=== PATIENT | female | born 1985 | race Caucasian/White ===

== ENCOUNTER 2017-09-09 20:01 | Emergency (ER) | payer OTHER ==
--- NOTE | 2017-09-09 21:23 | ER ---
Nurse's Notes [facility] Name: Majo Treadwell Age: 32 yrs Sex: Female : 1985 Arrival Date: 09/09/2017 Time: 20:03 Bed 27 Private MD: Reynaldo Gusman Diagnosis: Chronic pain syndrome;Unspecified abdominal pain-LEFT FLANK Presentation: 09/09 20:16 Presenting complaint: Patient states: L flank pain since this morning and vomited x 1. aa1 States, "I have 2 cysts on my kidney and it feels like something is stabbing it.". Transition of care: patient was not received from another setting of care. Onset of symptoms was September 09, 2017. Initial Sepsis Screen: Does the patient meet any 2 criteria? No. Patient's initial sepsis screen is negative. Does the patient have a suspected source of infection? No. Patient's initial sepsis screen is negative. Care prior to arrival: None. 20:16 Method Of Arrival: Ambulatory aa1 20:16 Acuity: STARR 3 aa1 Triage Assessment: 20:17 General: Appears in no apparent distress. uncomfortable, Behavior is appropriate for aa1 age, crying. 21:41 Pain: Complains of pain in left low back. 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 Diff; Crohn's; Depression; Endometrosis; Lupus; renal cysts; aa1 - PSHx: 20:17 Hysterectomy; Cholecystectomy; Tonsillectomy; aa1 - Immunization history:: Flu vaccine is up to date. - Social history:: Smoking status: Patient uses tobacco products, smokes one-half pack cigarettes per day. Screenin:40 Abuse screen: Denies threats or abuse. Nutritional screening: No deficits noted. tl3 Tuberculosis screening: No symptoms or risk factors identified. Fall Risk None identified. Assessment: 20:20 General: Appears uncomfortable, well groomed, well developed, well nourished, Behavior tl3 is calm, cooperative, appropriate for age. Neuro: Level of Consciousness is awake, alert, obeys commands, Oriented to person, place, time, situation, Appropriate for age. 21:39 Reassessment: Patient appears in no apparent distress at this time. No changes from tl3 previously documented assessment. Patient and/or family updated on plan of care and expected duration. Pain level reassessed. Patient is alert, oriented x 3, equal unlabored respirations, skin warm/dry/pink. pt upset about discharge, refuses to sign paperwork. Vital Signs: 20:17 BP 107 / 60; Pulse 85; Resp 18; Temp 97.7; Pulse Ox 100% on R/A; Weight 60.33 kg; aa1 Height 5 ft. 5 in. (165.10 cm); Pain 10/10; 20:17 Body Mass Index 22.13 (60.33 kg, 165.10 cm) aa1 ED Course: 20:03 Patient arrived in ED. am2 20:03 Reynaldo Gusman MD is Private Physician. am2 20:16 Triage completed. aa1 20:17 Arm band placed on right wrist. Patient placed in an exam room, on a stretcher. aa1 20:20 Nicolasa Ordoñez RN is Primary Nurse. tl3 20:34 Damian Dhaliwal MD is Attending Physician. gs 21:40 Patient has correct armband on for positive identification. tl3 21:40 No provider procedures requiring assistance completed. Patient did not have IV access tl3 during this emergency room visit. Administered Medications: No medications were administered Outcome: 21:22 Discharge ordered by . gs 21:40 Patient left the ED. tl3 21:40 Discharged to home ambulatory. tl3 21:40 Condition: stable 21:40 Discharge instructions given to pt would not sign discharge papers Signatures: Keesha Hager RN RN aa1 Margy Washburn am2 Damian Dhaliwal MD MD gs Nicolasa Ordoñez, RN RN tl3
--- NOTE | 2017-09-09 21:23 | EDPHYS ---
Physician Documentation [facility] Name: Majo Treadwell Age: 32 yrs Sex: Female : 1985 Arrival Date: 09/09/2017 Time: 20:03 Bed 27 Private MD: Reynaldo Gusman ED Physician Damian Dhaliwal HPI: 09/09 21:03 This 32 yrs old Female presents to ER via Ambulatory with complaints of Flank gs Pain. 21:03 The patient complains of pain in the left low back. The pain does not radiate. gs 21:03 Onset: The symptoms/episode began/occurred today. Modifying factors: The symptoms are gs alleviated by nothing. the symptoms are aggravated by nothing. Associated signs and symptoms: Pertinent positives: nausea. Severity of pain: At its worst the pain was moderate in the emergency department the pain is unchanged. The patient has experienced similar episodes in the past, chronically. 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 Diff; Crohn's; Depression; Endometrosis; Lupus; renal cysts; aa1 - PSHx: 20:17 Hysterectomy; Cholecystectomy; Tonsillectomy; aa1 - Immunization history:: Flu vaccine is up to date. - Social history:: Smoking status: Patient uses tobacco products, smokes one-half pack cigarettes per day. ROS: 21:03 Constitutional: Negative for fever. gs 21:03 Cardiovascular: Negative for chest pain. 21:03 Abdomen/GI: Negative for abdominal pain, diarrhea, black/tarry stool, rectal bleeding. 21:03 All other systems are negative. Exam: 21:03 Head/Face: Normocephalic, atraumatic. Eyes: Pupils equal round and reactive to light, gs extra-ocular motions intact. Lids and lashes normal. Conjunctiva and sclera are non-icteric and not injected. Cornea within normal limits. Periorbital areas with no swelling, redness, or edema. ENT: Nares patent. No nasal discharge, no septal abnormalities noted. Tympanic membranes are normal and external auditory canals are clear. Oropharynx with no redness, swelling, or masses, exudates, or evidence of obstruction, uvula midline. Mucous membranes moist. Neck: Trachea midline, no thyromegaly or masses palpated, and no cervical lymphadenopathy. Supple, full range of motion without nuchal rigidity, or vertebral point tenderness. No Meningismus. Chest/axilla: Normal chest wall appearance and motion. Nontender with no deformity. No lesions are appreciated. Cardiovascular: Regular rate and rhythm with a normal S1 and S2. No gallops, murmurs, or rubs. Normal PMI, no JVD. No pulse deficits. Respiratory: Lungs have equal breath sounds bilaterally, clear to auscultation and percussion. No rales, rhonchi or wheezes noted. No increased work of breathing, no retractions or nasal flaring. Abdomen/GI: Soft, non-tender, with normal bowel sounds. No distension or tympany. No guarding or rebound. No evidence of tenderness throughout. Skin: Warm, dry with normal turgor. Normal color with no rashes, no lesions, and no evidence of cellulitis. MS/ Extremity: Pulses equal, no cyanosis. Neurovascular intact. Full, normal range of motion. Neuro: Awake and alert, GCS 15, oriented to person, place, time, and situation. Cranial nerves II-XII grossly intact. Motor strength 5/5 in all extremities. Sensory grossly intact. Cerebellar exam normal. Normal gait. 21:03 Constitutional: The patient appears alert, awake. 21:03 Back: CVA tenderness, that is mild, is noted on the left, I AM BARELY TOUCHING HER SKIN AND SHE IS COMPLAINING OF TENDERNESS THAT REPRODUCES HER SYMPTOMS. Vital Signs: 20:17 BP 107 / 60; Pulse 85; Resp 18; Temp 97.7; Pulse Ox 100% on R/A; Weight 60.33 kg; aa1 Height 5 ft. 5 in. (165.10 cm); Pain 10/10; 20:17 Body Mass Index 22.13 (60.33 kg, 165.10 cm) aa1 MDM: 20:38 Patient medically screened. 21:03 Differential diagnosis: pyelonephritis, UTI, CHRONIC PAIN. Data reviewed: vital signs, nurses notes. Response to treatment: the patient's symptoms have mildly improved after treatment, and as a result, I will discharge patient. 09/09 21:01 Order name: Urine Dipstick-Ancillary (obtain specimen); Complete Time: 21:40 gs Administered Medications: No medications were administered Disposition: 09/09/17 21:22 Discharged to Home. Impression: Chronic pain syndrome, Unspecified abdominal pain - LEFT FLANK. - Condition is Stable. - Discharge Instructions: Chronic Pain, Flank Pain. - Medication Reconciliation Form, Thank You Letter, Antibiotic Education, Prescription Opioid Use form. - Follow up: Private Physician; When: Tomorrow; Reason: Recheck today's complaints, Re-evaluation by your physician. Signatures: Keesha Hager, RN RN aa1 Damian Dhaliwal MD MD Nicolasa Ordoñez RN RN tl3
[2017-09-09 21:52] VITALS: BP 107/60; TEMP 97.7; O2SAT 100
== END 2017-09-09 21:40 | disposition home or self-care (01) ==
LOC: ER 20:01
DX: G89.4 Chronic pain syndrome (principal); R10.9 Unspecified abdominal pain; Z88.0 Allergy status to penicillin; Z88.8 Allergy status to other drugs, medicaments and biological substances
CPT/HCPCS: 99281

== ENCOUNTER 2017-12-17 19:06 | Emergency (ER) | payer OTHER ==
--- OUTSIDE RECORDS SUMMARY | 2017-12-17 19:28 | XMS REPORT | Continuity of Care Document ---
:1985 Author Organization Interface Problems Problem Status Onset Classification Date Comments Source Date Reported ABDOMINAL PAIN Active [facility] 018 Hospital Discharge 08/24/2016 [facility] Diagnosis: Well 017 [place] adult exam Discharge 08/20/2016 Jolly Diagnosis: Altered 017 Hospital mental status Discharge 08/20/2016 [facility] Diagnosis: Acute 017 Hospital Crohn's disease Discharge 08/20/2016 Jolly Diagnosis: Anemia 017 Hospital Discharge 08/20/2016 [facility] Diagnosis: Seizure 017 Hospital OVERDOSE Active Jolly 017 Hospital Discharge 08/13/2016 [place] Diagnosis: Acute 017 [place] UTI Discharge 08/13/2016 [place] Diagnosis: Nausea 017 [facility] vomiting and diarrhea Discharge 08/13/2016 [place] Diagnosis: 017 [place] Abdominal pain, acute CROHNS FLARE UP Active [facility] 017 [place] Discharge 08/10/2016 [facility] Diagnosis: 017 [facility] Abdominal pain Discharge 08/10/2016 [facility] Diagnosis: Crohn's 017 [facility] colitis STOMACHE PAIN Active [facility] 017 [place] Discharge 08/06/2016 Jolly Diagnosis: Open 017 Hospital wound of foot ABSCESS ON FOOT Active Jolly 017 Hospital CHROMES PAIN Active [facility] 017 Hospital L SIDED WEAKNESS Active 017 [place] Discharge 03/07/2016 Jolly Diagnosis: 016 Hospital Port-a-cath site pain Discharge 03/07/2016 Jolly Diagnosis: 016 Hospital Musculoskeletal pain OTHER Active [place] 016 [place],[facility] Hospital C-DIFF, DIARRHEA, Active ABD PAIN 016 [place] CROHN'DISEASEN Active C-DIFF 016 [place] ACUTE COLITIS, Active INTRACTABLE 016 [place] ABDOMINAL PAULA VOMITING Active 016 [place] Clostridium Active Problem 08/24/2016 Problem Jolly difficile<sup>1, 016 added by Hospital, 2</sup> Discern [facility], Expert. [facility] [place],[facility] [place] CROHN'S DISEASE, Active HEMOPTYSIS 016 [place] CROHNS DISEASE Active [facility] FLARE-UP 016 Medical Center Discharge 08/09/2014 Jolly Diagnosis: Crohn 015 Hospital disease Discharge 08/09/2014 Jolly Diagnosis: Chronic 015 Hospital abdominal pain Discharge 08/06/2014 Jolly Diagnosis: Nausea, 015 Hospital vomiting, and diarrhea CROHN'S FLARE UP Active [facility] 015 Hospital NEW ONSET SEIZURE Active [facility] VS SYNCOPE 014 [place] SYNCOPE Active [facility] 014 [facility] [id number], MORBID Active [facility] OBESITY 014 [place] Diabetes Resolved Problem 11/23/2015 off mellitus<sup>2</mckee 014 medication [facility] p> for 1 month since gastric sleeve Diabetes Resolved Problem 10/23/2015 off [facility] mellitus<sup>1</mckee 014 medication Medical p> for 1 month [place], since [facility] Diabetes Resolved Problem 08/24/[address] [facility] mellitus<sup>3</mckee 014 medication [facility] p> for 1 month [facility], since gastric [place], sleeve [facility] [place] HIP PAIN Active [address] LUMP UNDER ARM Active [address] SHAKEY Active [address] Bipolar Active Problem 08/24/[address],[facility], H [facility], [place] Diabetes mellitus Active Problem 12/06/2013 [facility] Anxiety Resolved Problem 08/20/2016 [facility] Depression Resolved Problem 08/20/2016 [facility] Hidradenitis Resolved Problem 08/20/2016 [facility] suppurativa [facility] Lupus Active Problem 08/20/2016 [facility] Reflux Active Problem 08/20/2016 [facility] Anxiety Resolved Problem 06/21/2016 [facility], [place] Depression Resolved Problem 06/21/2016 [facility], [place] Hidradenitis Resolved Problem 06/21/2016 [facility], [place] Lupus Active Problem 06/21/2016 [facility], [place] Reflux Active Problem 06/21/2016 [facility], [place] Anxiety Resolved Problem 01/27/2016 [facility], [place] Clostridium Active Problem 11/23/2015 Problem difficile<sup>1</s added by [place] up> Discern Expert. Depression Resolved Problem 01/27/2016 [facility], [place] Hidradenitis Resolved Problem 01/27/2016 [facility], [place] Lupus Active Problem 01/27/2016 [facility], [place] Morbid obesity Active Problem 12/25/2015 [facility], [place] Reflux Active Problem 01/27/2016 [facility], [place] Morbid obesity Active Problem 08/09/2014 [facility] Final: Hemoptysis 11/27/2015 [place] Anxiety Resolved Problem 10/23/2015 [facility] Depression Resolved Problem 10/23/2015 [facility] Hidradenitis Resolved Problem 10/23/2015 [facility] Lupus Resolved Problem 10/23/2015 [facility] Morbid obesity Active Problem 10/23/2015 [facility] Reflux Active Problem 10/23/2015 [facility] Anxiety Resolved Problem 08/24/2016 [facility], [place] Crohns disease Active Problem 08/24/2016 [facility],M [facility] [place],M [facility], [place] Depression Resolved Problem 08/24/2016 [facility], [place] Hidradenitis Resolved Problem 08/24/2016 [facility], [place] Lupus Active Problem 08/24/2016 [facility], [place] Reflux Active Problem 08/24/2016 [facility], [place] MORBID OBESITY Active [facility] FEBRILE Active [facility] CONVULSIONS [place]OS [place] ILLNESS, Active [facility] [place] [facility] HEMOPTYSIS Active [place] CROHNS DISEASE Active [facility] [place] UNSPECIFIED Active MH ABDOMINAL PAIN [facility] ENTEROCOLITIS DUE Active MH TO CLOSTRIDIUM [place] DIFFICI CROHN'S DISEASE, Active MH UNSPECIFIED, [place] WITHOUT CO HEMIPLEGIA, Active MH UNSPECIFIED [facility] AFFECTING LEFT N Medications Medication Details Route Status Patient Ordering Order Source Instructions Provider Date predniSONE 20 mg 60 mg=3 tab, Active Jolly oral tablet PO, Daily, [address] [place] [address] Take 3 tablets for 60 mg dose, X 5 day, # 15 tab, 0 Refill(s) Acetaminophen 325 1 tab, Route: Inactive 08/17[facility] Jolly MG / Hydrocodone PO, Drug Form: [address] [place] [address] Bitartrate 5 MG TAB, Dosing Oral Tablet [Linton Weight 75, kg, 5/325] ONCE, STAT, Start date: 08/17/16 4:03:00 CDT, Stop date: 08/17/16 4:03:00 CDT Zofran ODT 4 mg, Route: Inactive Jolly PO, Drug form: [address] [place] [address] TABDIS, ONCE, Dosing Weight 75, kg, Priority: STAT, Start date: 08/17/16 4:03:00 CDT, Stop date: 08/17/16 4:03:00 CDT Dicyclomine 10 mg=1 cap, Active Jolly Hydrochloride 10 PO, QID-Before 2017 Hospital MG Oral Capsule Meals, # 40 [Bentyl] cap, 0 Refill(s) Sodium Chloride 1,000 mL, 1000 Inactive Jolly 0.154 MEQ/ML ml/hr, Infuse [address] [place] [address] Injectable Over: 1 hr, Solution Route: IV, 1,000, Drug form: INJ, ONCE, Priority: STAT, Dosing Weight 68.4 kg, Start date: 08/16/16 22:09:00 CDT, Duration: 1 doses or times, Stop date: 08/16/16 22:09:00 CDT Saline Flush 0.9% 10 mL, Route: No Longer Jolly IVP, Drug Active [address] [place] [address] Form: INJ, Dosing Weight 68.4, kg, PRN, PRN Line Flush, Start date: 08/16/16 22:09:00 CDT, Duration: 30 day, Stop date: 09/15/16 22:08:00 CDTNotes: (Same as: BD Posiflush) levofloxacin 750 750 mg=1 tab, Active [facility] mg oral tablet PO, Daily, X 7 2017 [place] day, # 7 tab, 0 Refill(s) Ondansetron 8 MG 8 mg=1 tab, Active [place] Disintegrating PO, TID, PRN 2017 [place] Tablet [Zofran] Nausea and Vomiting, Dissolve tab under tongue, X 4 day, # 10 tab, 0 Refill(s) Acetaminophen 300 1 - 2 tab, PO, Active [facility] MG / Codeine Q6H, PRN Pain, 2017 [place] Phosphate 30 MG not to exceed Oral Tablet 4000 mg [Tylenol with acetaminophen Codeine #3] per day, X 4 day, # 32 tab, 0 Refill(s) Levofloxacin 750 mg, 1 tab, Inactive Sugar Route: PO, 2016 [facility] Drug form: TAB, ONCE, Dosing Weight 68.4, kg, Start date: 08/10/16 0:39:00 CDT, Stop date: 08/10/16 0:39:00 CDTNotes: Do not give w/antacids, dairy pdt & minerals Take 1 hr before or 2 hr after dairy products Zofran 4 mg, 2 mL, Inactive [facility] Route: IVP2016 [facility] Drug form: INJ, ONCE, Dosing Weight 68.4, kg, Priority: STAT, Start date: 08/10/16 0:39:00 CDT, Stop date: 08/10/16 0:39:00 CDTNotes: (Same as: Zofran) MEDICATION WASTE Product Size: 4 mg Product Wasted: ___ mg Morphine 4 mg, 1 mL, Inactive Sugar Route: IVP2016 [facility] Drug form: SOLN, ONCE, Dosing Weight 68.4, kg, Priority: STAT, Start date: 08/10/16 0:39:00 CDT, Stop date: 08/10/16 0:39:00 CDTNotes: (Same as:MORPhine Sulfate) Solu-Medrol 125 mg, 2 mL, Inactive Sugar Route: IVP2016 [facility] Drug form: INJ, ONCE, Dosing Weight 68.4, kg, Priority: STAT, Start date: 08/09/16 22:20:00 CDT, Stop date: 08/09/16 22:20:00 CDTNotes: (Same as:Solu-MEDROL , A-Methapred) Phenergan 25 mg, 1 mL, Inactive Sugar Route: IM, 2016 [facility] Drug form: INJ, ONCE, Dosing Weight 68.4, kg, Priority: STAT, Start date: 08/09/16 22:19:00 CDT, Stop date: 08/09/16 22:19:00 CDTNotes: Do not give IV push. (Same as: Phenergan) Morphine 4 mg, 1 mL, Inactive Sugar Route: IVP, 2016 [facility] Drug form: SOLN, ONCE, Dosing Weight 68.4, kg, Priority: STAT, Start date: 08/09/16 22:19:00 CDT, Stop date: 08/09/16 22:19:00 CDTNotes: (Same as:MORPhine Sulfate) Saline Flush 0.9% 10 mL, Route: No Longer [facility] IVP, Drug Active 2016 [facility] Form: INJ, Dosing Weight 68.4, kg, PRN, PRN Line Flush, Start date: 08/09/16 21:12:00 CDT, Duration: 30 day, Stop date: 09/08/16 21:11:00 CDTNotes: (Same as: BD Posiflush) Prednisone 50 MG 50 mg=1 tab, Active [facility] Oral Tablet PO, Daily, X 7 2016 day, # 7 tab, 0 Refill(s) heparin, porcine 300 unit, 3 Inactive [facility] mL, Route: IV 2016 [facility], Drug form: SOLN, PRN, Dosing Weight 70.045, kg, PRN Line Flush, Start date: 08/07/16 1:45:00 CDT, Duration: 30 day, Stop date: 09/06/16 1:44:00 CDTNotes: (Same as: Heparin Lock Flush) Prednisone 1 MG 1 mg, 1 tab, Active [facility] Oral Tablet PO, Daily, 10 2016 tab, Substitution Allowed Ondansetron 4 MG 4 mg=1 tab, Active [facility] Disintegrating PO, TID, PRN 2017 [place] Tablet Nausea / Vomiting, Dissolve tab under tongue, X 3 day, # 10 tab, 0 Refill(s) Acetaminophen 300 1 - 2 tab, PO, Active [facility] MG / Codeine Q6H, PRN Pain, 2017 [place] Phosphate 30 MG X 3 day, # 24 Oral Tablet tab, 0 [Tylenol with Refill(s) Codeine #3] Morphine 4 mg, 1 mL, Inactive [facility] Route: IVP2016 [facility] Drug form: SOLN, ONCE, Dosing Weight 70.045, kg, Priority: STAT, Start date: 08/07/16 1:34:00 CDT, Stop date: 08/07/16 1:34:00 CDTNotes: (Same as:MORPhine Sulfate) Zofran 4 mg, 2 mL, Inactive Sugar Stop date: 2016 [place] 08/07/16 1:02:00 CDTNotes: (Same as: Zofran) MEDICATION WASTE Product Size: 4 mg Product Wasted: ___ mg Solu-Medrol 125 mg, 2 mL, Inactive Sugar Route: IVP2016 [facility] Drug form: INJ, ONCE, Dosing Weight 70.045, kg, Priority: STAT, Start date: 08/06/16 23:10:00 CDT, Stop date: 08/06/16 23:10:00 CDTNotes: (Same as:Solu-MEDROL , A-Methapred) Morphine 4 mg, 1 mL, Inactive Sugar Route: IVP2016 [facility] Drug form: SOLN, ONCE, Dosing Weight 70.045, kg, Priority: STAT, Start date: 08/06/16 23:05:00 CDT, Stop date: 08/06/16 23:05:00 CDTNotes: (Same as:MORPhine Sulfate) Zofran 4 mg, 2 mL, Inactive Sugar Route: IVP2016 [facility] Drug form: INJ, ONCE, Dosing Weight 70.045, kg, Priority: STAT, Start date: 08/06/16 23:05:00 CDT, Stop date: 08/06/16 23:05:00 CDTNotes: (Same as: Zofran) MEDICATION WASTE Product Size: 4 mg Product Wasted: ___ mg Saline Flush 0.9% 10 mL, Route: No Longer [facility] IVP, Drug Active 2016 [place] Form: INJ, Dosing Weight 70.045, kg, PRN, PRN Line Flush, Start date: 08/06/16 22:41:00 CDT, Duration: 30 day, Stop date: 09/05/16 22:40:00 CDTNotes: (Same as: BD Posiflush) Sodium Chloride 1,000 mL, Inactive Sugar 0.154 MEQ/ML 2,000 ml/hr, 2017 [place] Injectable Infuse Over: Solution 30 minutes, Route: IV, 1,000, Drug form: INJ, ONCE, Priority: STAT, Dosing Weight 70.045 kg, Start date: 08/06/16 22:41:00 CDT, Duration: 1 doses or times, Stop date: 08/06/16 22:41:00 CDT Acetaminophen 300 1 tab, PO, No Longer Jolly MG / Codeine Q6H, PRN Pain, Active 2016 Hospital Phosphate 30 MG X 2 day, # 8 Oral Tablet tab, 0 [Tylenol with Refill(s) Codeine #3] clindamycin 300 mg 300 mg=1 cap, Active Jolly oral capsule PO, Q6H, X 10 2016 Hospital day, # 40 cap, 0 Refill(s) Acetaminophen 300 1 tab, Route: Inactive Jolly MG / Codeine PO, Drug Form: 2016 Hospital Phosphate 30 MG TAB, Dosing Oral Tablet Weight 68.182, [Tylenol with kg, ONCE, Codeine #3] STAT, Start date: 08/03/16 1:34:00 CDT, Stop date: 08/03/16 1:34:00 CDT Clindamycin 300 mg, Route: Inactive Jolly PO, ONCE, 2017 Hospital Dosing Weight 68.182, kg, Priority: STAT, Start date: 08/03/16 1:34:00 CDT, Stop date: 08/03/16 1:34:00 CDT Heparin Lock 100 500 unit, 5 Inactive units/mL INJ mL, Route: 2016 [place] solution INJ, Drug Form: SOLN, Dosing Weight 69.545, kg, ONCE, Start date: 06/18/16 12:00:00 WEB CONSULTANT, Stop date: 06/18/16 12:00:00 CSTNotes: (Same as: Heparin Lock Flush) Sumatriptan 25 MG 25 mg=1 tab, Active Oral Tablet PO, Daily, PRN 2016 [facility] [Imitrex] for migraine headache, X 9 day, # 9 tab, 0 Refill(s) Hydroxychloroquine 200 mg, 1 tab, Inactive Sulfate 200 MG Route: PO, 2016 [facility] Oral Tablet Drug form: [Plaquenil] TAB, BID, Dosing Weight 69.545, kg, Start date: 06/18/16 9:00:00 WEB CONSULTANT, Duration: 30 day, Stop date: 07/17/16 17:00:00 CSTNotes: (Same as: Plaquenil) Hydroxychloroq uine sulfate 200 wp=930 mg hydroxychloroq uine base. If treating malaria, verify dose as salt vs. base per CDC guideline Famotidine 20 MG 20 mg, 1 tab, Inactive Oral Tablet Route: PO2016 [facility] Drug form: TAB, BID, Dosing Weight 69.545, kg, Start date: 06/18/16 9:00:00 WEB CONSULTANT, Duration: 30 day, Stop date: 07/17/16 17:00:00 CSTNotes: (Same as: Pepcid) Divalproex Sodium 500 mg, 1 tab, Inactive 500 MG Enteric Route: PO2016 [facility] Coated Tablet Drug form: [Depakote] ECTAB, BID, Dosing Weight 69.545, kg, Start date: 06/18/16 9:00:00 WEB CONSULTANT, Duration: 30 day, Stop date: 07/17/16 17:00:00 CSTNotes: (Same as: Depakote Delayed Release) Do not confuse with the extended-relea se tablet. Delayed absorption enteric coated tablet. Do not crush Cholestyramine 4 gm, 1 pkt, Inactive Resin Route: PO2016 [facility] Drug form: PDR/REC, BID, Dosing Weight 69.545, kg, Start date: 06/18/16 9:00:00 WEB CONSULTANT, Duration: 30 day, Stop date: 07/17/16 17:00:00 CSTNotes: (Same As: Questran) Budesonide 9 mg, 3 cap, Inactive Route: PO, 2016 [facility] Drug form: ERCAP, Daily, Dosing Weight 69.545, kg, Start date: 06/18/16 9:00:00 WEB CONSULTANT, Duration: 30 day, Stop date: 07/17/16 9:00:00 CSTNotes: (Same As: Entocort EC or Budesonide 3 mg EC / ERC) "Do Not Crush" Imuran 50 mg, 1 tab, Inactive Route: PO, 2016 [facility] Drug form: TAB, Daily, Dosing Weight 69.545, kg, Start date: 06/18/16 9:00:00 WEB CONSULTANT, Duration: 30 day, Stop date: 07/17/16 9:00:00 CSTNotes: (Same As: Imuran) Remeron 15 mg, 1 tab, No Longer Route: PO, Active 2016 [facility] Drug form: TAB, Bedtime, Dosing Weight 69.545, kg, Start date: 06/17/16 21:00:00 WEB CONSULTANT, Duration: 30 day, Stop date: 07/16/16 21:00:00 CSTNotes: (Same as:Remeron) Ativan 0.5 mg, 1 tab, No Longer Route: PO, Active 2016 [facility] Drug form: TAB, TID, Dosing Weight 69.545, kg, PRN Anxiety, Start date: 06/17/16 17:54:00 WEB CONSULTANT, Duration: 30 day, Stop date: 07/17/16 17:53:00 CSTNotes: (Same as: Ativan) Trazodone 25 mg, PO, as Active needed 3 times 2016 [facility] a week, 0 Refill(s) Ativan 0.5 mg, 0.25 Inactive mL, Route: IV, 2016 [facility] Drug form: INJ, ONCE, Dosing Weight 69.545, kg, For MRI, Priority: NOW, Start date: 06/17/16 11:44:00 WEB CONSULTANT, Stop date: 06/17/16 11:44:00 CSTNotes: (Same as: Ativan) Acetaminophen 325 2 tab, Route: No Longer 01/28/ MH MG / Hydrocodone PO, Drug Form: Active 2016 [facility] Bitartrate 5 MG TAB, Dosing Oral Tablet [Linton Weight 69.545, 5/325] kg, Q6H, PRN Pain Score 4-6, pt states she not allergic to norco, Start date: 06/16/16 16:05:00 WEB CONSULTANT, Duration: 30 day, Stop date: 07/16/16 16:04:00 CSTNotes: (Same as: Linton 325/5) Do not exceed 4gm/day of acetaminophen. Ativan 0.5 mg, 1 tab, No Longer Route: PO, Active 2016 [facility] Drug form: TAB, ONCE, Dosing Weight 69.545, kg, PRN Anxiety, Start date: 06/16/16 16:04:00 CSTNotes: (Same as: Ativan) Tylenol 650 mg, 2 tab, No Longer Route: PO, Active 2016 [facility] Drug form: TAB, Q6H, PRN Headache 1-3, Start date: 06/16/16 14:00:00 WEB CONSULTANT, Duration: 30 day, Stop date: 07/16/16 13:59:00 CSTNotes: Do not exceed 4 gm/day. (Same as: Tylenol) Zofran 4 mg, 2 mL, Inactive Jolly Route: IVP2015 Hospital Drug form: INJ, ONCE, Dosing Weight 72.727, kg, Priority: STAT, Start date: 03/04/16 18:34:00 CDT, Stop date: 03/04/16 18:34:00 CDTNotes: (Same as: Zofran) MEDICATION WASTE Product Size: 4 mg Product Wasted: ___ mg Morphine 4 mg, 1 mL, Inactive Jolly Route: IVP, 2015 Hospital Drug form: INJ, ONCE, Dosing Weight 72.727, kg, Priority: STAT, Start date: 03/04/16 18:34:00 CDT, Stop date: 03/04/16 18:34:00 CDTNotes: (Same as:MORPhine Sulfate) Saline Flush 0.9% 10 mL, Route: No Longer Jolly IVP, Drug Active 2015 Hospital Form: INJ, Dosing Weight 72.727, kg, PRN, PRN Line Flush, Start date: 03/04/16 18:34:00 CDT, Duration: 30 day, Stop date: 04/03/16 17:33:00 CSTNotes: (Same as: BD Posiflush) Streptococcus 0.5 mL, Route: No Longer pneumoniae IM, Drug Form: Active 2015 [facility] serotype 1 INJ, Daily, capsular antigen Start date: diphtheria [id number] 01/25/16 protein conjugate 9:00:00 CDT, vaccine / Stop date: Streptococcus 01/25/16 pneumoniae 17:00:00 serotype 14 CDTNotes: capsular antigen Lightly roll diphtheria [id number] vial (DO NOT protein conjugate SHAKE) before vaccine / administration Streptococcus . (Same as: pneumoniae Prevnar 13) serotype 18C capsular antigen d Acetaminophen 325 See Active MG / Hydrocodone Instructions, 2015 [facility] Bitartrate 10 MG 1 tab PO Q12H Oral Tablet [[place]inton prn pain, # 15 10/325] tab, 0 Refill(s), given to patient Acetaminophen 325 1 tab, Route: Inactive MG / Hydrocodone PO, Drug Form: 2015 [facility] Bitartrate 10 MG TAB, Dosing Oral Tablet [[place] Weight 68.892, 10/325] kg, Q6H, PRN Pain Score 4-6, Start date: 01/24/16 17:03:00 CDT, Duration: 30 day, Stop date: 02/23/16 17:02:00 CDTNotes: Do not exceed 4gm/day of acetaminophen. (Same as: Linton 325/10) Dilaudid 0.5 mg, 0.5 Inactive mL, Route: 2015 [facility] IVP, Drug form: INJ, ONCE, Dosing Weight 68.892, kg, Priority: STAT, Start date: 01/24/16 16:56:00 CDT, Stop date: 01/24/16 16:56:00 CDT sodium chloride 10 mL, Route: Inactive IVP, Start 2015 [facility] date: 01/24/16 16:25:00 CDT, Duration: 30 day, Stop date: 02/23/16 16:24:00 CDT, PRN Other -See CommentNotes: preservative free. heparin flush 500 unit, 5 Inactive mL, Route: 2015 IVP, Drug form: SOLN, Q30D, PRN Other -See Comment, Start date: 01/24/16 16:25:00 CDT, Duration: 30 day, Stop date: 02/23/16 16:24:00 CDTNotes: (Same as: Heparin Lock Flush) fidaxomicin 200 mg 200 mg=1 tab, Active oral tablet PO, BID, X 10 2015, # 20 tab, 0 Refill(s) Acetaminophen 325 1 tab, Route: Inactive MG / Hydrocodone PO, Drug Form: 2015 Bitartrate 5 MG TAB, Dosing Oral Tablet [[place] Weight 68.892, 5/325] kg, ONCE, Start date: 01/24/16 15:00:00 CDT, Stop date: 01/24/16 15:00:00 CDTNotes: (Same as: Linton 325/5) Do not exceed 4gm/day of acetaminophen. Famotidine 20 MG 20 mg=1 tab, Active Oral Tablet PO, BID, # 60 2015 tab, 0 Refill(s) D5W 1/2NS + KCL 1,000 mL, No Longer 40mEq/L 1000ml Rate: 100 Active 2015 (Premix) 1,000 mL ml/hr, Infuse over: 10 hr, Route: IV, Dosing Weight 68.892 kg, Total Volume: 1,000, Start date: 01/23/16 14:58:00 CDT, Duration: 30 day, Stop date: 02/22/16 14:57:00 CDTNotes: PREMIX IV - Do Not Alter WASTE: F/P - Sink; E - Municipal Trash [facility] Remeron 15 mg, 1 tab, No Longer Route: PO, Active 2015 Drug form: TAB, Bedtime, Dosing Weight 68.892, kg, Start date: 01/22/16 21:00:00 CDT, Duration: 30 day, Stop date: 02/20/16 21:00:00 CDTNotes: (Same as:Remeron) Famotidine 20 MG 20 mg, 1 tab, No Longer Oral Tablet Route: PO, 2015 [facility] Drug form: TAB, BID, Dosing Weight 68.892, kg, Start date: 01/22/16 18:00:00 CDT, Duration: 30 day, Stop date: 02/21/16 17:00:00 CDTNotes: (Same as: Pepcid) fidaxomicin 200 mg, 1 tab, No Longer Route: PO, Active 2015 [facility] Drug form: TAB, [id number], Dosing Weight 68.892, kg, Start date: 01/22/16 18:00:00 CDT, Duration: 10 day, Stop date: 02/01/16 6:00:00 CDTNotes: Reserved for use by ID Physicians in patients with positive C. difficile infection, refractory to vancomycin and metronidazole. (Same as: Dificid) potassium chloride 40 mEq, 2 tab, Inactive Route: PO, 2015 [facility] Drug form: ERTAB, ONCE, Dosing Weight 68.892, kg, Start date: 01/22/16 12:38:00 CDT, Stop date: 01/22/16 12:38:00 CDTNotes: (Same as: K-Dur 20) "Do Not Crush" With food and full glass of water Divalproex Sodium 500 mg, 2 tab, No Longer 500 MG Enteric Route: PO, Active 2015 [facility] Coated Tablet Drug form: [Depakote] ECTAB, BID, Dosing Weight 68.892, kg, Start date: 01/22/16 9:00:00 CDT, Duration: 30 day, Stop date: 02/20/16 17:00:00 CDTNotes: (Same as: Depakote Delayed Release) Do not confuse with the extended-relea se tablet. Delayed absorption, enteric coated tablet. Do not crush Budesonide 9 mg, 3 cap, No Longer Route: PO, Active 2015 [facility] Drug form: ERCAP, Daily, Dosing Weight 68.892, kg, Start date: 01/22/16 9:00:00 CDT, Duration: 30 day, Stop date: 02/20/16 9:00:00 CDTNotes: (Same As: Entocort EC or Budesonide 3 mg EC / ERC) "Do Not Crush" Cholestyramine 4 gm, 1 pkt, Inactive Resin Route: PO, 2015 [facility] Drug form: PDR/REC, BID, Dosing Weight 68.892, kg, Start date: 01/22/16 9:00:00 CDT, Duration: 30 day, Stop date: 02/20/16 17:00:00 CDTNotes: (Same As: Questran) Celexa 40 mg, 4 tab, No Longer Route: PO, Active 2015 [facility] Drug form: TAB, Daily, Dosing Weight 68.892, kg, Start date: 01/22/16 9:00:00 CDT, Duration: 30 day, Stop date: 02/20/16 9:00:00 CDT Imuran 100 mg, 2 tab, No Longer Route: PO, Active 2015 [facility] Drug form: TAB, Daily, Dosing Weight 68.892, kg, Start date: 01/22/16 9:00:00 CDT, Duration: 30 day, Stop date: 02/20/16 9:00:00 CDTNotes: (Same As: Imuran) Hydroxyzine 50 mg, 2 cap, No Longer Hydrochloride 50 Route: PO, Active 2015 [facility] Oral Capsule Drug form: CAP, TID, Dosing Weight 68.892, kg, Start date: 01/22/16 9:00:00 CDT, Duration: 30 day, Stop date: 02/20/16 17:00:00 CDTNotes: (Same as: Vistaril) Hydroxychloroquine 200 mg, 1 tab, No Longer Sulfate 200 MG Route: PO, Active 2015 [facility] Oral Tablet Drug form: TAB, BID, Dosing Weight 68.892, kg, Start date: 01/22/16 9:00:00 CDT, Duration: 30 day, Stop date: 02/20/16 17:00:00 CDTNotes: (Same as: Plaquenil) Hydroxychloroq uine sulfate 200 zc=[id number] mg hydroxychloroq uine base. If treating malaria, verify dose as salt vs. base per CDC guideline Protonix 40 mg, 1 tab, Inactive Route: PO, 2015 [facility] Drug form: ECTAB, BID-Before Meals, Dosing Weight 68.892, kg, Start date: 01/22/16 7:30:00 CDT, Duration: 30 day, Stop date: 02/20/16 16:30:00 CDTNotes: Tablet should not be chewed or crushed. (Same as: Protonix) Flagyl 500 mg, 100 Inactive mL, Route: 2015 [facility] IVPB, Drug form: INJ, ABXQ6H, Dosing Weight 68.892, kg, Start date: 01/22/16 0:00:00 CDT, Duration: 30 day, Stop date: 02/20/16 18:00:00 CDTNotes: (Same as: Flagyl) Avoid alcohol. Vancomycin 500 mg, 10 mL, Inactive Route: PO, 2015 [facility] Drug form: SUSP, ABXQ6H, Dosing Weight 68.892, kg, Start date: 01/22/16 0:00:00 CDT, Duration: 30 day, Stop date: 02/20/16 18:00:00 CDTNotes: TIME CRITICAL MEDICATION "DILUTE EACH DOSE WITH 30ML OF WATER OR APPLE/ORANGE JUICE PRIOR TO ADMINISTRATION " Alprazolam 1 MG 1 mg, 1 tab, No Longer Oral Tablet Route: PO, Active 2015 [facility] Drug form: TAB, Bedtime, Dosing Weight 68.892, kg, Priority: NOW, Start date: 01/21/16 23:13:00 CDT, Duration: 30 day, Stop date: 02/20/16 21:00:00 CDTNotes: With food or milk (Same as: Xanax) Promethazine 12.5 mg, 1 No Longer tab, Route: Active 2015 [facility] PO, Drug form: TAB, Q4H, Dosing Weight 68.892, kg, PRN Nausea & Vomiting, Start date: 01/21/16 23:05:00 CDT, Duration: 30 day, Stop date: 02/20/16 23:04:00 CDTNotes: (Same as: Phenergan) Ondansetron 4 mg, Route: Inactive IVP, Q8H, 2015 Dosing Weight 68.892, kg, PRN Nausea & Vomiting, Start date: 01/21/16 23:05:00 CDT, Duration: 30 day, Stop date: 02/20/16 23:04:00 CDT Hydromorphone 0.5 mg, 0.5 No Longer mL, Route: Active 2015 [facility] IVP, Drug form: INJ, Q3H, Dosing Weight 68.892, kg, PRN Pain Score 7-10, Start date: 01/21/16 23:05:00 CDT, Duration: 30 day, Stop date: 02/20/16 23:04:00 CDT Sodium Chloride 1,000 mL, No Longer 0.154 MEQ/ML Rate: 125 Active 2015 [facility] Injectable ml/hr, Infuse Solution over: 8 hr, Route: IV, Dosing Weight 68.892 kg, Total Volume: 1,000, Start date: 01/21/16 23:05:00 CDT, Duration: 30 day, Stop date: 02/20/16 23:04:00 CDT Saline Flush 0.9% 10 ml, Route: No Longer IVP, Drug Active 2015 [facility] Form: INJ, Dosing Weight 68.892, kg, PRN, PRN Line Flush, Start date: 01/21/16 23:05:00 CDT, Duration: 30 day, Stop date: 02/20/16 23:04:00 CDTNotes: (Same as: BD Posiflush) Remeron 15 mg, 1 tab, Inactive Route: PO, 2015 [facility] Drug form: TAB, Bedtime, Dosing Weight 69.602, kg, Start date: 12/22/15 21:00:00 CDT, Duration: 30 day, Stop date: 01/20/16 21:00:00 CDTNotes: (Same as:Remeron) heparin, porcine 100 unit, 1 Inactive mL, Route: 2015 [facility] IVP, Drug form: SOLN, PRN, Dosing Weight 69.602, kg, PRN Line Flush, Priority: NOW, Start date: 12/22/15 13:40:00 CDT, Duration: 30 day, Stop date: 01/21/16 13:39:00 CDT, flush for pick line or [id number] es: (Same as: Heparin Lock Flush) Mirtazapine 15 MG 15 mg, PO, Active Oral Tablet Bedtime, # 20 2015 [facility] [Remeron] tab, 0 Refill(s) Metronidazole 500 500 mg=1 tab, Active MG Oral Tablet PO, Q8H, X 7 2015 [facility] [Flagyl] day, # 21 tab, 0 Refill(s) Alprazolam 0.5 MG 0.5 mg, 1 tab, Inactive Oral Tablet Route: PO, 2015 [Xanax] Drug form: TAB, TID, Dosing Weight 69.602, kg, PRN Anxiety, Start date: 12/22/15 12:59:00 CDT, Duration: 30 day, Stop date: 01/21/16 12:58:00 CDTNotes: With food or milk (Same as: Xanax) Alprazolam 0.5 MG 0.5 mg, 1 tab, No Longer Oral Tablet Route: PO, Active 2015 [facility] [Xanax] Drug form: TAB, BID, Dosing Weight 69.602, kg, PRN Anxiety, Start date: 12/21/15 17:55:00 CDT, Duration: 30 day, Stop date: 01/20/16 17:54:00 CDTNotes: With food or milk (Same as: Xanax) Cholestyramine 4 gm, 1 pkt, No Longer [place]in Route: PO, Active 2015 [facility] Drug form: PDR/REC, Daily, Dosing Weight 69.602, kg, Start date: 12/21/15 9:00:00 CDT, Duration: 30 day, Stop date: 01/19/16 9:00:00 CDTNotes: (Same As: Questran) D5W 1/2NS + KCL 1,000 mL, No Longer 10mEq/L 1000ml Rate: 60 Active 2015 [facility] (Premix) 1,000 mL ml/hr, Infuse over: 16.7 hr, Route: IV, Dosing Weight 69.602 kg, Total Volume: 1,000, Start date: 12/20/15 18:01:00 CDT, Stop date: 01/19/16 18:00:00 CDTNotes: PREMIX IV - Do Not Alter WASTE: F/P - Sink; E - Municipal Trash Bin Vancomycin 125 mg, 2.5 No Longer mL, Route: PO, Active 2015 [facility] Drug form: SUSP, ABXQ6H, Dosing Weight 69.602, kg, Start date: 12/20/15 18:00:00 CDT, Stop date: 01/19/16 12:00:00 CDTNotes: TIME CRITICAL MEDICATION "DILUTE EACH DOSE WITH 30ML OF WATER OR APPLE/ORANGE JUICE PRIOR TO ADMINISTRATION " Dextrose 5% with 1,000 mL, Inactive 0.45% NaCl IV 1000 Rate: 100 2015 [facility] mL ml/hr, Infuse over: 10 hr, Route: IV, Dosing Weight 69.602 kg, Total Volume: 1,000, Start date: 12/20/15 17:48:00 CDT, Duration: 30 day, Stop date: 01/19/16 17:47:00 CDT Imuran Daily, 0 No Longer Refill(s) Active 2015 [facility] Alprazolam 1 MG 1 mg=1 tab, Active Oral Tablet PO, TID, PRN 2015 [facility] [Xanax] Anxiety, 0 Refill(s) Citalopram 40 MG 40 mg=1 tab, No Longer Oral Tablet PO, Daily, # Active 2015 [facility] [Celexa] 30 tab, 0 Refill(s) Divalproex Sodium 500 mg=1 tab, Active 500 MG Enteric PO, BID, # 60 2015 [facility] Coated Tablet tab, 0 [Depakote] Refill(s) Hydroxychloroquine 200 mg=1 tab, No Longer Sulfate 200 MG PO, Daily, 0 Active 2015 [facility] Oral Tablet Refill(s) [Plaquenil] Dilaudid 0.5 mg, 0.5 No Longer mL, Route: Active 2015 [facility] IVP, Drug form: INJ, Q4H, Dosing Weight 69.602, kg, PRN Pain Score 7-10, Start date: 12/20/15 13:31:00 CDT, Duration: 30 day, Stop date: 01/19/16 13:30:00 CDT Acetaminophen 325 1 tab, Route: No Longer MG / Hydrocodone PO, Drug Form: Active 2015 [facility] Bitartrate 10 MG TAB, Dosing Oral Tablet [[place] Weight 69.602, 10/325] kg, Q4H, PRN Pain Score 7-10, Start date: 12/20/15 10:18:00 CDT, Duration: 30 day, Stop date: 01/19/16 10:17:00 CDTNotes: Do not exceed 4gm/day of acetaminophen. (Same as: Linton 325/10) Metronidazole 500 mg, 100 No Longer mL, Route: IV, Active 2015 [facility] Drug form: INJ, ABXQ6H, Dosing Weight 68.182, kg, Priority: STAT, Start date: 12/20/15 5:49:00 CDT, Duration: 30 day, Stop date: 01/18/16 23:49:00 CDTNotes: (Same as: Flagyl) Avoid alcohol. Morphine 4 mg, 2 mL, Inactive Route: IVP, 2015 [facility] Drug form: INJ, Q4H, Dosing Weight 68.182, kg, PRN Pain Score 7-10, Start date: 12/20/15 5:49:00 CDT, Duration: 30 day, Stop date: 01/19/16 5:48:00 CDTNotes: (Same as:MORPhine Sulfate) Ondansetron 4 mg, 2 mL, No Longer Route: IVP, [facility] 2015 [facility] Drug form: INJ, Q6H, Dosing Weight 68.182, kg, PRN Nausea & Vomiting, Start date: 12/20/15 5:49:00 CDT, Duration: 30 day, Stop date: 01/19/16 5:48:00 CDTNotes: (Same as: Zofran) MEDICATION WASTE Product Size: 4 mg Product Wasted: ___ mg Docusate 100 mg, 1 cap, No Longer Route: PO, Active 2015 [facility] Drug form: CAP, BID, Dosing Weight 68.182, kg, PRN Constipation, Start date: 12/20/15 5:49:00 CDT, Duration: 30 day, Stop date: 01/19/16 5:48:00 CDTNotes: (Same as: Colace) (Do Not Crush) Dilaudid 0.5 mg, Route: Inactive IVP, ONCE, 2015 [facility] Dosing Weight 68.182, kg, Priority: STAT, Start date: 12/20/15 4:11:00 CDT, Stop date: 12/20/15 4:11:00 CDT Morphine 4 mg, Route: Inactive IVP, Drug 2015 [facility] form: INJ, ONCE, Dosing Weight 68.182, kg, Priority: STAT, Start date: 12/20/15 1:17:00 CDT, Stop date: 12/20/15 1:17:00 CDT Zofran 4 mg, Route: Inactive IVP, Drug 2015 [facility] form: INJ, ONCE, Dosing Weight 68.182, kg, Priority: STAT, Start date: 12/20/15 1:17:00 CDT, Stop date: 12/20/15 1:17:00 CDT Sodium Chloride 1,000 mL, Inactive 0.154 MEQ/ML 1,000 ml/hr, 2015 [facility] Injectable Infuse Over: 1 Solution Hour, Route: IV, ONCE, Priority: STAT, Dosing Weight 68.182 kg, Start date: 12/20/15 1:17:00 CDT, Duration: 1 doses or times, Stop date: 12/20/15 1:17:00 CDT heparin flush 500 unit, 5 Inactive mL, Route: 2015 [facility] IVP, Drug form: SOLN, Q30D, PRN Line Flush, Start date: 11/24/15 11:13:00 CDT, Duration: 30 day, Stop date: 12/24/15 11:12:00 CDTNotes: (Same as: Heparin Lock Flush) sodium chloride 20 mL, Route: Inactive IVP, Start 2015 [facility] date: 11/24/15 11:13:00 CDT, Duration: 30 day, Stop date: 12/24/15 11:12:00 CDT, PRN Line FlushNotes: preservative free. ketOROLAC 15 mg/mL 15 mg, 1 mL, Inactive injectable Route: IV, 2015 [facility] solution Drug form: INJ, ONCE, Dosing Weight 70.682, kg, PRN Pain Score 4-6, Priority: STAT, Start date: 11/24/15 10:02:00 CDTNotes: (Same as:Toradol) IV bolus must be given >15 seconds. Give IM administration slowly and deeply into the muscle. Not for use > 4 days. Sodium Chloride 1,000 mL, Inactive 0.154 MEQ/ML Rate: 2015 [facility] Injectable ml/hr, Infuse Solution over: 40 hr, Route: IV, Dosing Weight 70.682 kg, Total Volume: 1,000, Start date: 11/24/15 8:26:00 CDT, Duration: 1 day, Stop date: 11/25/15 8:25:00 CDT POLYETHYLENE 238 gm, Route: No Longer GLYCOL 3350 PO, Drug form: [facility] 2015 [facility] PDR/REC, Daily, Dosing Weight 70.682, kg, Start date: 11/23/15 18:00:00 CDT, Duration: 1 day, Stop date: 11/24/15 9:00:00 CDTNotes: Same as: MiraLax vancomycin 250 125 mg=2.5 mL, Active mg/5 mL oral PO, Q6H, X 14 2015 [facility] solution day, # 140 mL, 0 Refill(s) methylPREDNISolone 40 mg, 1 mL, No Longer SODium SUCCinate Route: IV, 2015 [facility] Drug form: INJ, Daily, Dosing Weight 70.682, kg, Start date: 11/23/15 9:00:00 CDT, Duration: 30 day, Stop date: 12/22/15 9:00:00 CDTNotes: (Same as:Solu-MEDROL , A-Methapred) GoLYTELY 1 Liter, No Longer Route: PO, Active 2015 [facility] Drug Form: PDR/REC, ONCE, Start date: 11/23/15 6:00:00 CDT, Stop date: 11/23/15 6:00:00 CDTNotes: (polyethylene glycol electrolyte solution 4 Liter bottle) (Same as: Golytely, Colyte) Hydromorphone 1 mg, 1 mL, No Longer Route: IV, 2015 [facility] Drug form: INJ, Q3H, Dosing Weight 70.682, kg, PRN Pain Score 4-6, Start date: 11/22/15 18:08:00 CDT, Duration: 30 day, Stop date: 12/22/15 18:07:00 CDT polyethylene 3 Liter, Inactive glycol 3350 with Route: PO, 2015 [facility] electrolytes Drug Form: PDR/REC, Dosing Weight 70.682, kg, ONCE, Start date: 11/22/15 18:00:00 CDT, Duration: 1 doses or times, Stop date: 11/22/15 18:00:00 CDTNotes: (polyethylene glycol electrolyte solution 4 Liter bottle) (Same as: Marlyn Vega) Vancomycin 125 mg, 2.5 No Longer mL, Route: PO, Active 2015 [facility] Drug form: SUSP, Q6H, Dosing Weight 70.682, kg, Start date: 11/22/15 18:00:00 CDT, Duration: 30 day, Stop date: 12/22/15 12:00:00 CDTNotes: TIME CRITICAL MEDICATION "DILUTE EACH DOSE WITH 30ML OF WATER OR APPLE/ORANGE JUICE PRIOR TO ADMINISTRATION " Hydromorphone 1 mg, 1 mL, Inactive Route: IV, 2015 [facility] Drug form: INJ, Q4H, Dosing Weight 70.682, kg, PRN Pain Score 4-6, Start date: 11/22/15 16:13:00 CDT, Duration: 30 day, Stop date: 12/22/15 16:12:00 CDT Acetaminophen 325 1 tab, Route: No Longer MG / Hydrocodone PO, Drug Form: Active 2015 [facility] Bitartrate 10 MG TAB, Dosing Oral Tablet [[place] Weight 70.682, 10/325] kg, Q4H, PRN Pain Score 1-3, do not give until pt tolerates full meal, Start date: 11/22/15 14:28:00 CDT, Duration: 30 day, Stop date: 12/22/15 14:27:00 CDTNotes: Do not exceed 4gm/day of acetaminophen. (Same as: L[place] 325/10) Hydromorphone 1 mg, 1 mL, Inactive Route: IV, 2015 [facility] Drug form: INJ, Q3H, Dosing Weight 70.682, kg, PRN Pain Score 4-6, Start date: 11/22/15 12:38:00 CDT, Duration: 30 day, Stop date: 12/22/15 12:37:00 CDT multivitamin 1 tab, Route: No Longer PO, Drug Form: [facility] 2015 [facility] TAB, Dosing Weight 72.727, kg, Daily, Start date: 11/22/15 9:00:00 CDT, Duration: 30 day, Stop date: 12/21/15 9:00:00 CDTNotes: (Same as:One Tab Daily, Tab-A-Ella + Beta Carotene) Give with food. Budesonide 9 mg, 3 cap, No Longer Route: PO, 2015 [facility] Drug form: ERCAP, Daily, Dosing Weight 72.727, kg, Start date: 11/21/15 9:00:00 CDT, Duration: 30 day, Stop date: 12/20/15 9:00:00 CDTNotes: (Same As: Entocort EC or Budesonide 3 mg EC / ERC) "Do Not Crush" Hydroxychloroquine 200 mg, 1 tab, No Longer Sulfate 200 MG Route: PO, 2015 [facility] Oral Tablet Drug form: TAB, Daily, Dosing Weight 72.727, kg, Start date: 11/21/15 9:00:00 CDT, Duration: 30 day, Stop date: 12/20/15 9:00:00 CDTNotes: (Same as: Plaquenil) Hydroxychloroq uine sulfate 200 mq=146 mg hydroxychloroq uine base. If treating malaria, verify dose as salt vs. base per CDC guideline methylPREDNISolone 40 mg, 1 mL, No Longer SODium SUCCinate Route: IVP, 2015 [facility] Drug form: INJ, Q12H, Dosing Weight 72.727, kg, Start date: 11/20/15 21:00:00 CDT, Duration: 30 day, Stop date: 12/20/15 9:00:00 CDTNotes: (Same as:Solu-MEDROL , A-Methapred) Alprazolam 1 MG 1 mg, 2 tab, No Longer Oral Tablet Route: PO, 2015 [facility] [Xanax] Drug form: TAB, QPM, Dosing Weight 72.727, kg, Start date: 11/20/15 17:00:00 CDT, Duration: 30 day, Stop date: 12/19/15 17:00:00 CDTNotes: With food or milk (Same as: Xanax) Protonix 40 mg, Route: No Longer IVP, Drug Active 2015 [facility] form: INJ, Before Dinner, Dosing Weight 72.727, kg, Start date: 11/20/15 16:30:00 CDT, Duration: 30 day, Stop date: 12/19/15 16:30:00 CDTNotes: For IV push reconstitute with 10 ml 0.9% sodium chloride and push over 2 minutes. (Same as: Protonix) Zofran 4 mg, 2 mL, No Longer Route: IV, Active 2015 [facility] Drug form: INJ, Q6H, Dosing Weight 72.727, kg, PRN Nausea, Priority: NOW, Start date: 11/20/15 15:29:00 CDT, Duration: 30 day, Stop date: 12/20/15 15:28:00 CDTNotes: (Same as: Zofran) MEDICATION WASTE Product Size: 4 mg Product Wasted: ___ mg Dilaudid 1 mg, 1 mL, No Longer Route: IV, Active 2015 [facility] Drug form: INJ, Q4H, Dosing Weight 72.727, kg, PRN Pain Score 4-6, Start date: 11/20/15 11:40:00 CDT, Duration: 30 day, Stop date: 12/20/15 11:39:00 CDT Glucose 50 MG/ML / 1,000 mL, No Longer Sodium Chloride Rate: 125 Active 2015 [facility] 0.0769 MEQ/ML ml/hr, Infuse Injectable over: 8 hr, Solution Route: IV, Dosing Weight 72.727 kg, Total Volume: 1,000, Start date: 11/20/15 9:17:00 CDT, Stop date: 12/20/15 9:16:00 CDT Dilaudid 0.5 mg, 0.5 Inactive mL, Route: IV, 2015 Drug form: INJ, Q4H, Dosing Weight 72.727, kg, PRN Pain Score 4-6, Start date: 11/20/15 9:15:00 CDT, Duration: 30 day, Stop date: 12/20/15 9:14:00 CDT Albuterol 0.833 3 ml, Route: No Longer MG/ML / NEB, Drug Active 2015 [facility] Ipratropium Form: SOLN, Amber 0.167 Dosing Weight MG/ML Inhalant 72.727, kg, Solution [DuoNeb] PRN, PRN Respiratory Protocol, Start date: 11/20/15 9:14:00 CDT, Duration: 30 day, Stop date: 12/20/15 9:13:00 CDTNotes: (Same as: Duoneb) Budesonide 9 mg, 3 cap, No Longer [place] Route: PO, Active 2015 [facility] Drug form: Center ERCAP, Daily, Dosing Weight 69.091, kg, Start date: 10/21/15 10:30:00 CDT, Duration: 30 day, Stop date: 11/20/15 9:00:00 CDTNotes: (Same As: Entocort EC or Budesonide 3 mg EC / ERC) "Do Not Crush" heparin, porcine 500 unit, 5 Inactive [place] mL, Route: 2016 [facility], Drug Center form: SOLN, ONCE, Dosing Weight 69.091, kg, Start date: 10/20/15 13:29:00 CDT, Duration: 1 doses or times, Stop date: 10/20/15 13:29:00 CDTNotes: (Same as: Heparin Lock Flush) Dilaudid 2 mg, 1 tab, Inactive [facility] Route: PO, 2016 [facility] Drug form: Center TAB, Q4H, Dosing Weight 69.091, kg, PRN Pain Score 4-6, Start date: 10/20/15 12:57:00 CDT, Duration: 30 day, Stop date: 11/19/15 12:56:00 CDTNotes: (Same as: Dilaudid) predniSONE 20 mg 20 mg=1 tab, Active [place] oral tablet PO, Daily, # 2016 [facility] 30 tab, 0 Center Refill(s) cholestyramine 4 4mg, PO, BID, Active [facility] g/5 g oral powder # 10 ea, 0 2015 [facility] Refill(s) [place] budesonide 3 mg 9 mg=3 cap, Active [facility] oral capsule, PO, Daily, # 2016 [facility] extended release 42 cap, 0 [place] Refill(s) Prednisone 40 mg, 2 tab, Inactive [facility] Route: PO, 2015 [facility] Drug form: [place] TAB, Daily, Dosing Weight 69.091, kg, Start date: 10/20/15 10:00:00 CDT, Duration: 30 day, Stop date: 11/19/15 9:00:00 CDTNotes: Take with food. Questran 4 gm, 1 pkt, Inactive [facility] Route: PO, 2015 [facility] Drug form: [place] PDR/REC, BID, Start date: 10/20/15 10:00:00 CDT, Duration: 30 day, Stop date: 11/19/15 9:00:00 CDTNotes: (Same As: Questran) Colestipol 5 gm, Route: Inactive [facility] Hydrochloride 5000 PO, Drug form: 2015 [facility] MG Granules GRAN/REC, BID, [place] Dosing Weight 69.091, kg, Start date: 10/20/15 9:42:00 CDT, Duration: 30 day, Stop date: 11/19/15 9:00:00 CDT Dilaudid 2 mg, 1 tab, Inactive [facility] Route: PO, 2015 [facility] Drug form: [place] TAB, Q6H, Dosing Weight 69.091, kg, PRN Pain Score 4-6, Start date: 10/20/15 8:47:00 CDT, Duration: 30 day, Stop date: 11/19/15 8:46:00 CDTNotes: (Same as: Dilaudid) Dilaudid 1.5 mg, 0.75 No Longer [facility] mL, Route: PO, Active 2015 [facility] Drug form: [place] INJ, Q4H, Dosing Weight 69.091, kg, PRN Headache 6-10, Start date: 10/19/15 10:53:00 CDT, Duration: 30 day, Stop date: 11/18/15 10:52:00 CDTNotes: Same as: Dilaudid GlucaGen 1 mg, Route: Inactive [facility] IV, Drug form: 2015 [facility] PDR/INJ, ONCE, Center Dosing Weight 69.091, kg, Start date: 10/19/15 8:13:00 CDT, Stop date: 10/19/15 8:13:00 CDT Dilaudid 0.5 mg, 0.25 Inactive 10/18[facility] mL, Route: 2016 [facility] IVP, Drug Center form: INJ, ONCE, Dosing Weight 69.091, kg, Priority: STAT, Start date: 10/19/15 4:16:00 CDT, Stop date: 10/19/15 4:16:00 CDTNotes: Same as: Dilaudid Reglan 10 mg, 2 mL, Inactive [facility] Route: IVP, 2015 [facility] Drug form: Center INJ, ONCE, Dosing Weight 69.091, kg, Start date: 10/19/15 3:48:00 CDT, Stop date: 10/19/15 3:48:00 CDTNotes: (Same as: Reglan) Phenergan 12.5 mg, 0.5 Inactive 10/18[facility] mL, Route: 2015 [facility] IVPB, Drug Center form: INJ, ONCE, Dosing Weight 69.091, kg, PRN Nausea & Vomiting, Start date: 10/18/15 22:51:00 CDT, Stop date: 11/17/15 22:50:00 CDTNotes: Do not give IV push. (Same as: Phenergan) Dilaudid 0.5 mg, 0.25 Inactive 10/18[facility] mL, Route: 2016 [facility] IVP, Drug Center form: INJ, ONCE, Dosing Weight 69.091, kg, Priority: STAT, Start date: 10/18/15 22:50:00 CDT, Stop date: 10/18/15 22:50:00 CDTNotes: Same as: Dilaudid Calcium Gluconate 2,000 mg, 20 Inactive 10/17[facility] mL, Route: 2016 [facility] IVPB, ONCE, Center Dosing Weight 69.091, kg, Start date: 10/18/15 7:17:00 CDT, Stop date: 10/18/15 7:17:00 CDTNotes: WASTE: F/P - Sink; E - Municipal Trash Bin Acetaminophen 325 1 tab, Route: No Longer [place] MG / Hydrocodone PO, Drug Form: Active 2016 [facility] Bitartrate 5 MG TAB, Dosing Center Oral Tablet [[place] Weight 69.091, 5/325] kg, Q4H, PRN Pain Score 1-3, Start date: 10/17/15 9:30:00 CDT, Duration: 30 day, Stop date: 11/16/15 9:29:00 CDTNotes: (Same as: [place] 325/5) Do not exceed 4gm/day of acetaminophen. Hydromorphone 0.5 mg, 0.25 Inactive [place] mL, Route: 2016 [facility] IVP, Drug Center form: INJ, ONCE, Dosing Weight 69.091, kg, Priority: STAT, Start date: 10/17/15 9:27:00 CDT, Stop date: 10/17/15 9:27:00 CDTNotes: Same as: Dilaudid Dilaudid 1 mg, 0.5 mL, Inactive [place] Route: IVP, 2015 [facility] Drug form: Center INJ, ONCE, Dosing Weight 69.091, kg, Priority: STAT, Start date: 10/16/15 22:35:00 CDT, Stop date: 10/16/15 22:35:00 CDTNotes: Same as: Dilaudid Alprazolam 1 MG 1 mg, 2 tab, No Longer [place] Oral Tablet Route: PO, Active 2015 [facility] [Xanax] Drug form: Center TAB, ONCE, Dosing Weight 69.091, kg, PRN Anxiety, Start date: 10/16/15 14:09:00 CDT, Stop date: 11/15/15 14:08:00 CDTNotes: With food or milk (Same as: Xanax) Hydroxyzine 50 mg, 1 cap, No Longer [place] Route: PO, Active 2015 [facility] Drug form: Center CAP, TID, Dosing Weight 69.091, kg, PRN as needed for anxiety, Start date: 10/16/15 9:05:00 CDT, Duration: 30 day, Stop date: 11/15/15 9:04:00 CDTNotes: (Same as: Vistaril) Dilaudid 0.5 mg, 0.25 No Longer [place] mL, Route: IV, Active 2015 [facility] Drug form: Center INJ, Q4H, Dosing Weight 69.091, kg, PRN Pain Score 7-10, Start date: 10/16/15 9:02:00 CDT, Duration: 30 day, Stop date: 11/15/15 9:01:00 CDTNotes: Same as: Dilaudid Alprazolam 1 MG 1 mg=1 tab, Active [place] Oral Tablet PO, QPM, 0 2016 [facility] [Xanax] Refill(s) [place] Hydroxyzine 50 mg=1 cap, Active [place] Hydrochloride 50 PO, TID, PRN 2016 [facility] MG Oral Capsule Anxiety, # 40 Center cap, 0 Refill(s) Citalopram 40 MG 40 mg=1 tab, Active [facility] Oral Tablet PO, Daily, # 2016 [facility] [Celexa] 30 tab, 0 Center Refill(s) Divalproex Sodium 500 mg=1 tab, Active [place] 500 MG Enteric PO, BID, # 60 2016 [facility] Coated Tablet tab, 0 Center [Depakote] Refill(s) predniSONE 5 mg 5 mg=1 tab, No Longer [place] oral tablet PO, Daily, 0 Active 2016 [facility] Refill(s) [place] Hydroxychloroquine 200 mg=1 tab, Active [place] Sulfate 200 MG PO, BID, 0 2016 [facility] Oral Tablet Refill(s) [place] [Plaquenil] pantoprazole 40 MG 40 mg=1 tab, Active [place] Enteric Coated PO, BID, # 30 2016 [facility] Tablet [Protonix] tab, 0 Center Refill(s) ciprofloxacin 500 500 mg=1 tab, No Longer [place] mg oral tablet PO, Q12H, for Active 2016 [facility] UTI, # 6 tab, Center 0 Refill(s) Metronidazole 500 500 mg=1 tab, No Longer [place] MG Oral Tablet PO, Q8H, # 30 Active 2016 [facility] tab, 0 Center Refill(s) Azathioprine 50 MG 100 mg=2 tab, Active [facility] [place] Oral Tablet PO, Daily, # 2016 [facility] [Imuran] 60 tab, 0 Center Refill(s) Divalproex Sodium 500 mg, 2 tab, No Longer [place] 500 MG Enteric Route: PO, Active 2015 [facility] Coated Tablet Drug form: [place] [Depakote] ECTAB, BID, Dosing Weight 69.091, kg, Start date: 10/15/15 9:00:00 CDT, Stop date: 11/13/15 17:00:00 CDT, Delayed Release tabletNotes: (Same as: Depakote Delayed Release) Do not confuse with the extended-relea se tablet. Delayed absorption, enteric coated tablet. Do not crush Celexa 40 mg, 2 tab, No Longer [facility] Route: PO, Active 2015 [facility] Drug form: [place] TAB, Daily, Dosing Weight 69.091, kg, Start date: 10/15/15 9:00:00 CDT, Duration: 30 day, Stop date: 11/13/15 9:00:00 CDTNotes: (Same As: CeleXA) Imuran 100 mg, 2 tab, No Longer [facility] Route: PO, Active 2015 [facility] Drug form: [place] TAB, Daily, Dosing Weight 69.091, kg, Start date: 10/15/15 9:00:00 CDT, Duration: 30 day, Stop date: 11/13/15 9:00:00 CDTNotes: (Same As: Imuran) Hydroxychloroquine 200 mg, 1 tab, No Longer [place] Sulfate 200 MG Route: PO, Active 2015 [facility] Oral Tablet Drug form: [place] [Plaquenil] TAB, BID, Dosing Weight 69.091, kg, Start date: 10/15/15 9:00:00 CDT, Duration: 30 day, Stop date: 11/13/15 17:00:00 CDTNotes: (Same as: Plaquenil) Hydroxychloroq uine sulfate 200 mq=129 mg hydroxychloroq uine base. If treating malaria, verify dose as salt vs. base per CDC guideline Prednisone 50 mg, 1 tab, No Longer [place] Route: PO, Active 2015 [facility] Drug form: [place] TAB, Daily, Dosing Weight 69.091, kg, Start date: 10/15/15 9:00:00 CDT, Duration: 30 day, Stop date: 11/13/15 9:00:00 CDTNotes: Take with food. Prilosec 40 mg, Route: Inactive [place] PO, BID, 2016 [facility] 69.091, kg, Start date: 10/15/15 9:00:00 CDT, Duration: 30 day, Stop date: 11/13/15 17:00:00 CDT heparin 5,000 unit, 1 No Longer [facility] mL, Route: Active 2015 Medical SUB-Q, Drug Center form: INJ, Q8H, Dosing Weight 69.091, kg, Start date: 10/15/15 8:00:00 CDT, Duration: 30 day, Stop date: 11/14/15 0:00:00 CDTNotes: porcine heparin Protonix 40 mg, 1 tab, No Longer [facility] Route: PO, Active 2015 Medical Drug form: Center ECTAB, Before Breakfast, Dosing Weight 69.091, kg, Start date: 10/15/15 7:30:00 CDT, Duration: 30 day, Stop date: 11/13/15 7:30:00 CDTNotes: Tablet should not be chewed or crushed. (Same as: Protonix) Isolyte S PH 7.4 1,000 mL, No Longer [facility] 1,000 mL Rate: 125 Active 2015 Medical ml/hr, Infuse Center over: 8 hr, Route: IV, Dosing Weight 69.091 kg, Total Volume: 1,000, Start date: 10/15/15 2:28:00 CDT, Stop date: 11/14/15 2:27:00 CDTNotes: (Same as: Isolyte S PH 7.4) Morphine 4 mg, 1 mL, No Longer [facility] Route: IVP, Active 2015 Medical Drug form: Center INJ, Q4H, Dosing Weight 69.091, kg, PRN Pain Score 7-10, Start date: 10/15/15 2:24:00 CDT, Duration: 30 day, Stop date: 11/14/15 2:23:00 CDTNotes: (Same as:MORPhine Sulfate) Ondansetron 4 mg, 2 mL, No Longer [facility] Route: IVP, Active 2015 Medical Drug form: Center INJ, Q6H, Dosing Weight 69.091, kg, PRN Nausea & Vomiting, Start date: 10/15/15 2:24:00 CDT, Duration: 30 day, Stop date: 11/14/15 2:23:00 CDTNotes: (Same as: Zofran) MEDICATION WASTE Product Size: 4 mg Product Wasted: ___ mg Alprazolam 1 MG 1 mg, 2 tab, No Longer [facility] Oral Tablet Route: PO, Active 2015 Medical [Xanax] Drug form: Center TAB, Bedtime, Dosing Weight 69.091, kg, PRN Anxiety, Start date: 10/15/15 2:14:00 CDT, Duration: 30 day, Stop date: 11/14/15 2:13:00 CDTNotes: With food or milk (Same as: Xanax) Ondansetron 4 MG 4 mg=1 tab, Active Jolly Disintegrating PO, BID, 2014 Hospital Tablet [Zofran] Nausea and Vomiting, Dissolve tab under tongue, # 10 tab, 0 Refill(s)Speci al Instructions: Dissolve tab under tongue Dicyclomine 20 mg=1 tab, Active [facility] Hydrochloride 20 PO, QID, # 28 2015 [facility] MG Oral Tablet tab, 0 [Bentyl] Refill(s) Ondansetron 4 mg, Route: Inactive [facility] IVP, ONCE, 2014 Hospital Dosing Weight 68.182, kg, Priority: STAT, Start date: 08/06/14 14:35:00, Stop date: 08/06/14 14:35:00 Morphine 4 mg, Route: Inactive Jolly IVP, ONCE, 2014 Hospital Dosing Weight 68.182, kg, Priority: STAT, Start date: 08/06/14 14:35:00, Stop date: 08/06/14 14:35:00 Saline Flush 0.9% 10 mL, Route: Inactive Jolly IVP, Drug 2014 Hospital Form: INJ, Dosing Weight 68.182, kg, PRN, PRN Line Flush, Start date: 08/06/14 14:35:00, Duration: 30 day, Stop date: 09/05/14 14:34:00Notes: (Same as: BD Posiflush) Acetaminophen 300 1 - 2 tab, PO, Active Jolly MG / Codeine Q4H, Pain, # 2015 Hospital Phosphate 30 MG 20 tab, 0 Oral Tablet Refill(s) [Tylenol with Codeine #3] Ondansetron 4 MG 4 mg=1 tab, Active Jolly Disintegrating PO, BID, 2015 [facility] Tablet [Zofran] Nausea and Vomiting, Dissolve tab under tongue, # 15 tab, 0 Refill(s)Speci al Instructions: Dissolve tab under tongue Morphine 4 mg, Route: Inactive Jolly IVP, ONCE, 2014 [facility] Dosing Weight 75.909, kg, Priority: STAT, Start date: 08/03/14 19:39:00, Stop date: 08/03/14 19:39:00 Sodium Chloride IV, 0 ml/hr, Inactive Jolly 0.9% IV PRN, PRN Line 2014 [facility] Flush, Start date: 08/03/14 17:47:00, Duration: 30, 25 ml BD Normal Saline 10 mL, Route: Inactive Jolly Flush IV, Drug Form: [address] [place] [address] INJ, PRN, PRN Line Flush, Start date: 08/03/14 17:46:00, Duration: 30 day, Stop date: 09/02/14 17:45:00Notes: (Same as: BD Posiflush) Morphine 4 mg, 1 mL, Inactive Jolly Route: IVP, 2014 [facility] Drug form: INJ, ONCE, Dosing Weight 75.909, kg, Priority: STAT, Start date: 08/03/14 17:39:00, Stop date: 08/03/14 17:39:00Notes: (Same as:MORPhine Sulfate) Ondansetron 4 mg, 2 mL, Inactive Jolly Route: IVP, 2014 [facility] Drug form: INJ, ONCE, Dosing Weight 75.909, kg, Priority: STAT, Start date: 08/03/14 17:39:00, Stop date: 08/03/14 17:39:00Notes: (Same as: Zofran) Sodium Chloride 1,000 mL, Inactive Jolly 0.154 MEQ/ML 1,000 ml/hr, [address] [place] [address] Injectable Infuse Over: 1 Solution hr, Route: IV, 1,000, Drug form: INJ, ONCE, Priority: STAT, Dosing Weight 75.909 kg, Start date: 08/03/14 17:39:00, Duration: 1 doses or times, Stop date: 08/03/14 17:39:00 Aspirin 325 MG / 2 cap, PO, Active butalbital 50 MG / Q6H, Headache, 2013 [facility] Caffeine 40 MG # 24 cap, 0 [facility] Oral Capsule Refill(s) [Fiorinal] ciprofloxacin 500 500 mg=1 tab, Active mg oral tablet PO, [id number], # 2013 [facility] 14 tab, 0 City Refill(s) Ciprofloxacin 500 mg, 1 tab, No Longer Route: PO, Active 2013 [facility] Drug form: City TAB, [id number], Dosing Weight 107.727, kg, Start date: 01/06/14 11:00:00, Duration: 30 day, Stop date: 02/04/14 23:00:00Notes: May interfere w/enteral feedings - Take 1 hr before or 2 hrs after antacids, dairy pdt & minerals. On empty stomach. APAP/butalbital/ca 1 tab, Route: No Longer ffeine PO, Drug Form: Active 2013 [facility] TAB, Q6H, PRN [facility] Headache 6-10, Start date: 01/06/14 10:40:00, Duration: 30 day, Stop date: 02/05/14 10:39:00Notes: (acetaminophen -butalbital-ca ffeine 325-50-40mg) Do not exceed 4 gm/day of acetaminophen. (Same as: Esgic, Fioricet) Aspirin 325 MG / 2 cap, Route: Inactive butalbital 50 MG / PO, Drug Form: 2013 [facility] Caffeine 40 MG CAP, Dosing [facility] Oral Capsule Weight [Fiorinal] 107.727, kg, Q6H, PRN Headache 6-10, NOW, Start date: 01/06/14 10:01:00, Duration: 30 day, Stop date: 02/05/14 10:00:00Notes: (aspirin-butal bital-caffeine 325-50-40 mg CAP) Give with food. (Same As: Fiortal, Fiorinal) Amitriptyline 50 mg, 1 tab, No Longer Route: PO, Active 2013 [facility] Drug form: City TAB, Bedtime, Dosing Weight 107.727, kg, Start date: 01/05/14 21:00:00, Duration: 30 day, Stop date: 02/03/14 21:00:00Notes: (Same as: Elavil) Ketorolac 15 mg, 0.5 mL, No Longer Tromethamine 15 Route: IV, Active 2013 [facility] MG/ML Injectable Drug form: [facility] Solution INJ, Q6H, Dosing Weight 107.727, kg, Start date: 01/05/14 18:00:00, Duration: 15 doses or times, Stop date: 01/09/14 6:00:00Notes: (Same as:Toradol) IV bolus must be given >15 seconds. Give IM administration slowly and deeply into the muscle. Not for use > 4 days Ketorolac 30 mg, 1 mL, Inactive Tromethamine 30 Route: IV, 2013 [facility] MG/ML Injectable Drug form: [facility] Solution INJ, ONCE, Dosing Weight 107.727, kg, Priority: NOW, Start date: 01/05/14 11:01:00, Stop date: 01/05/14 11:01:00Notes: (Same as:Toradol) IV bolus must be given >15 seconds. Give IM administration slowly and deeply into the muscle. Not for use > 4 days Prilosec 40 mg, Route: Inactive PO, Drug form: 2013 [facility] ECCAP, BID, [facility] Dosing Weight 107.727, kg, Start date: 01/05/14 9:00:00, Duration: 30 day, Stop date: 02/03/14 17:00:00 Sucralfate 100 1 gm, 10 mL, Inactive MG/ML Oral Route: PO, 2013 [facility] Suspension Drug form: [facility] [Carafate] SUSP, QID, Dosing Weight 107.727, kg, Start date: 01/05/14 6:00:00, Duration: 4 doses or times, Stop date: 01/05/14 21:00:00Notes: Enteral feeds may interfere with the absorption of this medication. Shake well. Take 1 hr before or 2 hrs after antacids, dairy pdt, minerals & meals. (Same As: Carafate) Tylenol 325 mg, 1 tab, No Longer Route: PO, [facility] 2013 [facility] Drug form: [facility] TAB, Q6H, Dosing Weight 107.727, kg, PRN Pain Score 1-3, Start date: 01/05/14 5:38:00, Duration: 30 day, Stop date: 02/04/14 5:37:00Notes: Do not exceed 4 gm/day. (Same as: Tylenol) Protonix 40 mg, 1 tab, No Longer Route: PO, [facility] 2013 [facility] Drug form: [facility] ECTAB, BID, Start date: 01/05/14 3:13:00, Duration: 30 day, Stop date: 02/03/14 16:30:00Notes: Tablet should not be chewed or crushed. (Same as: Protonix) Ibuprofen 400 mg, 1 tab, No Longer Route: PO, [facility] 2013 [facility] Drug form: [facility] TAB, Q4H, Dosing Weight 107.727, kg, PRN Pain Score 1-3, Start date: 01/05/14 2:21:00, Duration: 30 day, Stop date: 02/04/14 2:20:00Notes: (Same as: Motrin) "Do Not Crush" Give with food. Sodium Chloride 25 mL, Route: No Longer 0.9% IV IV, Start [facility] 2013 [facility] date: 01/05/14 [facility] 1:57:00, Duration: 30 day, Stop date: 02/04/14 1:56:00, PRN Line Flush BD Normal Saline 5 mL, Route: No Longer Flush IV, Drug Form: [facility] 2013 [facility] INJ, PRN, PRN City Line Flush, Start date: 01/05/14 1:57:00, Duration: 30 day, Stop date: 02/04/14 1:56:00Notes: (Same as: BD Posiflush) amitriptyline 25 50 mg=2 tab, Active mg oral tablet PO, Bedtime, 0 2013 [facility] Refill(s) [facility] Morphine 2 mg, 1 mL, No Longer Route: IVP, Active 2013 [facility] Drug form: [facility] INJ, Q3H, Dosing Weight 108.182, kg, PRN Pain Score 4-6, Start date: 01/04/14 22:16:00, Duration: 30 day, Stop date: 02/03/14 22:15:00Notes: (Same as:MORPhine Sulfate) Ondansetron 4 mg, 2 mL, No Longer Route: IVP, Active 2013 [facility] Drug form: [facility] INJ, Q8H, Dosing Weight 108.182, kg, PRN Nausea & Vomiting, Start date: 01/04/14 22:16:00, Duration: 30 day, Stop date: 02/03/14 22:15:00Notes: (Same as: Alysa) Tylenol 650 mg, Route: Inactive PO, Drug form: 2013 [facility] TAB, ONCE, [facility] Dosing Weight 108.182, kg, Priority: STAT, Start date: 01/04/14 20:56:00, Stop date: 01/04/14 20:56:00 Morphine 4 mg, Route: Inactive IVP, Drug 2013 [facility] form: INJ, [facility] ONCE, Dosing Weight 108.182, kg, Priority: STAT, Start date: 01/04/14 19:37:00, Stop date: 01/04/14 19:37:00 Ondansetron 4 mg, 2 mL, Inactive Route: IVP, 2013 [facility] Drug form: [facility] INJ, ONCE, Dosing Weight 108.182, kg, Priority: STAT, Start date: 01/04/14 19:02:00, Stop date: 01/04/14 19:02:00Notes: (Same as: Zofran) Saline Flush 0.9% 5 mL, Route: No Longer IVP, Drug Active 2013 [facility] Form: INJ, [facility] Dosing Weight 108.182, kg, PRN, PRN Line Flush, Start date: 01/04/14 19:02:00, Duration: 30 day, Stop date: 02/03/14 19:01:00Notes: (Same as: BD Posiflush) lansoprazole 30 mg 30 mg=1 tab, Active oral tablet, PO, Daily, 2013 [facility] disintegrating 90 tab, 0 [facility] Refill(s) Acetaminophen 21.7 15 ml, PO, Active MG/ML / Q4H, Pain, # 2013 [facility] Hydrocodone 300 mL, 0 [facility] Bitartrate 0.5 Refill(s) MG/ML Oral Solution Famotidine 20 mg, Route: Inactive IVP, Q12H, 2013 [facility] Dosing Weight [facility] 120.256, kg, Start date: 12/03/13 21:00:00, Duration: 30 day, Stop date: 01/02/14 9:00:00 Protonix + sodium 40 mg, Route: No Longer chloride 10 mL IVP, Before [facility] 2013 [facility] Dinner, Start [facility] date: 12/03/13 16:30:00, Duration: 30 day, Stop date: 01/01/14 16:30:00Notes: For IV push reconstitute with 10 ml 0.9% sodium chloride and push over 2 minutes. (Same as: Protonix) Metoclopramide 10 mg, 2 mL, No Longer Route: IVP, [facility] 2013 [facility] Drug form: [facility] INJ, Q8H, Dosing Weight 120.256, kg, Start date: 12/03/13 16:00:00, Duration: 30 day, Stop date: 01/02/14 8:00:00Notes: (Same as: Reglan) Hydromorphone 6 mg, 30 mL, No Longer Hydrochloride 0.2 Route: IV, [facility] 2013 [facility] MG/ML Injectable Initial City Solution Loading Dose: 0.4mg, [facility] Dose: 0.2 mg, [facility] Lockout: 10 minutes, Continuous Basal Rate: 0 mg, 4 Hour Limit (In MG): 6, Drug Form: INJ, Continuous, Start date: 12/03/13 12:00:00, Duration: 30 day, Stop date: 01/02/14 11:5... Ofirmev 1,000 mg, 100 No Longer mL, Route: IV, Active 2013 [facility] Drug form: City INJ, Q6H, Dosing Weight 120.256, kg, for > or=50 kg, Start date: 12/03/13 12:00:00, Duration: 4 doses or times, Stop date: 12/05/13 4:00:00Notes: Infuse over 15 minutes Do not exceed 4gm/day of acetaminophen Levaquin 750 mg, Route: Inactive IVPB, PRE OP, 2013 [facility] Dosing Weight City 120.256, kg, For CrCl > 49ml/min, Start date: 12/03/13 12:00:00 Naloxone 0.04 mg, 0.1 No Longer mL, Route: Active 2013 [facility] IVP, Drug City form: INJ, Q2MIN, Dosing Weight 120.256, kg, PRN Narcotic Reversal, Start date: 12/03/13 11:59:00, Duration: 30 day, Stop date: 01/02/14 11:58:00Notes: Same as Narcan Insulin, Regular, 2 unit, 0.02 No Longer Pork mL, Route: Active 2013 [facility] SUB-Q, Drug City form: SOLN, TID-Before Meals, Dosing Weight 120.256, kg, PRN Blood Glucose Results, Start date: 12/03/13 11:59:00, Duration: 30 day, Stop date: 01/02/14 11:58:00Notes: (Same as: Humulin R) Roll in palms of hands gently; Do not shake vigorously. "single patient use only" (Restricted to patients requiring a dose > 60 units) Stable for 28 days at room temperature Expires in days from Date Acetaminophen 21.7 15 mL, Route: No Longer MG/ML / PO, Drug Form: Active 2013 [facility] Hydrocodone SOLN, Dosing City Bitartrate 0.5 Weight MG/ML Oral 120.256, kg, Solution Q4H, PRN Pain Score 4-6, Start date: 12/03/13 11:59:00, Duration: 30 day, Stop date: 01/02/14 11:58:00Notes: Do not exceed 4gm/day of acetaminophen. (Same as: Linton 325/7.5) enalaprilat 1.25 mg, 1 mL, No Longer Route: IVP, Active 2013 [facility] Drug form: City INJ, Q6H, Dosing Weight 120.256, kg, PRN Hypertension, Start date: 12/03/13 11:59:00, Duration: 30 day, Stop date: 01/02/14 11:58:00, BP Systolic greater than 190 and BP Siastolic greater than 100Notes: (Same as: Vasotec-IV) Promethazine 12.5 mg, 0.5 No Longer mL, Route: Active 2013 [facility] IVPB, Q4H, [facility] Dosing Weight 120.256, kg, PRN Nausea & Vomiting, Start date: 12/03/13 11:59:00, Duration: 30 day, Stop date: 01/02/14 11:58:00Notes: Do not give IV push. (Same as: Phenergan) Ondansetron 4 mg, 2 mL, No Longer Route: IVP, Active 2013 [facility] Drug form: City INJ, Q12H, Dosing Weight 120.256, kg, PRN Nausea & Vomiting, Start date: 12/03/13 11:59:00, Duration: 30 day, Stop date: 01/02/14 11:58:00Notes: (Same as: Zofran) Calcium Chloride 1,000 mL, No Longer 0.0014 MEQ/ML / Rate: 125 Active 2013 [facility] Potassium Chloride ml/hr, Infuse [facility] 0.004 MEQ/ML / over: 8 hr, Sodium Chloride Route: IV, 0.103 MEQ/ML / Dosing Weight Sodium Lactate 120.256 kg, 0.028 MEQ/ML Total Volume: Injectable 1,000, Start Solution date: 12/03/13 11:59:00, Duration: 30 day, Stop date: 01/02/14 11:58:00 Hydralazine 10 mg, 0.5 mL, Inactive Route: IVP, 2013 [facility] Drug form: City INJ, Q20Min, Dosing Weight 120.256, kg, PRN Elevated BP, Start date: 12/03/13 11:28:00, Duration: 2 doses or times, Stop date: Limited # of timesNotes: (Same as: Apresoline) Push over 5 minutes Ondansetron 4 mg, Route: Inactive IVP, ONCE, 2013 [facility] Dosing Weight [facility] 120.256, kg, PRN Nausea & Vomiting, Start date: 12/03/13 11:28:00 Naloxone 0.04 mg, 0.1 Inactive mL, Route: 2013 [facility] IVP, Drug City form: INJ, Q2MIN, Dosing Weight 120.256, kg, PRN Narcotic Reversal, Start date: 12/03/13 11:28:00, Duration: 8 doses or times, Stop date: Limited # of timesNotes: Same as Narcan Morphine 2 mg, 1 mL, Inactive Route: IVP, 2013 [facility] Drug form: City INJ, Q5Min, Dosing Weight 120.256, kg, PRN Pain Score 4-6, Start date: 12/03/13 11:28:00, Duration: 5 doses or times, Stop date: Limited # of timesNotes: (Same as:MORPhine Sulfate) Flumazenil 0.2 mg, 2 mL, Inactive Route: IVP, 2013 [facility] Drug form: City INJ, PRN, Dosing Weight 120.256, kg, PRN Benzodiazepine Reversal, Initial dose, Start date: 12/03/13 11:28:00, Duration: 30 day, Stop date: 01/02/14 11:27:00Notes: (Same as: Romazicon) chlorhexidine 15 mL, Route: Inactive topical 0.12% S&SPIT, 2013 [facility] liquid ONCALL, Drug [facility] form: LIQ, Start date: 12/03/13 0:00:00, Duration: 18 hr, Stop date: 12/03/13 17:59:00Notes: (Same As: Peridex) heparin 5,000 unit, 1 Inactive mL, Route: 2013 [facility] SUB-Q, Drug [facility] form: INJ, ONCALL, Start date: 12/03/13 0:00:00, Duration: 18 hr, Stop date: 12/03/13 17:59:00Notes: porcine heparin atorvastatin 40 MG 40 mg=1 tab, Active Oral Tablet PO, Bedtime, # 2014 [facility] [Lipitor] 30 tab, 0 City Refill(s) Prilosec 40 mg, PO, Active Daily, 0 2013 [facility] Refill(s) [facility] Metformin 500 mg, PO, Active BID, 0 2013 [facility] Refill(s) [facility] Flexeril 10 mg 10 mg, 1 tab, PO Active Anaogu Jolly oral tablet PO, TID, PRN, 2011 Hospital 15 tab, for spasm, Substitution Allowed, TAB tramadol 50 mg 50 mg, PO, PO Active Anagbogu Jolly oral tablet Q4-6H, PRN, 20 2011 Hospital tab, Pain, Substitution Allowed tramadol 50 mg 50 mg, Route: PO No Longer Anagbogu Jolly oral tablet PO, Drug form: Active 2011 Hospital TAB, ONCE, Dosing Weight 114.545, kg, Priority: STAT, Start date: 04/05/12 11:15:00, Stop date: 04/05/12 11:15:00 Bactrim DS oral 1 tab, PO, PO Active Byargeon Jolly tablet BID, 14 tab, 2011 Hospital Substitution Allowed, Maintenance, TAB Valium 5 mg, Route: PO No Longer Gayle Jolly PO, ONCE, Active 2011 [facility] Priority: STAT, Start date: 12/23/11 11:11:00, Stop date: 12/23/11 11:11:00 tramadol 50 mg 50 mg, PO, PO Active Anagbogu Jolly oral tablet Q4-6H, PRN, 20 2011 [facility] tab, Pain, Substitution Allowed Bactrim DS oral 1 tab, PO, PO No Longer Anagbogu Jolly tablet BID, 20 tab, Active 2011 Hospital Substitution Allowed, Maintenance clindamycin 300 mg 300 mg, 1 cap, PO Active Anagbogu Jolly oral capsule PO, TID, 40 2011 Hospital cap, Substitution Allowed Toradol 30 mg/mL 60 mg, 2 mL, IM No Longer Anagbogu Jolly injectable Route: IM, Active 2011 Hospital solution Drug form: INJ, ONCE, Priority: STAT, Start date: 08/06/11 14:15:00, Stop date: 08/06/11 14:15:00 Linton 5/325 oral 1 tab, Route: PO No Longer Anagbogu 08/05/ JAN Jolly tablet PO, Drug Form: Active 2011 Hospital TAB, ONCE, PRN Pain, STAT, Start date: 08/06/11 14:15:00, Stop date: 09/05/11 14:14:00 Toradol 30 mg/mL 60 mg, Route: IV No Longer Anagbogu 08/05/ JAN Jolly injectable IV, Drug form: Active 2011 [facility] solution INJ, ONCE, Priority: STAT, Start date: 08/06/11 14:14:00, Stop date: 08/06/11 14:14:00 Allergies, Adverse Reactions, Alerts Substance Category Reaction Severity Reaction Status Date Comments Source type Reported Paxil Assertion Hives Drug Active [facility] penicillins Assertion Drug Active [facility] Ultram Assertion Hives Drug Active [facility] NSAIDs Assertion Drug Active [facility] Latuda Assertion Drug Active [facility] Immunizations Immunization Date Given Site Status Last Updated Comments Source Results Order Name Results Value Reference Date Interpretation Comments Source Range Abdomen/Pe Abdomen/Pelv PROCEDURE: CT ABDOMEN AND PELVIS WITH CONTRAST - Jolly lvis w IV is w IV /2017 - [facility] contrast contrast CT CT INDICATION: Left abdominal pain. Back pain. Bright red stool. Read by: Naveen Billings MD Dictated Date/time: 12/06/17 16:04 Electronically Signed by: Naveen Billings MD 12/06/17 16:20 FINAL REPORT COMPARISON: 08/16/2016, 08/03/2014 TECHNIQUE: Helical imaging was performed diaphragm through the symphysis with multiplanar reconstructions. IV CONTRAST: 100 mL Omnipaque 300. GI CONTRAST: 5% Omnipaque mixture CT imaging performed at this location utilizes radiation dose optimization techniques which include one or more of the following: -Automated exposure control -Adjustment of the mA and/or kV according to patient size -Use of iterative reconstruction technique CT Radiation Dose DLP 870 mGy-cm FINDINGS: LOWER CHEST: A few stable tiny nodules within lung bases compared with 08/03. No acute findings of the lung bases. Visualized cardiac structures unremarkable. SOLID ORGANS: Cholecystectomy clips present. Air and fluid seen in close proximity to the clips I believe to be within the duodenum when correlated with prior studies. The liver, pancreas, spleen, adrenal glands, and right kidney unremarkable. 2 exophytic lesions involving lateral and posterior aspects mid left kidney. More superior/lateral lesion has increased in size measuring up to 0.7 cm. Hounsfield units suggestive of a cyst. Inferior/po sterior lesion measures up to 0.8 cm. Lesion has indeterminate Hounsfield units. Prior studies suggest lesion to increase and decrease in size suggestive of a cyst. No acute findings of the kidneys. BOWEL: Prior stomach surgery evident. Prominent fecal material throughout the large bowel present a component of constipation can be considered. No inflammatory changes GI tract identified. Appendix is unremarkable. No obstructive changes seen. PERITONEUM: No free intraperitoneal fluid or air. RETROPERITONEUM: No adenopathy. The aorta is normal. PELVIS: No pelvic mass. The urinary bladder is normal. Uterus not visualized. MUSCULOSKELETAL: The skeleton is intact. IMPRESSION: 1. No acute findings abdomen/pelvis. 2. Moderate fecal material within the large bowel. Question a degree of constipation. 3. 2 lesions left kidney likely represent cysts. Consider ultrasound correlation. SL: [id number] DRUG UDS Note See Note 08/17 J[facility] SCREEN /2016 Hospital (08/17/16 2:40 AM) DRUG U Phencyc Negative Negative 08/17 [facility] SCREEN Scr /2016 Hospital *NA* (08/17/16 2:40 AM) DRUG U Opiate Scr Positive Negative 08/17 [facility] SCREEN /2016 Hospital *ABN* (08/17/16 2:40 AM) DRUG U Benzodia Negative Negative 08/17 [facility] SCREEN Scr /2016 Hospital *NA* (08/17/16 2:40 AM) DRUG U Cannab Scr Negative Negative 08/17 [facility] SCREEN Hospital *NA* (08/17/16 2:40 AM) DRUG U Cocaine Negative Negative 08/17 J[facility] SCREEN Scr /2016 Hospital *NA* (08/17/16 2:40 AM) DRUG U Amph Scr Negative Negative 08/17 [facility] SCREEN /2016 Hospital *NA* (08/17/16 2:40 AM) DRUG U Liss Scr Negative Negative 08/17 [facility] SCREEN /2016 Hospital *NA* (08/17/16 2:40 AM) URINE CHEM U Preg Negative Negative 08/17 MH Jolly /2016 Hospital (08/17/16 2:40 AM) CARDIAC Troponin-I null 0.00 - 08/17 Jolly ENZYMES 0.40 Hospital CHEM PANEL Globulin 3.4 g/dL 2.7 - 4.2 08/17 Hospital CHEM PANEL B/C Ratio 31 6 - 25 08/17 Hospital CHEM PANEL AGAP 14.0 meq/L 10.0 - 08/17 20.0 Hospital CHEM PANEL A/G Ratio 1.0 0.7 - 1.6 08/17 Hospital CHEM PANEL eGFR 110 08/17 Result Comment: The eGFR is calculated using the CKD-EPI formula. In most young, healthy individuals the eGFR will be >90 mL/ min/1.73m2. The eGFR declines with age. An eGFR of 60-89 may be normal in mL/min/1.7 some populations, particularly the elderly, for whom the CKD-EPI formula has not been extensively validated. Use of the eGFR is not recommended in the following populations: [facility] 3m2 Individuals with unstable creatinine concentrations, including patients and those with serious co-morbid conditions. Patients with extremes in muscle mass or diet. The data above are obtained from the National Kidney Disease Education Program (NKDEP) which additionally recommends that when the eGFR is used in patients with extremes of body mass index for purposes of drug dosing, the eGFR should be multiplied by the estimated BMI. CHEM PANEL Alk Phos 72 unit/L 39 - 136 08/17 Hospital CHEM PANEL Bili Total 0.2 mg/dL 0.2 - 1.3 08/17 Hospital CHEM PANEL CO2 26 meq/L 24 - 32 08/17 Hospital CHEM PANEL Chloride Lvl 106 meq/L 95 - 109 08/17 Hospital CHEM PANEL Potassium 4.0 meq/L 3.5 - 5.1 08/17 [facility] CHEM PANEL Sodium Lvl 142 meq/L 135 - 145 08/17 Hospital CHEM PANEL Total 6.8 g/dL 6.4 - 8.4 08/17 Hospital CHEM PANEL Calcium Lvl 8.0 mg/dL 8.5 - 10.5 08/17 Hospital CHEM PANEL Creatinine 0.72 mg/dL 0.50 - 08/17 [facility] 1.40 [facility] CHEM PANEL BUN 22 mg/dL 7 - 22 08/17 [facility] CHEM PANEL Glucose Lvl 82 mg/dL 70 - 99 08/17 [facility] CHEM PANEL ALT 10 unit/L 0 - 65 08/17 [facility] CHEM PANEL Albumin Lvl 3.4 g/dL 3.5 - 5.0 08/17 [facility] CHEM PANEL AST 8 unit/L 0 - 37 08/17 [facility] CHEM PANEL Ammonia 40.0 <=45.0 08/17 [facility] umol/L uMol/L /2016 Hospital HEMATOLOGY Segs 41.7 % 45.0 - 08/17 [facility] 75.0 [facility] HEMATOLOGY Segs-Bands # 2.8 K/CMM 1.5 - 8.1 08/17 [facility] HEMATOLOGY Basophils 0.2 % 0.0 - 1.0 08/17 [facility] HEMATOLOGY Eosinophils 3.6 % 0.0 - 4.0 08/17 [facility] HEMATOLOGY Lymphocytes 46.6 % 20.0 - 08/17 [facility] 40.0 [facility] HEMATOLOGY Monocytes 7.9 % 2.0 - 12.0 08/17 [facility] HEMATOLOGY Eosinophils 0.2 K/CMM 0.0 - 0.5 08/17 [facility] # /2016 Hospital HEMATOLOGY Monocytes # 0.5 K/CMM 0.0 - 0.8 08/17 [facility] HEMATOLOGY Lymphocytes 3.1 K/CMM 1.0 - 5.5 08/17 [facility] # /2016 Hospital HEMATOLOGY MCHC 33.8 g/dL 32.0 - 08/17 [facility] 36.0 [facility] HEMATOLOGY MCV 90.8 fL 80.0 - 08/17 [facility] 98.0 [facility] HEMATOLOGY MCH 30.7 pg 27.0 - 08/17 [facility] 31.0 [facility] HEMATOLOGY Hct 32.5 % 36.0 - 08/17 [facility] 48.0 [facility] HEMATOLOGY RBC 3.58 M/CMM 4.20 - 08/17 [facility] 5.40 [facility] HEMATOLOGY Hgb 11.0 g/dL 12.0 - 08/17 [facility] 16.0 [facility] HEMATOLOGY Platelet 284 K/CMM 133 - 450 08/17 [facility] HEMATOLOGY RDW 14.6 % 11.5 - 08/17 [facility] 14.5 [facility] HEMATOLOGY MPV 7.2 fL 7.4 - 10.4 08/17 [facility] HEMATOLOGY WBC 6.6 K/CMM 3.7 - 10.4 08/17 [facility] ED ED CT abdomen and pelvis with contrast 08/16 - [facility] Abdomen/Pe Abdomen/Pelv - [facility] lvis IV is IV contrast contrast only CT only CT HISTORY: Diffuse abdominal pain Read by: Rich Martinez MD Dictated Date/time: 08/17/16 00:04 Electronically Signed by: Rich Martinez MD 08/17/16 00:11 FINAL REPORT PROCEDURE: Multiple axial images from the lung bases to the pubic symphysis were obtained after the intravenous injection of 100 mL of Omnipaque 300. Coronal and sagittal reconstructed images were performed. DLP: [id number] COMPARISON: 08/09/2016 FINDINGS: No acute or aggressive bony abnormality is present. There is dependent atelectasis in the lung bases. The liver, spleen, adrenal glands, and pancreas appear normal. The patient is status post cholecystectomy. No hydronephrosis or renal stones are present. Aorta has normal caliber. No dilated bowel loops are present. No free air or fluid collection is present. Prior gastric bypass surgery has been performed. No lymphadenopathy is present. Mild stool in the colon is present. The appendix has normal caliber. No bowel obstruction is present. Large volume of rectal gas is noted. Urinary bladder is grossly unremarkable. Uterus is surgically absent. IMPRESSION: 1. Normal appendix. 2. No acute process identified within abdomen or pelvis. 3. Prior hysterectomy. 4. Mild stool. SL: BM-M Chest Chest 1view PROCEDURE: CHEST SINGLE VIEW 08/16 - [facility] 1view DX /2016 - Hospital INDICATION: Dizziness. Altered mental status. Read by: Rich Martinez MD Dictated Date/time: 08/16/16 22:54 Electronically Signed by: Rich Martinez MD 08/16/16 22:55 FINAL REPORT COMPARISON: 10/15/2015 FINDINGS: The lungs are clear. The pleura, cardiomediastinal silhouette and bony thorax are normal. No vascular congestion is present. Right subclavian venous port is stable. IMPRESSION: No acute cardiopulmonary process. SL: BM-M Brain wo Brain wo CT head without contrast 08/16/2016. 08/16 - [facility] contrast contrast CT /2017 - Hospital CT HISTORY: Altered level of consciousness. Altered mental status. Read by: Rich Martinez MD Dictated Date/time: 08/16/16 22:41 Electronically Signed by: Rich Martinez MD 08/16/16 22:44 FINAL REPORT PROCEDURE: Multiple axial images from the skull base to the skull vertex were obtained without contrast. Coronal and sagittal reconstructed images were performed. DLP: [id number] Comparison is made to 01/04/2014 FINDINGS: The visualized mastoid air cells are clear. There is no air- fluid level in the visualized paranasal sinuses. Calvarium is intact. No acute hemorrhage, midline shift, extra-axial fluid collecti on, hydrocephalus, or mass lesion is present. No cortical hypodensity to suggest acute infarct is noted IMPRESSION: No acute intracranial abnormality. SL: BM-M URINE AND UA Spec Grav 1.053 <=1.030 08/10 [facility] URINE AND UA <=1.0 0.1 - 1.0 08/10 [facility] Urobilinogen mg/dL /2016 [facility] URINE AND UA Blood Negative Negative 08/10 [place] (08/10/16 12:04 AM) URINE AND UA Bili Negative Negative 08/10 [place] *NA* (08/10/16 12:04 AM) URINE AND UA Leuk Est Large Negative 08/10 [facility] *ABN* (08/10/16 12:04 AM) URINE AND UA Sq Epi Many /LPF Few /LPF 08/10 [facility] [place] URINE AND UA WBC 63 /HPF 0 - 5 08/10 [facility] URINE AND UA RBC 7 /HPF 0 - 2 08/10 [facility] URINE AND UA Bacteria Occasional None Seen 08/10 [facility] /HPF /HPF /2016 [facility] URINE AND UA Nitrite Negative Negative 08/10 [facility] [place] (08/10/16 12:04 AM) URINE AND UA Glucose Negative Negative 08/10 [facility] mg/dL mg/dL [place] URINE AND UA Ketones Trace Negative 08/10 [facility] mg/dL mg/dL [place] URINE AND UA Mucus Few /LPF None Seen 08/10 [facility] [place] [facility] /LPF /2016 [facility] URINE AND UA Hyal Cast 1 /LPF 0 - 2 08/10 [facility] [place] URINE AND UA Turbidity Slight Clear 08/10 [facility] *ABN* (08/10/16 12:04 AM) URINE AND UA pH 8.0 5.0 - 8.0 08/10 [facility] URINE AND UA Protein 30 mg/dL Negative 08/10 [facility] mg/dL [place] URINE AND UA Color Yellow Yellow 08/10 [facility] *NA* (08/10/16 12:04 AM) CHEM PANEL Lipase Lvl 354 unit/L 73 - 393 08/10 [facility] CHEM PANEL eGFR 119 08/10 Result Comment: The eGFR is calculated using the CKD-EPI formula. In most young, healthy individuals the eGFR will be >90 mL/ min/1.73m2. The eGFR declines with age. An eGFR of 60-89 may be normal in mL/min/1.7 some populations, particularly the elderly, for whom the CKD-EPI formula has not been extensively validated. Use of the eGFR is not recommended in the following populations: [facility] 3m2 Individuals with unstable creatinine concentrations, including patients and those with serious co-morbid conditions. Patients with extremes in muscle mass or diet. The data above are obtained from the National Kidney Disease Education Program (NKDEP) which additionally recommends that when the eGFR is used in patients with extremes of body mass index for purposes of drug dosing, the eGFR should be multiplied by the estimated BMI. CHEM PANEL BUN 13 mg/dL 7 - 22 08/10 [facility] CHEM PANEL Sodium Lvl 143 meq/L 135 - 145 08/10 [facility] CHEM PANEL Potassium 4.0 meq/L 3.5 - 5.1 08/10 [facility] CHEM PANEL Creatinine 0.62 mg/dL 0.50 - 08/10 [facility] 1.40 [facility] CHEM PANEL Glucose Lvl 82 mg/dL 70 - 99 08/10 [facility] CHEM PANEL AST 7 unit/L 0 - 37 08/10 [facility] CHEM PANEL Albumin Lvl 3.3 g/dL 3.5 - 5.0 08/10 [facility] CHEM PANEL Chloride Lvl 108 meq/L 95 - 109 08/10 [facility] [place] CHEM PANEL Calcium Lvl 8.2 mg/dL 8.5 - 10.5 08/10 [facility] [place] CHEM PANEL ALT 10 unit/L 0 - 65 08/10 [facility] [place] CHEM PANEL CO2 27 meq/L 24 - 32 08/10 [facility] [place] CHEM PANEL Alk Phos 67 unit/L 39 - 136 08/10 [facility] [place] CHEM PANEL Total 7.0 g/dL 6.4 - 8.4 08/10 [facility] [place] CHEM PANEL Bili Total 0.1 mg/dL 0.2 - 1.3 08/10 [facility] [place] CHEM PANEL AGAP 12.0 meq/L 10.0 - 08/10 [facility] [place] 20.0 [facility] CHEM PANEL B/C Ratio 21 6 - 25 08/10 [facility] [place] CHEM PANEL A/G Ratio 0.9 0.7 - 1.6 08/10 [facility] CHEM PANEL Globulin 3.7 g/dL 2.7 - 4.2 08/10 [facility] ENDOCRINOL S Preg Negative Negative 08/10 [facility] [place] *NA* (08/09/16 9:32 PM) HEMATOLOGY MCH 29.9 pg 27.0 - 08/10 [facility] 31.0 [facility] HEMATOLOGY Hct 30.8 % 36.0 - 08/10 [facility] 48.0 [facility] HEMATOLOGY MCV 90.3 fL 80.0 - 08/10 [facility] 98.0 /2016 [facility] HEMATOLOGY Hgb 10.2 g/dL 12.0 - 08/10 [facility] 16.0 [facility] HEMATOLOGY MPV 7.2 fL 7.4 - 10.4 08/10 [facility] [place] HEMATOLOGY RBC 3.41 M/CMM 4.20 - 08/10 [facility] 5.40 /2016 [facility] HEMATOLOGY WBC 6.7 K/CMM 3.7 - 10.4 08/10 [facility] [place] HEMATOLOGY RDW 14.4 % 11.5 - 08/10 [facility] 14.5 [facility] HEMATOLOGY MCHC 33.2 g/dL 32.0 - 08/10 [facility] 36.0 [facility] HEMATOLOGY Platelet 346 K/CMM 133 - 450 08/10 [facility] [place] HEMATOLOGY Eosinophils 0.2 K/CMM 0.0 - 0.5 / [place] # /2017 [facility] HEMATOLOGY Basophils # 0.1 K/CMM 0.0 - 0.2 08/10 [facility] [place] /2017 [facility] HEMATOLOGY Monocytes 8.1 % 2.0 - 12.0 08/10 [facility] /2017 [facility] HEMATOLOGY Eosinophils 2.4 % 0.0 - 4.0 08/10 [facility] /2017 [facility] HEMATOLOGY Basophils 0.8 % 0.0 - 1.0 08/10 [facility] /2016 [facility] HEMATOLOGY Lymphocytes 2.4 K/CMM 1.0 - 5.5 08/10 [place] # /2017 [facility] HEMATOLOGY Monocytes # 0.5 K/CMM 0.0 - 0.8 08/10 /2016 [facility] HEMATOLOGY Segs-Bands # 3.5 K/CMM 1.5 - 8.1 08/10 /2016 [facility] HEMATOLOGY Segs 52.4 % 45.0 - 08/10 [facility] 75.0 [facility] HEMATOLOGY Lymphocytes 36.3 % 20.0 - 08/10 [facility] 40.0 [facility] ED ED EXAM: 08/09 - [place] Abdomen/Pe Abdomen/Pelv /2016 - [facility] lvis IV is IV CT abdomen and pelvis with contrast. contrast contrast only CT only CT Read by: Enoc Vance MD Dictated Date/time: 08/09/16 23:50 INDICATION: Electronically Signed by: Enoc Vance MD 08/09/16 23:52 FINAL REPORT Abdominal pain, acute. TECHNIQUE: Contiguous axial CT images of the abdomen and pelvis. Intravenous contrast: Present. Oral contrast: Absent. DLP 571 mGy-cm. COMPARISON: 08/07/2016. FINDINGS: Lower chest: Partially imaged. Lung bases: Unremarkable. Cardiac apex: Unremarkable. Solid abdominal viscera: Liver: Unremarkable. Gallbladder: Cholecystectomy Pancreas: Unremarkable. Spleen: Unremarkable. Adrenal glands: Unremarkable. Right kidney: No hydronephrosis. Left kidney: No hydronephrosis. Urinary bladder: Unremarkable. Abdominal aorta: Unremarkable. Peritoneal: Free fluid: None. Free air: None. Other: No pathologic sized lymph nodes in the upper abdomen. Bowel: Stomach: Postsurgical changes Small bowel: Unremarkable. Appendix: Unremarkable. Colon: Unremarkable. Rectum: Unremarkable. Uterus: Hysterectomy Bones: Unremarkable. IMPRESSION: 1. No CT evidence of acute process of the abdomen. URINE AND UA <=1.0 0.1 - 1.0 08/07 [place] [facility] Urobilinogen mg/dL /2016 [facility] URINE AND UA Spec Grav 1.045 <=1.030 08/07 [place] URINE AND UA pH 8.0 5.0 - 8.0 08/07 [facility] URINE AND UA Blood Negative Negative 08/07 [facility] (08/07/16 12:55 AM) URINE AND UA Sq Epi Many /LPF Few /LPF 08/07 [place] URINE AND UA Leuk Est Trace Negative 08/07 [place] *ABN* (08/07/16 12:55 AM) URINE AND UA Nitrite Negative Negative 08/07 [facility] (08/07/16 12:55 AM) URINE AND UA Protein Negative Negative 08/07 [place] [facility] mg/dL mg/dL [facility] URINE AND UA Glucose Negative Negative 08/07 [facility] mg/dL mg/dL [facility] URINE AND UA Ketones Negative Negative 08/07 [facility] mg/dL mg/dL [facility] URINE AND UA Bili Negative Negative 08/07 [place] *NA* (08/07/16 12:55 AM) URINE AND UA Mucus Few /LPF None Seen 08/07 [place] [facility] /LPF /2016 [facility] URINE AND UA WBC 4 /HPF 0 - 5 08/07 [facility] URINE AND UA Bacteria Occasional None Seen 08/07 [place] [facility] /HPF /HPF /2016 [facility] URINE AND UA RBC 1 /HPF 0 - 2 08/07 [place] URINE AND UA Color Yellow Yellow 08/07 [facility] *NA* (08/07/16 12:55 AM) URINE AND UA Turbidity Slight Clear 08/07 [facility] *ABN* (08/07/16 12:55 AM) CHEM PANEL Lipase Lvl 293 unit/L 73 - 393 08/07 [facility] CHEM PANEL A/G Ratio 0.9 0.7 - 1.6 08/07 [facility] CHEM PANEL Globulin 3.8 g/dL 2.7 - 4.2 08/07 [facility] CHEM PANEL AGAP 14.0 meq/L 10.0 - 08/07 [facility] 20.0 [facility] CHEM PANEL B/C Ratio 29 6 - 25 08/07 [facility] CHEM PANEL eGFR 119 08/07 Result Comment: The eGFR is calculated using the CKD-EPI formula. In most young, healthy individuals the eGFR will be >90 mL/ min/1.73m2. The eGFR declines with age. An eGFR of 60-89 may be normal in mL/min/1.7 /2016 some populations, particularly the elderly, for whom the CKD-EPI formula has not been extensively validated. Use of the eGFR is not recommended in the following populations: [place] 3m2 Individuals with unstable creatinine concentrations, including patients and those with serious co-morbid conditions. Patients with extremes in muscle mass or diet. The data above are obtained from the National Kidney Disease Education Program (NKDEP) which additionally recommends that when the eGFR is used in patients with extremes of body mass index for purposes of drug dosing, the eGFR should be multiplied by the estimated BMI. CHEM PANEL Bili Total 0.2 mg/dL 0.2 - 1.3 08/07 [facility] CHEM PANEL Alk Phos 76 unit/L 39 - 136 08/07 [facility] CHEM PANEL AST 11 unit/L 0 - 37 08/07 [facility] CHEM PANEL ALT 12 unit/L 0 - 65 08/07 [facility] CHEM PANEL Calcium Lvl 9.2 mg/dL 8.5 - 10.5 08/07 [facility] CHEM PANEL Total 7.1 g/dL 6.4 - 8.4 08/07 [facility] CHEM PANEL Albumin Lvl 3.3 g/dL 3.5 - 5.0 08/07 [facility] CHEM PANEL Sodium Lvl 142 meq/L 135 - 145 08/07 [facility] CHEM PANEL Chloride Lvl 107 meq/L 95 - 109 08/07 [facility] CHEM PANEL Potassium 4.0 meq/L 3.5 - 5.1 08/07 [facility] [place] CHEM PANEL CO2 25 meq/L 24 - 32 08/07 [facility] CHEM PANEL Glucose Lvl 86 mg/dL 70 - 99 08/07 [facility] CHEM PANEL BUN 18 mg/dL 7 - 22 08/07 [facility] CHEM PANEL Creatinine 0.62 mg/dL 0.50 - 08/07 [place] Lvl 1.40 [facility] ENDOCRINOL S Preg Negative Negative 08/07 [facility] [place] *NA* (08/06/16 11:19 PM) HEMATOLOGY RDW 14.6 % 11.5 - 08/07 [facility] 14.5 [facility] HEMATOLOGY Platelet 280 K/CMM 133 - 450 08/07 /2016 [facility] HEMATOLOGY MPV 7.4 fL 7.4 - 10.4 08/07 /2016 [facility] HEMATOLOGY MCV 91.7 fL 80.0 - 08/07 [facility] 98.0 [facility] HEMATOLOGY MCH 30.9 pg 27.0 - 08/07 [facility] 31.0 [facility] HEMATOLOGY MCHC 33.6 g/dL 32.0 - 08/07 [facility] 36.0 [facility] HEMATOLOGY Hgb 12.3 g/dL 12.0 - 08/07 [facility] 16.0 [facility] HEMATOLOGY Hct 36.6 % 36.0 - 08/07 [facility] 48.0 [facility] HEMATOLOGY RBC 3.99 M/CMM 4.20 - 08/07 [facility] 5.40 [facility] HEMATOLOGY WBC 5.2 K/CMM 3.7 - 10.4 08/07 [facility] /2016 [facility] HEMATOLOGY Lymphocytes 1.5 K/CMM 1.0 - 5.5 08/07 [facility] # /2016 [facility] HEMATOLOGY Monocytes # 0.6 K/CMM 0.0 - 0.8 08/07 /2016 [facility] HEMATOLOGY Eosinophils 0.1 K/CMM 0.0 - 0.5 08/07 [facility] # /2016 [facility] HEMATOLOGY Basophils # 0.0 K/CMM 0.0 - 0.2 08/07 [facility] HEMATOLOGY Segs-Bands # 3.0 K/CMM 1.5 - 8.1 08/07 [facility] HEMATOLOGY Basophils 0.2 % 0.0 - 1.0 08/07 /2016 [facility] HEMATOLOGY Eosinophils 1.6 % 0.0 - 4.0 08/07 /2016 [facility] HEMATOLOGY Segs 57.0 % 45.0 - 08/07 [place] 75.0 /2016 [facility] HEMATOLOGY Lymphocytes 29.4 % 20.0 - 08/07 [place] 40.0 /2017 [place] HEMATOLOGY Monocytes 11.8 % 2.0 - 12.0 08/07 /2016 [place] Abdomen/Pe Abdomen/Pelv EXAM: 03/21 - [place] lvis w IV is w IV /2016 - [facility] contrast contrast CT CT abdomen and pelvis with contrast. CT Read by: Enoc Vacne MD Dictated Date/time: 08/07/16 00:40 INDICATION: Electronically Signed by: Enoc Vance MD 08/07/16 00:43 FINAL REPORT Abdominal pain, acute. TECHNIQUE: Contiguous axial CT images of the abdomen and pelvis. Intravenous contrast: Present. Oral contrast: Present. DLP 854 mGy-cm. COMPARISON: 12/20/15. FINDINGS: Lower chest: Partially imaged. Lung bases: Unremarkable. Cardiac apex: Unremarkable. Solid abdominal viscera: Liver: Unremarkable. Gallbladder: Cholecystectomy Pancreas: Unremarkable. Spleen: Unremarkable. Adrenal glands: Unremarkable. Right kidney: No hydronephrosis. Left kidney: No hydronephrosis. Urinary bladder: Unremarkable. Abdominal aorta: Unremarkable. Peritoneal: Free fluid: None. Free air: None. Other: No pathologic sized lymph nodes in the upper abdomen. Bowel: Stomach: Postsurgical changes to the stomach Small bowel: Unremarkable. Appendix: Unremarkable. Colon: Unremarkable. Rectum: Unremarkable. Uterus: Unremarkable. Bones: Unremarkable. IMPRESSION: 1. No CT evidence of acute process of the abdomen. Spine Spine Patient Name: CAROLYN CHRISTENSEN [facility] 06/17 - cervical cervical wo /2016 - [facility] contrast MRI : 1985; Age: 31 years y/o Female contrast MRI MR: [id number] Read by: Casa Barrett MD Dictated Date/time: 06/17/16 16:38 Electronically Signed by: Casa Barrett MD 06/17/16 16:50 FINAL REPORT Study: Spine cervical wo contrast MRI 06/17/2016 10:47 AM [facility] [employer] Ordering Physician: Carmen Ceron MD Clinical Indication: Left upper extremity weakness. Comparison: None TECHNIQUE: Multiplanar noncontrast T1, T2, and STIR weighted MRI of the cervical spine was performed. FINDINGS: ALIGNMENT AND GENERAL ASSESSMENT: Loss of normal cervical lordosis may be secondary to positioning or muscle spasm. No acute fracture, dislocation, or suspicious focal osseous lesion. The cervical spinal cord signal is normal. The prevertebral and paraspinal soft tissues are normal. DISC SPACES: C2-C3:No significant disc protrusion, spinal canal narrowing, or neural foraminal narrowing. C3-C4: No significant disc protrusion or spinal canal narrowing. Moderate right neural foraminal narrowing related to uncovertebral joint hypertrophy and facet arthrosis. No significant left neural foraminal narrowing. C4-C5: No significant disc protrusion or spinal canal narrowing. Mild to moderate right neural foraminal narrowing related to uncovertebral joint hypertrophy and facet arthrosis. No significant left neural foraminal narrowing. C5-C6: No significant disc protrusion or spinal canal narrowing. Mild to moderate left neural foraminal narrowing and mild right neural foraminal narrowing secondary to facet arthrosis and uncovertebral joint hypertrophy. C6-C7:No significant disc protrusion, spinal canal narrowing, or neural foraminal narrowing. C7-T1: No significant disc protrusion or spinal canal narrowing. Moderate narrowing of both neural foramen on the axial images may be overestimated given the appearance on sagittal images. IMPRESSION: Multilevel mild to moderate neural foraminal narrowing as above individually described. No significant disc protrusion or spinal canal narrowing. SL: [id number] Brain wo Brain wo Patient Name: CAROLYN POLLARD 06/17 - contrast contrast MRI /2016 [facility] : 1985; Age: 31 years y/o Female MR: [id number] Read by: Holden Rhodes MD Dictated Date/time: 06/17/16 10:19 Electronically Signed by: Holden Rhodes MD 06/17/16 10:23 FINAL REPORT Study: Brain wo contrast MRI 06/16/2016 2:42 PM [facility] [employer] Ordering Physician: Adenike Dumont MD Clinical Indication: Weakness; left hand and arm weakness Comparison: None TECHNIQUE: Multiplanar MRI of the brain is performed on a 1.5 Kenisha magnet. Contrast: None. FINDINGS: BRAIN PARENCHYMA: No abnormal signal identified on diffusion-weighted imaging to suggest an acute infarction. Patchy areas of increased signal intensity on T2-weighted images seen in the right frontal white matter, left chaparro radiata, parietal occipital white matter bilaterally and left centrum semiovale. Some of these are in a subcoracoid location. Findings may represent a small amount of small ves aimee occlusive change but cannot exclude changes of vasculitis or nonspecific demyelinating process and clinical correlation needed. No extra- axial fluid collection, mass effect or shift. CEREBELLOPONTINE REGIONS AND SKULL BASE: The craniocervical junction, skull base and pituitary gland are unremarkable. Cerebellar pontine angles unremarkable bilaterally. VENTRICLES: The ventricles and sulci are within normal limits for the patient's age. VESSELS: Normal flow voids identified in the major vessels at the base of the brain. ORBITS, VISUALIZED PARANASAL SINUSES AND MASTOIDS: The visualized orbits and paranasal sinuses are unremarkable. The mastoid air cells are clear. IMPRESSION: 1. White matter hyperintensities with differential considerations as above. 2. Otherwise unremarkable brain MRI without contrast. SL: [id number] CARDIAC Total CK 34 unit/L - 06/17 [facility] CARDIAC Troponin-I 0.02 ng/mL 0.00 - 06/17 [facility] 0.40 [facility] CARDIAC Total CK 36 unit/L 12 - 191 06/16 [facility] CARDIAC Troponin-I null 0.00 - 06/16 [facility] 0.40 [facility] CHEM PANEL Lactic Acid 1.0 mMol/L 0.5 - 2.2 03/05 Hospital ELECTROLYT AGAP 9.4 meq/L 10.0 - 03/05 20.0 Hospital ELECTROLYT B/C Ratio 22 6 - 25 03/05 Hospital [facility] A/G Ratio 0.8 0.7 - 1.6 03/05 Hospital [facility] Globulin 4.0 g/dL 2.7 - 4.2 03/05 [facility]LECT[facility] Alk Phos 67 unit/L 39 - 136 03/05 [facility] Bili Total 0.2 mg/dL 0.2 - 1.3 03/05 [facility]LECT[facility] ALT 7 unit/L 0 - 65 03/05 [facility] AST 14 unit/L 0 - 37 03/05 [facility] Albumin Lvl 3.4 g/dL 3.5 - 5.0 03/05 [facility] Chloride Lvl 105 meq/L 95 - 109 03/05 [facility] CO2 31 meq/L 24 - 32 03/05 [facility]LECT[facility] Potassium 4.4 meq/L 3.5 - 5.1 03/05 [facility] ELECTROLYT Total 7.4 g/dL 6.4 - 8.4 03/05 [facility] Calcium Lvl 8.6 mg/dL 8.5 - 10.5 03/05 Hospital ELECTROLYT eGFR 116 03/05 Result Comment: The eGFR is calculated using the CKD-EPI formula. In most young, healthy individuals the eGFR will be >90 mL/ min/1.73m2. The eGFR declines with age. An eGFR of 60-89 may be normal in mL/min/1.7 some populations, particularly the elderly, for whom the CKD-EPI formula has not been extensively validated. Use of the eGFR is not recommended in the following populations: [facility] 3m2 Individuals with unstable creatinine concentrations, including patients and those with serious co-morbid conditions. Patients with extremes in muscle mass or diet. The data above are obtained from the National Kidney Disease Education Program (NKDEP) which additionally recommends that when the eGFR is used in patients with extremes of body mass index for purposes of drug dosing, the eGFR should be multiplied by the estimated BMI. ELECTROLYT Creatinine 0.68 mg/dL 0.50 - 03/05 [facility] L[facility] 1.40 [facility] ELECTROLYT Sodium Lvl 141 meq/L 135 - 145 03/05 Hospital [facility]LECTR[facility] Glucose Lvl 70 mg/dL 70 - 99 03/05 [facility] ELECTROLYT BUN 15 mg/dL 7 - 22 03/05 Hospital HEMATOLOGY Eosinophils 0.3 K/CMM 0.0 - 0.5 03/05 [facility] HEMATOLOGY Monocytes # 0.8 K/CMM 0.0 - 0.8 03/05 Hospital HEMATOLOGY Basophils # 0.1 K/CMM 0.0 - 0.2 03/05 Hospital HEMATOLOGY Lymphocytes 27.3 % 20.0 - 03/05 [facility] 40.0 [facility] HEMATOLOGY Segs 56.6 % 45.0 - 03/05y 75.0 Hospital HEMATOLOGY Eosinophils 3.8 % 0.0 - 4.0 03/05 Hospital HEMATOLOGY Monocytes 10.9 % 2.0 - 12.0 03/05 Hospital HEMATOLOGY Segs-Bands # 3.9 K/CMM 1.5 - 8.1 03/05 [facility] /2015 [facility] HEMATOLOGY Basophils 1.4 % 0.0 - 1.0 03/05 [facility] /2015 [facility] HEMATOLOGY Lymphocytes 1.9 K/CMM 1.0 - 5.5 03/05 [facility] # /2015 [facility] HEMATOLOGY MPV 8.7 fL 7.4 - 10.4 03/05 [facility] HEMATOLOGY RBC 3.83 M/CMM 4.20 - 03/05 [facility] 5.40 /2015 Hospital HEMATOLOGY WBC 6.9 K/CMM 3.7 - 10.4 03/05 [facility] /2015 [facility] HEMATOLOGY MCHC 34.1 g/dL 32.0 - 03/05 [facility] 36.0 [facility] HEMATOLOGY Platelet 188 K/CMM 133 - 450 03/05 [facility] HEMATOLOGY RDW 13.6 % 11.5 - 03/05 [facility] 14.5 /2015 [facility] HEMATOLOGY Hct 35.5 % 36.0 - 03/05 [facility] 48.0 [facility] HEMATOLOGY Hgb 12.1 g/dL 12.0 - 03/05 [facility] 16.0 [facility] HEMATOLOGY MCH 31.6 pg 27.0 - 03/05 [facility] 31.0 [facility] HEMATOLOGY MCV 92.7 fL 80.0 - 03/05 [facility] Ext Upper Ext Upper PROCEDURE: 03/04 - Venous Venous /2015 - [facility] Doppler Doppler Unilateral right upper extremity venous ultrasound. [facility] Read by: Miah Bacon MD Dictated Date/time: 03/04/16 20:20 INDICATION: Pain, Limb. Pain radiates from the right neck to the hand. Electronically Signed by: Miah Bacon MD 20:20 FINAL REPORT COMPARISON: None. TECHNIQUE: Sonographic evaluation of the upper extremity veins was performed using high resolution B-mode imaging, pulse and color Doppler imaging. FINDINGS: The internal jugular, subclavian, axillary, brachial, radial and ulnar veins are patent. The basilic and cephalic veins are patent. Normal venous waveforms. IMPRESSION: 1. No deep venous thrombosis. SL: [id number] CHEM PANEL eGFR 130 01/23 Result Comment: The eGFR is calculated using the CKD-EPI formula. In most young, healthy individuals the eGFR will be >90 mL/ min/1.73m2. The eGFR declines with age. An eGFR of 60-89 may be normal in [facility] mL/min/1.7 some populations, particularly the elderly, for whom the CKD-EPI formula has not been extensively validated. Use of the eGFR is not recommended in the following populations: [facility] 3m2 Individuals with unstable creatinine concentrations, including patients and those with serious co-morbid conditions. Patients with extremes in muscle mass or diet. The data above are obtained from the National Kidney Disease Education Program (NKDEP) which additionally recommends that when the eGFR is used in patients with extremes of body mass index for purposes of drug dosing, the eGFR should be multiplied by the estimated BMI. CHEM PANEL Chloride Lvl 110 meq/L 95 - 109 01/23 [facility] CHEM PANEL AGAP 8.9 meq/L 10.0 - 01/23 20.0 [facility] CHEM PANEL CO2 28 meq/L 24 - 32 01/23 [facility] CHEM PANEL Potassium 3.9 meq/L 3.5 - 5.1 01/23 Lvl /2015 [facility] CHEM PANEL Calcium Lvl 8.2 mg/dL 8.5 - 10.5 01/23 [facility] CHEM PANEL Glucose Lvl 91 mg/dL 70 - 99 01/23 [facility] CHEM PANEL BUN 3 mg/dL 7 - 22 01/23 [facility] CHEM PANEL Creatinine 0.48 mg/dL 0.50 - 01/23 [facility] Lvl 1.40 [facility] CHEM PANEL Sodium Lvl 143 meq/L 135 - 145 01/23 [facility] HEMATOLOGY MCH 31.7 pg 27.0 - 01/23 MH 31.0 [facility] HEMATOLOGY MCHC 34.3 g/dL 32.0 - 01/23 MH 36.0 /2016 [facility] HEMATOLOGY Platelet 194 K/CMM 133 - 450 01/23 [facility] HEMATOLOGY MPV 7.1 fL 7.4 - 10.4 01/23 [facility] HEMATOLOGY RDW 13.0 % 11.5 - 01/23 MH 14. [facility] HEMATOLOGY RBC 3.24 M/CMM 4.20 - 01/23 MH 5.40 /2015 [facility] HEMATOLOGY WBC 3.9 K/CMM 3.7 - 10.4 01/23 [facility] HEMATOLOGY Hct 29.9 % 36.0 - 01/23 MH 48.0 /2016 [facility] HEMATOLOGY Hgb 10.3 g/dL 12.0 - 01/23 MH 16.0 /2015 [facility] HEMATOLOGY MCV 92.6 fL 80.0 - 01/23 MH 98.0 /2015 [facility] HEMATOLOGY Lymphocytes 43.1 % 20.0 - 01/23 MH 40.0 /2015 [facility] HEMATOLOGY Monocytes 11.3 % 2.0 - 12.0 01/23 /2015 [facility] HEMATOLOGY Eosinophils 5.0 % 0.0 - 4.0 01/23 /2015 [facility] HEMATOLOGY Basophils 0.9 % 0.0 - 1.0 / /2015 [facility] HEMATOLOGY Segs-Bands # 1.6 K/CMM 1.5 - 8.1 01/23 [facility] HEMATOLOGY Lymphocytes 1.7 K/CMM 1.0 - 5.5 01/23 MH # /2016 [facility] HEMATOLOGY Monocytes # 0.4 K/CMM 0.0 - 0.8 01/23 [facility] HEMATOLOGY Segs 39.7 % 45.0 - 01/23 MH 75.0 /2015 [facility] HEMATOLOGY Eosinophils 0.2 K/CMM 0.0 - 0.5 01/23 MH # /2015 [facility] CHEM PANEL Magnesium 1.8 mg/dL 1.8 - 2.4 01/22 Lvl /2015 [facility] CHEM PANEL eGFR 123 01/22 Result Comment: The eGFR is calculated using the CKD-EPI formula. In most young, healthy individuals the eGFR will be >90 mL/ min/1.73m2. The eGFR declines with age. An eGFR of 60-89 may be normal in mL/min/1. some populations, particularly the elderly, for whom the CKD-EPI formula has not been extensively validated. Use of the eGFR is not recommended in the following populations: [facility] 3m2 Individuals with unstable creatinine concentrations, including patients and those with serious co-morbid conditions. Patients with extremes in muscle mass or diet. The data above are obtained from the National Kidney Disease Education Program (NKDEP) which additionally recommends that when the eGFR is used in patients with extremes of body mass index for purposes of drug dosing, the eGFR should be multiplied by the estimated BMI. CHEM PANEL Bili Total 0.3 mg/dL 0.2 - 1.3 01/22 [facility] CHEM PANEL Alk Phos 60 unit/L 39 - 136 01/22 [facility] CHEM PANEL AST 7 unit/L 0 - 37 01/22 [facility] CHEM PANEL CO2 25 meq/L 24 - 32 01/22 [facility] CHEM PANEL Chloride Lvl 110 meq/L 95 - 109 01/22 [facility] CHEM PANEL Creatinine 0.57 mg/dL 0.50 - 09/ MH Lvl 1.40 /2015 [facility] CHEM PANEL BUN 4 mg/dL 7 - 22 01/22 [facility] CHEM PANEL Glucose Lvl 85 mg/dL 70 - 99 01/22 [facility] CHEM PANEL ALT 7 unit/L 0 - 65 01/22 [facility] CHEM PANEL Albumin Lvl 3.0 g/dL 3.5 - 5.0 01/22 [facility] CHEM PANEL Total 5.9 g/dL 6.4 - 8.4 01/22 [facility] CHEM PANEL Potassium 3.5 meq/L 3.5 - 5.1 01/22 Lvl /2015 [facility] CHEM PANEL Sodium Lvl 144 meq/L 135 - 145 01/22 [facility] CHEM PANEL Calcium Lvl 8.0 mg/dL 8.5 - 10.5 01/22 [facility] CHEM PANEL Globulin 2.9 g/dL 2.7 - 4.2 01/22 [facility] CHEM PANEL B/C Ratio 7 6 - 25 01/22 [facility] CHEM PANEL AGAP 12.5 meq/L 10.0 - 01/22 20.0 [facility] CHEM PANEL A/G Ratio 1.0 0.7 - 1.6 01/22 [facility] CHEM PANEL Lipase Lvl 156 unit/L 73 - 393 01/22 [facility] HEMATOLOGY Hct 28.5 % 36.0 - 01/22 48.0 /2015 [facility] HEMATOLOGY MCV 91.6 fL 80.0 - 01/22 98.0 /2015 [facility] HEMATOLOGY MCHC 34.8 g/dL 32.0 - 01/22 36.0 [facility] HEMATOLOGY MCH 31.9 pg 27.0 - 01/22 31.0 [facility] HEMATOLOGY RBC 3.11 M/CMM 4.20 - 09 MH 5.40 /2015 [facility] HEMATOLOGY Hgb 9.9 g/dL 12.0 - 01/22 16.0 [facility] HEMATOLOGY WBC 3.9 K/CMM 3.7 - 10.4 01/22 [facility] HEMATOLOGY RDW 13.2 % 11.5 - 01/22 14.5 /2015 [facility] HEMATOLOGY Platelet 186 K/CMM 133 - 450 01/22 [facility] HEMATOLOGY MPV 7.5 fL 7.4 - 10.4 01/22 [facility] HEMATOLOGY Eosinophils 0.2 K/CMM 0.0 - 0.5 01/22 # /2015 [facility] HEMATOLOGY Eosinophils 3.9 % 0.0 - 4.0 01/22 [facility] HEMATOLOGY Basophils 0.6 % 0.0 - 1.0 01/22 [facility] HEMATOLOGY Segs-Bands # 1.8 K/CMM 1.5 - 8.1 01/22 [facility] HEMATOLOGY Lymphocytes 1.5 K/CMM 1.0 - 5.5 01/22 # /2015 [facility] HEMATOLOGY Monocytes # 0.5 K/CMM 0.0 - 0.8 01/22 [facility] HEMATOLOGY Segs 45.4 % 45.0 - 01/22 75.0 /2015 [facility] HEMATOLOGY Lymphocytes 37.7 % 20.0 - 01/22 40.0 /2015 [facility] HEMATOLOGY Monocytes 12.4 % 2.0 - 12.0 01/22 [facility] URINE AND UA <=1.0 0.1 - 1.0 01/22 STOOL Urobilinogen mg/dL /2015 [facility] URINE AND UA Mucus Few /LPF None Seen 01/22 STOOL /LPF /2015 [facility] URINE AND UA Blood Negative Negative 01/22 [facility] (01/22/16 8:00 PM) URINE AND UA Nitrite Negative Negative 01/22 STOOL [facility] (01/22/16 8:00 PM) URINE AND UA Bili Negative Negative 01/22 [facility] *NA* (01/22/16 8:00 PM) URINE AND UA Bacteria Occasional None Seen 01/22 STOOL /HPF /HPF /2015 URINE AND UA RBC 1 /HPF 0 - 2 01/22 STOOL [facility] URINE AND UA WBC 1 /HPF 0 - 5 01/22 [facility] URINE AND UA Leuk Est Trace Negative 01/22 [facility] *ABN* (01/22/16 8:00 PM) URINE AND UA Sq Epi Few /LPF Few /LPF 01/22 [facility] URINE AND UA Protein Negative Negative 01/22 STOOL mg/dL mg/dL [facility] URINE AND UA Glucose Negative Negative 01/22 STOOL mg/dL mg/dL [facility] URINE AND UA Ketones Negative Negative 01/22 STOOL mg/dL mg/dL [facility] URINE AND UA pH 5.0 5.0 - 8.0 01/22 [facility] URINE AND UA Spec Grav 1.014 <=1.030 01/22 [facility] URINE AND UA Turbidity Clear Clear 01/22 [facility] (01/22/16 8:00 PM) URINE AND UA Color Yellow Yellow 01/22 [facility] *NA* (01/22/16 8:00 PM) URINE AND Occult Bld Negative Negative 01/[address] [facility] (01/22/16 6:43 PM) ANEMIA UIBC 221 ug/dl 110 - 370 01/21 [facility] ANEMIA % [place] 35 % 12 - 57 01/21 [facility] ANEMIA TIBC 339 ug/dl 228 - 428 01/21 [facility] ANEMIA Iron 118 ug/dl 30 - 160 01/21 [facility] ANEMIA Vitamin B12 254 pg/mL 254 - 1320 01/21 STUDY Lvl [facility] Abdomen 2 Abdomen 2 Abdomen 2 views DX 01/21 - views DX views - [facility] CLINICAL INDICATION: Abdominal pain, acute Read by: aMdhu Dean MD Dictated Date/time: 01/22/16 13:50 Electronically Signed by: Madhu Dean MD 01/22/16 13:52 FINAL REPORT COMPARISON: 10/15/2015 FINDINGS: Bowel gas pattern is unremarkable. Postoperative changes related to a gastric sleeve are noted. Status post cholecystectomy. No tract calculi are evident. No free air is noted underneath the hemidiaphragms. Lung bases are clear. No significant bony abnormality is noted. IMPRESSION: No acute abnormality noted. SL: [id number] ELECTROLYT AGAP 11.2 meq/L 10.0 - 01/21 ES 20.0 [facility] ELECTROLYT B/C Ratio 24 6 - 25 01/21 [facility] ELECTROLYT A/G Ratio 1.0 0.7 - 1.6 01/21 [facility] ELECTROLYT Globulin 3.3 g/dL 2.7 - 4.2 01/21 [facility] ELECTROLYT Total 6.7 g/dL 6.4 - 8.4 01/21 ES Protein [facility] ELECTROLYT Albumin Lvl 3.4 g/dL 3.5 - 5.0 01/21 [facility] ELECTROLYT Alk Phos 69 unit/L 39 - 136 01/21 [facility] ELECTROLYT AST 12 unit/L 0 - 37 01/21 [facility] ELECTROLYT ALT 10 unit/L 0 - 65 01/21 [facility] ELECTROLYT Bili Total 0.3 mg/dL 0.2 - 1.3 01/21 [facility] ELECTROLYT eGFR 125 01/21 Result Comment: The eGFR is calculated using the CKD-EPI formula. In most young, healthy individuals the eGFR will be >90 mL/ min/1.73m2. The eGFR declines with age. An eGFR of 60-89 may be normal in [facility] mL/min/1. some populations, particularly the elderly, for whom the CKD-EPI formula has not been extensively validated. Use of the eGFR is not recommended in the following populations: [facility] 3m2 Individuals with unstable creatinine concentrations, including patients and those with serious co-morbid conditions. Patients with extremes in muscle mass or diet. The data above are obtained from the National Kidney Disease Education Program (NKDEP) which additionally recommends that when the eGFR is used in patients with extremes of body mass index for purposes of drug dosing, the eGFR should be multiplied by the estimated BMI. ELECTROLYT Creatinine 0.54 mg/dL 0.50 - 01/21 [facility] Lvl 1.40 [facility] ELECTROLYT BUN 13 mg/dL 7 - 22 01/21 [facility] ELECTROLYT Glucose Lvl 99 mg/dL 70 - 99 01/21 [facility] ELECTROLYT Potassium 3.2 meq/L 3.5 - 5.1 01/21 ES Lvl [facility] ELECTROLYT Sodium Lvl 141 meq/L 135 - 145 01/21 [facility] ELECTROLYT Chloride Lvl 108 meq/L 95 - 109 01/21 [facility] ELECTROLYT Calcium Lvl 8.2 mg/dL 8.5 - 10.5 01/21 [facility] ELECTROLYT CO2 25 meq/L 24 - 32 09/ MH ES /2016 [facility] HEMATOLOGY Lymphocytes 44.4 % 20.0 - 09/ MH 40.0 /2015 [facility] HEMATOLOGY Segs 42.2 % 45.0 - 09 MH 75.0 /2015 [facility] HEMATOLOGY Monocytes 9.8 % 2.0 - 12.0 09/ MH /2015 [facility] HEMATOLOGY Basophils 0.8 % 0.0 - 1.0 09/ MH /2015 [facility] HEMATOLOGY Eosinophils 2.8 % 0.0 - 4.0 09/ MH /2015 [facility] HEMATOLOGY Segs-Bands # 2.2 K/CMM 1.5 - 8.1 09/ MH /2015 [facility] HEMATOLOGY Eosinophils 0.1 K/CMM 0.0 - 0.5 09/ MH # /2016 [facility] HEMATOLOGY Monocytes # 0.5 K/CMM 0.0 - 0.8 09/ MH /2015 [facility] HEMATOLOGY Lymphocytes 2.3 K/CMM 1.0 - 5.5 / MH # /2015 [facility] HEMATOLOGY MCV 91.3 fL 80.0 - 01/21 98.0 /2015 [facility] HEMATOLOGY RDW 12.9 % 11.5 - 01/21 MH 14.5 /2015 [facility] HEMATOLOGY MCHC 34.7 g/dL 32.0 - 01/21 MH 36.0 /2015 [facility] HEMATOLOGY Platelet 211 K/CMM 133 - 450 09/ MH /2015 [facility] HEMATOLOGY MPV 7.4 fL 7.4 - 10.4 01/21 /2015 [facility] HEMATOLOGY MCH 31.7 pg 27.0 - 01/21 MH 31.0 /2015 [facility] HEMATOLOGY Hct 31.1 % 36.0 - 01/21 MH 48.0 /2016 [facility] HEMATOLOGY Hgb 10.8 g/dL 12.0 - 01/21 MH 16.0 /2015 [facility] HEMATOLOGY RBC 3.41 M/CMM 4.20 - 09 MH 5.40 /2015 [facility] HEMATOLOGY WBC 5.2 K/CMM 3.7 - 10.4 09/ MH /2015 [facility] HEMATOLOGY PTT 36.6 s 22.9 - 01/21 MH 35.8 /2015 [facility] HEMATOLOGY PT 15.1 s 12.0 - 01/21 MH 14.7 /2015 [facility] HEMATOLOGY INR 1.16 0.85 - 01/21 MH 1.17 /2015 [facility] ELECTROLYT AGAP 9.8 meq/L 10.0 - 08 ES 20.0 [facility] ELECTROLYT eGFR 119 12/21 Result Comment: The eGFR is calculated using the CKD-EPI formula. In most young, healthy individuals the eGFR will be >90 mL/ min/1.73m2. The eGFR declines with age. An eGFR of 60-89 may be normal in [facility] mL/min/1. some populations, particularly the elderly, for whom the CKD-EPI formula has not been extensively validated. Use of the eGFR is not recommended in the following populations: [facility] 3m2 Individuals with unstable creatinine concentrations, including patients and those with serious co-morbid conditions. Patients with extremes in muscle mass or diet. The data above are obtained from the National Kidney Disease Education Program (NKDEP) which additionally recommends that when the eGFR is used in patients with extremes of body mass index for purposes of drug dosing, the eGFR should be multiplied by the estimated BMI. ELECTROLYT Creatinine 0.63 mg/dL 0.50 - 12/21 [facility] Lvl 1.40 [facility] ELECTROLYT BUN 7 mg/dL 7 - 22 12/21 [facility] ELECTROLYT Sodium Lvl 141 meq/L 135 - 145 12/21 [facility] ELECTROLYT Potassium 3.8 meq/L 3.5 - 5.1 12/21 [facility] Lvl [facility] ELECTROLYT Chloride Lvl 109 meq/L 95 - 109 12/21 [facility] ELECTROLYT CO2 26 meq/L 24 - 32 12/21 [facility] ELECTROLYT Glucose Lvl 97 mg/dL 70 - 99 12/21 [facility] ELECTROLYT Calcium Lvl 9.0 mg/dL 8.5 - 10.5 12/21 [facility] HEMATOLOGY Segs 66.2 % 45.0 - 08 75.0 /2016 [facility] HEMATOLOGY Eosinophils 0.1 K/CMM 0.0 - 0.5 / /2015 [facility] HEMATOLOGY Monocytes # 0.4 K/CMM 0.0 - 0.8 12/21 [facility] HEMATOLOGY Basophils 0.9 % 0.0 - 1.0 12/21 [facility] HEMATOLOGY Monocytes 6.4 % 2.0 - 12.0 12/21 [facility] HEMATOLOGY Eosinophils 2.3 % 0.0 - 4.0 12/21 [facility] HEMATOLOGY Lymphocytes 24.2 % 20.0 - 08 MH 40.0 /2015 [facility] Lymphocytes 1.4 K/CMM 1.0 - 5.5 / MH # /2016 [facility] HEMATOLOGY Segs-Bands # 3.7 K/CMM 1.5 - 8.1 12/21 /2015 [facility] WBC 5.6 K/CMM 3.7 - 10.4 08 /2015 [facility] RBC 4.00 M/CMM 4.20 - 12/21 MH 5.40 /2015 [facility] MCH 31.8 pg 27.0 - 08 MH 31.0 /2015 [facility] MCHC 34.1 g/dL 32.0 - 08/ MH 36.0 /2015 [facility] Hgb 12.7 g/dL 12.0 - 12/21 MH 16.0 /2015 [facility] Hct 37.3 % 36.0 - 12/21 MH 48.0 [facility] MCV 93.4 fL 80.0 - 12/21 MH 98.0 /2015 [facility] MPV 8.2 fL 7.4 - 10.4 12/21 [facility] RDW 13.1 % 11.5 - 12/21 MH 14.5 /2015 [facility] Platelet 264 K/CMM 133 - 450 12/21 [facility] CHEM PANEL eGFR 133 12/20 Result Comment: The eGFR is calculated using the CKD-EPI formula. In most young, healthy individuals the eGFR will be >90 mL/ min/1.73m2. The eGFR declines with age. An eGFR of 60-89 may be normal in [facility] mL/min/1. some populations, particularly the elderly, for whom the CKD-EPI formula has not been extensively validated. Use of the eGFR is not recommended in the following populations: [facility] 3m2 Individuals with unstable creatinine concentrations, including patients and those with serious co-morbid conditions. Patients with extremes in muscle mass or diet. The data above are obtained from the National Kidney Disease Education Program (NKDEP) which additionally recommends that when the eGFR is used in patients with extremes of body mass index for purposes of drug dosing, the eGFR should be multiplied by the estimated BMI. CHEM PANEL A/G Ratio 1.2 0.7 - 1.6 12/20 [facility] CHEM PANEL AST 10 unit/L 0 - 37 12/20 [facility] CHEM PANEL AGAP 9.7 meq/L 10.0 - 08 MH 20.0 /2015 [facility] CHEM PANEL CO2 26 meq/L 24 - 32 12/20 [facility] CHEM PANEL Globulin 2.9 g/dL 2.7 - 4.2 12/20 [facility] CHEM PANEL Albumin Lvl 3.4 g/dL 3.5 - 5.0 12/20 [facility] CHEM PANEL Total 6.3 g/dL 6.4 - 8.4 12/20 [facility] CHEM PANEL Bili Total 0.4 mg/dL 0.2 - 1.3 12/20 [facility] CHEM PANEL ALT 11 unit/L 0 - 65 12/20 [facility] CHEM PANEL Alk Phos 64 unit/L 39 - 136 12/20 [facility] CHEM PANEL Glucose Lvl 72 mg/dL 70 - 99 12/20 [facility] CHEM PANEL Creatinine 0.45 mg/dL 0.50 - 12/20 Lvl 1.40 /2015 [facility] CHEM PANEL Sodium Lvl 140 meq/L 135 - 145 12/20 [facility] CHEM PANEL BUN 12 mg/dL 7 - 22 12/20 [facility] CHEM PANEL B/C Ratio 27 6 - 25 12/20 [facility] CHEM PANEL Calcium Lvl 8.0 mg/dL 8.5 - 10.5 12/20 [facility] CHEM PANEL Chloride Lvl 108 meq/L 95 - 109 12/20 [facility] CHEM PANEL Potassium 3.7 meq/L 3.5 - 5.1 12/20 Lv [facility] CHEM PANEL Phosphorus 4.1 mg/dL 2.5 - 4.5 12/20 [facility] CHEM PANEL Magnesium 2.0 mg/dL 1.8 - 2.4 12/20 Lvl [facility] HEMATOLOGY Eosinophils 0.1 K/CMM 0.0 - 0.5 / MH /2015 [facility] HEMATOLOGY Monocytes # 0.4 K/CMM 0.0 - 0.8 12/20 [facility] HEMATOLOGY Lymphocytes 1.7 K/CMM 1.0 - 5.5 12/20 MH # /2015 [facility] HEMATOLOGY Segs-Bands # 2.4 K/CMM 1.5 - 8.1 12/20 [facility] HEMATOLOGY Lymphocytes 37.2 % 20.0 - 08 MH 40.0 /2015 [facility] Segs 50.8 % 45.0 - 12/20 75.0 /2015 [facility] HEMATOLOGY Basophils 1.0 % 0.0 - 1.0 12/20 [facility] HEMATOLOGY Eosinophils 2.9 % 0.0 - 4.0 12/20 [facility] HEMATOLOGY Monocytes 8.1 % 2.0 - 12.0 12/20 [facility] WBC 4.6 K/CMM 3.7 - 10.4 12/20 [facility] Hct 31.4 % 36.0 - 12/20 48.0 /2015 [facility] Hgb 10.8 g/dL 12.0 - 12/20 16.0 [facility] RBC 3.36 M/CMM 4.20 - 12/20 5.40 /2015 [facility] MCV 93.3 fL 80.0 - 12/20 98.0 [facility] RDW 13.3 % 11.5 - 12/20 14.5 [facility] MCHC 34.3 g/dL 32.0 - 12/20 36.0 [facility] MCH 32.0 pg 27.0 - 12/20 31.0 [facility] MPV 7.4 fL 7.4 - 10.4 12/20 [facility] Platelet 241 K/CMM 133 - 450 12/20 [facility] MOLECULAR C difficile Negative Negative 12/19 DIAGNOSTIC DNA /2015 [facility] (12/20/15 10:02 AM) URINE AND Lactoferrin NEGATIVE NEGATIVE 12/19 Result Comment: STOOL Stool Lactoferrin in the stool is a marker for fecal [facility] leukocytes and is a non-specific indicator of intestinal inflammation that may be detected in patients with acute infectious colitis or inflammatory bowel disease. The diagnosis of an acute infectious process or active IBD cannot be established solely on the basis of a positive result. This test may not be appropriate for immunocompromised persons. In addition, this test is not FDA cleared for patients with a history of HIV and/or Hepatitis B and C, patients with a history of infectious diarrhea (within 6 months), and patients having had a colostomy and/or ileostomy within 1 month. Test Performed at: [facility] [address] [id number] Maximo Carey MD, PhD URINE AND Fecal None Seen 12/19 STOOL [facility] (12/20/15 10:02 AM) URINE AND UA Turbidity Clear Clear 12/19 [facility] (12/20/15 4:55 AM) URINE AND UA Glucose Negative Negative 12/19 STOOL mg/dL mg/dL URINE AND UA Ketones Negative Negative 12/19 STOOL mg/dL mg/dL URINE AND UA Protein Negative Negative 12/19 STOOL mg/dL mg/dL URINE AND UA Blood Negative Negative 12/19 [facility] (12/20/15 4:55 AM) URINE AND UA Nitrite Negative Negative 12/19 [facility] (12/20/15 4:55 AM) URINE AND UA Bili Negative Negative 12/19 *NA* (12/20/15 4:55 AM) URINE AND UA pH 5.0 5.0 - 8.0 12/19 [facility] URINE AND UA Mucus Many /LPF None Seen 12/19 STOOL /LPF URINE AND UA WBC 3 /HPF 0 - 5 12/19 [facility] URINE AND UA RBC 3 /HPF 0 - 2 12/19 [facility] URINE AND UA Leuk Est Trace Negative 12/19 [facility] *ABN* (12/20/15 4:55 AM) URINE AND UA Sq Epi Few /LPF Few /LPF 12/19 [facility] URINE AND UA Color Ltyellow 12/19 [facility] URINE AND UA Spec Grav >=1.050 <=1.030 12/19 [facility] *ABN* (12/20/15 4:55 AM) URINE AND UA <=1.0 0.1 - 1.0 12/19 STOOL Urobilinogen mg/dL [facility] URINE AND UA Bacteria Occasional None Seen 12/19 STOOL /HPF /HPF [facility] URINE AND UA Mucus Many /LPF None Seen 12/19 STOOL /LPF [facility] URINE AND UA WBC 54 /HPF 0 - 5 12/19 [facility] URINE AND UA RBC 4 /HPF 0 - 2 12/19 STOOL URINE AND UA Protein 30 mg/dL Negative 12/19 STOOL mg/dL [facility] URINE AND UA pH 6.0 5.0 - 8.0 12/19 STOOL [facility] URINE AND UA Color Yellow Yellow 12/19 [facility] *NA* (12/20/15 1:40 AM) URINE AND UA Turbidity Slight Clear 12/19 [facility] *ABN* (12/20/15 1:40 AM) URINE AND UA Blood Negative Negative 12/19 STOOL [facility] (12/20/15 1:40 AM) URINE AND UA Ketones Trace Negative 12/19 STOOL mg/dL mg/dL URINE AND UA Glucose Negative Negative 12/19 STOOL mg/dL mg/dL [facility] URINE AND UA Spec Grav 1.024 <=1.030 12/19 STOOL [facility] URINE AND UA Nitrite Negative Negative 12/19 [facility] (12/20/15 1:40 AM) URINE AND UA Sq Epi Many /LPF Few /LPF 12/19 [facility] URINE AND UA Leuk Est Large Negative 12/19 [facility] *ABN* (12/20/15 1:40 AM) URINE AND UA Bili Negative Negative 12/19 [facility] *NA* (12/20/15 1:40 AM) URINE AND UA 2.0 mg/dL 0.1 - 1.0 12/19 [facility] Urobilinogen /2015 [facility] CHEM PANEL Globulin 3.9 g/dL 2.0 - 4.0 12/19 [facility] CHEM PANEL A/G Ratio 1.1 0.7 - 1.6 12/19 [facility] CHEM PANEL AGAP 13.9 meq/L 10.0 - 12/19 20.0 [facility] CHEM PANEL B/C Ratio 21 6 - 25 12/19 [facility] CHEM PANEL eGFR 119 12/19 Result Comment: The eGFR is calculated using the CKD-EPI formula. In most young, healthy individuals the eGFR will be >90 mL/ min/1.73m2. The eGFR declines with age. An eGFR of 60-89 may be normal in mL/min/1.7 /2015 some populations, particularly the elderly, for whom the CKD-EPI formula has not been extensively validated. Use of the eGFR is not recommended in the following populations: [facility] 3m2 Individuals with unstable creatinine concentrations, including patients and those with serious co-morbid conditions. Patients with extremes in muscle mass or diet. The data above are obtained from the National Kidney Disease Education Program (NKDEP) which additionally recommends that when the eGFR is used in patients with extremes of body mass index for purposes of drug dosing, the eGFR should be multiplied by the estimated BMI. CHEM PANEL AST 29 unit/L 0 - 37 12/19 [facility] CHEM PANEL Alk Phos 75 unit/L 39 - 136 12/19 [facility] CHEM PANEL Bili Total 0.2 mg/dL 0.2 - 1.3 12/19 [facility] CHEM PANEL Chloride Lvl 111 meq/L 95 - 109 12/19 [facility] CHEM PANEL BUN 13 mg/dL 7 - 22 12/19 [facility] CHEM PANEL Potassium 3.9 meq/L 3.5 - 5.1 12/19 MH Lvl /2015 [facility] CHEM PANEL Sodium Lvl 141 meq/L 135 - 145 12/19 [facility] CHEM PANEL ALT 12 unit/L 0 - 65 12/19 [facility] [facility] CHE[facility] PANEL Calcium Lvl 9.0 mg/dL 8.5 - 10.5 12/19 [facility] CHEM PANEL CO2 20 meq/L 24 - 32 12/19 [facility] CHEM PANEL Albumin Lvl 4.2 g/dL 3.5 - 5.0 12/19 [facility] CHEM PANEL Total 8.1 g/dL 6.4 - 8.4 12/19 [facility] CHEM PANEL Creatinine 0.63 mg/dL 0.50 - 12/19 [facility] Lvl 1.40 /2015 [facility] CHEM PANEL Glucose Lvl 72 mg/dL 70 - 99 12/19 [facility] HEMATOLOGY MPV 8.3 fL 7.4 - 10.4 12/19 [facility] HEMATOLOGY Platelet 321 K/CMM 133 - 450 12/19 [facility] HEMATOLOGY RDW 13.4 % 11.5 - 12/19 MH 14.5 [facility] HEMATOLOGY MCV 94.7 fL 80.0 - 12/19 98.0 [facility] HEMATOLOGY Hct 39.0 % 36.0 - 12/19 MH 48.0 [facility] HEMATOLOGY MCHC 33.7 g/dL 32.0 - 08 MH 36.0 [facility] HEMATOLOGY MCH 31.9 pg 27.0 - 12/19 MH 31.0 [facility] HEMATOLOGY Hgb 13.1 g/dL 12.0 - 08/ MH 16.0 /2015 [facility] RBC 4.12 M/CMM 4.20 - 08/ MH 5.40 /2016 [facility] HEMATOLOGY WBC 6.3 K/CMM 3.7 - 10.4 / MH /2015 [facility] Basophils # 0.1 K/CMM 0.0 - 0.2 / /2015 [facility] HEMATOLOGY Monocytes # 0.4 K/CMM 0.0 - 0.8 / /2015 [facility] HEMATOLOGY Eosinophils 0.7 % 0.0 - 4.0 / /2015 [facility] Monocytes 6.3 % 2.0 - 12.0 / MH /2015 [facility] HEMATOLOGY Segs-Bands # 3.2 K/CMM 1.5 - 8.1 / [facility] Basophils 0.9 % 0.0 - 1.0 / [facility] Lymphocytes 2.6 K/CMM 1.0 - 5.5 / MH # /2016 [facility] HEMATOLOGY Segs 51.0 % 45.0 - 12/19 75.0 /2015 [facility] Lymphocytes 41.1 % 20.0 - 08 40.0 /2015 [facility] Abdomen/Pe Abdomen/Pelv Abdomen/Pelvis w IV contrast CT 12/20/2015 2:30 AM CDT 12/19 - lvis w IV is w IV /2015 - [facility] contrast contrast CT Ordering Physician:Yesy Wade CT Read by: Hannah Meza MD Dictated Date/time: 12/20/15 04:21 CLINICAL HISTORY: Generalized abdominal pain; C. difficile colitis; nausea , vomiting, diarrhea; history of Crohn's disease; Electronically Signed by: Hannah Meza MD 12/20/15 04:26 FINAL REPORT COMPARISON: Abdominopelvic CT 11/21/2015 TECHNIQUE: 5 mm thick axial images of the abdomen and pelvis were obtained with IV contrast. . 5 mm thick delayed axial images were obtained. Coronal and sagittal reformations were created. FINDINGS: Visualized lung bases are clear. Liver, spleen, pancreas, adrenal glands, and kidneys are normal. Ureters are normal. Bladder is contracted. Gallbladder is surgically absent. Gaseously postoperative changes are noted. Minimal circumferential mural thickening of the distal left and sigmoid colon is suggested. Remaining gastrointestinal tract is grossly normal. Appendix is normal. No mesenteric or retroperitoneal lymphadenopathy is present. No free air or free fluid is present. Bones demonstrate are normal. IMPRESSION: Possible minimal distal left and sigmoid colitis, postinfectious or inflammatory in etiology. SL: SSENDOS-PC URINE CHEM U Preg Negative Negative 11/23 [facility] (11/24/15 6:41 AM) CHEM PANEL eGFR 121 11/23 Result Comment: The eGFR is calculated using the CKD-EPI formula. In most young, healthy individuals the eGFR will be >90 mL/ min/1.73m2. The eGFR declines with age. An eGFR of 60-89 may be normal in mL/min/1. some populations, particularly the elderly, for whom the CKD-EPI formula has not been extensively validated. Use of the eGFR is not recommended in the following populations: [facility] 3m2 Individuals with unstable creatinine concentrations, including patients and those with serious co-morbid conditions. Patients with extremes in muscle mass or diet. The data above are obtained from the National Kidney Disease Education Program (NKDEP) which additionally recommends that when the eGFR is used in patients with extremes of body mass index for purposes of drug dosing, the eGFR should be multiplied by the estimated BMI. CHEM PANEL Sodium Lvl 138 meq/L 135 - 145 11/23 [facility] CHEM PANEL Creatinine 0.60 mg/dL 0.50 - 11/23 Lvl 1.40 [facility] CHEM PANEL Potassium 4.0 meq/L 3.5 - 5.1 11/23 Lvl [facility] CHEM PANEL BUN 9 mg/dL 7 - 22 11/23 [facility] CHEM PANEL Glucose Lvl 86 mg/dL 70 - 99 11/23 [facility] CHEM PANEL ALT 10 unit/L 0 - 65 11/23 [facility] CHEM PANEL AST 4 unit/L 0 - 37 11/23 [facility] CHEM PANEL Albumin Lvl 3.5 g/dL 3.5 - 5.0 11/23 [facility] CHEM PANEL Total 6.9 g/dL 6.4 - 8.4 11/23 [facility] CHEM PANEL CO2 30 meq/L 24 - 32 11/23 [facility] CHEM PANEL Chloride Lvl 103 meq/L 95 - 109 11/23 [facility] CHEM PANEL Calcium Lvl 8.5 mg/dL 8.5 - 10.5 11/23 [facility] CHEM PANEL Bili Total 0.2 mg/dL 0.2 - 1.3 11/23 [facility] CHEM PANEL Alk Phos 63 unit/L 39 - 136 11/23 [facility] CHEM PANEL Globulin 3.4 g/dL 2.0 - 4.0 11/23 [facility] CHEM PANEL A/G Ratio 1.0 0.7 - 1.6 11/23 [facility] CHEM PANEL B/C Ratio 15 6 - 25 11/23 [facility] CHEM PANEL AGAP 9.0 meq/L 10.0 - 07 MH 20.0 /2015 [facility] HEMATOLOGY WBC 8.0 K/CMM 3.7 - 10.4 11/23 [facility] HEMATOLOGY RBC 3.40 M/CMM 4.20 - 11/23 5.40 /2015 [facility] HEMATOLOGY Hgb 11.1 g/dL 12.0 - 11/23 16.0 /2015 [facility] HEMATOLOGY MPV 6.9 fL 7.4 - 10.4 11/23 [facility] HEMATOLOGY Platelet 286 K/CMM 133 - 450 07 [facility] HEMATOLOGY RDW 13.4 % 11.5 - 11/23 MH 14.5 /2015 [facility] HEMATOLOGY Hct 32.0 % 36.0 - 11/23 MH 48.0 /2015 [facility] HEMATOLOGY MCV 94.3 fL 80.0 - 11/23 MH 98.0 /2015 [facility] HEMATOLOGY MCH 32.6 pg 27.0 - 07 MH 31.0 [facility] HEMATOLOGY MCHC 34.6 g/dL 32.0 - 11/23 MH 36.0 /2015 [facility] HEMATOLOGY Eosinophils 0.1 K/CMM 0.0 - 0.5 11/23 MH # /2015 [facility] HEMATOLOGY Monocytes # 0.8 K/CMM 0.0 - 0.8 11/23 [facility] HEMATOLOGY Lymphocytes 3.5 K/CMM 1.0 - 5.5 11/23 MH # /2015 [facility] HEMATOLOGY Segs-Bands # 3.5 K/CMM 1.5 - 8.1 11/23 [facility] HEMATOLOGY Basophils 0.5 % 0.0 - 1.0 11/23 [facility] HEMATOLOGY Eosinophils 1.7 % 0.0 - 4.0 11/23 [facility] HEMATOLOGY Segs 43.3 % 45.0 - 07 75.0 /2016 [facility] HEMATOLOGY Lymphocytes 44.4 % 20.0 - 11/23 MH 40.0 /2015 [facility] HEMATOLOGY Monocytes 10.1 % 2.0 - 12.0 11/23 [facility] ELECTROLYT AGAP 11.8 meq/L 10.0 - 11/22 ES 20.0 [facility] ELECTROLYT eGFR 124 11/22 Result Comment: The eGFR is calculated using the CKD-EPI formula. In most young, healthy individuals the eGFR will be >90 mL/ min/1.73m2. The eGFR declines with age. An eGFR of 60-89 may be normal in [facility] mL/min/1.7 /2015 some populations, particularly the elderly, for whom the CKD-EPI formula has not been extensively validated. Use of the eGFR is not recommended in the following populations: [facility] 3m2 Individuals with unstable creatinine concentrations, including patients and those with serious co-morbid conditions. Patients with extremes in muscle mass or diet. The data above are obtained from the National Kidney Disease Education Program (NKDEP) which additionally recommends that when the eGFR is used in patients with extremes of body mass index for purposes of drug dosing, the eGFR should be multiplied by the estimated BMI. ELECTROLYT CO2 28 meq/L 24 - 32 11/22 ES [facility] ELECTROLYT Chloride Lvl 104 meq/L 95 - 109 11/22 [facility] ELECTROLYT Calcium Lvl 8.7 mg/dL 8.5 - 10.5 11/22 ES [facility] ELECTROLYT Sodium Lvl 140 meq/L 135 - 145 11/22 [facility] ELECTROLYT Creatinine 0.55 mg/dL 0.50 - 11/22 ES Lvl 1.40 /2015 [facility] ELECTROLYT BUN 8 mg/dL 7 - 22 11/22 [facility] ELECTROLYT Glucose Lvl 93 mg/dL 70 - 99 11/22 [facility] ELECTROLYT Potassium 3.8 meq/L 3.5 - 5.1 11/22 ES Lvl [facility] HEMATOLOGY MPV 7.0 fL 7.4 - 10.4 11/22 [facility] HEMATOLOGY Platelet 256 K/CMM 133 - 450 11/22 [facility] HEMATOLOGY RDW 13.1 % 11.5 - 11/22 14. [facility] HEMATOLOGY MCHC 33.7 g/dL 32.0 - 07/ MH 36.0 /2016 [facility] HEMATOLOGY Hct 31.0 % 36.0 - / MH 48.0 /2016 [facility] HEMATOLOGY MCV 95.6 fL 80.0 - 07/ MH 98.0 /2015 [facility] MCH 32.2 pg 27.0 - 07/ MH 31.0 /2015 [facility] WBC 7.3 K/CMM 3.7 - 10.4 07/ MH /2015 [facility] HEMATOLOGY Hgb 10.4 g/dL 12.0 - 07/ MH 16.0 /2015 [facility] HEMATOLOGY RBC 3.24 M/CMM 4.20 - 07/ MH 5.40 /2016 [facility] HEMATOLOGY Eosinophils 0.1 K/CMM 0.0 - 0.5 07/06 MH # /2016 [facility] HEMATOLOGY Segs-Bands # 3.8 K/CMM 1.5 - 8.1 / /2015 [facility] Lymphocytes 2.7 K/CMM 1.0 - 5.5 / MH # /2015 [facility] Monocytes # 0.7 K/CMM 0.0 - 0.8 07/ /2015 [facility] HEMATOLOGY Eosinophils 1.3 % 0.0 - 4.0 07/ /2015 [facility] HEMATOLOGY Basophils 0.4 % 0.0 - 1.0 07/ /2015 [facility] HEMATOLOGY Segs 52.6 % 45.0 - / MH 75.0 /2015 [facility] Monocytes 9.2 % 2.0 - 12.0 / /2015 [facility] Lymphocytes 36.5 % 20.0 - 11/22 MH 40.0 /2015 [facility] CHEM PANEL Magnesium 2.2 mg/dL 1.8 - 2.4 11/21 Lvl /2015 [facility] CHEM PANEL eGFR 119 11/21 Result Comment: The eGFR is calculated using the CKD-EPI formula. In most young, healthy individuals the eGFR will be >90 mL/ min/1.73m2. The eGFR declines with age. An eGFR of 60-89 may be normal in [facility] mL/min/1. /2015 some populations, particularly the elderly, for whom the CKD-EPI formula has not been extensively validated. Use of the eGFR is not recommended in the following populations: [facility] 3m2 Individuals with unstable creatinine concentrations, including patients and those with serious co-morbid conditions. Patients with extremes in muscle mass or diet. The data above are obtained from the National Kidney Disease Education Program (NKDEP) which additionally recommends that when the eGFR is used in patients with extremes of body mass index for purposes of drug dosing, the eGFR should be multiplied by the estimated BMI. CHEM PANEL A/G Ratio 1.1 0.7 - 1.6 11/21 [facility] CHEM PANEL B/C Ratio 10 6 - 25 11/21 [facility] CHEM PANEL Globulin 3.7 g/dL 2.0 - 4.0 11/21 [facility] CHEM PANEL Bili Total 0.2 mg/dL 0.2 - 1.3 11/21 [facility] CHEM PANEL AGAP 11.2 meq/L 10.0 - 07 MH 20.0 /2015 [facility] CHEM PANEL AST 5 unit/L 0 - 37 11/21 [facility] CHEM PANEL ALT 11 unit/L 0 - 65 11/21 [facility] CHEM PANEL Alk Phos 66 unit/L 39 - 136 11/21 [facility] CHEM PANEL Calcium Lvl 8.9 mg/dL 8.5 - 10.5 11/21 [facility] CHEM PANEL CO2 28 meq/L 24 - 32 11/21 [facility] CHEM PANEL Albumin Lvl 3.9 g/dL 3.5 - 5.0 11/21 [facility] CHEM PANEL Total 7.6 g/dL 6.4 - 8.4 11/21 [facility] CHEM PANEL Chloride Lvl 104 meq/L 95 - 109 11/21 [facility] CHEM PANEL Potassium 4.2 meq/L 3.5 - 5.1 11/21 MH Lvl /2015 [facility] CHEM PANEL Creatinine 0.62 mg/dL 0.50 - 07 MH Lvl 1.40 /2015 [facility] CHEM PANEL Sodium Lvl 139 meq/L 135 - 145 11/21 [facility] CHEM PANEL BUN 6 mg/dL 7 - 22 11/21 [facility] CHEM PANEL Glucose Lvl 134 mg/dL 70 - 99 11/21 [facility] HEMATOLOGY INR 1.11 0.85 - 07/05 MH 1.17 [facility] HEMATOLOGY PT 14.6 s 12.0 - 07/05 MH 14.7 /2016 [facility] HEMATOLOGY Monocytes # 0.3 K/CMM 0.0 - 0.8 11/21 [facility] HEMATOLOGY Monocytes 2.6 % 2.0 - 12.0 07/ /2015 [facility] Lymphocytes 10.4 % 20.0 - 07/ MH 40.0 /2015 [facility] Lymphocytes 1.0 K/CMM 1.0 - 5.5 07/05 MH # /2016 [facility] HEMATOLOGY Segs-Bands # 8.4 K/CMM 1.5 - 8.1 07/ [facility] Basophils 0.2 % 0.0 - 1.0 07 /2015 [facility] Segs 86.8 % 45.0 - 07/ 75.0 /2015 [facility] Hct 31.3 % 36.0 - 07/ 48.0 /2016 [facility] MCV 94.1 fL 80.0 - 11/21 98.0 /2015 [facility] Hgb 10.7 g/dL 12.0 - 07 16.0 /2015 [facility] MCH 32.3 pg 27.0 - 11/21 31.0 /2015 [facility] MPV 7.1 fL 7.4 - 10.4 11/21 [facility] Platelet 260 K/CMM 133 - 450 07 /2015 [facility] RDW 13.0 % 11.5 - 07 14.5 /2015 [facility] MCHC 34.3 g/dL 32.0 - 07 36.0 /2015 [facility] RBC 3.32 M/CMM 4.20 - 07 5.40 /2015 [facility] WBC 9.7 K/CMM 3.7 - 10.4 07 [facility] MOLECULAR C difficile Positive 1 Negative 11/20 Result DIAGNOSTIC Comment: [facility] *ABN* "Significant Findings (11/21/15 12:23 PM) called to Carolann Ivey 11/22/2015 14:24 by bf. Read Back OK." URINE AND Lactoferrin NEGATIVE NEGATIVE 11/20 Result Comment: STOOL Stool /2015 Lactoferrin in the stool is a marker for fecal [facility] leukocytes and is a non-specific indicator of intestinal inflammation that may be detected in patients with acute infectious colitis or inflammatory bowel disease. The diagnosis of an acute infectious process or active IBD cannot be established solely on the basis of a positive result. This test may not be appropriate for immunocompromised persons. In addition, this test is not FDA cleared for patients with a history of HIV and/or Hepatitis B and C, patients with a history of infectious diarrhea (within 6 months), and patients having had a colostomy and/or ileostomy within 1 month. Test Performed at: [facility] [address] [place] [address] Maximo Carey MD, PhD URINE AND Fecal Rare 11/20 STOOL Leukocyte [facility] (11/21/15 12:23 PM) URINE AND Occult Bld Negative Negative 11/20 STOOL Stl (11/21/15 12:23 PM) Enterograp Enterography EXAM: CT enterography abdomen and pelvis 11/20 - hy Abd/Pel Abd/Pel w IV - [facility] w IV contrast CT HISTORY: Crohn disease, generalized abdominal pain. Evaluate for fistula, stricture or abscess contrast CT COMPARISON: MRI 10/19/[address] 08/03/2014 Read by: Ghulam Hook MD Dictated Date/time: 11/22/15 08:01 TECHNIQUE: Thin collimation axial images obtained through the abdomen and pelvis. Neutral enteric contrast and IV contrast are given. Coronal and sagittal reformats obtained. Electronically Signed by: Ghulam Hook MD 11/22/15 09:06 FINAL REPORT FINDINGS: GASTROINTESTINAL TRACT: Stable sleeve gastrectomy. Mild wall thickening and luminal narrowing of the terminal ileum are stable. No new bowel wall thickening or abnormal enhancement is seen. No bowel obs truction, fistula, abscess or phlegmon is seen. The small bowel mesentery appears unremarkable. Appendicoliths without appendicitis. SOLID ORGANS: Mild fatty change of the liver. Cholecystectomy. Tiny cyst left kidney. 9 mm heterogeneous partially exophytic lesion posterior left mid kidney, series 3, image 36 is stable. The right kidney, spleen, adrenals and pancreas are unremarkable. Bladder is unremarkable. Hysterectomy. RETROPERITONEUM: No bulky adenopathy. Mild atherosclerosis of the common iliac arteries. LOWER CHEST: Dependent atelectasis in the lung bases. BONES: Minimal degenerative change sacroiliac joints. Osteitis pubis. IMPRESSION: 1. Mild wall thickening of the terminal ileum compatible with chronic Crohn disease. No active Crohn disease is seen. 2. 9 mm heterogeneous lesion left kidney is stable and may reflect a complex cyst. A 12 months follow-up CT of the abdomen/kidneys without and with contrast is advised to document stability. 3. Fatty liver. 4. Cholecystectomy. 5. Sleeve gastrectomy. SL: [id number] CHEM PANEL Globulin 4.0 g/dL 2.0 - 4.0 11/20 [facility] CHEM PANEL Albumin Lvl 3.3 g/dL 3.5 - 5.0 11/20 [facility] CHEM PANEL ALT 10 unit/L 0 - 65 11/20 [facility] CHEM PANEL AST 6 unit/L 0 - 37 11/20 [facility] CHEM PANEL A/G Ratio 0.8 0.7 - 1.6 11/20 [facility] CHEM PANEL Alk Phos 64 unit/L 39 - 136 11/20 [facility] CHEM PANEL Bili Total 0.2 mg/dL 0.2 - 1.3 11/20 [facility] CHEM PANEL B/C Ratio 16 6 - 25 11/20 [facility] CHEM PANEL Total 7.3 g/dL 6.4 - 8.4 11/20 [facility] CHEM PANEL Lipase Lvl 122 unit/L 73 - 393 11/20 [facility] HEMATOLOGY Eosinophils 0.1 % 0.0 - 4.0 11/20 [facility] IMMUNOLOGY KAMRAN Interp Pattern 11/20 [facility] Mixed Speckled and Nucleolar IMMUNOLOGY KAMRAN Titer 1:320 Negative 11/20 [facility] *ABN* (11/21/15 5:27 AM) IMMUNOLOGY KAMRAN Positive Negative 11/20 [facility] *ABN* (11/21/15 5:27 AM) CHEM PANEL Lactic Acid 1.3 mMol/L 0.5 - 2.2 11/19 Lvl [facility] IMMUNOLOGY C-REACTIVE null <=2.9 mg/L 11/19 [facility] CHEM PANEL eGFR 115 10/19 Result Comment: The eGFR is calculated using the CKD-EPI formula. In most young, healthy individuals the eGFR will be >90 mL/ min/1.73m2. The eGFR declines with age. An eGFR of 60-89 may be normal in [place] mL/min/1. /2015 some populations, particularly the elderly, for whom the CKD-EPI formula has not been extensively validated. Use of the eGFR is not recommended in the following populations: [facility] Individuals with unstable creatinine concentrations, including patients and those with serious co-morbid conditions. Patients with extremes in muscle mass or diet. The data above are obtained from the National Kidney Disease Education Program (NKDEP) which additionally recommends that when the eGFR is used in patients with extremes of body mass index for purposes of drug dosing, the eGFR should be multiplied by the estimated BMI. CHEM PANEL Calcium Lvl 8.7 mg/dL 8.5 - 10.5 06 [facility] CHEM PANEL AGAP 14.4 meq/L 10.0 - 06/ 20.0 [facility] CHEM PANEL CO2 29 meq/L 24 - 32 06 [facility] CHEM PANEL Sodium Lvl 141 meq/L 135 - 145 06 [facility] CHEM PANEL Creatinine 0.70 mg/dL 0.50 - 10/19 [facility] Lvl 1.40 [facility] CHEM PANEL Potassium 3.4 meq/L 3.5 - 5.1 10/19 [facility] CHEM PANEL Chloride Lvl 101 meq/L 95 - 109 06 [facility] CHEM PANEL BUN 6 mg/dL 7 - 22 10/19 [facility] CHEM PANEL Glucose Lvl 117 mg/dL 70 - 99 06 [facility] CHEM PANEL Magnesium 1.8 mg/dL 1.8 - 2.4 10/19 [facility] HEMATOLOGY Hct 33.9 % 36.0 - 10/19 [facility] 48.0 [facility] HEMATOLOGY RBC 3.57 M/CMM 4.20 - 10/19 [place] 5.40 [facility] HEMATOLOGY Hgb 11.9 g/dL 12.0 - 06 16.0 [facility] HEMATOLOGY WBC 8.2 K/CMM 3.7 - 10.4 06 [facility] HEMATOLOGY MCV 94.9 fL 80.0 - 06 98.0 [facility] HEMATOLOGY MCH 33.2 pg 27.0 - 06 31.0 [facility] HEMATOLOGY MPV 7.1 fL 7.4 - 10.4 06 [facility] HEMATOLOGY Platelet 266 K/CMM 133 - 450 06 [facility] HEMATOLOGY MCHC 35.0 g/dL 32.0 - 06/ 36.0 [facility] HEMATOLOGY RDW 13.1 % 11.5 - 06 [place] 14.5 /2015 [facility] HEMATOLOGY Eosinophils 0.1 K/CMM 0.0 - 0.5 / [facility] # /2016 [facility] HEMATOLOGY Monocytes # 0.6 K/CMM 0.0 - 0.8 10/19 [facility] HEMATOLOGY Segs-Bands # 4.3 K/CMM 1.5 - 8.1 / /2015 [facility] HEMATOLOGY Lymphocytes 3.2 K/CMM 1.0 - 5.5 / [facility] # /2016 [facility] HEMATOLOGY Basophils 0.4 % 0.0 - 1.0 / [facility] HEMATOLOGY Eosinophils 0.7 % 0.0 - 4.0 / [facility] HEMATOLOGY Monocytes 7.7 % 2.0 - 12.0 / [facility] HEMATOLOGY Segs 52.0 % 45.0 - / [place] 75.0 /2015 [facility] HEMATOLOGY Lymphocytes 39.2 % 20.0 - 06/ [place] 40.0 [facility] PARATHYROI Ca Norm WB 1.13 1.05 - 10/19 [facility] D PROFILE mMol/L 1. [facility] PARATHYROI Ca Ion WB 1.18 1.05 - 10/19 [facility] D PROFILE mMol/L 1. [facility] CHEM PANEL Calcium Lvl 8.7 mg/dL 8.5 - 10.5 10/[address] CHEM PANEL eGFR 124 10/18 Result Comment: The eGFR is calculated using the CKD-EPI formula. In most young, healthy individuals the eGFR will be >90 mL/ min/1.73m2. The eGFR declines with age. An eGFR of 60-89 may be normal in [facility] mL/min/1.7 /2015 some populations, particularly the elderly, for whom the CKD-EPI formula has not been extensively validated. Use of the eGFR is not recommended in the following populations: [address] Individuals with unstable creatinine concentrations, including patients and those with serious co-morbid conditions. Patients with extremes in muscle mass or diet. The data above are obtained from the National Kidney Disease Education Program (NKDEP) which additionally recommends that when the eGFR is used in patients with extremes of body mass index for purposes of drug dosing, the eGFR should be multiplied by the estimated BMI. CHEM PANEL CO2 30 meq/L 24 - 32 06 [facility] CHEM PANEL Chloride Lvl 104 meq/L 95 - 109 06 [facility] CHEM PANEL Potassium 3.7 meq/L 3.5 - 5.1 10/18 [facility] CHEM PANEL Sodium Lvl 143 meq/L 135 - 145 06 [facility] CHEM PANEL Creatinine 0.55 mg/dL 0.50 - 06 [facility] Lvl 1.40 /2015 [facility] CHEM PANEL Glucose Lvl 56 mg/dL 70 - 99 10/18 [facility] CHEM PANEL BUN 7 mg/dL 7 - 22 10/18 [facility] CHEM PANEL AGAP 12.7 meq/L 10.0 - 06 20.0 [facility] CHEM PANEL Magnesium 1.9 mg/dL 1.8 - 2.4 10/18 [facility] HEMATOLOGY Platelet 254 K/CMM 133 - 450 10/18 [facility] HEMATOLOGY MPV 6.7 fL 7.4 - 10.4 10/18 [facility] HEMATOLOGY MCV 95.0 fL 80.0 - 10/18 98.0 [facility] HEMATOLOGY MCH 33.5 pg 27.0 - 06 31.0 [facility] HEMATOLOGY MCHC 35.3 g/dL 32.0 - 10/18 36.0 [facility] HEMATOLOGY RDW 13.2 % 11.5 - 06 14.5 [facility] HEMATOLOGY Hct 32.5 % 36.0 - 10/18 [place] 48.0 [facility] HEMATOLOGY WBC 8.0 K/CMM 3.7 - 10.4 10/18 [facility] HEMATOLOGY RBC 3.42 M/CMM 4.20 - 06 [place] 5.40 [facility] HEMATOLOGY Hgb 11.5 g/dL 12.0 - 06 [place] 16.0 2016 [facility] HEMATOLOGY Lymphocytes 41.6 % 20.0 - 06 40.0 [facility] HEMATOLOGY Segs 47.9 % 45.0 - 06/ [place] 75.0 /2015 [facility] HEMATOLOGY Monocytes 8.1 % 2.0 - 12.0 06 MH [facility] HEMATOLOGY Eosinophils 2.0 % 0.0 - 4.0 10/18 [facility]2015 [facility] HEMATOLOGY Monocytes # 0.6 K/CMM 0.0 - 0.8 10/18 [facility]2015 [facility] HEMATOLOGY Lymphocytes 3.3 K/CMM 1.0 - 5.5 10/18 [facility] /2015 [facility] HEMATOLOGY Segs-Bands # 3.8 K/CMM 1.5 - 8.1 10/18 [facility]2015 [facility] HEMATOLOGY Basophils 0.4 % 0.0 - 1.0 10/18 [facility]2015 [facility] HEMATOLOGY Eosinophils 0.2 K/CMM 0.0 - 0.5 10/18 [facility] /2015 [facility] Enterograp Enterography EXAM: MR ENTEROGRAPHY 10/18 - [facility] Abd/Pelvis - [facility] Abd/Pelvis w/wo This report was dictated by a Consumer Safety Officer/ Fellow. I have personally reviewed the images as Center w/wo contrast MRI well as the Resident's interpretation and agree with the findings. contrast DATE: 10/19/2015. Read by: Magry Ceja (Fellow) Miles Resident: Margy Ceja (Fellow) Miles MRI Dictated Date/time: 10/19/15 16:43 Electronically Signed by: Alfreda Avalos 10/19/15 17:54 FINAL REPORT CLINICAL INDICATION: Abdominal pain, chronic; COMPARISON: None ADDITIONAL INFORMATION: History of Crohn's disease with worsening symptoms of diarrhea and abdominal pain over 4 months. TECHNIQUE: MRI of the abdomen is performed according to the MR enterography protocol with the patient ingesting large quantities of water. The patient was given double dose of glucagon to small bowel motility. Yulissa ging was performed with and without gadolinium contrast with T1 and T2 weighted imaging obtained. Multiplanar imaging was performed. The patient received 7.0 cc of gadolinium contrast material. The exam was limited, related to patient breath-hold limitation and movement artifact. FINDINGS: STOMACH AND BOWEL: The fluid-filled stomach is normal in contour and morphology with normal enhancement of the mucosa. Small hiatal hernia is present. There are no gastric masses seen. The fluid-filled loops of proximal small bowel appear unremarkable. No definite abnormalities are seen. Evaluation is limited, related to extensive motion artifact. Mildly distended fluid-filled loops o f distal ileum are seen in the lower abdomen and pelvis. A short segment of mucosal enhancement is seen within the terminal ileum associated with increased restricted diffusion. The bowel wall of the te rminal ileum is at upper limits of normal in width. Assessment is once again limited, related to respiratory artifact and movement. Gas and fecal material is seen in the loops of colon in the abdomen an d pelvis. There is no significant constipation seen. No additional gross abnormalities are seen. Assessment is limited, related to motion and respiratory artifact. ABDOMINAL ORGANS: There is normal liver contour and morphology with normal liver signal intensity. There are no liver lesions noted. There is normal post gadolinium contrast enhancement of the liver. Th ere is no intrahepatic biliary ductal dilatation. The gallbladder is normal. There is no biliary ductal dilatation. The spleen is normal with normal postgadolinium contrast enhancement. The adrenals and kidneys are normal with normal post gadolinium contrast enhancement. The pancreas is unremarkable, with normal post gadolinium contrast enhancement. There is no periportal or retroperitoneal lymphadenopathy. IMPRESSION: 1. Active terminal ileitis. 2. Small hiatal hernia CHEM PANEL eGFR 121 10/17 Result Comment: The eGFR is calculated using the CKD-EPI formula. In most young, healthy individuals the eGFR will be >90 mL/ min/1.73m2. The eGFR declines with age. An eGFR of 60-89 may be normal in [facility] mL/min/1. some populations, particularly the elderly, for whom the CKD-EPI formula has not been extensively validated. Use of the eGFR is not recommended in the following populations: [place] [id number] [facility] Individuals with unstable creatinine concentrations, including patients and those with serious co-morbid conditions. Patients with extremes in muscle mass or diet. The data above are obtained from the National Kidney Disease Education Program (NKDEP) which additionally recommends that when the eGFR is used in patients with extremes of body mass index for purposes of drug dosing, the eGFR should be multiplied by the estimated BMI. CHEM PANEL CO2 31 meq/L 24 - 32 10/17 [facility] CHEM PANEL Chloride Lvl 104 meq/L 95 - 109 10/17 [facility] CHEM PANEL Calcium Lvl 8.3 mg/dL 8.5 - 10.5 10/17 [facility]2015 [facility] CHEM PANEL BUN 8 mg/dL 7 - 22 10/17 [facility]2015 [facility] CHEM PANEL Creatinine 0.60 mg/dL 0.50 - 10/17 [facility] Lvl 1.40 [facility] CHEM PANEL Sodium Lvl 143 meq/L 135 - 145 10/17 [facility] CHEM PANEL Potassium 3.7 meq/L 3.5 - 5.1 10/17 [facility] CHEM PANEL Glucose Lvl 64 mg/dL 70 - 99 10/17 [facility] CHEM PANEL AGAP 11.7 meq/L 10.0 - 10/17 20.0 [facility] CHEM PANEL Magnesium 2.2 mg/dL 1.8 - 2.4 10/17 [facility] HEMATOLOGY Monocytes # 0.5 K/CMM 0.0 - 0.8 10/17 [facility] HEMATOLOGY Eosinophils 0.2 K/CMM 0.0 - 0.5 10/17 [facility] HEMATOLOGY Lymphocytes 2.8 K/CMM 1.0 - 5.5 10/17 [facility] HEMATOLOGY Basophils 0.7 % 0.0 - 1.0 10/17 [facility] HEMATOLOGY Segs-Bands # 1.3 K/CMM 1.5 - 8.1 10/17 [facility] HEMATOLOGY Monocytes 10.7 % 2.0 - 12.0 10/17 [facility] HEMATOLOGY Eosinophils 4.0 % 0.0 - 4.0 10/17 [facility] HEMATOLOGY Segs 26.8 % 45.0 - 10/17 75.0 [facility] HEMATOLOGY Lymphocytes 57.8 % 20.0 - 10/17 40.0 [facility] HEMATOLOGY RBC 3.10 M/CMM 4.20 - 10/17 [place] 5.40 2016 [facility] HEMATOLOGY Hgb 10.4 g/dL 12.0 - 10/17 16.0 [facility] HEMATOLOGY Hct 29.5 % 36.0 - 10/17 48.0 [facility] HEMATOLOGY MCH 33.4 pg 27.0 - 10/17 [place] 31.0 [facility] HEMATOLOGY MCHC 35.1 g/dL 32.0 - 10/17 36.0 [facility] HEMATOLOGY MCV 95.1 fL 80.0 - 10/17 [place] 98.0 [facility] HEMATOLOGY WBC 4.8 K/CMM 3.7 - 10.4 10/17 [facility] HEMATOLOGY RDW 13.0 % 11.5 - 10/17 [facility] 14.5 [facility] HEMATOLOGY Platelet 244 K/CMM 133 - 450 10/17 /2015 [facility] HEMATOLOGY MPV 6.7 fL 7.4 - 10.4 10/17 [facility] /2015 [facility] URINE CHEM U Preg Negative Negative 10/17 [facility] (10/17/15 7:54 PM) [place] MOLECULAR C difficile Negative Negative 10/15 [facility] DIAGNOSTIC DNA [facility] (10/16/15 6:47 PM) [place] URINE AND Occult Bld Negative Negative 10/15 [facility] STOOL Stl [facility] (10/16/15 6:47 PM) [place] IMMUNOLOGY DNA DS Ttr 1:20 10/15 [facility] *ABN* [place] (10/16/15 4:37 AM) IMMUNOLOGY C4 20 mg/dL 16 - 47 10/15 [facility] IMMUNOLOGY KAMRAN Positive Negative [facility]/15 [facility] [place] (10/16/15 4:37 AM) IMMUNOLOGY DNA Ab (DS) Positive Negative 10/15 [facility] [place] (10/16/15 4:37 AM) IMMUNOLOGY C3 120 mg/dL 88 - 201 10/15 [facility] /2015 [facility] IMMUNOLOGY KAMRAN Interp Pattern 10/15 [facility] Speckled Chromosome positive and Nucleolar IMMUNOLOGY KAMRAN Titer 1:640 Negative 10/15 [facility] [place] (10/16/15 4:37 AM) URINE AND UA <=1.0 0.1 - 1.0 10/14 [facility] Urobilinogen mg/dL /2015 [facility] URINE AND UA Bacteria Occasional None Seen 10/14 [facility] STOOL /HPF /HPF /2015 [facility] URINE AND UA Sq Epi Occasional Few /LPF 10/14 [facility] STOOL /LPF /2015 [facility] URINE AND UA Leuk Est Negative Negative 10/14 [facility] STOOL /2015 [facility] (10/15/15 4:20 PM) [place] URINE AND UA Nitrite Negative Negative 10/14 [facility] STOOL /2015 [facility] (10/15/15 4:20 PM) [place] URINE AND UA Blood Negative Negative 10/14 [facility] (10/15/15 4:20 PM) [place] URINE AND UA Bili Negative Negative 10/14 [facility] *NA* [place] (10/15/15 4:20 PM) URINE AND UA Glucose Negative Negative 10/14 [facility] mg/dL mg/dL [facility] URINE AND UA Ketones Negative Negative 10/14 [facility] mg/dL mg/dL [facility] URINE AND UA Protein Negative Negative 10/14 [facility] mg/dL mg/dL [facility] URINE AND UA pH 7.5 5.0 - 8.0 10/14 [facility] /2015 [facility] URINE AND UA Spec Grav 1.007 <=1.030 10/14 [facility] URINE AND UA Color Yellow Yellow 10/14 [facility] *NA* [place] (10/15/15 4:20 PM) URINE AND UA Turbidity Clear Clear 10/14 [facility] (10/15/15 4:20 PM) [place] URINE AND UA RBC null 0 - 2 10/14 [facility] URINE AND UA WBC null 0 - 5 10/14 [facility] CHEM PANEL Albumin Lvl 3.6 g/dL 3.5 - 5.0 10/14 [facility]2015 [facility] CHEM PANEL Total 7.1 g/dL 6.4 - 8.4 10/14 [facility] CHEM PANEL AST 13 unit/L 0 - 37 10/14 2015 [facility] CHEM PANEL Alk Phos 65 unit/L 39 - 136 10/14 [facility]2015 [facility] CHEM PANEL Bili Total 0.3 mg/dL 0.2 - 1.3 10/14 [facility] CHEM PANEL ALT 15 unit/L 0 - 65 10/14 [facility]2015 [facility] CHEM PANEL B/C Ratio 14 6 - 25 10/14 [facility] CHEM PANEL Globulin 3.5 g/dL 2.0 - 4.0 10/14 [facility]2015 [facility] CHEM PANEL A/G Ratio 1.0 0.7 - 1.6 10/14 [facility] CHEM PANEL Phosphorus 4.6 mg/dL 2.5 - 4.5 10/14 2015 [facility] HEMATOLOGY PT 14.2 s 12.0 - 10/14 [place] 14.7 [facility] HEMATOLOGY PTT 33.9 s 22.9 - 10/14 [facility] 35.8 /2016 [facility] HEMATOLOGY INR 1.07 0.85 - 10/14 [facility] 1.17 [facility] HEMATOLOGY Basophils # 0.0 K/CMM 0.0 - 0.2 10/14 [facility] PARATHYROI Ca Norm WB 1.10 1. - 10/14 [facility] D PROFILE mMol/L 1. [facility] PARATHYROI Ca Ion WB 1.13 1.10/14 [facility] D PROFILE mMol/L 1. [facility] Abdomen AP Abdomen AP EXAM: XR ABDOMEN 1 VIEW 10/14 - [facility] DX - [facility] DATE: 10/15/2015 2:26 AM CDT Read by: Alfreda Avalos Dictated Date/time: 10/15/15 12:54 Electronically Signed by: Alfreda Avalos 10/15/15 12:55 FINAL REPORT INDICATION: Abdominal pain, acute ADDITIONAL INFORMATION: None. COMPARISON: CT dated 08/03/2014 TECHNIQUE: Supine AP view of the abdomen FINDINGS: Suture line correspond to sleeve gastrectomy seen. Clips corresponding to prior cystectomy seen in the medial right upper quadrant. No small bowel dilation seen. No colonic dilation. Scattered stool seen in the colon. Bones are unremarkable. IMPRESSION: 1. No bowel dilation. Chest Chest 1view EXAM: XR CHEST 1 VIEW 10/14 - [place] [id number] DX [facility] DATE: 10/15/2015 2:24 AM CDT Read by: Maxime Nettles MD Dictated Date/time: 10/15/15 15:07 Electronically Signed by: Maxime Nettles MD 10/15/15 15:08 FINAL REPORT INDICATION: Cough and fever COMPARISON: Chest radiograph dated 11/25/2013 TECHNIQUE: AP chest one view FINDINGS: There is a right subclavian central venous catheter with tip overlying the proximal SVC. No consolidation or pleural effusion.No definite pneumothorax allowing for limitations of semiupright exam. Cardiomediastinal silhouette is unchanged. Osseous structures are unchanged. IMPRESSION: 1. No acute cardiopulmonary abnormality. 2. Right subclavian central venous catheter. CHEM PANEL eGFR 122 08/06 1Result Comment: The eGFR is calculated using the CKD-EPI formula. In most young, healthy individuals the eGFR will be > 90 mL/min/1.73m2. The eGFR declines with age. An eGFR of 60-89 may be normal in mL/min/1. some populations, particularly the elderly, for whom the CKD-EPI formula has not been extensively validated. Use of the eGFR is not recommended in the following populations: [facility] 3m2 Individuals with unstable creatinine concentrations, including patients and those with serious co-morbid conditions. Patients with extremes in muscle mass or diet. The data above are obtained from the National Kidney Disease Education Program (NKDEP) which additionally recommends that when the eGFR is used in patients with extremes of body mass index for purposes of drug dosing, the eGFR should be multiplied by the estimated BMI. CHEM PANEL Calcium Lvl 9.3 mg/dL 8.5 - 10.5 08/06 Hospital CHEM PANEL Total 8.0 g/dL 6.4 - 8.4 08/06 Hospital CHEM PANEL Chloride Lvl 107 meq/L 95 - 109 08/06 Hospital CHEM PANEL CO2 31 meq/L 24 - 32 08/06 Hospital CHEM PANEL Bili Total 0.4 mg/dL 0.2 - 1.3 08/06 Hospital CHEM PANEL Alk Phos 72 unit/L 39 - 136 08/06 Hospital CHEM PANEL AST 14 unit/L 0 - 37 08/06 Hospital CHEM PANEL Albumin Lvl 4.0 g/dL 3.5 - 5.0 08/06 [facility] CHEM PANEL ALT 13 unit/L 0 - 65 08/06 Hospital CHEM PANEL Potassium 3.7 meq/L 3.5 - 5.1 08/06 Hospital CHEM PANEL Sodium Lvl 141 meq/L 135 - 145 08/06 [facility] CHEM PANEL BUN 11 mg/dL 7 - 22 08/06 Hospital CHEM PANEL Creatinine 0.6 mg/dL 0.5 - 1.4 08/06 Hospital CHEM PANEL Glucose Lvl 84 mg/dL 70 - 99 08/06 2Interpretive Data: Adult reference range values reflect the clinical guidelines of the [place] [employer]. Hospital CHEM PANEL A/G Ratio 1.0 0.7 - 1.6 08/06 [facility] CHEM PANEL AGAP 6.7 meq/L 10.0 - 08/06 [facility] 20.0 [facility] CHEM PANEL Globulin 4.0 g/dL 2.0 - 4.0 08/06 [facility] CHEM PANEL B/C Ratio 18 6 - 25 08/06 Hospital ENDOCRINOL S Preg Negative Negative 08/06 [facility] *NA* (08/06/14 2:48 PM) HEMATOLOGY Sed Rate 27 mm/h 0 - 20 08/06 [facility] HEMATOLOGY WBC 6.1 K/CMM 3.7 - 10.4 08/06 [facility] HEMATOLOGY Hct 37.6 % 36.0 - 08/06 [facility] 48.0 [facility] HEMATOLOGY MCHC 33.8 g/dL 32.0 - 08/06 [facility] 36.0 [facility] HEMATOLOGY MCH 31.0 pg 27.0 - 08/06 [facility] 31.0 [facility] HEMATOLOGY MCV 91.8 fL 80.0 - 08/06 [facility] 98.0 [facility] HEMATOLOGY MPV 7.4 fL 7.4 - 10.4 08/06 [facility] HEMATOLOGY Hgb 12.7 g/dL 12.0 - 08/06 [facility] 16.0 [facility] HEMATOLOGY RBC 4.09 M/CMM 4.20 - 08/06 [facility] 5.40 [facility] HEMATOLOGY RDW 14.0 % 11.5 - 08/06 [facility] 14.5 [facility] HEMATOLOGY Platelet 256 K/CMM 133 - 450 08/06 Hospital HEMATOLOGY Monocytes 6.2 % 2.0 - 12.0 08/06 Hospital HEMATOLOGY Segs 60.9 % 45.0 - 08/06 [facility] 75.0 [facility] HEMATOLOGY Lymphocytes 30.5 % 20.0 - 08/06 [facility] 40.0 [facility] HEMATOLOGY Eosinophils 1.6 % 0.0 - 4.0 08/06 Hospital HEMATOLOGY Basophils 0.8 % 0.0 - 1.0 08/06 Hospital HEMATOLOGY Lymphocytes 1.9 K/CMM 1.0 - 5.5 08/06 [facility] # /2014 [facility] HEMATOLOGY Segs-Bands # 3.7 K/CMM 1.5 - 8.1 08/06 [facility] HEMATOLOGY Monocytes # 0.4 K/CMM 0.0 - 0.8 08/06 [facility] HEMATOLOGY Eosinophils 0.1 K/CMM 0.0 - 0.5 08/06 [facility] # [facility] HEMATOLOGY Basophils # 0.0 K/CMM 0.0 - 0.2 08/06 [facility] IMMUNOLOGY C-REACTIVE null <=2.9 mg/L 08/06 [facility] PROTEIN [facility] URINE AND UA Ketones Negative Negative 08/06 [facility] STOOL mg/dL mg/dL [facility] URINE AND UA Glucose Negative Negative 08/06 [facility] STOOL mg/dL mg/dL [facility] URINE AND UA Protein Negative Negative 08/06 [facility] STOOL mg/dL mg/dL [facility] URINE AND UA pH 7.5 5.0 - 8.0 08/06 [facility] STOOL [facility] URINE AND UA Bili Negative Negative 08/06 [facility] STOOL [facility] *NA* (08/06/14 2:48 PM) URINE AND UA Spec Grav 1.020 <=1.030 08/06 [facility] STOOL [facility] URINE AND UA Turbidity Clear Clear 08/06 [facility] STOOL [facility] (08/06/14 2:48 PM) URINE AND UA Color Yellow Yellow 08/06 [facility] STOOL [facility] *NA* (08/06/14 2:48 PM) URINE AND UA Blood Negative Negative 08/06 [facility] STOOL [facility] (08/06/14 2:48 PM) URINE AND UA 0.2 EU/dL 0.1 - 1.0 08/06 [facility] STOOL Urobilinogen /2014 [facility] URINE AND UA Leuk Est Negative Negative 08/06 [facility] STOOL [facility] (08/06/14 2:48 PM) URINE AND UA Nitrite Negative Negative 08/06 [facility] STOOL [facility] (08/06/14 2:48 PM) URINE AND UA Bacteria Few /HPF None Seen 08/06 [facility] STOOL /HPF /2014 [facility] URINE AND UA RBC None Seen 0 - 2 08/06 [facility] STOOL [facility] (08/06/14 2:48 PM) URINE AND UA Sq Epi Moderate Few /LPF 08/06 [facility] STOOL /LPF /2014 [facility] URINE AND Micro? Performed 08/06 [facility] STOOL [facility] (08/06/14 2:48 PM) URINE AND UA WBC None Seen None Seen 08/06 [facility] (08/06/14 2:48 PM) URINE AND UA Glucose Negative Negative 08/04 [facility] STOOL mg/dL mg/dL /2014 [facility] URINE AND UA Bili Negative Negative 08/04 [facility] STOOL [facility] *NA* (08/03/14 7:48 PM) URINE AND UA Ketones Negative Negative 08/04 [facility] STOOL mg/dL mg/dL [facility] URINE AND UA Nitrite Negative Negative 08/04 [facility] (08/03/14 7:48 PM) URINE AND UA 0.2 EU/dL 0.1 - 1.0 08/04 [facility] Urobilinogen /2014 [facility] URINE AND UA Leuk Est Negative Negative 08/04 [facility] (08/03/14 7:48 PM) URINE AND UA Blood Negative Negative 08/04 [facility] STOOL [facility] (08/03/14 7:48 PM) URINE AND UA Protein Negative Negative 08/04 [facility] STOOL mg/dL mg/dL [facility] URINE AND UA pH 6.0 5.0 - 8.0 08/04 [facility] URINE AND UA Color Yellow Yellow 08/04 [facility] *NA* (08/03/14 7:48 PM) URINE AND UA Spec Grav 1.015 <=1.030 08/04 [facility] STOOL [facility] URINE AND UA Turbidity Slight Cloudy Clear 08/04 [facility] STOOL [facility] (08/03/14 7:48 PM) URINE AND UA Bacteria Occasional None Seen 08/04 [facility] STOOL /HPF /HPF /2014 [facility] URINE AND UA RBC 0-2 /HPF 0 - 2 08/04 [facility] URINE AND UA WBC 3-5 /HPF None Seen 08/04 [facility] STOOL /HPF /2014 [facility] URINE AND UA Sq Epi Many /LPF Few /LPF 08/04 [facility] URINE CHEM U Preg Negative Negative 08/04 Hospital (08/03/14 7:48 PM) CHEM PANEL Phosphorus 3.8 mg/dL 2.5 - 4.5 08/03 Hospital CHEM PANEL Magnesium 1.9 mg/dL 1.8 - 2.4 08/03 [facility] CHEM PANEL A/G Ratio 1.0 0.7 - 1.6 08/03 Hospital CHEM PANEL B/C Ratio 26 6 - 25 08/03 Hospital CHEM PANEL AGAP 12.6 meq/L 10.0 - 08/03 20.0 Hospital CHEM PANEL Globulin 4.4 g/dL 2.0 - 4.0 08/03 Hospital CHEM PANEL eGFR 129 08/03 1Result Comment: The eGFR is calculated using the CKD-EPI formula. In most young, healthy individuals the eGFR will be > 90 mL/min/1.73m2. The eGFR declines with age. An eGFR of 60-89 may be normal in mL/min/1.7 some populations, particularly the elderly, for whom the CKD-EPI formula has not been extensively validated. Use of the eGFR is not recommended in the following populations: Hospital 3m2 Individuals with unstable creatinine concentrations, including patients and those with serious co-morbid conditions. Patients with extremes in muscle mass or diet. The data above are obtained from the National Kidney Disease Education Program (NKDEP) which additionally recommends that when the eGFR is used in patients with extremes of body mass index for purposes of drug dosing, the eGFR should be multiplied by the estimated BMI. CHEM PANEL Bili Total 0.2 mg/dL 0.2 - 1.3 08/03 [facility] CHEM PANEL Total 8.6 g/dL 6.4 - 8.4 08/03 Hospital CHEM PANEL Calcium Lvl 9.6 mg/dL 8.5 - 10.5 08/03 Hospital CHEM PANEL AST 19 unit/L 0 - 37 08/03 Hospital CHEM PANEL Albumin Lvl 4.2 g/dL 3.5 - 5.0 08/03 Hospital CHEM PANEL ALT 17 unit/L 0 - 65 08/03 Hospital CHEM PANEL Alk Phos 79 unit/L 39 - 136 08/03 Hospital CHEM PANEL Potassium 3.6 meq/L 3.5 - 5.1 08/03 Hospital CHEM PANEL Chloride Lvl 108 meq/L 95 - 109 08/03 Hospital CHEM PANEL Sodium Lvl 142 meq/L 135 - 145 08/03 Hospital CHEM PANEL CO2 25 meq/L 24 - 32 08/03 Hospital CHEM PANEL Creatinine 0.5 mg/dL 0.5 - 1.4 08/03 Hospital CHEM PANEL Glucose Lvl 86 mg/dL 70 - 99 08/03 2Interpretive Data: Adult reference range values reflect the clinical guidelines of the [place] [employer]. Hospital CHEM PANEL BUN 13 mg/dL 7 - 22 08/03 Hospital CHEM PANEL Lipase Lvl 251 unit/L 73 - 393 08/03 Hospital HEMATOLOGY Platelet 277 K/CMM 133 - 450 08/03 Hospital HEMATOLOGY RDW 13.8 % 11.5 - 08/03 [facility] 14.5 [facility] HEMATOLOGY MCH 30.5 pg 27.0 - 08/03 [facility] 31.0 [facility] HEMATOLOGY MCHC 33.5 g/dL 32.0 - 08/03 [facility] 36.0 [facility] HEMATOLOGY Hct 40.6 % 36.0 - 08/03 [facility] 48.0 [facility] HEMATOLOGY MCV 91.0 fL 80.0 - 08/03 [facility] 98.0 [facility] HEMATOLOGY RBC 4.46 M/CMM 4.20 - 08/03 [facility] 5.40 /2014 Hospital HEMATOLOGY Hgb 13.6 g/dL 12.0 - 08/03 [facility] 16.0 [facility] HEMATOLOGY WBC 7.6 K/CMM 3.7 - 10.4 08/03 Hospital HEMATOLOGY MPV 8.1 fL 7.4 - 10.4 08/03 Hospital HEMATOLOGY Monocytes # 0.4 K/CMM 0.0 - 0.8 08/03 Hospital HEMATOLOGY Basophils # 0.0 K/CMM 0.0 - 0.2 08/03 [facility] /2014 [facility] HEMATOLOGY Eosinophils 0.1 K/CMM 0.0 - 0.5 08/03 [facility] # /2015 Hospital HEMATOLOGY Segs-Bands # 5.0 K/CMM 1.5 - 8.1 08/03 [facility] /2014 [facility] HEMATOLOGY Basophils 0.4 % 0.0 - 1.0 08/03 [facility] /2014 [facility] HEMATOLOGY Lymphocytes 2.0 K/CMM 1.0 - 5.5 08/03 [facility] # /2014 [facility] HEMATOLOGY Segs 66.7 % 45.0 - 08/03 [facility] 75.0 [facility] HEMATOLOGY Eosinophils 1.5 % 0.0 - 4.0 08/03 [facility] HEMATOLOGY Monocytes 5.0 % 2.0 - 12.0 08/03 [facility] HEMATOLOGY Lymphocytes 26.4 % 20.0 - 08/03 [facility] 40.0 [facility] Abdomen/Pe Abdomen/Pelv PROCEDURE: CT ABDOMEN AND PELVIS WITH CONTRAST 2014. 08/03 - [facility] lvis w IV is w IV - [facility] contrast contrast CT CT INDICATION: Crohn's disease patient with abdominal pain and bloody diarrhea. History of C. difficile x5. Read by: Thony Maria MD Dictated Date/time: 08/03/14 21:07 Electronically Signed by: Thony Maria MD 08/03/14 21:15 FINAL REPORT COMPARISON: Upper GI series from 12/04/2013 TECHNIQUE: Helical imaging was performed from the diaphragm through the pubic symphysis with axial and coronal reconstruction. Intravenous contrast: 100ml Omnipaque 300 Oral contrast: 5% Omnipaque. FINDINGS: LOWER CHEST: The lung bases are clear. SOLID ORGANS: Focal fatty liver infiltration adjacent to the falciform ligament. No abnormally enhancing lesions are seen in the liver, spleen, pancreas, adrenal glands or renal parenchyma. Tiny subcent imeter left renal cortical cysts. No renal or ureteral calculi. No hydronephrosis. Prior cholecystectomy. BOWEL: Nonobstructive bowel gas pattern without pneumatosis or portal venous air. Prior gastric sleeve procedure without visible complication. Mild circumferential wall thickening of the terminal ileum is noted with unremarkable surrounding fat. Partially opacified appendix proximally without inflammatory change. Partially decompressed rectosigmoid colon without inflammatory change. PERITONEUM: No free intraperitoneal fluid or air. RETROPERITONEUM: No adenopathy. The aorta is normal. PELVIS: No pelvic mass. The urinary bladder is normal. The uterus is absent. MUSCULOSKELETAL: No destructive bone lesions. No ankylosis. IMPRESSION: 1. No acute abnormality in the abdomen or pelvis to explain the patient's pain. 2. Circumferential thickening of the terminal ileal wall in keeping with known history of Crohn's disease. No acute inflammatory change. 3. Hysterectomy, cholecystectomy and gastric sleeve procedure. 4. Tiny left renal cortical cysts. SL: 03 URINE AND UA WBC 3 /HPF 0 - 5 01/06 STOOL [facility] URINE AND UA Sq Epi Many /LPF Few /LPF 01/06 STOOL [facility] URINE AND UA Bacteria Occasional None Seen 01/06 STOOL /HPF /HPF [facility] URINE AND UA RBC null 0 - 2 01/06 STOOL [facility] URINE AND UA Nitrite Negative Negative 01/06 STOOL [facility] (01/06/14 6:10 AM) [facility] URINE AND UA 2.0 mg/dL 0.1 - 1.0 01/06 [facility] Urobilinogen /2013 [facility] URINE AND UA Mucus Many /LPF None Seen 01/06 STOOL /LPF /2013 [facility] URINE AND UA Leuk Est Small Negative 01/06 [facility] *ABN* [facility] (01/06/14 6:10 AM) URINE AND UA Bili Small Negative 01/06 [facility] *ABN* [facility] (01/06/14 6:10 AM) URINE AND UA Blood Negative Negative 01/06 STOOL [facility] (01/06/14 6:10 AM) [facility] URINE AND UA Glucose Negative Negative 01/06 [facility] mg/dL mg/dL [facility] URINE AND UA Ketones 20 mg/dL Negative 01/06 [facility] mg/dL [facility] URINE AND UA Spec Grav 1.030 <=1.030 01/06 STOOL [facility] URINE AND UA Turbidity Clear Clear 01/06 STOOL [facility] (01/06/14 6:10 AM) [facility] URINE AND UA pH 5.5 5.0 - 8.0 01/06 STOOL [facility] URINE AND UA Protein 30 mg/dL Negative 01/06 [facility] mg/dL [facility] URINE AND UA Color Yellow Yellow 01/06 STOOL [facility] *NA* [facility] [facility] (01/06/14 6:10 AM) CARDIAC Total CK 45 unit/L 12 - 191 01/05 ENZYMES [facility] ELECTROLYT Chloride Lvl 109 meq/L 95 - 109 01/05 [facility] ELECTROLYT Sodium Lvl 142 meq/L 135 - 145 01/05 [facility] ELECTROLYT Potassium 3.3 meq/L 3.5 - 5.1 01/05 ES Lv [facility] ELECTROLYT Glucose Lvl 86 mg/dL 70 - 99 01/05 3Interpretive Data: Adult reference range values reflect the clinical guidelines of the [place] [employer]. [facility] ELECTROLYT BUN 11 mg/dL 7 - 22 01/05 [facility] ELECTROLYT CO2 26 meq/L 24 - 32 01/05 [facility] ELECTROLYT AGAP 10.3 meq/L 10.0 - 01/05 ES . [facility] ELECTROLYT eGFR 117 01/05 1Result Comment: The eGFR is calculated using the CKD-EPI formula. In most young, healthy individuals the eGFR will be > 90 mL/min/1.73m2. The eGFR declines with age. An eGFR of 60-89 may be normal in mL/min/1.7 some populations, particularly the elderly, for whom the CKD-EPI formula has not been extensively validated. Use of the eGFR is not recommended in the following populations: [address] Individuals with unstable creatinine concentrations, including patients and those with serious co-morbid conditions. Patients with extremes in muscle mass or diet. The data above are obtained from the National Kidney Disease Education Program (NKDEP) which additionally recommends that when the eGFR is used in patients with extremes of body mass index for purposes of drug dosing, the eGFR should be multiplied by the estimated BMI. ELECTROLYT Creatinine 0.7 mg/dL 0.5 - 1.4 01/05 ES Lv [facility] ELECTROLYT Calcium Lvl 8.6 mg/dL 8.5 - 10.5 01/05 [facility] HEMATOLOGY Hct 37.7 % 36.0 - 01/05 48. [facility] HEMATOLOGY MCHC 34.1 g/dL 32.0 - 01/05 36.0 [facility] HEMATOLOGY RDW 13.5 % 11.5 - 01/05 MH 14.5 /2013 [facility] HEMATOLOGY MPV 9.1 fL 7.4 - 10.4 01/05 /2013 [facility] HEMATOLOGY Platelet 173 K/CMM 133 - 450 01/05 /2013 [facility] HEMATOLOGY WBC 5.3 K/CMM 3.7 - 10.4 01/05 /2013 [facility] HEMATOLOGY MCH 29.5 pg 27.0 - 01/05 MH 31.0 [facility] HEMATOLOGY MCV 86.6 fL 81.0 - 01/05 MH 99.0 /2013 [facility] HEMATOLOGY RBC 4.35 M/CMM 4.20 - 01/05 MH 5.40 /2013 [facility] HEMATOLOGY Hgb 12.8 g/dL 12.0 - 01/05 16.0 [facility] HEMATOLOGY Lymphocytes 45.7 % 20.0 - 01/05 40.0 [facility] HEMATOLOGY Monocytes 10.4 % 2.0 - 12.0 01/05 [facility] HEMATOLOGY Eosinophils 7.0 % 0.0 - 4.0 01/05 [facility] HEMATOLOGY Segs 36.5 % 45.0 - 01/05 75.0 /2013 [facility] HEMATOLOGY Basophils 0.4 % 0.0 - 1.0 01/05 [facility] HEMATOLOGY Segs-Bands # 1.9 K/CMM 1.5 - 8.1 01/05 [facility] HEMATOLOGY Lymphocytes 2.4 K/CMM 1.0 - 5.5 01/05 /2013 [facility] HEMATOLOGY Eosinophils 0.4 K/CMM 0.0 - 0.5 01/05 /2013 [facility] HEMATOLOGY Monocytes # 0.5 K/CMM 0.0 - 0.8 01/05 [facility] HEMATOLOGY Basophils # 0.0 K/CMM 0.0 - 0.2 01/05 [facility] URINE AND UA Sq Epi Many /LPF Few /LPF 01/05 STOOL [facility] URINE AND UA Leuk Est Negative Negative 01/05 STOOL [facility] WBC 1 /HPF 0 - 5 01/05 STOOL [facility] URINE AND UA Nitrite Negative Negative 01/05 STOOL [facility] (01/04/14 7:25 PM) [facility] URINE AND UA RBC 1 /HPF 0 - 2 01/05 STOOL [facility] URINE AND UA Bacteria Few /HPF None Seen 01/05 STOOL /HPF [facility] URINE AND UA Mucus Many /LPF None Seen 01/05 STOOL /LPF [facility] URINE AND UA 2.0 mg/dL 0.1 - 1.0 01/05 STOOL Urobilinogen [facility] URINE AND UA Turbidity Slight Clear [facility]/05 [facility] (01/04/14 7:25 PM) URINE AND UA Spec Grav 1.022 <=1.030 01/05 STOOL [facility] URINE AND UA Color Yellow Yellow 01/05 [facility] (01/04/14 7:25 PM) URINE AND UA Bili Small Negative 01/05 [facility] (01/04/14 7:25 PM) URINE AND UA Ketones 100 mg/dL Negative 01/05 STOOL mg/dL [facility] URINE AND UA Blood Negative Negative 01/05 STOOL [facility] (01/04/14 7:25 PM) [facility] URINE AND UA pH 6.0 5.0 - 8.0 01/05 STOOL [facility] URINE AND UA Glucose Negative Negative 01/05 STOOL mg/dL mg/dL [facility] URINE AND UA Protein 30 mg/dL Negative 01/05 STOOL mg/dL [facility] CARDIAC CK MB Index null 0.0 - 2.5 01/05 ENZYMES [facility] CARDIAC Troponin-I null 0.00 - 01/05 ENZYMES 0.40 [facility] CARDIAC CK MB null 0.5 - 3.6 01/05 ENZYMES [facility] CARDIAC Total CK 47 unit/L 12 - 191 01/05 ENZYMES [facility] CHEM PANEL eGFR 123 01/05 2Result Comment: The eGFR is calculated using the CKD-EPI formula. In most young, healthy individuals the eGFR will be > 90 mL/min/1.73m2. The eGFR declines with age. An eGFR of 60-89 may be normal in mL/min/1.7 /2013 some populations, particularly the elderly, for whom the CKD-EPI formula has not been extensively validated. Use of the eGFR is not recommended in the following populations: [address] Individuals with unstable creatinine concentrations, including patients and those with serious co-morbid conditions. Patients with extremes in muscle mass or diet. The data above are obtained from the National Kidney Disease Education Program (NKDEP) which additionally recommends that when the eGFR is used in patients with extremes of body mass index for purposes of drug dosing, the eGFR should be multiplied by the estimated BMI. CHEM PANEL Creatinine 0.6 mg/dL 0.5 - 1.4 01/05 [facility] CHEM PANEL Potassium 3.7 meq/L 3.5 - 5.1 01/05 Lv [facility] CHEM PANEL Sodium Lvl 143 meq/L 135 - 145 01/05 [facility] CHEM PANEL Chloride Lvl 110 meq/L 95 - 109 01/05 [facility] CHEM PANEL Calcium Lvl 8.9 mg/dL 8.5 - 10.5 01/05 [facility] CHEM PANEL AST 39 unit/L 0 - 37 01/05 [facility] CHEM PANEL ALT 57 unit/L 0 - 65 01/05 [facility] CHEM PANEL Total 7.2 g/dL 6.4 - 8.4 01/05 [facility] CHEM PANEL A/G Ratio 1.2 0.7 - 1.6 01/05 [facility] CHEM PANEL Globulin 3.3 g/dL 2.0 - 4.0 01/05 [facility] CHEM PANEL Bili Total 0.3 mg/dL 0.2 - 1.3 01/05 [facility] CHEM PANEL Alk Phos 93 unit/L 39 - 136 01/05 [facility] CHEM PANEL B/C Ratio 17 6 - 25 01/05 [facility] CHEM PANEL BUN 10 mg/dL 7 - 22 01/05 [facility] CHEM PANEL Albumin Lvl 3.9 g/dL 3.5 - 5.0 01/05 [facility] CHEM PANEL AGAP 13.7 meq/L 10.0 - 01/05 20.0 [facility] CHEM PANEL CO2 23 meq/L 24 - 32 01/05 [facility] CHEM PANEL Glucose Lvl 77 mg/dL 70 - 99 01/05 4Interpretive Data: Adult reference range values reflect the clinical guidelines of the [place] [employer]. [facility] HEMATOLOGY Hgb 13.4 g/dL 12.0 - 01/05 MH 16.0 /2013 [facility] HEMATOLOGY RBC 4.53 M/CMM 4.20 - 01/05 MH 5.40 /2013 [facility] HEMATOLOGY WBC 6.1 K/CMM 3.7 - 10.4 01/05 /2013 [facility] RDW 13.3 % 11.5 - 01/05 MH 14.5 /2013 [facility] HEMATOLOGY MCHC 33.8 g/dL 32.0 - 01/05 MH 36.0 /2013 [facility] Hct 39.8 % 36.0 - 01/05 MH 48.0 /2013 [facility] Platelet 184 K/CMM 133 - 450 01/05 [facility] MPV 8.9 fL 7.4 - 10.4 01/05 /2013 [facility] MCH 29.7 pg 27.0 - 01/05 MH 31.0 /2013 [facility] MCV 87.8 fL 81.0 - 01/05 MH 99.0 [facility] Monocytes 8.5 % 2.0 - 12.0 01/05 /2013 [facility] HEMATOLOGY Eosinophils 5.6 % 0.0 - 4.0 01/05 /2013 [facility] HEMATOLOGY Segs 47.8 % 45.0 - 01/05 MH 75.0 [facility] HEMATOLOGY Lymphocytes 2.3 K/CMM 1.0 - 5.5 01/05 MH # /2013 [facility] HEMATOLOGY Segs-Bands # 2.9 K/CMM 1.5 - 8.1 01/05 [facility] Basophils 0.4 % 0.0 - 1.0 01/05 [facility] HEMATOLOGY Basophils # 0.0 K/CMM 0.0 - 0.2 01/05 [facility] HEMATOLOGY Monocytes # 0.5 K/CMM 0.0 - 0.8 01/05 [facility] HEMATOLOGY Eosinophils 0.3 K/CMM 0.0 - 0.5 01/05 MH /2013 [facility] Lymphocytes 37.7 % 20.0 - 01/05 MH 40.0 [facility] IMMUNOLOGY CDC HIV 4th Negative Negative 01/05 GEN [facility] (01/04/14 7:20 PM) [facility] Brain wo Brain wo CLINICAL HISTORY:Syncope. 01/04 - contrast contrast CT /2013 - [facility] CT Sex: Jean Paul Gould : 1985. Read by: Giuseppe Baer MD Dictated Date/time: 01/04/14 19:29 Electronically Signed by: Giuseppe Baer MD 01/04/14 19:30 FINAL REPORT TECHNIQUE: Axial scans of the brain without contrast including multiplanar computer-generated reformations. Total Dose (DLP): 876 mGy-cm. There is no acute abnormal intracranial density or mass. There is no hemorrhage or extra-axial fluid collection. Ventricles, subarachnoid spaces and sulci are normal. Orbits are symmetric. Paranasal sinuses are aerated. IMPRESSION: 1. No acute intracranial findings. CHEM PANEL B/C Ratio 13 6 - 25 12/04 [facility] CHEM PANEL AGAP 13.2 meq/L 10.0 - 12/04 MH 20.0 [facility] CHEM PANEL Globulin 3.5 g/dL 2.0 - 4.0 12/04 [facility] CHEM PANEL A/G Ratio 1.0 0.7 - 1.6 12/04 [facility] CHEM PANEL Bili Total 0.9 mg/dL 0.2 - 1.3 12/04 [facility] CHEM PANEL AST 57 unit/L 0 - 37 12/04 [facility] CHEM PANEL ALT 80 unit/L 0 - 65 12/04 [facility] CHEM PANEL BUN 9 mg/dL 7 - 22 12/04 [facility] CHEM PANEL Albumin Lvl 3.4 g/dL 3.5 - 5.0 12/04 [facility] CHEM PANEL CO2 28 meq/L 24 - 32 12/04 [facility] CHEM PANEL Alk Phos 108 unit/L 39 - 136 12/04 [facility] CHEM PANEL Potassium 4.2 meq/L 3.5 - 5.1 12/04 MH Lvl [facility] CHEM PANEL Sodium Lvl 139 meq/L 135 - 145 12/04 [facility] CHEM PANEL Chloride Lvl 102 meq/L 95 - 109 12/04 [facility] CHEM PANEL Glucose Lvl 113 mg/dL 70 - 99 12/04 3Interpretive Data: Adult reference range values reflect the clinical guidelines of the [place] [employer]. [facility] CHEM PANEL Total 6.9 g/dL 6.4 - 8.4 / MH Protein /2013 [facility] CHEM PANEL eGFR 117 12/04 1Result Comment: The eGFR is calculated using the CKD-EPI formula. In most young, healthy individuals the eGFR will be > 90 mL/min/1.73m2. The eGFR declines with age. An eGFR of 60-89 may be normal in mL/min/1.7 /2013 some populations, particularly the elderly, for whom the CKD-EPI formula has not been extensively validated. Use of the eGFR is not recommended in the following populations: [address] Individuals with unstable creatinine concentrations, including patients and those with serious co-morbid conditions. Patients with extremes in muscle mass or diet. The data above are obtained from the National Kidney Disease Education Program (NKDEP) which additionally recommends that when the eGFR is used in patients with extremes of body mass index for purposes of drug dosing, the eGFR should be multiplied by the estimated BMI. CHEM PANEL Creatinine 0.7 mg/dL 0.5 - 1.4 12/04 Lvl /2013 [facility] CHEM PANEL Calcium Lvl 8.5 mg/dL 8.5 - 10.5 / /2013 [facility] HEMATOLOGY Segs-Bands # 7.8 K/CMM 1.5 - 8.1 12/04 /2013 [facility] HEMATOLOGY Lymphocytes 2.7 K/CMM 1.0 - 5.5 /18 MH # /2014 [facility] HEMATOLOGY Monocytes 7.6 % 2.0 - 12.0 / /2013 [facility] HEMATOLOGY Eosinophils 1.0 % 0.0 - 4.0 / /2013 [facility] HEMATOLOGY Lymphocytes 23.7 % 20.0 - 07/ MH 40.0 /2013 [facility] HEMATOLOGY Segs 67.4 % 45.0 - 07/ MH 75.0 /2013 [facility] HEMATOLOGY Monocytes # 0.9 K/CMM 0.0 - 0.8 /18 /2013 [facility] HEMATOLOGY Eosinophils 0.1 K/CMM 0.0 - 0.5 /18 MH # /2014 [facility] HEMATOLOGY Basophils 0.3 % 0.0 - 1.0 / /2013 [facility] HEMATOLOGY Platelet 242 K/CMM 133 - 450 / /2013 [facility] HEMATOLOGY MPV 7.5 fL 7.4 - 10.4 / /2013 [facility] Hct 34.2 % 36.0 - 12/04 MH 48.0 /2013 [facility] MCV 87.0 fL 81.0 - 12/04 99.0 /2013 [facility] MCHC 34.8 g/dL 32.0 - 12/04 MH 36.0 /2013 [facility] RDW 13.2 % 11.5 - 12/04 MH 14.5 [facility] MCH 30.3 pg 27.0 - 12/04 MH 31.0 /2013 [facility] WBC 11.5 K/CMM 3.7 - 10.4 12/04 /2013 [facility] RBC 3.93 M/CMM 4.20 - 12/04 MH 5.40 /2013 [facility] Hgb 11.9 g/dL 12.0 - 12/04 16.0 [facility] Stomach Stomach UGI UPPER GI 12/04 - UGI (water (water /2013 - [facility] soluble [facility] contrast) contrast) CLINICAL INDICATION: Gastric sleeve. Read by: Brock Jasso MD Dictated Date/time: 12/04/13 08:48 Electronically Signed by: Brock Jasso MD 12/04/13 08:49 FINAL REPORT COMMENTS: The patient is status post recent gastric sleeve procedure. Also status post cholecystectomy. Water-soluble contrast was administered orally. Anatomy compatible with a gastric sleeve procedure is identified with normal passage of contrast from the esophagus through the gastric remnant and into the small bowel. There was no evidence of extravasation. Fluoroscopy time: 0.2 minutes IMPRESSION: STATUS POST GASTRIC SLEEVE WITHOUT EVIDENCE OF EXTRAVASATION OR SIGNIFICANT OBSTRUCTION AT THE POSTSURGICAL SITE. BLOOD BANK Antibody Negative 12/03 RESULTS Scrn [facility] (12/03/13 8:35 AM) [facility] BLOOD BANK ABO/Rh A NEG 12/03 RESULTS /2013 [facility] INR 0.99 0.85 - 12/03 5Interpretive Data: RECOMMENDED RANGES FOR PROTIME INR: 1. 2.0-3.0 for most medical and surgical thromboembolic states. [facility] 2.5-3.5 for artificial heart valves and recurrent embolism. [facility] INR SHOULD BE USED ONLY FOR PATIENTS ON STABLE ANTICOAGULANT THERAPY. HEMATOLOGY PT 13.0 s 12.0 - 12/03 14.7 [facility] PTT 35.4 s 22.9 - 07/17 6Interpretive MH 35.8 Data: Heparin [facility] Range: 57 - 92 Seconds CHEM PANEL Globulin 3.9 g/dL 2.0 - 4.0 07 [facility] CHEM PANEL A/G Ratio 1.0 0.7 - 1.6 11/25 [facility] CHEM PANEL B/C Ratio 17 6 - 25 07 [facility] CHEM PANEL AGAP 9.9 meq/L 10.0 - 07 MH 20.0 [facility] CHEM PANEL Total 7.7 g/dL 6.4 - 8.4 11/25 Protein [facility] CHEM PANEL Bili Total 0.4 mg/dL 0.2 - 1.3 11/25 [facility] CHEM PANEL eGFR 123 11/25 2Result Comment: The eGFR is calculated using the CKD-EPI formula. In most young, healthy individuals the eGFR will be > 90 mL/min/1.73m2. The eGFR declines with age. An eGFR of 60-89 may be normal in mL/min/1. some populations, particularly the elderly, for whom the CKD-EPI formula has not been extensively validated. Use of the eGFR is not recommended in the following populations: [address] Individuals with unstable creatinine concentrations, including patients and those with serious co-morbid conditions. Patients with extremes in muscle mass or diet. The data above are obtained from the National Kidney Disease Education Program (NKDEP) which additionally recommends that when the eGFR is used in patients with extremes of body mass index for purposes of drug dosing, the eGFR should be multiplied by the estimated BMI. CHEM PANEL Creatinine 0.6 mg/dL 0.5 - 1.4 11/25 Lvl [facility] CHEM PANEL Calcium Lvl 9.0 mg/dL 8.5 - 10.5 11/25 [facility] CHEM PANEL Potassium 3.9 meq/L 3.5 - 5.1 11/25 Lvl [facility] CHEM PANEL Chloride Lvl 105 meq/L 95 - 109 11/25 [facility] CHEM PANEL Sodium Lvl 138 meq/L 135 - 145 11/25 [facility] CHEM PANEL BUN 10 mg/dL 7 - 22 11/25 [facility] CHEM PANEL Albumin Lvl 3.8 g/dL 3.5 - 5.0 11/25 [facility] CHEM PANEL CO2 27 meq/L 24 - 32 11/25 [facility] CHEM PANEL Alk Phos 121 unit/L 39 - 136 11/25 [facility] CHEM PANEL AST 16 unit/L 0 - 37 11/25 [facility] CHEM PANEL Glucose Lvl 87 mg/dL 70 - 99 11/25 4Interpretive Data: Adult reference range values reflect the clinical guidelines of the [place] [employer]. [facility] CHEM PANEL ALT 30 unit/L 0 - 65 11/25 [facility] HEMATOLOGY Basophils # 0.0 K/CMM 0.0 - 0.2 11/25 [facility] HEMATOLOGY Basophils 0.4 % 0.0 - 1.0 11/25 [facility] HEMATOLOGY Segs-Bands # 5.1 K/CMM 1.5 - 8.1 11/25 [facility] HEMATOLOGY Lymphocytes 3.0 K/CMM 1.0 - 5.5 11/25 MH # [facility] HEMATOLOGY Monocytes # 0.6 K/CMM 0.0 - 0.8 11/25 [facility] HEMATOLOGY Eosinophils 0.2 K/CMM 0.0 - 0.5 11/25 [facility] HEMATOLOGY Eosinophils 2.0 % 0.0 - 4.0 11/25 [facility] HEMATOLOGY Lymphocytes 33.8 % 20.0 - 11/25 MH 40.0 [facility] HEMATOLOGY Monocytes 6.7 % 2.0 - 12.0 11/25 [facility] HEMATOLOGY Segs 57.1 % 45.0 - 11/25 MH 75.0 [facility] HEMATOLOGY RBC 4.58 M/CMM 4.20 - 11/25 MH 5.40 [facility] HEMATOLOGY MCHC 34.2 g/dL 32.0 - 07 MH 36.0 [facility] HEMATOLOGY RDW 13.1 % 11.5 - 11/25 MH 14.5 [facility] HEMATOLOGY MPV 8.2 fL 7.4 - 10.4 11/25 [facility] HEMATOLOGY Platelet 294 K/CMM 133 - 450 11/25 [facility] MCH 29.6 pg 27.0 - 11/25 MH 31.0 [facility] HEMATOLOGY Hgb 13.6 g/dL 12.0 - 07 MH 16.0 /2013 [facility] HEMATOLOGY Hct 39.6 % 36.0 - 11/25 48.0 /2013 [facility] HEMATOLOGY MCV 86.5 fL 81.0 - 11/25 99.0 /2013 [facility] HEMATOLOGY WBC 8.9 K/CMM 3.7 - 10.4 11/25 [facility] IMMUNOLOGY HIV 1/2 Ab Negative Negative 11/25 [facility] *NA* [facility] (11/25/13 12:00 PM) URINE AND Micro? Performed 11/25 [facility] *NA* [facility] (11/25/13 11:30 AM) URINE AND UA <=1.0 0.1 - 1.0 11/25 STOOL Urobilinogen mg/dL [facility] URINE AND UA Spec Grav 1.014 <=1.030 11/25 [facility] URINE AND UA pH 5.5 5.0 - 8.0 11/25 [facility] URINE AND UA Protein Negative Negative 11/25 STOOL mg/dL mg/dL [facility] URINE AND UA Color Yellow Yellow 11/25 [facility] *NA* [facility] (11/25/13 11:30 AM) URINE AND UA Leuk Est Moderate Negative 11/25 [facility] *ABN* [facility] (11/25/13 11:30 AM) URINE AND UA Bili Negative Negative 11/25 [facility] *NA* [facility] (11/25/13 11:30 AM) URINE AND UA Blood Negative Negative 11/25 [facility] (11/25/13 11:30 AM) [facility] URINE AND UA Nitrite Negative Negative 11/25 [facility] (11/25/13 11:30 AM) [facility] URINE AND UA Turbidity Clear Clear 11/25 [facility] (11/25/13 11:30 AM) [facility] URINE AND UA RBC 2 /HPF 0 - 2 11/25 [facility] URINE AND UA Sq Epi Many /LPF Few /LPF 11/25 STOOL [facility] URINE AND UA Bacteria Occasional None Seen 11/25 STOOL /HPF /HPF /2013 [facility] URINE AND UA Mucus Few /LPF None Seen 11/25 STOOL /LPF [facility] URINE AND UA WBC 6 /HPF 0 - 5 11/25 [facility] URINE AND UA Glucose Negative Negative 11/25 STOOL mg/dL mg/dL /2013 [facility] URINE AND UA Ketones Negative Negative 11/25 STOOL mg/dL mg/dL /2013 [facility] Chest 2 Chest 2 CHEST RADIOGRAPHY 11/25 - views - [facility] CLINICAL HISTORY: Read by: Snehal Ram DO Dictated Date/time: 11/25/13 12:38 Cough. Electronically Signed by: Snehal Ram DO 11/25/13 12:38 FINAL REPORT COMPARISON IMAGING: None. FINDINGS: Two views of the chest were acquired and submitted for evaluation. No pleural fluid is identified. The contour of the cardiac silhouette is within normal limits. There is no significant pulmonary consolidation or nodularity. Bones are unremarkable. IMPRESSION: No significant abnormality. CHEMISTRY U Preg Negative Negative 04/[address] [facility] /2011 [facility] (04/05/2012 11:15:00) BEDSIDE Comment1 Notify 12/22 NA Jolly GLUCOSE RN/MD /2011 Hospital TESTING BEDSIDE Gluc POC 102 mg/dL 70 - 99 12/[address] [facility] GLUCOSE [facility] /2011 Data: Hospital TESTING Upper Reportable Limit: 200 mg/dL. Vital Signs Vital Sign Value Date Comments Source Height 165.1 cm 08/21/2016 [facility] Weight 69.545 08/21/2016 [facility] BMI Calculated 25.51 08/21/2016 [facility] Temperature Oral (F) 97.7 F 08/21/2016 [facility] Heart Rate 81 08/21/2016 [facility] Systolic (mm Hg) 107 08/21/2016 [facility] Diastolic (mm Hg) 63 08/21/2016 [facility] Respitory Rate 20 08/21/2016 [facility] Systolic (mm Hg) 96 08/17/2016 [facility] Diastolic (mm Hg) 56 08/17/2016 [facility] Systolic (mm Hg) 99 08/17/2016 [facility] Diastolic (mm Hg) 53 08/17/2016 [facility] Respitory Rate 20 08/17/2016 [facility] Respitory Rate 15 08/17/2016 [facility] Systolic (mm Hg) 94 08/17/2016 [facility] Diastolic (mm Hg) 44 08/17/2016 [facility] Respitory Rate 15 08/17/2016 [facility] Heart Rate 74 08/17/2016 [facility] Heart Rate 83 08/17/2016 [facility] Temperature Oral (F) 98.0 F 08/17/2016 [facility] Weight 75 08/17/2016 [facility] BMI Calculated 24.42 08/17/2016 [facility] Height 175.26 cm 08/17/2016 [facility] Heart Rate 94 08/17/2016 [facility] Temperature Oral (F) 98.2 F 08/10/2016 [facility] Heart Rate 75 08/10/2016 [facility] Respitory Rate 20 08/10/2016 [facility] Systolic (mm Hg) 104 08/10/2016 [facility] Diastolic (mm Hg) 59 08/10/2016 [facility] Respitory Rate 17 08/10/2016 [facility] Heart Rate 74 08/10/2016 [facility] Systolic (mm Hg) 118 08/10/2016 [facility] Diastolic (mm Hg) 66 08/10/2016 [facility] Temperature Oral (F) 98.8 F 08/10/2016 [facility] Weight 68.4 08/10/2016 [facility] Respitory Rate 19 08/07/2016 [facility] Temperature Oral (F) 98.2 F 08/07/2016 [facility] Heart Rate 74 08/07/2016 [facility] Systolic (mm Hg) 112 08/07/2016 [facility] Diastolic (mm Hg) 68 08/07/2016 [facility] Weight 70.045 08/07/2016 [facility] Temperature Oral (F) 98.6 F 08/07/2016 [facility] Height 165.1 cm 08/07/2016 [facility] Heart Rate 86 08/07/2016 [facility] Respitory Rate 18 08/07/2016 [facility] Systolic (mm Hg) 117 08/07/2016 [facility] Diastolic (mm Hg) 70 08/07/2016 [facility] BMI Calculated 25.7 08/07/2016 [facility] Systolic (mm Hg) 105 08/03/2016 [facility] Diastolic (mm Hg) 64 08/03/2016 [facility] Respitory Rate 17 08/03/2016 [facility] Heart Rate 98 08/03/2016 [facility] Height 165.1 cm 08/03/2016 [facility] BMI Calculated 25.01 08/03/2016 [facility] Weight 68.182 08/03/2016 [facility] Systolic (mm Hg) 104 08/03/2016 [facility] Diastolic (mm Hg) 57 08/03/2016 [facility] Heart Rate 108 08/03/2016 [facility] Temperature Oral (F) 98.0 F 08/03/2016 [facility] Respitory Rate 18 08/03/2016 [facility] Weight 70.455 07/18/2016 [facility] Heart Rate 74 07/18/2016 [facility] Respitory Rate 20 07/18/2016 [facility] Temperature Oral (F) 98.7 F 07/18/2016 [facility] Systolic (mm Hg) 119 07/18/2016 [facility] Diastolic (mm Hg) 81 07/18/2016 [facility] Respitory Rate 20 06/18/2016 [facility] Heart Rate 82 06/18/2016 [facility] Temperature Oral (F) 97.8 F 06/18/2016 [facility] Systolic (mm Hg) 109 06/18/2016 [facility] Diastolic (mm Hg) 69 06/18/2016 [facility] Heart Rate 60 06/18/2016 [facility] Systolic (mm Hg) 101 06/18/2016 [facility] Diastolic (mm Hg) 66 06/18/2016 [facility] Temperature Oral (F) 97.6 F 06/18/2016 [facility] Respitory Rate 20 06/18/2016 [facility] Systolic (mm Hg) 118 06/18/2016 [facility] Diastolic (mm Hg) 71 06/18/2016 [facility] Heart Rate 55 06/18/2016 [facility] Respitory Rate 20 06/18/2016 [facility] Temperature Oral (F) 97.7 F 06/18/2016 [facility] Weight 69.545 06/16/2016 [facility] BMI Calculated 25.51 06/16/2016 [facility] Height 165.1 cm 06/16/2016 [facility] Temperature Oral (F) 98.8 F 03/05/2016 [facility] Respitory Rate 17 03/05/2016 [facility] Heart Rate 81 03/05/2016 [facility] Systolic (mm Hg) 101 03/05/2016 [facility] Diastolic (mm Hg) 64 03/05/2016 [facility] Height 165.1 cm 03/04/2016 [facility] Weight 72.727 03/04/2016 [facility] BMI Calculated 26.68 03/04/2016 [facility] Respitory Rate 16 03/04/2016 [facility] Heart Rate 82 03/04/2016 [facility] Systolic (mm Hg) 96 03/04/2016 [facility] Diastolic (mm Hg) 63 03/04/2016 [facility] Temperature Oral (F) 98.6 F 03/04/2016 [facility] Temperature Oral (F) 98.4 F 01/24/2016 [facility] Heart Rate 86 01/24/2016 [facility] Respitory Rate 16 01/24/2016 [facility] Systolic (mm Hg) 101 01/24/2016 [facility] Diastolic (mm Hg) 64 01/24/2016 [facility] Systolic (mm Hg) 127 01/24/2016 [facility] Diastolic (mm Hg) 75 01/24/2016 [facility] Heart Rate 88 01/24/2016 [facility] Respitory Rate 18 01/24/2016 [facility] Temperature Oral (F) 98.2 F 01/24/2016 [facility] Systolic (mm Hg) 104 01/24/2016 [facility] Diastolic (mm Hg) 65 01/24/2016 [facility] Heart Rate 62 01/24/2016 [facility] Respitory Rate 18 01/24/2016 [facility] Temperature Oral (F) 97.7 F 01/24/2016 [facility] BMI Calculated 25.27 01/22/2016 [facility] Weight 68.892 01/22/2016 [facility] Height 165.1 cm 01/22/2016 [facility] Systolic (mm Hg) 106 12/22/2015 [facility] Diastolic (mm Hg) 68 12/22/2015 [facility] Heart Rate 66 12/22/2015 [facility] Respitory Rate 18 12/22/2015 [facility] Temperature Oral (F) 98.2 F 12/22/2015 [facility] Heart Rate 61 12/22/2015 [facility] Temperature Oral (F) 97.9 F 12/22/2015 [facility] Respitory Rate 18 12/22/2015 [facility] Systolic (mm Hg) 99 12/22/2015 [facility] Diastolic (mm Hg) 63 12/22/2015 [facility] Systolic (mm Hg) 106 12/22/2015 [facility] Diastolic (mm Hg) 69 12/22/2015 [facility] Respitory Rate 18 12/22/2015 [facility] Temperature Oral (F) 97.6 F 12/22/2015 [facility] Heart Rate 67 12/22/2015 [facility] Height 165.1 cm 12/20/2015 [facility] BMI Calculated 25.53 12/20/2015 [facility] Weight 69.602 12/20/2015 [facility] Weight 68.182 12/20/2015 [facility] BMI Calculated 25.01 12/20/2015 [facility] Height 165.1 cm 12/20/2015 [facility] Respitory Rate 18 11/24/2015 [facility] Heart Rate 91 11/24/2015 [facility] Systolic (mm Hg) 117 11/24/2015 [facility] Diastolic (mm Hg) 75 11/24/2015 [facility] Respitory Rate 16 11/24/2015 [facility] Respitory Rate 15 11/24/2015 [facility] Systolic (mm Hg) 132 11/24/2015 [facility] Diastolic (mm Hg) 89 11/24/2015 [facility] Systolic (mm Hg) 114 11/24/2015 [facility] Diastolic (mm Hg) 68 11/24/2015 [facility] Heart Rate 83 11/24/2015 [facility] Temperature Oral (F) 98.5 F 11/24/2015 [facility] Heart Rate 69 11/24/2015 [facility] Temperature Oral (F) 98.1 F 11/24/2015 [facility] Temperature Oral (F) 98 F 11/24/2015 [facility] Weight 70.682 11/21/2015 [facility] Weight 72.727 11/20/2015 [facility] BMI Calculated 26.68 11/20/2015 [facility] Height 165.1 cm 11/20/2015 [facility] Height 165.1 cm 11/20/2015 [facility] BMI Calculated 26.68 11/20/2015 [facility] Weight 72.727 11/20/2015 [facility] Respitory Rate 18 10/20/2015 [facility] Temperature Oral (F) 98.4 F 10/20/2015 [facility] Systolic (mm Hg) 107 10/20/2015 [facility] Diastolic (mm Hg) 66 10/20/2015 [facility] Heart Rate 75 10/20/2015 [facility] Systolic (mm Hg) 113 10/20/2015 [facility] Diastolic (mm Hg) 70 10/20/2015 [facility] Respitory Rate 18 10/20/2015 [facility] Heart Rate 79 10/20/2015 [facility] Temperature Oral (F) 98.4 F 10/20/2015 [facility] Heart Rate 77 10/20/2015 [facility] Temperature Oral (F) 98.5 F 10/20/2015 [facility] Respitory Rate 18 10/20/2015 [facility] Systolic (mm Hg) 112 10/20/2015 [facility] Diastolic (mm Hg) 70 10/20/2015 [facility] BMI Calculated 25.35 10/15/2015 [facility] Weight 69.091 10/15/2015 [facility] Height 165.1 cm 10/15/2015 [facility] Diastolic (mm Hg) 62 08/06/2014 [facility] Temperature Oral (F) 98.7 F 08/06/2014 [facility] Heart Rate 74 08/06/2014 [facility] Respitory Rate 18 08/06/2014 [facility] Systolic (mm Hg) 119 08/06/2014 [facility] Heart Rate 81 08/06/2014 [facility] Temperature Oral (F) 98.8 F 08/06/2014 [facility] Systolic (mm Hg) 122 08/06/2014 [facility] Diastolic (mm Hg) 68 08/06/2014 [facility] Respitory Rate 18 08/06/2014 [facility] Weight 68.182 08/06/2014 [facility] BMI Calculated 25.01 08/06/2014 [facility] Temperature Oral (F) 98.7 F 08/06/2014 [facility] Respitory Rate 18 08/06/2014 [facility] Height 165.1 cm 08/06/2014 [facility] Systolic (mm Hg) 126 08/06/2014 [facility] Diastolic (mm Hg) 77 08/06/2014 [facility] Heart Rate 89 08/06/2014 [facility] Temperature Oral (F) 98.9 F 08/04/2014 [facility] Respitory Rate 16 08/04/2014 [facility] Heart Rate 72 08/04/2014 [facility] Systolic (mm Hg) 117 08/04/2014 [facility] Diastolic (mm Hg) 71 08/04/2014 [facility] Respitory Rate 16 08/04/2014 [facility] Heart Rate 75 08/04/2014 [facility] Systolic (mm Hg) 116 08/04/2014 [facility] Diastolic (mm Hg) 81 08/04/2014 [facility] Temperature Oral (F) 99.0 F 08/04/2014 [facility] Respitory Rate 16 08/03/2014 [facility] Heart Rate 103 08/03/2014 [facility] Weight 75.909 08/03/2014 [facility] BMI Calculated 27.85 08/03/2014 [facility] Height 165.1 cm 08/03/2014 [facility] Temperature Oral (F) 99.1 F 08/03/2014 [facility] Systolic (mm Hg) 120 08/03/2014 [facility] Diastolic (mm Hg) 66 08/03/2014 [facility] Diastolic (mm Hg) 77 01/07/2014 [facility] Heart Rate 76 01/07/2014 [facility] Respitory Rate 16 01/07/2014 [facility] Systolic (mm Hg) 116 01/07/2014 [facility] Temperature Oral (F) 98.2 F 01/07/2014 [facility] Diastolic (mm Hg) 69 01/07/2014 [facility] Temperature Oral (F) 98.0 F 01/07/2014 [facility] Systolic (mm Hg) 103 01/07/2014 [facility] Respitory Rate 16 01/07/2014 [facility] Heart Rate 73 01/07/2014 [facility] Temperature Oral (F) 98.3 F 01/07/2014 [facility] Respitory Rate 16 01/07/2014 [facility] Systolic (mm Hg) 114 01/07/2014 [facility] Heart Rate 72 01/07/2014 [facility] Diastolic (mm Hg) 71 01/07/2014 [facility] Weight 107.727 01/05/2014 [facility] BMI Calculated 39.52 01/05/2014 [facility] Height 165.1 cm 01/05/2014 [facility] Height 165.1 cm 01/04/2014 [facility] BMI Calculated 39.69 01/04/2014 [facility] Weight 108.182 01/04/2014 [facility] Heart Rate 96 12/04/2013 [facility] Temperature Oral (F) 98.1 F 12/04/2013 [facility] Systolic (mm Hg) 102 12/04/2013 [facility] Respitory Rate 20 12/04/2013 [facility] Diastolic (mm Hg) 69 12/04/2013 [facility] Respitory Rate 18 12/04/2013 [facility] Temperature Oral (F) 98.1 F 12/04/2013 [facility] Heart Rate 88 12/04/2013 [facility] Systolic (mm Hg) 102 12/04/2013 [facility] Diastolic (mm Hg) 68 12/04/2013 [facility] Temperature Oral (F) 98.2 F 12/04/2013 [facility] Heart Rate 101 12/04/2013 [facility] Respitory Rate 18 12/04/2013 [facility] Systolic (mm Hg) 104 12/04/2013 [facility] Diastolic (mm Hg) 76 12/04/2013 [facility] BMI Calculated 44.12 11/25/2013 [facility] Weight 120.256 11/25/2013 [facility] Height 165.1 cm 11/25/2013 [facility] Weight 114.545 04/05/2012 [facility] Height 165.10 cm 04/05/2012 [facility] Weight 109.091 02/29/2012 [facility] Height 165.10 cm 02/29/2012 [facility] Height 165.10 cm 12/23/2011 [facility] Weight 97.273 08/06/2011 [facility] Height 165.10 cm 08/06/2011 [facility] Encounters Location Location Encounter Encounter Reason Attending ADM DC Status Source Details Type Number For Provider Date Date Visit [facility] [id number] OTHER 08/05 Active [facility] Jolly 0 KLARISSA [facility] Jolly Emergency [id number] JOSE ANGEL 12/22 12/22 Active [facility] Jolly 1 KLARISSA [facility] Jolly Emergency [id number] MUNIRA 02/28 02/28 Active [facility] Jolly 2 REUKAUF [facility] Jolly Emergency [id number] HIP KARAN 04/05 04/05 Active [facility] Jolly 3 PAIN ARMADA /2011 [facility] Inpatient [id number] Juan 12/03 12/04 Caleb 4 Mariusz /2013 [facility] Inpatient [id number] Praymal 01/04 01/07 Caleb 5 Kevin /2013 [facility] EC Emergency [id number] Grupo 08/03 08[facility] 6 Danish /2014 [facility] EC Emergency [id number] Terence Coreas 08/06 08/06 Jolly Ellis [facility] Inpatient [id number] Yaniv Bryan 10/14 10/[address] [facility] Emergency [id number] Polly Religious 11/19 11/19 [facility] Inpatient [id number] [place] 11/19 11/23 Caleb 5 Romel [facility] Inpatient [id number] Amir 12/19 12/21 Caleb 9 Ghebranious [facility] Inpatient [id number] Samiran Aguirre 01/21 01/23 Caleb [facility] Emergency [id number] Hanna 03/04 03/05 Jolly Ellis 0 Crocker [facility] Observation [id number] Shireen 06/18 06/18 [facility] [id number] Grupo 07/18 07/18 Jolly Ellis 1 Danish [facility] Emergency [id number] Reva 08/03 08/03 Jolly Ellis 2 Kamran [facility] Emergency [id number] Clarence Macdonald 08/07 08/07 [facility] [id number] Miah 08/10 08/10 Brisa Ellis 4 [place]nie [place] [facility] Emergency [id number] Jamie 08/17 08/17 Jolly Ellis 5 Jose Luis [facility] Emergency [id number] Clarence Macdonald 08/21 08/21 [place]isa [facility] [place] [facility] Procedures Procedure Code Date Perfomer Comments Source Cholecystectomy [id number] [facility] Hysterectomy [id number] [facility] Laparoscopic sleeve [id number] [facility] Tonsillectomy [id number] [facility] Cholecystectomy [id number] [facility] Hysterectomy [id number] [facility] Laparoscopic sleeve [id number] [facility] Portal vein cannula [id number] [facility] Tonsillectomy [id number] [facility] Cholecystectomy [id number] [id number] [facility] Lap[facility]oscopic sleeve 474610624 [facility] gast[facility] Portal vein cannula [id number] [facility] insertion Tonsillectomy [id number] [facility] Cholecystectomy [id number] [facility] [id number] [facility] Laparoscopic sleeve 536625918 [facility] gastrectomy Portal vein cannula [id number] [facility] insertion Tonsillectomy [id number] [facility] Cholecystectomy [id number] [facility] Hysterectomy 706778639 [facility] Laparoscopic sleeve [id number] [facility] Tonsillectomy [id number] [facility] Cholecystectomy [id number] [facility] Hysterectomy [id number] [facility] Laparoscopic sleeve 108513191 [facility] gastrectomy Portal vein cannula 557662432 [facility] insertion Tonsillectomy [id number] [facility]
--- OUTSIDE RECORDS SUMMARY | 2017-12-17 19:30 | XMS REPORT | CCD ---
:1985 Author Organization [facility] Care Team Providers Name Role Phone Daina Hamm Consulting Provider Allergies, Adverse Reactions, Alerts Substance Reaction Status Paxil Active penicillins Active Medications Medication Instructions Start Date End Date Status Valium 5 mg, Route: PO, ONCE, Priority: STAT, 12/23/2011 12/23/2011 Completed Start date: 12/23/11 11:11:00, Stop date: 12/23/11 11:11:00 Vital Signs Most recent to oldest [Reference Range]: 1 Height 165.10 cm (12/23/2011 10:48:00) Results BEDSIDE GLUCOSE TESTING Most recent to oldest [Reference Range]: 1 Gluc POC [facility] [70-99 mg/dL] 102 mg/dL 1 *HI* (12/23/2011 11:05:00) Comment1 Notify RN/MD *NA* (12/23/2011 11:05:00) 1Interpretive Data: Upper Reportable Limit: 200 mg/dL.
--- OUTSIDE RECORDS SUMMARY | 2017-12-17 19:30 | XMS REPORT | Summary of Care ---
:1985 Author Encounter [facility]) [id number] Date(s): 12/03/13 - 12/04/[address] Discharge Disposition: Home Physician Attending: Juan Vee MD Physician Admitting: Juan Vee MD Physician_Referring: Juan Vee MD Reason for Visit [id number], MORBID OBESITY Vital Signs Most recent to oldest 1 2 3 [Reference Range]: Height 165.1 cm (11/25/13 11:07 AM) Temperature Oral [96.4-99.1 98.1 DegF 98.1 DegF 98.2 DegF DegF] (12/04/13 8:00 AM) (12/04/13 3:40 AM) (12/03/13 11:10 PM) Systolic Blood Pressure 102 mmHg 102 mmHg 104 mmHg [90-140 mmHg] (12/04/13 8:00 AM) (12/04/13 3:40 AM) (12/03/13 11:10 PM) Diastolic Blood Pressure 69 mmHg 68 mmHg 76 mmHg [60-90 mmHg] (12/04/13 8:00 AM) (12/04/13 3:40 AM) (12/03/13 11:10 PM) Respiratory Rate [14-20 BRMIN] 20 BRMIN 18 BRMIN 18 BRMIN (12/04/13 8:00 AM) (12/04/13 3:40 AM) (12/03/13 11:10 PM) Peripheral Pulse Rate [60-100 96 bpm 88 bpm 101 bpm bpm] (12/04/13 8:00 AM) (12/04/13 3:40 AM) *HI* (12/03/13 11:10 PM) Weight 120.256 kg (11/25/13 11:07 AM) Body Mass Index 44.12 m2 (11/25/13 11:07 AM) Problem List Condition Effective Dates Status Health Status Informant Anxiety(Confirmed) Active Depression(Confirmed) Active Diabetes mellitus(Confirmed) Active Morbid obesity(Confirmed) Active Reflux(Confirmed) Active Allergies, Adverse Reactions, Alerts Substance Reaction Severity Status Paxil Active penicillins Active Ultram Active Medications acetaminophen-hydrocodone 325 mg-7.5 mg/15 mL oral solution 15 mL, Route: PO, Drug Form: SOLN, Dosing Weight 120.256, kg, Q4H, PRN Pain Score 4-6, Start date: 12/03/13 11:59:00, Duration: 30 day, Stop date: 01/02/14 11:58:00 Notes: Do not exceed 4gm/day of acetaminophen. (Same as: [place] 325/7.5) Start Date: 12/03/13 Stop Date: 12/04/13 Status: Discontinuedacetaminophen-hydrocodone 325 mg-7.5 mg/15 mL oral solution 15 ml, PO, Q4H, Pain, # 300 mL, 0 Refill(s) Start Date: 12/04/13 Status: Orderedchlorhexidine topical 0.12% liquid 15 mL, Route: S&SPIT, ONCALL, Drug form: LIQ, Start date: 12/03/13 0:00:00, Duration: 18 hr, Stop date: 12/03/13 17:59:00 Notes: (Same As: Peridex) Start Date: 12/03/13 Stop Date: 12/03/13 Status: Completedenalaprilat 1.25 mg, 1 mL, Route: IVP, Drug form: INJ, Q6H, Dosing Weight 120.256, kg, PRN Hypertension, Start date: 12/03/13 11:59:00, Duration: 30 day, Stop date: 11:58:00, BP Systolic greater than 190 and BP Siastolic greater than 100 Notes: (Same as: Vasotec-IV) Start Date: 12/03/13 Stop Date: 12/04/13 Status: Discontinuedfamotidine 20 mg, Route: IVP, Q12H, Dosing Weight 120.256, kg, Start date: 12/03/13 21:00: 00, Duration: 30 day,Stop date: 01/02/14 9:00:00 Start Date: 12/03/13 Stop Date: 12/03/13 Status: Deletedflumazenil 0.2 mg, 2 mL, Route: IVP, Drug form: INJ, PRN, Dosing Weight 120.256, kg, PRN Benzodiazepine Reversal, Initial dose, Start date: 12/03/13 11:28:00, Duration: 30 day, Stop date: 01/02/14 11:27:00 Notes: (Same as: Romazicon) Start Date: 12/03/13 Stop Date: 12/03/13 Status: Discontinuedheparin 5,000 unit, 1 mL, Route: SUB-Q, Drug form: INJ, ONCALL, Start date: 12/03/13 0: 00:00, Duration: 18 hr, Stop date: 12/03/13 17:59:00 Notes: porcine heparin Start Date: 12/03/13 Stop Date: 12/03/13 Status: CompletedhydrALAZINE 10 mg, 0.5 mL, Route: IVP, Drug form: INJ, Q20Min, Dosing Weight 120.256, kg, PRN Elevated BP, Startdate: 12/03/13 11:28:00, Duration: 2 doses or times, Stop date: Limited # of times Notes: (Same as: Apresoline)Push over 5 minutes Start Date: 12/03/13 Stop Date: 12/03/13 Status: Discontinuedhydromorphone 0.2 mg/mL LEGAL COUNSEL (6 mg/30 mL) INJ Syringe 6 mg 6 mg, 30 mL, Route: IV, Initial Loading Dose: 0.4mg, LEGAL COUNSEL Dose: 0.2 mg, LEGAL COUNSEL Lockout: 10 minutes, Continuous Basal Rate: 0 mg, 4 Hour Limit (In MG): 6, Drug Form: INJ, Continuous, Start date: 12/03/13 12:00:00, Duration: 30 day, Stop date: 01/02/14 11:5... Start Date: 12/03/13 Stop Date: 12/04/13 Status: DiscontinuedInsulin regular 2 unit, 0.02 mL, Route: SUB-Q, Drug form: SOLN, TID-Before Meals, Dosing Weight 120.256, kg, PRN Blood Glucose Results, Start date: 12/03/13 11:59:00, Duration : 30 day, Stop date: 01/02/14 11:58:00 Notes: (Same as: Humulin R) Roll in palms of hands gently; Do not shake vigorously. "single patientuse only"(Restricted to patients requiring a dose > 60 units) Stable for 28 days at room temperatureExpires in days from ___ Date Start Date: 12/03/13 Stop Date: 12/04/13 Status: DiscontinuedInsulin regular 6 unit, 0.06 mL, Route: SUB-Q, Drug form: SOLN, TID-Before Meals, Dosing Weight 120.256, kg, PRN Blood Glucose Results, Start date: 12/03/13 11:59:00, Duration : 30 day, Stop date: 01/02/14 11:58:00 Notes: (Same as: Humulin R) Roll in palms of hands gently; Do not shake vigorously. "single patientuse only"(Restricted to patients requiring a dose > 60 units) Stable for 28 days at room temperatureExpires in days from ___ Date Start Date: 12/03/13 Stop Date: 12/04/13 Status: DiscontinuedInsulin regular 4 unit, 0.04 mL, Route: SUB-Q, Drug form: SOLN, TID-Before Meals, Dosing Weight 120.256, kg, PRN Blood Glucose Results, Start date: 12/03/13 11:59:00, Duration : 30 day, Stop date: 01/02/14 11:58:00 Notes: (Same as: Humulin R) Roll in palms of hands gently; Do not shake vigorously. "single patientuse only"(Restricted to patients requiring a dose > 60 units) Stable for 28 days at room temperatureExpires in days from ___ Date Start Date: 12/03/13 Stop Date: 12/04/13 Status: DiscontinuedInsulin regular 10 unit, 0.1 mL, Route: SUB-Q, Drug form: SOLN, TID-Before Meals, Dosing Weight 120.256, kg, PRN Blood Glucose Results, Start date: 12/03/13 11:59:00, Duration : 30 day, Stop date: 01/02/14 11:58:00 Notes: (Same as: Humulin R) Roll in palms of hands gently; Do not shake vigorously. "single patientuse only"(Restricted to patients requiring a dose > 60 units) Stable for 28 days at room temperatureExpires in days from ___ Date Start Date: 12/03/13 Stop Date: 12/04/13 Status: DiscontinuedInsulin regular 8 unit, 0.08 mL, Route: SUB-Q, Drug form: SOLN, TID-Before Meals, Dosing Weight 120.256, kg, PRN Blood Glucose Results, Start date: 12/03/13 11:59:00, Duration : 30 day, Stop date: 01/02/14 11:58:00 Notes: (Same as: Humulin R) Roll in palms of hands gently; Do not shake vigorously. "single patientuse only"(Restricted to patients requiring a dose > 60 units) Stable for 28 days at room temperatureExpires in days from ___ Date Start Date: 12/03/13 Stop Date: 12/04/13 Status: DiscontinuedLactated Ringers Injection IV 1,000 mL 1,000 mL, Rate: 125 ml/hr, Infuse over: 8 hr, Route: IV, Dosing Weight 120.256 kg, Total Volume: 1,000, Start date: 12/03/13 11:59:00, Duration: 30 day, Stop date: 01/02/14 11:58:00 Start Date: 12/03/13 Stop Date: 12/04/13 Status: Discontinuedlansoprazole 30 mg oral tablet, disintegrating 30 mg=1 tab, PO, Daily, # 90 tab, 0 Refill(s) Start Date: 12/04/13 Status: OrderedLevaquin 750 mg, Route: IVPB, PRE OP, Dosing Weight 120.256, kg, For CrCl > 49ml/min, Start date: 12/03/13 12:00:00 Start Date: 12/03/13 Stop Date: 12/03/13 Status: CompletedLipitor 40 mg oral tablet 40 mg=1 tab, PO, Bedtime, # 30 tab, 0 Refill(s) Start Date: 11/25/13 Status: OrderedmetFORMIN 500 mg, PO, BID, 0 Refill(s) Start Date: 11/25/13 Status: Orderedmetoclopramide 10 mg, 2 mL, Route: IVP, Drug form: INJ, Q8H, Dosing Weight 120.256, kg, Start date: 12/03/13 16:00:00, Duration: 30 day, Stop date: 01/02/14 8:00:00 Notes: (Same as: Reglan) Start Date: 12/03/13 Stop Date: 12/04/13 Status: Discontinuedmorphine Sulfate 2 mg, 1 mL, Route: IVP, Drug form: INJ, Q5Min, Dosing Weight 120.256, kg, PRN Pain Score 4-6, Start date: 12/03/13 11:28:00, Duration: 5 doses or times, Stop date: Limited # of times Notes: (Same as:MORPhine Sulfate) Start Date: 12/03/13 Stop Date: 12/03/13 Status: Discontinuednaloxone 0.04 mg, 0.1 mL, Route: IVP, Drug form: INJ, Q2MIN, Dosing Weight 120.256, kg, PRN Narcotic Reversal, Start date: 12/03/13 11:28:00, Duration: 8 doses or times , Stop date: Limited # of times Notes: Same as Narcan Start Date: 12/03/13 Stop Date: 12/03/13 Status: Discontinuednaloxone 0.04 mg, 0.1 mL, Route: IVP, Drug form: INJ, Q2MIN, Dosing Weight 120.256, kg, PRN Narcotic Reversal, Start date: 12/03/13 11:59:00, Duration: 30 day, Stop date: 01/02/14 11:58:00 Notes: Same as Narcan Start Date: 12/03/13 Stop Date: 12/04/13 Status: DiscontinuedOfirmev 1,000 mg, 100 mL, Route: IV, Drug form: INJ, Q6H, Dosing Weight 120.256, kg, for > or=50 kg, Start date: 12/03/13 12:00:00, Duration: 4 doses or times, Stop date: 12/05/13 4:00:00 Notes: Infuse over 15 minutes Do not exceed 4gm/day of acetaminophen Start Date: 12/03/13 Stop Date: 12/04/13 Status: Discontinuedondansetron 4 mg, Route: IVP, ONCE, Dosing Weight 120.256, kg, PRN Nausea & Vomiting, Start date: 12/03/13 11:28:00 Start Date: 12/03/13 Stop Date: 12/03/13 Status: Completedondansetron 4 mg, 2 mL, Route: IVP, Drug form: INJ, Q12H, Dosing Weight 120.256, kg, PRN Nausea & Vomiting, Start date: 12/03/13 11:59:00, Duration: 30 day, Stop date: 01/02/14 11:58:00 Notes: (Same as: Zofran) Start Date: 12/03/13 Stop Date: 12/04/13 Status: DiscontinuedPrilosec 40 mg, PO, Daily, 0 Refill(s) Start Date: 11/25/13 Status: Orderedpromethazine + Sodium Chloride 0.9% IV 50 mL 12.5 mg, 0.5 mL, Route: IVPB, Q4H, Dosing Weight 120.256, kg, PRN Nausea & Vomiting, Start date:12/03/13 11:59:00, Duration: 30 day, Stop date: 01/02/14 11 :58:00 Notes: Do not give IV push. (Same as: Phenergan) Start Date: 12/03/13 Stop Date: 12/04/13 Status: DiscontinuedProtonix + sodium chloride 10 mL 40 mg, Route: IVP, Before Dinner, Start date: 12/03/13 16:30:00, Duration: 30 day, Stop date: 01/01/14 16:30:00 Notes: For IV push reconstitute with 10 ml 0.9% sodium chloride and push over 2 minutes. (Same as: Protonix) Start Date: 12/03/13 Stop Date: 12/04/13 Status: Discontinued Results BLOOD BANK RESULTS Most recent to oldest [Reference Range]: 1 2 ABO/Rh A NEG *Unknown* (12/03/13 8:35 AM) Antibody Scrn Negative (12/03/13 8:35 AM) ELECTROLYTES Most recent to oldest [Reference Range]: 1 2 Sodium Lvl [135-145 mEq/L] 139 mEq/L 138 mEq/L (12/04/13 4:15 AM) (11/25/13 12:00 PM) Potassium Lvl [3.5-5.1 mEq/L] 4.2 mEq/L 3.9 mEq/L (12/04/13 4:15 AM) (11/25/13 12:00 PM) Chloride Lvl [95-109 mEq/L] 102 mEq/L 105 mEq/L (12/04/13 4:15 AM) (11/25/13 12:00 PM) CO2 [24-32 mEq/L] 28 mEq/L 27 mEq/L (12/04/13 4:15 AM) (11/25/13 12:00 PM) AGAP [10.0-20.0 mEq/L] 13.2 mEq/L 9.9 mEq/L (12/04/13 4:15 AM) *LOW* (11/25/13 12:00 PM) CHEM PANEL Most recent to oldest [Reference Range]: 1 2 Creatinine Lvl [0.5-1.4 mg/dL] 0.7 mg/dL 0.6 mg/dL (12/04/13 4:15 AM) (11/25/13 12:00 PM) eGFR 117 mL/min/1.73m2 1 123 mL/min/1.73m2 2 *NA* *NA* (12/04/13 4:15 AM) (11/25/13 12:00 PM) BUN [7-22 mg/dL] 9 mg/dL 10 mg/dL (12/04/13 4:15 AM) (11/25/13 12:00 PM) B/C Ratio [6-25] 13 17 (12/04/13 4:15 AM) (11/25/13 12:00 PM) Glucose Lvl [70-99 mg/dL] 113 mg/dL 3 87 mg/dL 4 *HI* (11/25/13 12:00 PM) (12/04/13 4:15 AM) Total Protein [6.4-8.4 g/dL] 6.9 g/dL 7.7 g/dL (12/04/13 4:15 AM) (11/25/13 12:00 PM) Albumin Lvl [3.5-5.0 g/dL] 3.4 g/dL 3.8 g/dL *LOW* (11/25/13 12:00 PM) (12/04/13 4:15 AM) Globulin [2.0-4.0 g/dL] 3.5 g/dL 3.9 g/dL (12/04/13 4:15 AM) (11/25/13 12:00 PM) A/G Ratio [0.7-1.6] 1.0 1.0 (12/04/13 4:15 AM) (11/25/13 12:00 PM) Calcium Lvl [8.5-10.5 mg/dL] 8.5 mg/dL 9.0 mg/dL (12/04/13 4:15 AM) (11/25/13 12:00 PM) ALT [0-65 unit/L] 80 unit/L 30 unit/L *HI* (11/25/13 12:00 PM) (12/04/13 4:15 AM) AST [0-37 unit/L] 57 unit/L 16 unit/L *HI* (11/25/13 12:00 PM) (12/04/13 4:15 AM) Alk Phos [39-136 unit/L] 108 unit/L 121 unit/L (12/04/13 4:15 AM) (11/25/13 12:00 PM) Bili Total [0.2-1.3 mg/dL] 0.9 mg/dL 0.4 mg/dL (12/04/13 4:15 AM) (11/25/13 12:00 PM) 1Result Comment: The eGFR is calculated using the CKD-EPI formula. In most young , healthy individualsthe eGFR will be >90 mL/min/1.73m2. The eGFR declines with age. An eGFR of 60-89 may be normal in some populations, particularly the elderly, for whom the CKD-EPI formula has not been extensively validated. Use of the eGFR is not recommended in the following populations: Individuals with unstable creatinine concentrations, including patients and those with serious co-morbid conditions. Patients with extremes in muscle mass or diet. The data above are obtained from the National Kid[employer] Disease Education Program ( NK[employer]) which additionally recommends that when the eGFR is used in patients with extremes of body mass index for purposesof drug dosing, the eGFR should be multiplied by the estimated BMI.2Result Comment: The eGFR is calculated using the CKD-EPI formula. In most young, healthy individualsthe eGFR will be >90 mL/ min/1.73m2. The eGFR declines with age. An eGFR of 60-89 may be normal in some populations, particularly the elderly, for whom the CKD-EPI formula has not been extensively validated. Use of the eGFR is not recommended in the following populations: Individuals with unstable creatinine concentrations, including patients and those with serious co-morbid conditions. Patients with extremes in muscle mass or diet. The data above are obtained from the National Kid[employer] Disease Education Program ( NKDEP) which additionally recommends that when the eGFR is used in patients with extremes of body mass index for purposesof drug dosing, the eGFR should be multiplied by the estimated BMI.3Interpretive Data: Adult reference range values reflect the clinical guidelines of the [place] [employer].4Interpretive Data: Adult reference range values reflect the clinical guidelines of the [place] [employer].URINE AND STOOL Most recent to oldest [Reference Range]: 1 2 UA Turbidity [Clear] Clear (11/25/13 11:30 AM) UA Color [Yellow] Yellow *NA* (11/25/13 11:30 AM) UA pH [5.0-8.0] 5.5 (11/25/13 11:30 AM) UA Spec Grav [<=1.030] 1.014 (11/25/13 11:30 AM) UA Glucose [Negative mg/dL] Negative mg/dL *NA* (11/25/13 11:30 AM) UA Blood [Negative] Negative (11/25/13 11:30 AM) UA Ketones [Negative mg/dL] Negative mg/dL *NA* (11/25/13 11:30 AM) UA Protein [Negative mg/dL] Negative mg/dL (11/25/13 11:30 AM) UA Urobilinogen [0.1-1.0 mg/dL] <=1.0 mg/dL *NA* (11/25/13 11:30 AM) UA Bili [Negative] Negative *NA* (11/25/13 11:30 AM) UA Leuk Est [Negative] Moderate *ABN* (11/25/13 11:30 AM) UA Nitrite [Negative] Negative (11/25/13 11:30 AM) UA WBC [0-5 /HPF] 6 /HPF *HI* (11/25/13 11:30 AM) UA RBC [0-2 /HPF] 2 /HPF (11/25/13 11:30 AM) UA Bacteria [None Seen /HPF] Occasional /HPF *NA* (11/25/13 11:30 AM) UA Sq Epi [Few /LPF] Many /LPF *ABN* (11/25/13 11:30 AM) UA Mucus [None Seen /LPF] Few /LPF *NA* (11/25/13 11:30 AM) Micro? Performed *NA* (11/25/13 11:30 AM) IMMUNOLOGY Most recent to oldest [Reference Range]: 1 2 HIV 1/2 Ab [Negative] Negative *NA* (11/25/13 12:00 PM) HEMATOLOGY Most recent to oldest [Reference Range]: 1 2 WBC [3.7-10.4 K/CMM] 11.5 K/CMM 8.9 K/CMM *HI* (11/25/13 12:00 PM) (12/04/13 4:15 AM) RBC [4.20-5.40 M/CMM] 3.93 M/CMM 4.58 M/CMM *LOW* (11/25/13 12:00 PM) (12/04/13 4:15 AM) Hgb [12.0-16.0 g/dL] 11.9 g/dL 13.6 g/dL *LOW* (11/25/13 12:00 PM) (12/04/13 4:15 AM) Hct [36.0-48.0 %] 34.2 % 39.6 % *LOW* (11/25/13 12:00 PM) (12/04/13 4:15 AM) MCV [81.0-99.0 fL] 87.0 fL 86.5 fL (12/04/13 4:15 AM) (11/25/13 12:00 PM) MCH [27.0-31.0 pg] 30.3 pg 29.6 pg (12/04/13 4:15 AM) (11/25/13 12:00 PM) MCHC [32.0-36.0 g/dL] 34.8 g/dL 34.2 g/dL (12/04/13 4:15 AM) (11/25/13 12:00 PM) RDW [11.5-14.5 %] 13.2 % 13.1 % (12/04/13 4:15 AM) (11/25/13 12:00 PM) Platelet [133-450 K/CMM] 242 K/CMM 294 K/CMM (12/04/13 4:15 AM) (11/25/13 12:00 PM) MPV [7.4-10.4 fL] 7.5 fL 8.2 fL (12/04/13 4:15 AM) (11/25/13 12:00 PM) Segs [45.0-75.0 %] 67.4 % 57.1 % (12/04/13 4:15 AM) (11/25/13 12:00 PM) Lymphocytes [20.0-40.0 %] 23.7 % 33.8 % (12/04/13 4:15 AM) (11/25/13 12:00 PM) Monocytes [2.0-12.0 %] 7.6 % 6.7 % (12/04/13 4:15 AM) (11/25/13 12:00 PM) Eosinophils [0.0-4.0 %] 1.0 % 2.0 % (12/04/13 4:15 AM) (11/25/13 12:00 PM) Basophils [0.0-1.0 %] 0.3 % 0.4 % (12/04/13 4:15 AM) (11/25/13 12:00 PM) Segs-Bands # [1.5-8.1 K/CMM] 7.8 K/CMM 5.1 K/CMM (12/04/13 4:15 AM) (11/25/13 12:00 PM) Lymphocytes # [1.0-5.5 K/CMM] 2.7 K/CMM 3.0 K/CMM (12/04/13 4:15 AM) (11/25/13 12:00 PM) Monocytes # [0.0-0.8 K/CMM] 0.9 K/CMM 0.6 K/CMM *HI* (7/9/14 12:00 PM) (12/04/13 4:15 AM) Eosinophils # [0.0-0.5 K/CMM] 0.1 K/CMM 0.2 K/CMM (12/04/13 4:15 AM) (11/25/13 12:00 PM) Basophils # [0.0-0.2 K/CMM] 0.0 K/CMM (11/25/13 12:00 PM) PT [12.0-14.7 seconds] 13.0 seconds (12/03/13 8:35 AM) INR [0.85-1.17] 0.99 5 (12/03/13 8:35 AM) PTT [22.9-35.8 seconds] 35.4 seconds 6 (12/03/13 8:35 AM) 5Interpretive Data: RECOMMENDED RANGES FOR PROTIME INR: 2.0-3.0 for most medical and surgical thromboembolic states. 2.5-3.5 for artificial heart valves and recurrent embolism. INR SHOULD BE USED ONLY FOR PATIENTS ON STABLE ANTICOAGULANT THERAPY.6Interpretive Data: Heparin Therapeutic Range: 57 - 92 Seconds Medications Administered During Your Visit No data available for this section Immunizations No data available for this section Procedures Procedure Type Body Site Date of Procedure Related Diagnosis Cholecystectomy Hysterectomy Laparoscopic sleeve gastrectomy Tonsillectomy Social History Social History Type Response Smoking Status Former smoker, Exposure to Tobacco Smoke None, Cigarette Smoking Last 365 Days No, Reg Smoking Cessation Counseling No1 1quit 1 month ago
--- OUTSIDE RECORDS SUMMARY | 2017-12-17 19:30 | XMS REPORT | CCD ---
:1985 Author Organization [facility] Care Team Providers Name Role Phone Svetlana Machado Consulting Provider Allergies, Adverse Reactions, Alerts Substance Reaction Status Paxil Active penicillins Active Medications Medication Instructions Start Date End Date Status tramadol 50 mg oral tablet 50 mg, Route: PO, Drug 04/05/2012 04/05/2012 Completed form: TAB, ONCE, Dosing Weight 114.545, kg, Priority: STAT, Start date: 04/05/12 11:15:00, Stop date: 04/05/12 11:15:00 Flexeril 10 mg oral tablet 10 mg, 1 tab, PO, TID, PRN, 04/05/20122011 Ordered 15 tab, for spasm, Substitution Allowed, TAB tramadol 50 mg oral tablet 50 mg, PO, Q4-6H, PRN, 20 04/05/2012 04/09/2012 Ordered tab, Pain, Substitution Allowed Vital Signs Most recent to oldest [Reference Range]: 1 Height 165.10 cm (04/05/2012 10:52:00) Weight 114.545 kg (04/05/2012 10:52:00) Results CHEMISTRY Most recent to oldest [Reference Range]: 1 U Preg [Negative] Negative (04/05/2012 11:15:00)
--- OUTSIDE RECORDS SUMMARY | 2017-12-17 19:30 | XMS REPORT | CCD ---
:1985 Author Organization [facility] Care Team Providers Name Role Phone Narda Coleman Consulting Provider Allergies, Adverse Reactions, Alerts Substance Reaction Status Paxil Active penicillins Active Medications Medication Instructions Start Date End Date Status Bactrim DS oral tablet 1 tab, PO, BID, 14 tab, 02/29/2012 03/07/2012 Ordered Substitution Allowed, Maintenance, TAB Vital Signs Most recent to oldest [Reference Range]: 1 Height 165.10 cm (02/29/2012 13:45:00) Weight 109.091 kg (02/29/2012 13:45:00)
--- OUTSIDE RECORDS SUMMARY | 2017-12-17 19:30 | XMS REPORT | Summary of Care ---
:1985 Author Encounter BRY Solo(VANCE) [id number] Date(s): 01/04/14 - 01/07/[address] Discharge Disposition: Home Physician Attending: Yuniel Brown MD Physician Admitting: Yuniel Brown MD Reason for Visit NEW ONSET SEIZURE VS SYNCOPE Vital Signs Most recent to oldest 1 2 3 [Reference Range]: Height 165.1 cm 165.1 cm 165.1 cm (01/04/14 10:17 PM) (01/04/14 10:17 PM) (01/04/14 4:40 PM) Temperature Oral [96.4-99.1 98.2 DegF 98.0 DegF 98.3 DegF DegF] (01/07/14 8:30 AM) (01/07/14 12:00 AM) (01/06/14 8:00 PM) Systolic Blood Pressure 116 mmHg 103 mmHg 114 mmHg [90-140 mmHg] (01/07/14 8:30 AM) (01/07/14 12:00 AM) (01/06/14 8:00 PM) Diastolic Blood Pressure 77 mmHg 69 mmHg 71 mmHg [60-90 mmHg] (01/07/14 8:30 AM) (01/07/14 12:00 AM) (01/06/14 8:00 PM) Respiratory Rate [14-20 16 BRMIN 16 BRMIN 16 BRMIN BRMIN] (01/07/14 8:30 AM) (01/07/14 12:00 AM) (01/06/14 8:00 PM) Peripheral Pulse Rate [60-100 76 bpm 73 bpm 72 bpm bpm] (01/07/14 8:30 AM) (01/07/14 12:00 AM) (01/06/14 8:00 PM) Weight 107.727 kg 107.727 kg 108.182 kg (01/04/14 10:17 PM) (01/04/14 10:17 PM) (01/04/14 4:40 PM) Body Mass Index 39.52 m2 39.52 m2 39.69 m2 (01/04/14 10:17 PM) (01/04/14 10:17 PM) (01/04/14 4:40 PM) Problem List Condition Effective Dates Status Health Status Informant Anxiety(Confirmed) Resolved Depression(Confirmed) Resolved Diabetes mellitus(Confirmed)1 Active Hidradenitis suppurativa(Confirmed) Resolved Lupus(Confirmed) Resolved Morbid obesity(Confirmed) Active Reflux(Confirmed) Active 1off medication for 1 month since gastric sleeve Allergies, Adverse Reactions, Alerts Substance Reaction Severity Status Paxil Hives Active penicillins Active Ultram Hives Active Medications amitriptyline 50 mg, 1 tab, Route: PO, Drug form: TAB, Bedtime, Dosing Weight 107.727, kg, Start date: 01/05/14 21:00:00, Duration: 30 day, Stop date: 02/03/14 21:00:00 Notes: (Same as: Elavil) Start Date: 01/05/14 Stop Date: 01/07/14 Status: Discontinuedamitriptyline 25 mg oral tablet 50 mg=2 tab, PO, Bedtime, 0 Refill(s) Start Date: 01/04/14 Status: OrderedAPAP/butalbital/caffeine 1 tab, Route: PO, Drug Form: TAB, Q6H, PRN Headache 6-10, Start date: 01/06/14 10:40:00, Duration: 30 day, Stop date: 02/05/14 10:39:00 Notes: (yzxdtvryhlixb-epbimdeqwe-bmtsobrm 325-50-40mg) Do not exceed 4 gm/day of acetaminophen. (Same as: Esgic, Fioricet) Start Date: 01/06/14 Stop Date: 01/07/14 Status: DiscontinuedBD Normal Saline Flush 5 mL, Route: IV, Drug Form: INJ, PRN, PRN Line Flush, Start date: 01/05/14 1:57: 00, Duration: 30 day, Stop date: 02/04/14 1:56:00 Notes: (Same as: BD Posiflush) Start Date: 01/05/14 Stop Date: 01/07/14 Status: DiscontinuedBD Normal Saline Flush 10 mL, Route: IV, Drug Form: INJ, PRN, PRN Line Flush, Start date: 01/05/14 1:57 :00, Duration: 30 day, Stop date: 02/04/14 1:56:00 Notes: (Same as: BD Posiflush) Start Date: 01/05/14 Stop Date: 01/07/14 Status: DiscontinuedCarafate 1 g/10 mL oral suspension 1 gm, 10 mL, Route: PO, Drug form: SUSP, QID, Dosing Weight 107.727, kg, Start date: 01/05/14 6:00:00, Duration: 4 doses or times, Stop date: 01/05/14 21:00:00 Notes: Enteral feeds may interfere with the absorption of this medication. Shake well. Take 1 hr before or 2 hrs after antacids, dairy pdt, minerals & meals. (Same As: Carafate) Start Date: 01/05/14 Stop Date: 01/05/14 Status: Completedciprofloxacin 500 mg, 1 tab, Route: PO, Drug form: TAB, [id number], Dosing Weight 107.727, kg, Start date: 01/06/14 11:00:00, Duration: 30 day, Stop date: 02/04/14 23:00:00 Notes: May interfere w/enteral feedings - Take 1 hr before or 2 hrs after antacids, dairy pdt & minerals. On empty stomach. Start Date: 01/06/14 Stop Date: 01/07/14 Status: Discontinuedciprofloxacin 500 mg oral tablet 500 mg=1 tab, PO, [id number], # 14 tab, 0 Refill(s) Start Date: 01/07/14 Status: OrderedFiorinal oral capsule 2 cap, Route: PO, Drug Form: CAP, Dosing Weight 107.727, kg, Q6H, PRN Headache 6 -10, NOW, Start date: 01/06/14 10:01:00, Duration: 30 day, Stop date: 02/05/14 10:00:00 Notes: (avevpif-xrnjyaqobr-cukmagwf 325-50-40 mg CAP) Give with food.(Same As: Fiortal, Fiorinal) Start Date: 01/06/14 Stop Date: 01/06/14 Status: DiscontinuedFiorinal oral capsule 2 cap, PO, Q6H, Headache, # 24 cap, 0 Refill(s) Start Date: 01/07/14 Status: Orderedibuprofen 400 mg, 1 tab, Route: PO, Drug form: TAB, Q4H, Dosing Weight 107.727, kg, PRN Pain Score 1-3, Start date: 01/05/14 2:21:00, Duration: 30 day, Stop date: 02/04 2:20:00 Notes: (Same as: Motrin)"Do Not Crush" Give with food. Start Date: 01/05/14 Stop Date: 01/07/14 Status: Discontinuedketorolac 15 mg/mL injectable solution 15 mg, 0.5 mL, Route: IV, Drug form: INJ, Q6H, Dosing Weight 107.727, kg, Start date: 01/05/14 18:00:00, Duration: 15 doses or times, Stop date: 01/09/14 6:00: 00 Notes: (Same as:Toradol) IV bolus must be given >15 seconds. Give IM administration slowly and deeply into the muscle. Not for use > 4 days Start Date: 01/05/14 Stop Date: 01/07/14 Status: Discontinuedketorolac 30 mg/mL injectable solution 30 mg, 1 mL, Route: IV, Drug form: INJ, ONCE, Dosing Weight 107.727, kg, Priority: NOW, Start date: 01/05/14 11:01:00, Stop date: 01/05/14 11:01:00 Notes: (Same as:Toradol) IV bolus must be given >15 seconds. Give IM administration slowly and deeply into the muscle. Not for use > 4 days Start Date: 01/05/14 Stop Date: 01/05/14 Status: Completedmorphine Sulfate 2 mg, 1 mL, Route: IVP, Drug form: INJ, Q3H, Dosing Weight 108.182, kg, PRN Pain Score 4-6, Start date: 01/04/14 22:16:00, Duration: 30 day, Stop date: 22:15:00 Notes: (Same as:MORPhine Sulfate) Start Date: 01/04/14 Stop Date: 01/07/14 Status: Discontinuedmorphine Sulfate 4 mg, Route: IVP, Drug form: INJ, ONCE, Dosing Weight 108.182, kg, Priority: STAT, Start date: 01/04/14 19:37:00, Stop date: 01/04/14 19:37:00 Start Date: 01/04/14 Stop Date: 01/04/14 Status: Completedondansetron 4 mg, 2 mL, Route: IVP, Drug form: INJ, Q8H, Dosing Weight 108.182, kg, PRN Nausea & Vomiting, Start date: 01/04/14 22:16:00, Duration: 30 day, Stop date: 02/03/14 22:15:00 Notes: (Same as: Zofran) Start Date: 01/04/14 Stop Date: 01/07/14 Status: Discontinuedondansetron 4 mg, 2 mL, Route: IVP, Drug form: INJ, ONCE, Dosing Weight 108.182, kg, Priority: STAT, Start date:01/04/14 19:02:00, Stop date: 01/04/14 19:02:00 Notes: (Same as: Zofran) Start Date: 01/04/14 Stop Date: 01/04/14 Status: CompletedPrilosec 40 mg, Route: PO, Drug form: ECCAP, BID, Dosing Weight 107.727, kg, Start date: 01/05/14 9:00:00, Duration: 30 day, Stop date: 02/03/14 17:00:00 Start Date: 01/05/14 Stop Date: 01/05/14 Status: DeletedProtonix 40 mg, 1 tab, Route: PO, Drug form: ECTAB, BID, Start date: 01/05/14 3:13:00, Duration: 30 day, Stopdate: 02/03/14 16:30:00 Notes: Tablet should not be chewed or crushed.(Same as: Protonix) Start Date: 01/05/14 Stop Date: 01/07/14 Status: DiscontinuedSaline Flush 0.9% 5 mL, Route: IVP, Drug Form: INJ, Dosing Weight 108.182, kg, PRN, PRN Line Flush , Start date: 01/04/14 19:02:00, Duration: 30 day, Stop date: 02/03/14 19:01:00 Notes: (Same as: BD Posiflush) Start Date: 01/04/14 Stop Date: 01/06/14 Status: DiscontinuedSodium Chloride 0.9% IV 25 mL, Route: IV, Start date: 01/05/14 1:57:00, Duration: 30 day, Stop date: 1:56:00, PRN Line Flush Start Date: 01/05/14 Stop Date: 01/07/14 Status: DiscontinuedTylenol 325 mg, 1 tab, Route: PO, Drug form: TAB, Q6H, Dosing Weight 107.727, kg, PRN Pain Score 1-3, Start date: 01/05/14 5:38:00, Duration: 30 day, Stop date: 02/04 5:37:00 Notes: Do not exceed 4 gm/day. (Same as: Tylenol) Start Date: 01/05/14 Stop Date: 01/07/14 Status: DiscontinuedTylenol 650 mg, Route: PO, Drug form: TAB, ONCE, Dosing Weight 108.182, kg, Priority: STAT, Start date: 01/04/14 20:56:00, Stop date: 01/04/14 20:56:00 Start Date: 01/04/14 Stop Date: 01/04/14 Status: Completed Results ELECTROLYTES Most recent to oldest [Reference Range]: 1 2 Sodium Lvl [135-145 mEq/L] 142 mEq/L 143 mEq/L (01/05/14 5:00 AM) (01/04/14 7:20 PM) Potassium Lvl [3.5-5.1 mEq/L] 3.3 mEq/L 3.7 mEq/L *LOW* (01/04/14 7:20 PM) (01/05/14 5:00 AM) Chloride Lvl [95-109 mEq/L] 109 mEq/L 110 mEq/L (01/05/14 5:00 AM) *HI* (01/04/14 7:20 PM) CO2 [24-32 mEq/L] 26 mEq/L 23 mEq/L (01/05/14 5:00 AM) *LOW* (01/04/14 7:20 PM) AGAP [10.0-20.0 mEq/L] 10.3 mEq/L 13.7 mEq/L (01/05/14 5:00 AM) (01/04/14 7:20 PM) CHEM PANEL Most recent to oldest [Reference Range]: 1 2 Creatinine Lvl [0.5-1.4 mg/dL] 0.7 mg/dL 0.6 mg/dL (01/05/14 5:00 AM) (01/04/14 7:20 PM) eGFR 117 mL/min/1.73m2 1 123 mL/min/1.73m2 2 *NA* *NA* (01/05/14 5:00 AM) (01/04/14 7:20 PM) BUN [7-22 mg/dL] 11 mg/dL 10 mg/dL (01/05/14 5:00 AM) (01/04/14 7:20 PM) B/C Ratio [6-25] 17 (01/04/14 7:20 PM) Glucose Lvl [70-99 mg/dL] 86 mg/dL 3 77 mg/dL 4 (01/05/14 5:00 AM) (01/04/14 7:20 PM) Total Protein [6.4-8.4 g/dL] 7.2 g/dL (01/04/14 7:20 PM) Albumin Lvl [3.5-5.0 g/dL] 3.9 g/dL (01/04/14 7:20 PM) Globulin [2.0-4.0 g/dL] 3.3 g/dL (01/04/14 7:20 PM) A/G Ratio [0.7-1.6] 1.2 (01/04/14 7:20 PM) Calcium Lvl [8.5-10.5 mg/dL] 8.6 mg/dL 8.9 mg/dL (01/05/14 5:00 AM) (01/04/14 7:20 PM) ALT [0-65 unit/L] 57 unit/L (01/04/14 7:20 PM) AST [0-37 unit/L] 39 unit/L *HI* (01/04/14 7:20 PM) Alk Phos [39-136 unit/L] 93 unit/L (01/04/14 7:20 PM) Bili Total [0.2-1.3 mg/dL] 0.3 mg/dL (01/04/14 7:20 PM) 1Result Comment: The eGFR is calculated [...] values reflect the clinical guidelines of the [place] [employer].4Interpretive Data: Adult reference range values reflect the clinical guidelines of the [place] [employer].CARDIAC ENZYMES Most recent to oldest [Reference Range]: 1 2 Total CK [12-191 unit/L] 45 unit/L 47 unit/L (01/05/14 5:00 AM) (01/04/14 7:20 PM) CK MB [0.5-3.6 ng/mL] <0.5 ng/mL (01/04/14 7:20 PM) CK MB Index [0.0-2.5] <1.1 (01/04/14 7:20 PM) Troponin-I [0.00-0.40 ng/mL] <0.02 ng/mL (01/04/14 7:20 PM) URINE AND STOOL Most recent to oldest [Reference Range]: 1 2 UA Turbidity [Clear] Clear Slight (01/06/14 6:10 AM) *ABN* (01/04/14 7:25 PM) UA Color [Yellow] Yellow Yellow *NA* *NA* (01/06/14 6:10 AM) (01/04/14 7:25 PM) UA pH [5.0-8.0] 5.5 6.0 (01/06/14 6:10 AM) (01/04/14 7:25 PM) UA Spec Grav [<=1.030] 1.030 1.022 (01/06/14 6:10 AM) (01/04/14 7:25 PM) UA Glucose [Negative mg/dL] Negative mg/dL Negative mg/dL *NA* *NA* (01/06/14 6:10 AM) (01/04/14 7:25 PM) UA Blood [Negative] Negative Negative (01/06/14 6:10 AM) (01/04/14 7:25 PM) UA Ketones [Negative mg/dL] 20 mg/dL 100 mg/dL *ABN* *ABN* (01/06/14 6:10 AM) (01/04/14 7:25 PM) UA Protein [Negative mg/dL] 30 mg/dL 30 mg/dL *ABN* *ABN* (01/06/14 6:10 AM) (01/04/14 7:25 PM) UA Urobilinogen [0.1-1.0 mg/dL] 2.0 mg/dL 2.0 mg/dL *HI* *HI* (01/06/14 6:10 AM) (01/04/14 7:25 PM) UA Bili [Negative] Small Small *ABN* *ABN* (01/06/14 6:10 AM) (01/04/14 7:25 PM) UA Leuk Est [Negative] Small Negative *ABN* (01/04/14 7:25 PM) (01/06/14 6:10 AM) UA Nitrite [Negative] Negative Negative (01/06/14 6:10 AM) (01/04/14 7:25 PM) UA WBC [0-5 /HPF] 3 /HPF 1 /HPF (01/06/14 6:10 AM) (01/04/14 7:25 PM) UA RBC [0-2 /HPF] <1 /HPF 1 /HPF (01/06/14 6:10 AM) (01/04/14 7:25 PM) UA Bacteria [None Seen /HPF] Occasional /HPF Few /HPF *NA* *NA* (01/06/14 6:10 AM) (01/04/14 7:25 PM) UA Sq Epi [Few /LPF] Many /LPF Many /LPF *ABN* *ABN* (01/06/14 6:10 AM) (01/04/14 7:25 PM) UA Mucus [None Seen /LPF] Many /LPF Many /LPF *ABN* *ABN* (01/06/14 6:10 AM) (01/04/14 7:25 PM) IMMUNOLOGY Most recent to oldest [Reference Range]: 1 2 CDC HIV 4th GEN [Negative] Negative (01/04/14 7:20 PM) HEMATOLOGY Most recent to oldest [Reference Range]: 1 2 WBC [3.7-10.4 K/CMM] 5.3 K/CMM 6.1 K/CMM (01/05/14 5:00 AM) (01/04/14 7:20 PM) RBC [4.20-5.40 M/CMM] 4.35 M/CMM 4.53 M/CMM (01/05/14 5:00 AM) (01/04/14 7:20 PM) Hgb [12.0-16.0 g/dL] 12.8 g/dL 13.4 g/dL (01/05/14 5:00 AM) (01/04/14 7:20 PM) Hct [36.0-48.0 %] 37.7 % 39.8 % (01/05/14 5:00 AM) (01/04/14 7:20 PM) MCV [81.0-99.0 fL] 86.6 fL 87.8 fL (01/05/14 5:00 AM) (01/04/14:20 PM) MCH [27.0-31.0 pg] 29.5 pg 29.7 pg (01/05/14 5:00 AM) (01/04/14 7:20 PM) MCHC [32.0-36.0 g/dL] 34.1 g/dL 33.8 g/dL (01/05/14 5:00 AM) (01/04/14 7:20 PM) RDW [11.5-14.5 %] 13.5 % 13.3 % (01/05/14 5:00 AM) (01/04/14 7:20 PM) Platelet [133-450 K/CMM] 173 K/CMM 184 K/CMM (01/05/14 5:00 AM) (01/04/14 7:20 PM) MPV [7.4-10.4 fL] 9.1 fL 8.9 fL (01/05/14 5:00 AM) (01/04/14 7:20 PM) Segs [45.0-75.0 %] 36.5 % 47.8 % *LOW* (01/04/14 7:20 PM) (01/05/14 5:00 AM) Lymphocytes [20.0-40.0 %] 45.7 % 37.7 % *HI* (01/04/14:20 PM) (01/05/14 5:00 AM) Monocytes [2.0-12.0 %] 10.4 % 8.5 % (01/05/14 5:00 AM) (01/04/14 7:20 PM) Eosinophils [0.0-4.0 %] 7.0 % 5.6 % *HI* *HI* (01/05/14 5:00 AM) (01/04/14 7:20 PM) Basophils [0.0-1.0 %] 0.4 % 0.4 % (01/05/14 5:00 AM) (01/04/14 7:20 PM) Segs-Bands # [1.5-8.1 K/CMM] 1.9 K/CMM 2.9 K/CMM (01/05/14 5:00 AM) (01/04/14 7:20 PM) Lymphocytes # [1.0-5.5 K/CMM] 2.4 K/CMM 2.3 K/CMM (01/05/14 5:00 AM) (01/04/14 7:20 PM) Monocytes # [0.0-0.8 K/CMM] 0.5 K/CMM 0.5 K/CMM (01/05/14 5:00 AM) (01/04/14 7:20 PM) Eosinophils # [0.0-0.5 K/CMM] 0.4 K/CMM 0.3 K/CMM (01/05/14 5:00 AM) (01/04/14 7:20 PM) Basophils # [0.0-0.2 K/CMM] 0.0 K/CMM 0.0 K/CMM (01/05/14 5:00 AM) (01/04/14 7:20 PM) Medications Administered During Your Visit No data available for this section Immunizations No data available for this section Social History Social History Type Response Smoking Status Former smoker, Exposure to Tobacco Smoke Lives with someone who smokes, Cigarette Smoking Last 365 Days No, Reg Smoking Cessation Counseling No1, 2 1quit 2 months [id number] 1 month ago Assessment and Plan Extracted from: Title: Neurology progressn ote for Author: Christine Bryan np HEAD START DIRECTOR Date: 01/06 [facility] NEUROLOGY [facility] Progress Note PROBLEM LIST: This is a pleasant right hand dominant 28-year-old female who was admitted through via emergency department after what patient reports as 3 episodes of loss of consciousness starting Saturday. 01/03/2014. She states that she was in her usual state of health until Saturday a.m. when she woke with feelings of general malaise and weakness. She noted that her whole hands were kind of "tingly" and she did not feel well. She thought she had maybe slept wrong and disregarded it. She then was ambulating in her home, specifically in her bedroom, when she lost consciousness. She did not know how lo ng she was out, but when she awoke, she felt generally foggy and weak and not "in her own body." She denied any loss of bowel or bladder function that she noted. She was unconscious for an unknown per iod of time. When she awoke, she felt generally bad with generalized weakness and pain in all her muscles and felt very sleepy. She went to lay down and slept for a couple of hours. Later that aftern oon, patient went with her mother for a dog rescue and acutely lost consciousness in the car for what she reports as not that long. She stated that her mother had reported to her that she looked stiff all over and woke within seconds to minutes "back to normal." She went home and laid down and slept and continued to feel generally until the next morning when she again lost consciousness in her home and was very scared because she was very close to her dresser. She was quite concerned and called her sister who drove her to the emergency department. She also noted since the frequent episodes start ing yesterday that she has had a left-sided headache and generalized discomfort , especially over the forehead and preorbital regions and left side of the head with light sensitivity and malaise. She de nies any recent nausea or vomiting or diarrhea. She does have, as per her report, a current low-grade UTI that was noted from her doctor, but states that she has been having recurrent urinary tract inf ections since June. She denies any other recent illness or discomfort, but has had occasional scratchy throat, especially in the morning. She denies any history of hepatitis or herpes simplex expo sure or infection, nuchal rigidity, visual disturbances, dysarthria, dysphagia , incoordination and balance, gait disturbances or any other complaints. Neurology consultation has been requested regardin g recurrent syncope versus seizure and recommendations. PMH: - Possible lupus. - Morbid obesity, status post gastric sleeve placement in 11/2013. - History of noninsulin-dependent diabetes mellitus for which she was taken off medications approximately a month ago. 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 - Recurrent UTIs since June of this year and has seen a urologist and completed a cystoscopy in the past. Interval Hospital Course Headache improved, but still waxing and waning. EEG normal. Pt had episode of hesitancy and difficulty urinating. Rosenthal catheter placed. No new episodes. Overall, doing well from neurology standpoi nt. May DC home when headache improved from neurology standpoint. Assessment / Recommendations / Plan - Syncope, with possible syncopal seizure secondary to poor/decreased nutritional state. Improved/resolved. No clincial evidence of seizure activity or disorder. No acute CVA/TIA. - Migraine headache, common. Improving. Will add Fiorcet for additional pain relief. - UTI, chronic. Agree that Rosenthal needs to be removed. Supportive care as per attending. Evaluations CT of the head without contrast (01/04/2014): No acute intracranial abnormality or density, no hemorrhage or extra-axial fluid collection was noted. Ventricle, subarachnoid spaces and sulci are within normal limits. Orbits were symmetrical and paranasal sinuses were well aerated. EEG (01/05/2014): Normal EEG. At maximal arousal, the waking background rhythm is characterized by bilateral posterior symmetric 10 to 11 Hz alpha rhythm of about 20 to 40 microvolts in amplitude and a ttenuates appropriately to eye opening. Photic stimulation produces bilateral symmetric driving responses at all flash frequencies. There were no epileptiform discharges noted. Adv Dir Full code Subj "My headache is getting better." ROS C/O improved, but still waxing and waning left sided headache with light sensitivity. C/O hesitancy overnight as noted above. No lateralizing weakness , numbness, tingling, visual disturbances or any other complaints. Exam Neuro AAOx3. Face symmetrical, tongue midline. Pupils 3mmPERRL bilaterally. Speech clear, language fluent. REYNA without difficulty. Sensation intact to light touch. Lungs CTA Heart [id number] Abd Soft, nontender, BS present x 4 Skin Warm, dry Nutrition: Regular Vitals Tmp(F) Tmp(C) Ttype BP MAP Pulse RR SpO2 01/06 08:00 98.3 36.83 oral 116/81 --- 84 18 99 01/06 00:00 98.0 36.67 oral 96/61 --- 61 18 98 01/05 20:00 98.3 36.83 oral 98/56 --- 67 18 --- 01/05 17:46 98.3 36.83 oral 96/67 --- 78 -- 96 01/05 08:44 98.3 36.83 oral 104/68 --- 72 -- 99 24 Hr Tmax: 98.3F (36.83c) at 01/06 08:00 24 Hr Tmin: 98.0F (36.67c) at 01/06 00:00 Date Wt(kg) Wt(lb) Ht(cm) Ht(in) Method BMI BSA 01/04 (initial) 108.18 238.00 165.10 65.00 Stated 39.7 2.23 Most Recent Scores: 01/06/14 Pain Intensity NRS (0-10) 7 01/06/14 Dave Willingham Fall Score 15 01/05/14 Mark Score 20 01/05/14 [place] Coma Score 15 Lines, Tubes, and Drains: 01/06/2014 05:46 Indwelling Urinary Catheter: Urethral 16 [place] Indwelling/ Continuous 01/04/2014 19:30 Peripheral Lines: Antecubital Left Over the needle catheter 20 gauge I/O Intake Output Balance 01/06/2014 7a-3p 3.00 0.00 3.00 3p-11p 0.00 0.00 0.00 11p-7a 0.00 0.00 0.00 Totals 3.00 0.00 3.00 As of 10:02 01/05/2014 7a-3p 14.00 0.00 14.00 3p-11p 402.00 0.00 402.00 11p-7a 180.50 250.00 -69.50 Totals 596.50 250.00 346.50 01/04/2014 7a-3p 0.00 0.00 0.00 3p-11p 0.00 0.00 0.00 11p-7a 261.00 0.00 261.00 Totals 261.00 0.00 261.00 Labs (Reviewed and noted) WBC 5.3 (JAN 05) 6.1 (JAN 04) Hgb 12.8 (JAN 05) 13.4 (JAN 04) Hct 37.7 (JAN 05) 39.8 (JAN 04) Plt 173 (JAN 05) 184 (JAN 04) Na 142 (JAN 05) 143 (JAN 04) K L 3.3 (JAN 05) 3.7 (JAN 04) CO2 26 (JAN 05) L 23 (JAN 04) Cl 109 (JAN 05) H 110 (JAN 04) Cr 0.7 (JAN 05) 0.6 (JAN 04) BUN 11 (JAN 05) 10 (JAN 04) Glucose Random 86 (JAN 05) 77 (JAN 04) Ca 8.6 (JAN 05) 8.9 (JAN 04) Troponin <0.02 (JAN 04) CK MB <0.5 (JAN 04) Total CK 45 (JAN 05) 47 (JAN 04) Scheduled Meds (3): amitriptyline 50 mg PO Bedtime ketorolac (ketorolac 15 mg/mL injectable solution) 15 mg IV Q6H pantoprazole (Protonix) 40 mg PO BID PRN Meds (9): Butalbital/caffeine (Fioricet oral capsule) 1 cap PO Q6H Sodium Chloride 0.9% IV 25 mL IV PRN acetaminophen (Tylenol) 325 mg PO Q6H ibuprofen 400 mg PO Q4H morphine Sulfate 2 mg IVP Q3H ondansetron 4 mg IVP Q8H sodium chloride (Saline Flush 0.9%) 5 mL IVP PRN sodium chloride (BD Normal Saline Flush) 5 mL IV PRN sodium chloride (BD Normal Saline Flush) 10 mL IV PRN VTE Prophylaxis: Ambulate Core measures: No acute CVA/TIA POLLY Alves/ Sesar Lantigua ( 25 Minutes)
--- OUTSIDE RECORDS SUMMARY | 2017-12-17 19:30 | XMS REPORT | CCD ---
:1985 Author Organization [facility] Care Team Providers Name Role Phone Daina Hamm Consulting Provider Allergies, Adverse Reactions, Alerts Substance Reaction Status penicillins Active Medications Medication Instructions Start Date End Date Status tramadol 50 mg oral 50 mg, PO, Q4-6H, PRN, 20 08/06/2011 08/10/2011 Ordered tablet tab, Pain, Substitution Allowed Bactrim DS oral tablet 1 tab, PO, BID, 20 tab, 08/06/2011 08/06/2011 Discontinued Substitution Allowed, Maintenance clindamycin 300 mg oral 300 mg, 1 cap, PO, TID, 08/06/2011 Ordered capsule 40 cap, Substitution Allowed Toradol 30 mg/mL 60 mg, 2 mL, Route: IM, 08/06/2011 08/06/2011 Completed injectable solution Drug form: INJ, ONCE, Priority: STAT, Start date: 08/06/11 14:15:00, Stop date: 08/06/11 14:15:00 Gatzke 5/325 oral tablet 1 tab, Route: PO, Drug 08/06/2011 08/06/2011 Completed Form: TAB, ONCE, PRN Pain, STAT, Start date: 08/06/11 14:15:00, Stop date: 09/05/11 14:14:00 Toradol 30 mg/mL 60 mg, Route: IV, Drug 08/06/2011 08/06/2011 Discontinued injectable solution form: INJ, ONCE, Priority: STAT, Start date: 08/06/11 14:14:00, Stop date: 08/06/11 14:14:00 Vital Signs Most recent to oldest [Reference Range]: 1 Height 165.10 cm (08/06/2011 10:54:00) Weight 97.273 kg (08/06/2011 10:54:00)
--- OUTSIDE RECORDS SUMMARY | 2017-12-17 19:31 | XMS REPORT | Summary of Care ---
:1985 Author Organization [facility] Address [address] [place] [place], [place] [address]- Encounter HQ Kumar_carmen(FIN) [phone] Date(s): 11/20/15 - 11/24/15 [facility] [address] [place] [address]- Final: Hemoptysis Discharge Disposition: Home Attending Physician: Tyler Aguirre MD Admitting Physician: Tyler Aguirre MD Referring Physician: Shorty Urena MD Vital Signs Most recent to oldest 1 2 3 [Reference Range]: Height 165.1 cm 165.1 cm (11/20/15 8:08 AM) (11/20/15 7:26 AM) Current Weight 75.54 kg (11/21/15 5:22 AM) Temperature Oral [96.4-99.1 98.5 DegF 98.1 DegF 98 DegF DegF] (11/24/15 8:00 AM) (11/24/15 4:24 AM) (11/24/15 12:15 AM) Blood Pressure [90-140/60-90 117/75 mmHg 132/89 mmHg 114/68 mmHg mmHg] (11/24/15 11:11 AM) (11/24/15 10:37 AM) (11/24/15 10:00 AM) Respiratory Rate [14-20 BRMIN] 18 BRMIN 16 BRMIN 15 BRMIN (11/24/15 11:11 AM) (11/24/15 10:45 AM) (11/24/15 10:37 AM) Peripheral Pulse Rate [60-100 91 bpm 83 bpm 69 bpm bpm] (11/24/15 11:11 AM) (11/24/15 8:24 AM) (11/24/15 8:00 AM) Weight 70.682 kg 72.727 kg 72.727 kg (11/21/15 5:40 PM) (11/20/15 8:08 AM) (11/20/15 7:26 AM) Body Mass Index 26.68 m2 26.68 m2 (11/20/15 8:08 AM) (11/20/15 7:26 AM) Problem List Condition Effective Dates Status Health Status Informant Anxiety(Confirmed) Resolved Bipolar(Confirmed) 1995 Active Clostridium difficile(Confirmed)1, 2 11/21/15 Active Crohns disease(Confirmed) Active Depression(Confirmed) Resolved Diabetes mellitus(Confirmed)3 2013 Resolved Hidradenitis suppurativa(Confirmed) Resolved Lupus(Confirmed) Resolved Morbid obesity(Confirmed) Active Reflux(Confirmed) Active 1Stool, Problem added by Discern Expert.3off medication for 1 month since gastric sleeve Allergies, Adverse Reactions, Alerts Substance Reaction Severity Status NSAIDs Active Paxil Hives Active penicillins Active Ultram Hives Active Medications ALPRAZOLam 1 mg, 2 tab, Route: PO, Drug form: TAB, QPM, Dosing Weight 72.727, kg, Start date: 11/20/15 17:00:00CDT, Duration: 30 day, Stop date: 12/19/15 17:00:00 CDT Notes: With food or milk(Same as: Xanax) Start Date: 11/20/15 Stop Date: 11/24/15 Status: Discontinuedbudesonide 9 mg, 3 cap, Route: PO, Drug form: ERCAP, Daily, Dosing Weight 72.727, kg, Start date: 11/21/15 9:00:00 CDT, Duration: 30 day, Stop date: 12/20/15 9:00:00 CDT Notes: (Same As: Entocort EC or Budesonide 3 mg EC / ERC) "Do Not Crush" Start Date: 11/21/15 Stop Date: 11/20/15 Status: [id number] 1/2NS + KCL 20mEq/L 1000ml (Premix) 1,000 mL 1,000 mL, Rate: 125 ml/hr, Infuse over: 8 hr, Route: IV, Dosing Weight 72.727 kg , Total Volume: 1,000, Start date: 11/20/15 9:17:00 CDT, Stop date: 12/20/15 9: 16:00 CDT Start Date: 11/20/15 Stop Date: 11/24/15 Status: DiscontinuedDilaudid 1 mg, 1 mL, Route: IV, Drug form: INJ, Q4H, Dosing Weight 72.727, kg, PRN Pain Score 4-6, Start date: 11/20/15 11:40:00 CDT, Duration: 30 day, Stop date: 12/19 11:39:00 CDT Start Date: 11/20/15 Stop Date: 11/22/15 Status: DiscontinuedDilaudid 0.5 mg, 0.5 mL, Route: IV, Drug form: INJ, Q4H, Dosing Weight 72.727, kg, PRN Pain Score 4-6, Start date: 11/20/15 9:15:00 CDT, Duration: 30 day, Stop date: 12/20/15 9:14:00 CDT Start Date: 11/20/15 Stop Date: 11/20/15 Status: DiscontinuedDuoNeb inhalation solution 3 ml, Route: NEB, Drug Form: SOLN, Dosing Weight 72.727, kg, PRN, PRN Respiratory Protocol, Start date: 11/20/15 9:14:00 CDT, Duration: 30 day, Stop date: 12/20/15 9:13:00 CDT Notes: (Same as: Duoneb) Start Date: 11/20/15 Stop Date: 11/24/15 Status: DiscontinuedGoLYTELY 1 Liter, Route: PO, Drug Form: PDR/REC, ONCE, Start date: 11/23/15 6:00:00 CDT, Stop date: 11/23/15 6:00:00 CDT Notes: (polyethylene glycol electrolyte solution 4 Liter bottle) (Same as: Golytely, Colyte) Start Date: 11/23/15 Stop Date: 11/22/15 Status: Canceledheparin flush 500 unit, 5 mL, Route: IVP, Drug form: SOLN, Q30D, PRN Line Flush, Start date: 11/24/15 11:13:00 CDT, Duration: 30 day, Stop date: 12/24/15 11:12:00 CDT Notes: (Same as: Heparin Lock Flush) Start Date: 11/24/15 Stop Date: 11/24/15 Status: Discontinuedhydromorphone 1 mg, 1 mL, Route: IV, Drug form: INJ, Q3H, Dosing Weight 70.682, kg, PRN Pain Score 4-6, Start date: 11/22/15 12:38:00 CDT, Duration: 30 day, Stop date: 12/21 12:37:00 CDT Start Date: 11/22/15 Stop Date: 11/22/15 Status: Discontinuedhydromorphone 1 mg, 1 mL, Route: IV, Drug form: INJ, Q4H, Dosing Weight 70.682, kg, PRN Pain Score 4-6, Start date: 11/22/15 16:13:00 CDT, Duration: 30 day, Stop date: 12/21 16:12:00 CDT Start Date: 11/22/15 Stop Date: 11/22/15 Status: Discontinuedhydromorphone 1 mg, 1 mL, Route: IV, Drug form: INJ, Q3H, Dosing Weight 70.682, kg, PRN Pain Score 4-6, Start date: 11/22/15 18:08:00 CDT, Duration: 30 day, Stop date: 12/21 18:07:00 CDT Start Date: 11/22/15 Stop Date: 11/24/15 Status: Discontinuedhydroxychloroquine sulfate 200 mg oral tablet 200 mg, 1 tab, Route: PO, Drug form: TAB, Daily, Dosing Weight 72.727, kg, Start date: 11/21/15 9:00:00 CDT, Duration: 30 day, Stop date: 12/20/15 9:00:00 CDT Notes: (Same as: Plaquenil)Hydroxychloroquine sulfate 200 ro=115 mg hydroxychloroquine base. If treating malaria, verify dose as salt vs. base per CDC guideline Start Date: 11/21/15 Stop Date: 11/24/15 Status: DiscontinuedketOROLAC 15 mg/mL injectable solution 15 mg, 1 mL, Route: IV, Drug form: INJ, ONCE, Dosing Weight 70.682, kg, PRN Pain Score 4-6, Priority: STAT, Start date: 11/24/15 10:02:00 CDT Notes: (Same as:Toradol) IV bolus must be given >15 seconds. Give IM administration slowly and deeply into the muscle. Not for use > 4 days. Start Date: 11/24/15 Stop Date: 11/24/15 Status: CompletedmethylPREDNISolone SODium SUCCinate 40 mg, 1 mL, Route: IVP, Drug form: INJ, Q12H, Dosing Weight 72.727, kg, Start date: 11/20/15 21:00:00 CDT, Duration: 30 day, Stop date: 12/20/15 9:00:00 CDT Notes: (Same as:Solu-MEDROL, A-Methapred) Start Date: 11/20/15 Stop Date: 11/22/15 Status: DiscontinuedmethylPREDNISolone SODium SUCCinate 40 mg, 1 mL, Route: IV, Drug form: INJ, Daily, Dosing Weight 70.682, kg, Start date: 11/23/15 9:00:00 CDT, Duration: 30 day, Stop date: 12/22/15 9:00:00 CDT Notes: (Same as:Solu-MEDROL, A-Methapred) Start Date: 11/23/15 Stop Date: 11/24/15 Status: Discontinuedmultivitamin 1 tab, Route: PO, Drug Form: TAB, Dosing Weight 72.727, kg, Daily, Start date: 11/22/15 9:00:00 CDT,Duration: 30 day, Stop date: 12/21/15 9:00:00 CDT Notes: (Same as:One Tab Daily, Tab-A-Ella + Beta Carotene) Give with food. Start Date: 11/22/15 Stop Date: 11/24/15 Status: DiscontinuedNorco 10/325 oral tablet 1 tab, Route: PO, Drug Form: TAB, Dosing Weight 70.682, kg, Q4H, PRN Pain Score 1-3, do not give until pt tolerates full meal, Start date: 11/22/15 14:28:00 CDT , Duration: 30 day, Stop date: 12/22/15 14:27:00 CDT Notes: Do not exceed 4gm/day of acetaminophen. (Same as: [place] 325/10) Start Date: 11/22/15 Stop Date: 11/24/15 Status: Discontinuedpolyethylene glycol 3350 238 gm, Route: PO, Drug form: PDR/REC, Daily, Dosing Weight 70.682, kg, Start date: 11/23/15 18:00:00 CDT, Duration: 1 day, Stop date: 11/24/15 9:00:00 CDT Notes: Same as: MiraLax Start Date: 11/23/15 Stop Date: 11/24/15 Status: Completedpolyethylene glycol 3350 with electrolytes 3 Liter, Route: PO, Drug Form: PDR/REC, Dosing Weight 70.682, kg, ONCE, Start date: 11/22/15 18:00:00 CDT, Duration: 1 doses or times, Stop date: 11/22/15 18: 00:00 CDT Notes: (polyethylene glycol electrolyte solution 4 Liter bottle) (Same as: Marlyn Vega) Start Date: 11/22/15 Stop Date: 11/22/15 Status: CanceledProtonix 40 mg, Route: IVP, Drug form: INJ, Before Dinner, Dosing Weight 72.727, kg, Start date: 11/20/15 16:30:00 CDT, Duration: 30 day, Stop date: 12/19/15 16:30: 00 CDT Notes: For IV push reconstitute with 10 ml 0.9% sodium chloride and push over 2 minutes. (Same as: Protonix) Start Date: 11/20/15 Stop Date: 11/24/15 Status: Discontinuedsodium chloride 20 mL, Route: IVP, Start date: 11/24/15 11:13:00 CDT, Duration: 30 day, Stop date: 12/24/15 11:12:00CDT, PRN Line Flush Notes: preservative free. Start Date: 11/24/15 Stop Date: 11/24/15 Status: Discontinuedsodium chloride 10 mL, Route: IVP, Start date: 11/24/15 11:13:00 CDT, Duration: 30 day, Stop date: 12/24/15 11:12:00CDT, PRN Line Flush Notes: preservative free. Start Date: 11/24/15 Stop Date: 11/24/15 Status: Discontinuedsodium chloride 0.9% 1000 ml INJ 1,000 mL 1,000 mL, Rate: 25 ml/hr, Infuse over: 40 hr, Route: IV, Dosing Weight 70.682 kg , Total Volume: 1,000, Start date: 11/24/15 8:26:00 CDT, Duration: 1 day, Stop date: 11/25/15 8:25:00 CDT Start Date: 11/24/15 Stop Date: 11/24/15 Status: Discontinuedvancomycin 125 mg, 2.5 mL, Route: PO, Drug form: SUSP, Q6H, Dosing Weight 70.682, kg, Start date: 11/22/15 18:00:00 CDT, Duration: 30 day, Stop date: 12/22/15 12:00: 00 CDT Notes: TIME CRITICAL MEDICATION"DILUTE EACH DOSE WITH 30ML OF WATER OR APPLE/ ORANGE JUICE PRIOR TO ADMINISTRATION" Start Date: 11/22/15 Stop Date: 11/24/15 Status: Discontinuedvancomycin 250 mg/5 mL oral solution 125 mg=2.5 mL, PO, Q6H, X 14 day, # 140 mL, 0 Refill(s) Start Date: 11/23/15 Stop Date: 12/07/15 Status: OrderedZofran 4 mg, 2 mL, Route: IV, Drug form: INJ, Q6H, Dosing Weight 72.727, kg, PRN Nausea , Priority: NOW, Start date: 11/20/15 15:29:00 CDT, Duration: 30 day, Stop date : 12/20/15 15:28:00 CDT Notes: (Same as: Zofran) MEDICATION WASTE Product Size: 4 mgProduct Wasted: ___ mg Start Date: 11/20/15 Stop Date: 11/24/15 Status: Discontinued Results ELECTROLYTES Most recent to oldest 1 2 3 [Reference Range]: Sodium Lvl [135-145 mEq/L] 138 mEq/L 140 mEq/L 139 mEq/L (11/24/15 5:53 AM) (11/23/15 5:34 AM) (11/22/15 4:38 AM) Potassium Lvl [3.5-5.1 mEq/L] 4.0 mEq/L 3.8 mEq/L 4.2 mEq/L (11/24/15 5:53 AM) (11/23/15 5:34 AM) (11/22/15 4:38 AM) Chloride Lvl [95-109 mEq/L] 103 mEq/L 104 mEq/L 104 mEq/L (11/24/15 5:53 AM) (11/23/15 5:34 AM) (11/22/15 4:38 AM) CO2 [24-32 mEq/L] 30 mEq/L 28 mEq/L 28 mEq/L (11/24/15 5:53 AM) (11/23/15 5:34 AM) (11/22/15 4:38 AM) AGAP [10.0-20.0 mEq/L] 9.0 mEq/L 11.8 mEq/L 11.2 mEq/L *LOW* (11/23/15 5:34 AM) (11/22/15 4:38 AM) (11/24/15 5:53 AM) CHEM PANEL Most recent to oldest 1 2 3 [Reference Range]: Creatinine Lvl [0.50-1.40 0.60 mg/dL 0.55 mg/dL 0.62 mg/dL mg/dL] (11/24/15 5:53 AM) (11/23/15 5:34 AM) (11/22/15 4:38 AM) eGFR 121 mL/min/1.73m2 1 124 mL/min/1.73m2 2 119 mL/min/1.73m2 3 *NA* *NA* *NA* (11/24/15 5:53 AM) (11/23/15 5:34 AM) (11/22/15 4:38 AM) BUN [7-22 mg/dL] 9 mg/dL 8 mg/dL 6 mg/dL (11/24/15 5:53 AM) (11/23/15 5:34 AM) *LOW* (11/22/15 4:38 AM) B/C Ratio [6-25] 15 10 16 (11/24/15 5:53 AM) (11/22/15 4:38 AM) (11/21/15 5:27 AM) Glucose Lvl [70-99 mg/dL] 86 mg/dL 93 mg/dL 134 mg/dL (11/24/15 5:53 AM) (11/23/15 5:34 AM) *HI* (7/5/16 4:38 AM) Total Protein [6.4-8.4 6.9 g/dL 7.6 g/dL 7.3 g/dL g/dL] (11/24/15 5:53 AM) (11/22/15 4:38 AM) (11/21/15 5:27 AM) Albumin Lvl [3.5-5.0 g/dL] 3.5 g/dL 3.9 g/dL 3.3 g/dL (11/24/15 5:53 AM) (11/22/15 4:38 AM) *LOW* (11/21/15 5:27 AM) Globulin [2.0-4.0 g/dL] 3.4 g/dL 3.7 g/dL 4.0 g/dL (11/24/15 5:53 AM) (11/22/15 4:38 AM) (11/21/15 5:27 AM) A/G Ratio [0.7-1.6] 1.0 1.1 0.8 (11/24/15 5:53 AM) (11/22/15 4:38 AM) (11/21/15 5:27 AM) Calcium Lvl [8.5-10.5 8.5 mg/dL 8.7 mg/dL 8.9 mg/dL mg/dL] (11/24/15 5:53 AM) (11/23/15 5:34 AM) (11/22/15 4:38 AM) Magnesium Lvl [1.8-2.4 2.2 mg/dL mg/dL] (11/22/15 4:38 AM) ALT [0-65 unit/L] 10 unit/L 11 unit/L 10 unit/L (11/24/15 5:53 AM) (11/22/15 4:38 AM) (11/21/15 5:27 AM) AST [0-37 unit/L] 4 unit/L 5 unit/L 6 unit/L (11/24/15 5:53 AM) (11/22/15 4:38 AM) (11/21/15 5:27 AM) Alk Phos [39-136 unit/L] 63 unit/L 66 unit/L 64 unit/L (11/24/15 5:53 AM) (11/22/15 4:38 AM) (11/21/15 5:27 AM) Bili Total [0.2-1.3 mg/dL] 0.2 mg/dL 0.2 mg/dL 0.2 mg/dL (11/24/15 5:53 AM) (11/22/15 4:38 AM) (11/21/15 5:27 AM) Lipase Lvl [73-393 unit/L] 122 unit/L (11/21/15 5:27 AM) Lactic Acid Lvl [0.5-2.2 1.3 mMol/L mMol/L] (11/20/15 12:37 PM) 1Result Comment: The eGFR is calculated [...] eGFR should be multiplied by the estimated BMI.3Result Comment: The eGFR is calculated using the [...] eGFR should be multiplied by the estimated BMI.URINE CHEM Most recent to oldest [Reference Range]: 1 2 3 U Preg [Negative] Negative (11/24/15 6:41 AM) URINE AND STOOL Most recent to oldest [Reference Range]: 1 2 3 Occult Bld Stl [Negative] Negative (11/21/15 12:23 PM) Fecal Leukocyte Rare (11/21/15 12:23 PM) Lactoferrin Stool [NEGATIVE] NEGATIVE 1 *NA* (11/21/15 12:23 PM) 1Result Comment: Lactoferrin in the stool is a marker for fecal leukocytes and is a non-specific indicator of [...] ileostomy within 1 month. Test Performed at: [facility] [address] [place] [address] Maximo Carey MD, PhDIMMUNOLOGY Most recent to oldest [Reference Range]: 1 2 3 KAMRAN [Negative] Positive *ABN* (11/21/15 5:27 AM) KAMRAN Titer [Negative] 1:320 *ABN* (11/21/15 5:27 AM) KAMRAN Interp Pattern appears Mixed Speckled and Nucleolar *NA* (11/21/15 5:27 AM) CRP [<=2.9 mg/L] <2.9 mg/L (11/20/15 12:37 PM) HEMATOLOGY Most recent to oldest 1 2 3 [Reference Range]: WBC [3.7-10.4 K/CMM] 8.0 K/CMM 7.3 K/CMM 9.7 K/CMM (11/24/15 5:53 AM) (11/23/15 5:34 AM) (11/22/15 4:38 AM) RBC [4.20-5.40 M/CMM] 3.40 M/CMM 3.24 M/CMM 3.32 M/CMM *LOW* *LOW* *LOW* (11/24/15 5:53 AM) (11/23/15 5:34 AM) (11/22/15 4:38 AM) Hgb [12.0-16.0 g/dL] 11.1 g/dL 10.4 g/dL 10.7 g/dL *LOW* *LOW* *LOW* (11/24/15 5:53 AM) (11/23/15 5:34 AM) (11/22/15 4:38 AM) Hct [36.0-48.0 %] 32.0 % 31.0 % 31.3 % *LOW* *LOW* *LOW* (11/24/15 5:53 AM) (11/23/15 5:34 AM) (11/22/15 4:38 AM) MCV [80.0-98.0 fL] 94.3 fL 95.6 fL 94.1 fL (11/24/15 5:53 AM) (11/23/15 5:34 AM) (11/22/15 4:38 AM) MCH [27.0-31.0 pg] 32.6 pg 32.2 pg 32.3 pg *HI* *HI* *HI* (11/24/15 5:53 AM) (11/23/15 5:34 AM) (11/22/15 4:38 AM) MCHC [32.0-36.0 g/dL] 34.6 g/dL 33.7 g/dL 34.3 g/dL (11/24/15 5:53 AM) (11/23/15 5:34 AM) (11/22/15 4:38 AM) RDW [11.5-14.5 %] 13.4 % 13.1 % 13.0 % (11/24/15 5:53 AM) (11/23/15 5:34 AM) (11/22/15 4:38 AM) Platelet [133-450 K/CMM] 286 K/CMM 256 K/CMM 260 K/CMM (11/24/15 5:53 AM) (11/23/15 5:34 AM) (11/22/15 4:38 AM) MPV [7.4-10.4 fL] 6.9 fL 7.0 fL 7.1 fL *LOW* *LOW* *LOW* (11/24/15 5:53 AM) (11/23/15 5:34 AM) (11/22/15 4:38 AM) Segs [45.0-75.0 %] 43.3 % 52.6 % 86.8 % *LOW* (11/23/15 5:34 AM) *HI* (11/24/15 5:53 AM) (11/22/15 4:38 AM) Lymphocytes [20.0-40.0 %] 44.4 % 36.5 % 10.4 % *HI* (11/23/15 5:34 AM) *LOW* (11/24/15 5:53 AM) (11/22/15 4:38 AM) Monocytes [2.0-12.0 %] 10.1 % 9.2 % 2.6 % (11/24/15 5:53 AM) (11/23/15 5:34 AM) (11/22/15 4:38 AM) Eosinophils [0.0-4.0 %] 1.7 % 1.3 % 0.1 % (11/24/15 5:53 AM) (11/23/15 5:34 AM) (11/21/15 5:27 AM) Basophils [0.0-1.0 %] 0.5 % 0.4 % 0.2 % (11/24/15 5:53 AM) (11/23/15 5:34 AM) (11/22/15 4:38 AM) Segs-Bands # [1.5-8.1 K/CMM] 3.5 K/CMM 3.8 K/CMM 8.4 K/CMM (11/24/15 5:53 AM) (11/23/15 5:34 AM) *HI* (11/22/15 4:38 AM) Lymphocytes # [1.0-5.5 K/CMM] 3.5 K/CMM 2.7 K/CMM 1.0 K/CMM (11/24/15 5:53 AM) (11/23/15 5:34 AM) (11/22/15 4:38 AM) Monocytes # [0.0-0.8 K/CMM] 0.8 K/CMM 0.7 K/CMM 0.3 K/CMM (11/24/15 5:53 AM) (11/23/15 5:34 AM) (11/22/15 4:38 AM) Eosinophils # [0.0-0.5 K/CMM] 0.1 K/CMM 0.1 K/CMM (11/24/15 5:53 AM) (11/23/15 5:34 AM) PT [12.0-14.7 seconds] 14.6 seconds (11/22/15 4:38 AM) INR [0.85-1.17] 1.11 (11/22/15 4:38 AM) MOLECULAR DIAGNOSTIC Most recent to oldest [Reference Range]: 1 2 3 C difficile DNA [Negative] Positive 1 *ABN* (11/21/15 12:23 PM) 1Result Comment: "Significant Findings called to Carolann Elizalde_at 11/22/2015 14: 24 by bf. Read Back OK." Immunizations No data available for this section Procedures Procedure Date Related Diagnosis Body Site Cholecystectomy Hysterectomy Laparoscopic sleeve gastrectomy Portal vein cannula insertion Tonsillectomy Social History Social History Type Response Smoking Status Former smoker; Type: Cigarettes; Total pack years: 10; Started at age: 20.0; Previous treatment: Medications; Previous treatment: Nicotine replacement; Ready to change: No; Concerns about tobacco use in household: No; Lives with someone who smokes; Other Tobacco Frequency mother smokes, whom she lives with; Cigarette Smoking Last 365 Days Yes; Reg Smoking Cessation Counseling No1, 2, 3 11/2 pack a day and patient is trying to quit.2quit 2 months [id number] 1 month ago Assessment and Plan Extracted from: Title: Clinical Document Author: Chao Dorado MD Date: 11/24/15 Progress Note Gastroenterology and Hepatology ASSESSMENT /PLAN: 30-year-old female with Crohn's disease involving the ileum, colon and rectum diagnosed in 2012. She apparently has failed Remicade, Cimzia and Humira. No records available for review. Labs reveal near normal ESR, CRP and -ve fecal calprotectin which argues against significant active inflammation. CT enterography with TI thickening; however there is no significant stricture and no active inflammation. Stool studies with C.diff. Displays drug seeking behavior. EGD today with mild gastritis, biopsied; e/o previous surgery in gastric fundus. Colonoscopy with TI intubation normal. Random colon and TI biopsied. Small external hemorrhoids. Recommend Patient does not have active Crohn's disease. Symptoms are functional; IBS vs secondary gain. Stop steroids. Would avoid narcotics in this lady with significant addiction potential. Will get records from previous GI physician to see if she even has Crohn's disease. PO vancomycin for 14 days for C.diff. F/up in clinic in 2 weeks. Ok to d/c from GI perspective. SUBJECTIVE: Pt underwent EGD/Colonoscopy today. Diarrhea improved. Review of Systems: (-)=Negative,(+)=Positive 1) Const: (-) fever, (-) weight change 2) Skin: (-) rash, (-) bleeding 3) HEENT: (-) difficulty swallowing, (-) swelling 4) Eyes: (-) vision changes, (-) bleeding 5) Neuro: (-) weakness, (-) headaches 6) Resp: (-) dyspnea on exertion, (-) cough 7) Cardio: (-) chest pain, (-) orthopnea 8) GI: (-) blood in stool, (-) reflux 9) : (-) dysuria, (-) bloody discharge 10) Endo: (-) heat intolerance, (-) cold intolerance OBJECTIVE: Vitals: See below General: Alert , Oriented x 3 CVS: s1s2 RRR Resp: CTA Bilaterally Abd : Soft, NT, ND , BS + Ext : no edema [employer] EXAMINER: No gross motor/sensory defects Vitals Tmp(F) Pulse BP RR SpO2 FIO2 11/23 08:24 97.9 83 111/54 18 100 --- 11/23 08:00 98.5 69 110/70 18 99 --- 11/23 07:41 ---- --- ----- 18 96 --- 11/23 04:24 98.1 78 112/73 17 98 --- 11/23 00:15 98 92 95/59 16 98 --- 24 Hr Tmax: 99.0F (37.22c) at 11/22 16:00 Vital Signs are the last 5 in the past 48 hours. Lines, Tubes, and Drains: 11/20/2015 09:02 Central Lines: Subclavian, right Tunneled (other than dialysis ) Cholecystectomy Tonsillectomy Hysterectomy Laparoscopic sleeve gastrectomy Portal vein cannula insertion I&O Record In Out [facility] 11/22 24hr Tot [phone] 11/21 24hr Tot 3520 0 3520 Medications (11) Active Scheduled: (6) ALPRAZolam 0.5 mg TAB 1 mg 2 tab, PO, QPM hydroxychloroquine sulfate 200 mg TAB 200 mg 1 tab, PO, Daily methylPREDNISolone SOD SUCC 40mg INJ 40 mg 1 mL, IV, Daily pantoprazole 40 mg INJ 40 mg, IVP, Before Dinner Tab-A-Ella + Beta Carotene 1 tab, PO, Daily vancomycin 250mg / 5ml oral solution 125 mg 2.5 mL, PO, Q6H Continuous: (2) D5W 1/2NS + KCL 20mEq/L 1000ml (Premix) 1,000 mL 1,000 mL, IV, 125 ml/hr sodium chloride 0.9% 1000 ml INJ 1,000 mL 1,000 mL, IV, 25 ml/hr PRN: (3) acetaminophen-hydrocodone 325-10mg TAB 1 tab, PO, Q4H albuterol-ipratropium 2.5 mg-0.5 mg/3 ml SHIRLEY 3 ml, NEB, PRN ondansetron 4mg/2mL INJ SYRINGE 4 mg 2 mL, IV, Q6H Labs (Last four charted values) WBC 8.0 (NOV 23) 7.3 (NOV 22) 9.7 (NOV 21) 4.4 (NOV 20) Hgb L 11.1 (NOV 23) L 10.4 (NOV 22) L 10.7 (NOV 21) L 11.1 ( NOV 20) Hct L 32.0 (NOV 23) L 31.0 (NOV 22) L 31.3 (NOV 21) L 32.5 ( NOV 20) Plt 286 (NOV 23) 256 (NOV 22) 260 (NOV 21) 254 (NOV 20) Na 138 (NOV 23) 140 (NOV 22) 139 (NOV 21) 140 (NOV 20) K 4.0 (NOV 23) 3.8 (NOV 22) 4.2 (NOV 21) 4.0 (NOV 20) CO2 30 (NOV 23) 28 (NOV 22) 28 (NOV 21) L 20 (NOV 20) Cl 103 (NOV 23) 104 (NOV 22) 104 (NOV 21) 106 (NOV 20) Cr 0.60 (NOV 23) 0.55 (NOV 22) 0.62 (NOV 21) 0.63 (NOV 20) BUN 9 (NOV 23) 8 (NOV 22) L 6 (NOV 21) 10 (NOV 20) Glucose Random 86 (NOV 23) 93 (NOV 22) H 134 (NOV 21) H 133 (NOV 20) Mg 2.2 (NOV 21) Ca 8.5 (NOV 23) 8.7 (NOV 22) 8.9 (NOV 21) 8.7 (NOV 20) PT 14.6 (NOV 21) INR 1.11 (NOV 21)
--- OUTSIDE RECORDS SUMMARY | 2017-12-17 19:31 | XMS REPORT | Summary of Care ---
:1985 Author Organization [facility] Address [address] [place] [id number]- Encounter HQ Encntr_carmen(FIN) [id number] Date(s): 10/15/15 - 10/20/15 [facility] [address] [place] [address] Professional Services provided by [facility] [place] [address]- Discharge Disposition: Home Attending Physician: Yaniv Bryan MD Admitting Physician: Eve Ring MD Vital Signs Most recent to oldest [Reference 1 2 3 Range]: Height 165.1 cm (10/15/15 1:29 AM) Temperature Oral [96.4-99.1 98.4 DegF 98.4 DegF 98.5 DegF DegF] (10/20/15 8:12 AM) (10/20/15 5:17 AM) (10/20/15 12:36 AM) Blood Pressure [90-140/60-90 107/66 mmHg 113/70 mmHg 112/70 mmHg mmHg] (10/20/15 8:12 AM) (10/20/15 5:17 AM) (10/20/15 12:36 AM) Respiratory Rate [14-20 BRMIN] 18 BRMIN 18 BRMIN 18 BRMIN (10/20/15 8:12 AM) (10/20/15 5:17 AM) (10/20/15 12:36 AM) Peripheral Pulse Rate [60-100 75 bpm 79 bpm 77 bpm bpm] (10/20/15 8:12 AM) (10/20/15 5:17 AM) (10/20/15 12:36 AM) Weight 69.091 kg (10/15/15 1:29 AM) Body Mass Index 25.35 m2 (10/15/15 1:29 AM) Problem List Condition Effective Dates Status Health Status Informant Anxiety(Confirmed) Resolved Bipolar(Confirmed) 1995 Active Crohns disease(Confirmed) Active Depression(Confirmed) Resolved Diabetes mellitus(Confirmed)2013 Resolved Hidradenitis suppurativa(Confirmed) Resolved Lupus(Confirmed) Resolved Morbid obesity(Confirmed) Active Reflux(Confirmed) Active 1off medication for 1 month since gastric sleeve Allergies, Adverse Reactions, Alerts Substance Reaction Severity Status NSAIDs Active Paxil Hives Active penicillins Active Ultram Hives Active Medications budesonide 9 mg, 3 cap, Route: PO, Drug form: ERCAP, Daily, Dosing Weight 69.091, kg, Start date: 10/21/15 10:30:00 CDT, Duration: 30 day, Stop date: 11/20/15 9:00: 00 CDT Notes: (Same As: Entocort EC or Budesonide 3 mg EC / ERC) "Do Not Crush" Start Date: 10/21/15 Stop Date: 10/20/15 Status: Canceledbudesonide 3 mg oral capsule, extended release 9 mg=3 cap, PO, Daily, # 42 cap, 0 Refill(s) Start Date: 10/20/15 Status: Orderedcalcium gluconate + Sodium Chloride 0.9% IV 80 mL 2,000 mg, 20 mL, Route: IVPB, ONCE, Dosing Weight 69.091, kg, Start date: 7:17:00 CDT, Stopdate: 10/18/15 7:17:00 CDT Notes: WASTE: F/P - Sink; E - Municipal Trash Bin Start Date: 10/18/15 Stop Date: 10/18/15 Status: CompletedCeleXA 40 mg, 2 tab, Route: PO, Drug form: TAB, Daily, Dosing Weight 69.091, kg, Start date: 10/15/15 9:00:00 CDT, Duration: 30 day, Stop date: 11/13/15 9:00:00 CDT Notes: (Same As: CeleXA) Start Date: 10/15/15 Stop Date: 10/20/15 Status: DiscontinuedCeleXA 40 mg oral tablet 40 mg=1 tab, PO, Daily, # 30 tab, 0 Refill(s) Start Date: 10/15/15 Status: Orderedcholestyramine 4 g/5 g oral powder 4mg, PO, BID, # 10 ea, 0 Refill(s) Start Date: 10/20/15 Status: Orderedciprofloxacin 500 mg oral tablet 500 mg=1 tab, PO, Q12H, for UTI, # 6 tab, 0 Refill(s) Start Date: 10/15/15 Stop Date: 10/20/15 Status: Discontinuedcolestipol 5 g oral granule 5 gm, Route: PO, Drug form: GRAN/REC, BID, Dosing Weight 69.091, kg, Start date : 10/20/15 9:42:00 CDT, Duration: 30 day, Stop date: 11/19/15 9:00:00 CDT Start Date: 10/20/15 Stop Date: 10/20/15 Status: DeletedDepakote 250 mg oral enteric coated tablet 500 mg, 2 tab, Route: PO, Drug form: ECTAB, BID, Dosing Weight 69.091, kg, Start date: 10/15/15 9:00:00 CDT, Stop date: 11/13/15 17:00:00 CDT, Delayed Release tablet Notes: (Same as: Depakote Delayed Release) Do not confuse with the extended- release tablet. Delayed absorption, enteric coated tablet. Do not crush Start Date: 10/15/15 Stop Date: 10/20/15 Status: DiscontinuedDepakote 500 mg oral enteric coated tablet 500 mg=1 tab, PO, BID, # 60 tab, 0 Refill(s) Start Date: 10/15/15 Status: OrderedDilaudid 1 mg, 0.5 mL, Route: IVP, Drug form: INJ, ONCE, Dosing Weight 69.091, kg, Priority: STAT, Start date: 10/16/15 22:35:00 CDT, Stop date: 10/16/15 22:35:00 CDT Notes: Same as: Dilaudid Start Date: 10/16/15 Stop Date: 10/16/15 Status: CompletedDilaudid 2 mg, 1 tab, Route: PO, Drug form: TAB, Q6H, Dosing Weight 69.091, kg, PRN Pain Score 4-6, Start date: 10/20/15 8:47:00 CDT, Duration: 30 day, Stop date: 8:46:00 CDT Notes: (Same as: Dilaudid) Start Date: 10/20/15 Stop Date: 10/20/15 Status: DiscontinuedDilaudid 1.5 mg, 0.75 mL, Route: PO, Drug form: INJ, Q4H, Dosing Weight 69.091, kg, PRN Headache 6-10, Start date: 10/19/15 10:53:00 CDT, Duration: 30 day, Stop date: 11/18/15 10:52:00 CDT Notes: Same as: Dilaudid Start Date: 10/19/15 Stop Date: 10/20/15 Status: DiscontinuedDilaudid 2 mg, 1 tab, Route: PO, Drug form: TAB, Q4H, Dosing Weight 69.091, kg, PRN Pain Score 4-6, Start date: 10/20/15 12:57:00 CDT, Duration: 30 day, Stop date: 11/18 12:56:00 CDT Notes: (Same as: Dilaudid) Start Date: 10/20/15 Stop Date: 10/20/15 Status: DiscontinuedDilaudid 0.5 mg, 0.25 mL, Route: IVP, Drug form: INJ, ONCE, Dosing Weight 69.091, kg, Priority: STAT, Start date: 10/19/15 4:16:00 CDT, Stop date: 10/19/15 4:16:00 CDT Notes: Same as: Dilaudid Start Date: 10/19/15 Stop Date: 10/19/15 Status: CompletedDilaudid 0.5 mg, 0.25 mL, Route: IVP, Drug form: INJ, ONCE, Dosing Weight 69.091, kg, Priority: STAT, Start date: 10/18/15 22:50:00 CDT, Stop date: 10/18/15 22:50:00 CDT Notes: Same as: Dilaudid Start Date: 10/18/15 Stop Date: 10/18/15 Status: CompletedDilaudid 0.5 mg, 0.25 mL, Route: IV, Drug form: INJ, Q4H, Dosing Weight 69.091, kg, PRN Pain Score 7-10, Start date: 10/16/15 9:02:00 CDT, Duration: 30 day, Stop date: 11/15/15 9:01:00 CDT Notes: Same as: Dilaudid Start Date: 10/16/15 Stop Date: 10/19/15 Status: DiscontinuedGlucaGen 1 mg, Route: IV, Drug form: PDR/INJ, ONCE, Dosing Weight 69.091, kg, Start date : 10/19/15 8:13:00 CDT, Stop date: 10/19/15 8:13:00 CDT Start Date: 10/19/15 Stop Date: 10/19/15 Status: Orderedheparin 5,000 unit, 1 mL, Route: SUB-Q, Drug form: INJ, Q8H, Dosing Weight 69.091, kg, Start date: 10/15/15 8:00:00 CDT, Duration: 30 day, Stop date: 11/14/15 0:00:00 CDT Notes: porcine heparin Start Date: 10/15/15 Stop Date: 10/20/15 Status: Discontinuedheparin flush 500 unit, 5 mL, Route: MISC, Drug form: SOLN, ONCE, Dosing Weight 69.091, kg, Start date: 10/20/15 13:29:00 CDT, Duration: 1 doses or times, Stop date: 13:29:00 CDT Notes: (Same as: Heparin Lock Flush) Start Date: 10/20/15 Stop Date: 10/20/15 Status: Completedhydromorphone 0.5 mg, 0.25 mL, Route: IVP, Drug form: INJ, ONCE, Dosing Weight 69.091, kg, Priority: STAT, Start date: 10/17/15 9:27:00 CDT, Stop date: 10/17/15 9:27:00 CDT Notes: Same as: Dilaudid Start Date: 10/17/15 Stop Date: 10/17/15 Status: CompletedhydrOXYzine 50 mg, 1 cap, Route: PO, Drug form: CAP, TID, Dosing Weight 69.091, kg, PRN as needed for anxiety, Start date: 10/16/15 9:05:00 CDT, Duration: 30 day, Stop date: 11/15/15 9:04:00 CDT Notes: (Same as: Vistaril) Start Date: 10/16/15 Stop Date: 10/20/15 Status: DiscontinuedhydrOXYzine pamoate 50 mg oral capsule 50 mg=1 cap, PO, TID, PRN Anxiety, # 40 cap, 0 Refill(s) Start Date: 10/15/15 Status: OrderedImuran 100 mg, 2 tab, Route: PO, Drug form: TAB, Daily, Dosing Weight 69.091, kg, Start date: 10/15/15 9:00:00 CDT, Duration: 30 day, Stop date: 11/13/15 9:00:00 CDT Notes: (Same As: Imuran) Start Date: 10/15/15 Stop Date: 10/20/15 Status: DiscontinuedImuran 50 mg oral tablet 100 mg=2 tab, PO, Daily, # 60 tab, 0 Refill(s) Start Date: 10/15/15 Status: OrderedIsolyte S PH 7.4 1,000 mL 1,000 mL, Rate: 125 ml/hr, Infuse over: 8 hr, Route: IV, Dosing Weight 69.091 kg , Total Volume: 1,000, Start date: 10/15/15 2:28:00 CDT, Stop date: 11/14/15 2: 27:00 CDT Notes: (Same as: Isolyte S PH 7.4) Start Date: 10/15/15 Stop Date: 10/17/15 Status: DiscontinuedmetroNIDAZOLE 500 mg oral tablet 500 mg=1 tab, PO, Q8H, # 30 tab, 0 Refill(s) Start Date: 10/15/15 Stop Date: 10/20/15 Status: Discontinuedmorphine Sulfate 4 mg, 1 mL, Route: IVP, Drug form: INJ, Q4H, Dosing Weight 69.091, kg, PRN Pain Score 7-10, Start date: 10/15/15 2:24:00 CDT, Duration: 30 day, Stop date: 11/13 2:23:00 CDT Notes: (Same as:MORPhine Sulfate) Start Date: 10/15/15 Stop Date: 10/16/15 Status: DiscontinuedNorco 5/325 oral tablet 1 tab, Route: PO, Drug Form: TAB, Dosing Weight 69.091, kg, Q4H, PRN Pain Score 1-3, Start date: 10/17/15 9:30:00 CDT, Duration: 30 day, Stop date: 11/16/15 9: 29:00 CDT Notes: (Same as: [place] 325/5) Do not exceed 4gm/day of acetaminophen. Start Date: 10/17/15 Stop Date: 10/20/15 Status: Discontinuedondansetron 4 mg, 2 mL, Route: IVP, Drug form: INJ, Q6H, Dosing Weight 69.091, kg, PRN Nausea & Vomiting, Start date: 10/15/15 2:24:00 CDT, Duration: 30 day, Stop date: 11/14/15 2:23:00 CDT Notes: (Same as: Zofran) MEDICATION WASTE Product Size: 4 mgProduct Wasted: ___ mg Start Date: 10/15/15 Stop Date: 10/20/15 Status: DiscontinuedPhenergan 12.5 mg, 0.5 mL, Route: IVPB, Drug form: INJ, ONCE, Dosing Weight 69.091, kg, PRN Nausea & Vomiting, Start date: 10/18/15 22:51:00 CDT, Stop date: 22:50:00 CDT Notes: Do not give IV push. (Same as: Phenergan) Start Date: 10/18/15 Stop Date: 10/18/15 Status: CompletedPlaquenil 200 mg oral tablet 200 mg=1 tab, PO, BID, 0 Refill(s) Start Date: 10/15/15 Status: OrderedPlaquenil Sulfate 200 mg oral tablet 200 mg, 1 tab, Route: PO, Drug form: TAB, BID, Dosing Weight 69.091, kg, Start date: 10/15/15 9:00:00 CDT, Duration: 30 day, Stop date: 11/13/15 17:00:00 CDT Notes: (Same as: Plaquenil)Hydroxychloroquine sulfate 200 zk=549 mg hydroxychloroquine base. If treating malaria, verify dose as salt vs. base per CDC guideline Start Date: 10/15/15 Stop Date: 10/20/15 Status: DiscontinuedpredniSONE 40 mg, 2 tab, Route: PO, Drug form: TAB, Daily, Dosing Weight 69.091, kg, Start date: 10/20/15 10:00:00 CDT, Duration: 30 day, Stop date: 11/19/15 9:00:00 CDT Notes: Take with food. Start Date: 10/20/15 Stop Date: 10/20/15 Status: DiscontinuedpredniSONE 50 mg, 1 tab, Route: PO, Drug form: TAB, Daily, Dosing Weight 69.091, kg, Start date: 10/15/15 9:00:00 CDT, Duration: 30 day, Stop date: 11/13/15 9:00:00 CDT Notes: Take with food. Start Date: 10/15/15 Stop Date: 10/20/15 Status: DiscontinuedpredniSONE 20 mg oral tablet 20 mg=1 tab, PO, Daily, # 30 tab, 0 Refill(s) Start Date: 10/20/15 Stop Date: 11/03/15 Status: OrderedpredniSONE 5 mg oral tablet 5 mg=1 tab, PO, Daily, 0 Refill(s) Start Date: 10/15/15 Stop Date: 10/20/15 Status: DiscontinuedPrilosec 40 mg, Route: PO, BID, Dosing Weight 69.091, kg, Start date: 10/15/15 9:00:00 CDT, Duration: 30 day,Stop date: 11/13/15 17:00:00 CDT Start Date: 10/15/15 Stop Date: 10/15/15 Status: DiscontinuedProtonix 40 mg, 1 tab, Route: PO, Drug form: ECTAB, Before Breakfast, Dosing Weight 69.091, kg, Start date: 10/15/15 7:30:00 CDT, Duration: 30 day, Stop date: 11/12 7:30:00 CDT Notes: Tablet should not be chewed or crushed.(Same as: Protonix) Start Date: 10/15/15 Stop Date: 10/20/15 Status: DiscontinuedProtonix 40 mg oral enteric coated tablet 40 mg=1 tab, PO, BID, # 30 tab, 0 Refill(s) Start Date: 10/15/15 Status: OrderedQuestran 4 gm, 1 pkt, Route: PO, Drug form: PDR/REC, BID, Start date: 10/20/15 10:00:00 CDT, Duration: 30 day, Stop date: 11/19/15 9:00:00 CDT Notes: (Same As: Questran) Start Date: 10/20/15 Stop Date: 10/20/15 Status: DiscontinuedReglan 10 mg, 2 mL, Route: IVP, Drug form: INJ, ONCE, Dosing Weight 69.091, kg, Start date: 10/19/15 3:48:00 CDT, Stop date: 10/19/15 3:48:00 CDT Notes: (Same as: Reglan) Start Date: 10/19/15 Stop Date: 10/19/15 Status: CompletedXanax 0.5 mg oral tablet 1 mg, 2 tab, Route: PO, Drug form: TAB, ONCE, Dosing Weight 69.091, kg, PRN Anxiety, Start date: 10/16/15 14:09:00 CDT, Stop date: 11/15/15 14:08:00 CDT Notes: With food or milk(Same as: Xanax) Start Date: 10/16/15 Stop Date: 10/20/15 Status: DiscontinuedXanax 1 mg oral tablet 1 mg=1 tab, PO, QPM, 0 Refill(s) Start Date: 10/15/15 Status: OrderedXanax 1 mg oral tablet 1 mg, 2 tab, Route: PO, Drug form: TAB, Bedtime, Dosing Weight 69.091, kg, PRN Anxiety, Start date: 10/15/15 2:14:00 CDT, Duration: 30 day, Stop date: 2:13:00 CDT Notes: With food or milk(Same as: Xanax) Start Date: 10/15/15 Stop Date: 10/20/15 Status: Discontinued Results ELECTROLYTES Most recent to oldest 1 2 3 [Reference Range]: Sodium Lvl [135-145 mEq/L] 141 mEq/L 143 mEq/L 143 mEq/L (10/20/15 2:42 AM) (10/19/15 4:56 AM) (10/18/15 5:17 AM) Potassium Lvl [3.5-5.1 mEq/L] 3.4 mEq/L 3.7 mEq/L 3.7 mEq/L *LOW* (10/19/15 4:56 AM) (10/18/15 5:17 AM) (10/20/15 2:42 AM) Chloride Lvl [95-109 mEq/L] 101 mEq/L 104 mEq/L 104 mEq/L (10/20/15 2:42 AM) (10/19/15 4:56 AM) (10/18/15 5:17 AM) CO2 [24-32 mEq/L] 29 mEq/L 30 mEq/L 31 mEq/L (10/20/15 2:42 AM) (10/19/15 4:56 AM) (10/18/15 5:17 AM) AGAP [10.0-20.0 mEq/L] 14.4 mEq/L 12.7 mEq/L 11.7 mEq/L (10/20/15 2:42 AM) (10/19/15 4:56 AM) (10/18/15 5:17 AM) CHEM PANEL Most recent to oldest 1 2 3 [Reference Range]: Creatinine Lvl [0.50-1.40 0.70 mg/dL 0.55 mg/dL 0.60 mg/dL mg/dL] (10/20/15 2:42 AM) (10/19/15 4:56 AM) (10/18/15 5:17 AM) eGFR 115 mL/min/1.73m2 1 124 mL/min/1.73m2 2 121 mL/min/1.73m2 3 *NA* *NA* *NA* (10/20/15 2:42 AM) (10/19/15 4:56 AM) (10/18/15 5:17 AM) BUN [7-22 mg/dL] 6 mg/dL 7 mg/dL 8 mg/dL *LOW* (10/19/15 4:56 AM) (10/18/15 5:17 AM) (10/20/15 2:42 AM) B/C Ratio [6-25] 14 (10/15/15 4:38 AM) Glucose Lvl [70-99 mg/dL] 117 mg/dL 56 mg/dL 64 mg/dL *HI* *LOW* *LOW* (10/20/15 2:42 AM) (10/19/15 4:56 AM) (10/18/15 5:17 AM) Total Protein [6.4-8.4 7.1 g/dL g/dL] (10/15/15 4:38 AM) Albumin Lvl [3.5-5.0 g/dL] 3.6 g/dL (10/15/15 4:38 AM) Globulin [2.0-4.0 g/dL] 3.5 g/dL (10/15/15 4:38 AM) A/G Ratio [0.7-1.6] 1.0 (10/15/15 4:38 AM) Calcium Lvl [8.5-10.5 8.7 mg/dL 8.7 mg/dL 8.3 mg/dL mg/dL] (10/20/15 2:42 AM) (10/19/15 4:56 AM) *LOW* (10/18/15 5:17 AM) Phosphorus [2.5-4.5 mg/dL] 4.6 mg/dL *HI* (10/15/15 4:38 AM) Magnesium Lvl [1.8-2.4 1.8 mg/dL 1.9 mg/dL 2.2 mg/dL mg/dL] (10/20/15 2:42 AM) (10/19/15 4:56 AM) (10/18/15 5:17 AM) ALT [0-65 unit/L] 15 unit/L (10/15/15 4:38 AM) AST [0-37 unit/L] 13 unit/L (10/15/15 4:38 AM) Alk Phos [39-136 unit/L] 65 unit/L (10/15/15 4:38 AM) Bili Total [0.2-1.3 mg/dL] 0.3 mg/dL (10/15/15 4:38 AM) 1Result Comment: The eGFR is calculated using [...] eGFR should be multiplied by the estimated BMI.PARATHYROID PROFILE Most recent to oldest [Reference Range]: 1 2 3 Ca Ion WB [1.05-1.25 mMol/L] 1.18 mMol/L 1.13 mMol/L (10/20/15 2:42 AM) (10/15/15 4:38 AM) Ca Norm WB [1.05-1.25 mMol/L] 1.13 mMol/L 1.10 mMol/L (10/20/15 2:42 AM) (10/15/15 4:38 AM) URINE CHEM Most recent to oldest [Reference Range]: 1 2 3 U Preg [Negative] Negative (10/17/15 7:54 PM) URINE AND STOOL Most recent to oldest [Reference Range]: 1 2 3 UA Turbidity [Clear] Clear (10/15/15 4:20 PM) UA Color [Yellow] Yellow *NA* (10/15/15 4:20 PM) UA pH [5.0-8.0] 7.5 (10/15/15 4:20 PM) UA Spec Grav [<=1.030] 1.007 (10/15/15 4:20 PM) UA Glucose [Negative mg/dL] Negative mg/dL *NA* (10/15/15 4:20 PM) UA Blood [Negative] Negative (10/15/15 4:20 PM) UA Ketones [Negative mg/dL] Negative mg/dL *NA* (10/15/15 4:20 PM) UA Protein [Negative mg/dL] Negative mg/dL (10/15/15 4:20 PM) UA Urobilinogen [0.1-1.0 mg/dL] <=1.0 mg/dL *NA* (10/15/15 4:20 PM) UA Bili [Negative] Negative *NA* (10/15/15 4:20 PM) UA Leuk Est [Negative] Negative (10/15/15 4:20 PM) UA Nitrite [Negative] Negative (10/15/15 4:20 PM) UA WBC [0-5 /HPF] <1 /HPF (10/15/15 4:20 PM) UA RBC [0-2 /HPF] <1 /HPF (10/15/15 4:20 PM) UA Bacteria [None Seen /HPF] Occasional /HPF *NA* (10/15/15 4:20 PM) UA Sq Epi [Few /LPF] Occasional /LPF *NA* (10/15/15 4:20 PM) Occult Bld Stl [Negative] Negative (10/16/15 6:47 PM) IMMUNOLOGY Most recent to oldest [Reference Range]: 1 2 3 KAMRAN [Negative] Positive *ABN* (10/16/15 4:37 AM) KAMRAN Titer [Negative] 1:640 *ABN* (10/16/15 4:37 AM) KAMRAN Interp Pattern appears Mixed Speckled Chromosome positive and Nucleolar *NA* (10/16/15 4:37 AM) C3 Complement [88-201 mg/dL] 120 mg/dL (10/16/15 4:37 AM) C4 Complement [16-47 mg/dL] 20 mg/dL (10/16/15 4:37 AM) DNA Ab (DS) [Negative] Positive *ABN* (10/16/15 4:37 AM) DNA DS Ttr 1:20 *ABN* (10/16/15 4:37 AM) HEMATOLOGY Most recent to oldest 1 2 3 [Reference Range]: WBC [3.7-10.4 K/CMM] 8.2 K/CMM 8.0 K/CMM 4.8 K/CMM (10/20/15 2:42 AM) (10/19/15 4:56 AM) (10/18/15 5:17 AM) RBC [4.20-5.40 M/CMM] 3.57 M/CMM 3.42 M/CMM 3.10 M/CMM *LOW* *LOW* *LOW* (10/20/15 2:42 AM) (10/19/15 4:56 AM) (10/18/15 5:17 AM) Hgb [12.0-16.0 g/dL] 11.9 g/dL 11.5 g/dL 10.4 g/dL *LOW* *LOW* *LOW* (10/20/15 2:42 AM) (10/19/15 4:56 AM) (10/18/15 5:17 AM) Hct [36.0-48.0 %] 33.9 % 32.5 % 29.5 % *LOW* *LOW* *LOW* (10/20/15 2:42 AM) (10/19/15 4:56 AM) (10/18/15 5:17 AM) MCV [80.0-98.0 fL] 94.9 fL 95.0 fL 95.1 fL (10/20/15 2:42 AM) (10/19/15 4:56 AM) (10/18/15 5:17 AM) MCH [27.0-31.0 pg] 33.2 pg 33.5 pg 33.4 pg *HI* *HI* *HI* (10/20/15 2:42 AM) (10/19/15 4:56 AM) (10/18/15 5:17 AM) MCHC [32.0-36.0 g/dL] 35.0 g/dL 35.3 g/dL 35.1 g/dL (10/20/15 2:42 AM) (10/19/15 4:56 AM) (10/18/15 5:17 AM) RDW [11.5-14.5 %] 13.1 % 13.2 % 13.0 % (10/20/15 2:42 AM) (10/19/15 4:56 AM) (10/18/15 5:17 AM) Platelet [133-450 K/CMM] 266 K/CMM 254 K/CMM 244 K/CMM (10/20/15 2:42 AM) (10/19/15 4:56 AM) (10/18/15 5:17 AM) MPV [7.4-10.4 fL] 7.1 fL 6.7 fL 6.7 fL *LOW* *LOW* *LOW* (10/20/15 2:42 AM) (10/19/15 4:56 AM) (10/18/15 5:17 AM) Segs [45.0-75.0 %] 52.0 % 47.9 % 26.8 % (10/20/15 2:42 AM) (10/19/15 4:56 AM) *LOW* (10/18/15 5:17 AM) Lymphocytes [20.0-40.0 %] 39.2 % 41.6 % 57.8 % (10/20/15 2:42 AM) *HI* *HI* (10/19/15 4:56 AM) (10/18/15 5:17 AM) Monocytes [2.0-12.0 %] 7.7 % 8.1 % 10.7 % (10/20/15 2:42 AM) (10/19/15 4:56 AM) (10/18/15 5:17 AM) Eosinophils [0.0-4.0 %] 0.7 % 2.0 % 4.0 % (10/20/15 2:42 AM) (10/19/15 4:56 AM) (10/18/15 5:17 AM) Basophils [0.0-1.0 %] 0.4 % 0.4 % 0.7 % (10/20/15 2:42 AM) (10/19/15 4:56 AM) (10/18/15 5:17 AM) Segs-Bands # [1.5-8.1 K/CMM] 4.3 K/CMM 3.8 K/CMM 1.3 K/CMM (10/20/15 2:42 AM) (10/19/15 4:56 AM) *LOW* (10/18/15 5:17 AM) Lymphocytes # [1.0-5.5 K/CMM] 3.2 K/CMM 3.3 K/CMM 2.8 K/CMM (10/20/15 2:42 AM) (10/19/15 4:56 AM) (10/18/15 5:17 AM) Monocytes # [0.0-0.8 K/CMM] 0.6 K/CMM 0.6 K/CMM 0.5 K/CMM (10/20/15 2:42 AM) (10/19/15 4:56 AM) (10/18/15 5:17 AM) Eosinophils # [0.0-0.5 K/CMM] 0.1 K/CMM 0.2 K/CMM 0.2 K/CMM (10/20/15 2:42 AM) (10/19/15 4:56 AM) (10/18/15 5:17 AM) Basophils # [0.0-0.2 K/CMM] 0.0 K/CMM (10/15/15 4:38 AM) PT [12.0-14.7 seconds] 14.2 seconds (10/15/15 4:38 AM) INR [0.85-1.17] 1.07 (10/15/15 4:38 AM) PTT [22.9-35.8 seconds] 33.9 seconds (10/15/15 4:38 AM) MOLECULAR DIAGNOSTIC Most recent to oldest [Reference Range]: 1 2 3 C difficile DNA [Negative] Negative (10/16/15 6:47 PM) Immunizations No data available for this section Procedures Procedure Date Related Diagnosis Body Site Cholecystectomy Hysterectomy Laparoscopic sleeve gastrectomy Tonsillectomy Social History Social History Type Response Smoking Status Lives with someone who smokes; Other Tobacco Frequency mother smokes, whom she lives with; Cigarette Smoking Last 365 Days Yes; Reg Smoking Cessation Counseling No; Current every day smoker; Type: Cigarettes; Total pack years: 10; Started at age: 20.0; Previous treatment: Medications; Previous treatment: Nicotine replacement; Ready to change: No; Concerns about tobacco use in household: No1, 2, 3 11/2 pack a day and patient is trying to quit.2quit 2 months [id number] 1 month ago Assessment and Plan Extracted from: Title: Discharge Summary Author: Citlaly Hua MD Date: 10/20/15 Patient: CAROLYN POLLARD Age: 30 years Sex: Female : 1985 Associated Diagnoses: None Author: Citlaly Hua MD Physical Examination General: Alert and oriented, Moderate distress. Eye: Pupils are equal, round and reactive to light, Extraocular movements are intact. HENT: Normocephalic, Normal hearing. Neck: Supple, Non-tender. Respiratory: Lungs are clear to auscultation, Respirations are non-labored. Cardiovascular: Normal rate, Regular rhythm. Gastrointestinal: Soft, moderately tender on palpation in RUQ and RLQ. Genitourinary: No costovertebral angle tenderness, No urethral discharge. Lymphatics: No lymphadenopathy neck, axilla, groin. Musculoskeletal Normal range of motion. Normal strength. Integumentary: Warm, Dry, Intact. Neurologic: Alert, Oriented. Psychiatric: Cooperative, Non-suicidal. Hospital Course Hospital Course Admitted from: from hospital OSH. 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 Length of stay: days 6. 30 yo female with PMH Crohn disease (diagnosed 2012), Lupus (diagnosed 2012), bipolar and PTSD presents with constant spasming with intermittent sharp stabbing abdominal pain with nausea/vomiting and lo ose stools. Pt has had this for last 4/5 days. Pt is follow by GI Dr. Jason in [place] who started her on 50mg prednisone along with cipro and flagyl when abdominal pain started. Pt continued to h ave pain with n/v and decided to go to ED. pt was transferred from OSH for higher level of care. She endorses fever up to 102F at home, stools decreased as loose brown with intermittent brbpr. Denies he matemesis, coffee ground emesis or black tarry stools. Pt does take tylenol for abdominal pain with minimal relief. Pt afebrile during hospital stay. GI consulted and recommended MRI. MRI showed active ileitis. GI recommended starting budnesonide 9mg daily, colestyramine 4mg BID for 5 days, prednisone 40 daily with follow up in GI clinic with Dr. Leal in one week. Also Vitamins K,A,D,E and Vitamin B 12 were draw at discharge to be followed up on in GI clinic. Pt was discharged with prescriptions of dilaudid 1mg q4hr prn and norco 5/325 prn along with GI recommended medications and here regular lupu s, bipolar and ptsd medications. Pt discharged home on regular diet with activity as tolerated. Discharge Plan Discharge Summary Plan Discharge Status: stable. Discharge instructions given: to patient. Discharge disposition: discharge to home self care. Prescriptions: written and given to patient. Diagnosis Abdominal pain despite therapy for Crohn's disease ([id number] K50.90, Working, Medical). Addendum by Brady Mcelroy MD on I examined the patient, reviewed the clinical 10/20/2015 19:42 data, discussed the case at length with the medicine team, and I agree with the note. is still complaining of abdominal pain, and she feels that she requires the opioids to control the pain. We discussed risks of opioids with her, including not driving, drinking alcohol, or taking both at the same time. She has little abdominal tenderness, and no rebound or guarding. is very pessimistic about the ileitis and pain. We spent alot of time encouraging her that this problem is manageable, and should improve with continued corticosteroids. Extracted from: Title: MEDICAL STUDENT Progress Note Author: Alem Choi Date: 10/20/15 Team A Medical Student Progress Note S: Patient continues to endorse abdominal pain, nausea, vomiting (x3 overnight) , and diarrhea. The pain does not respond well to the IV dilaudid or PO norco. She notes anorexia and fear of eating due to pain with even water and ice and states that she vomits and has to have a bowel movement within 5 minutes of trying to eat or drink anything. Patient thinks this may be part of the reason her PO pain m edications are not working. She is tearful, stating she is tired of dealing with the pain and having to try so many different medications. She denies suicidal ideation and says she is not depressed but states she has been having trouble sleeping which is making her feel anxious. O: Vitals Tmp(F) Tmp(C) Ttype BP MAP Pulse RR SpO2 FIO2 ETCO2 10/19 08:12 98.4 36.89 oral 107/66 --- 75 18 100 --- --- 10/19 05:17 98.4 36.89 oral 113/70 --- 79 18 98 --- --- 10/19 00:36 98.5 36.94 oral 112/70 --- 77 18 100 --- --- 10/18 19:08 97.6 36.44 oral 116/70 --- 81 18 98 --- --- 10/18 15:25 98.5 36.94 oral 115/74 --- 85 17 96 --- --- 24 Hr Tmax: 98.5F (36.94c) at 10/19 00:36 Vital Signs are the last 5 in the past 48 hours. 24 Hr Tmin: 97.4F (36.33c) at 10/18 11:29 Weights are the last 5 in 60 days, plus initial. Physical Exam: General: Awake, alert, in mild distress. Tearful and mildly anxious. CV: RRR; S1 and S2 without S3, S4, murmurs, clicks, or gallops. Pulmonary: CTAB without wheezing, rhonchi, rales. Abdominal: Bowel sounds present but decreased. Tender to percussion, R > L. Exquisitely tender to mild palpation diffusely, but more on the R than on the L. No organomegaly or masses noted. Scheduled Meds (8): 10/15/15 9:00 azaTHIOprine (Imuran) 100 mg PO Daily 10/21/15 10:30 budesonide 9 mg PO Daily 10/15/15 9:00 citalopram (CeleXA) 40 mg PO Daily 10/15/15 9:00 divalproex sodium (Depakote 250 mg oral enteric coated tablet) 500 mg PO BID 10/15/15 8:00 heparin 5,000 unit SUB-Q Q8H 10/15/15 9:00 hydroxychloroquine (Plaquenil Sulfate 200 mg oral tablet) 200 mg PO BID 10/15/15 7:30 pantoprazole (Protonix) 40 mg PO Before Breakfast 10/20/15 10:00 predniSONE 40 mg PO Daily Unscheduled Meds: None PRN Meds (5): 10/15/15 2:14 ALPRAZolam (Xanax 1 mg oral tablet) 1 mg PO Bedtime 10/17/15 9:30 acetaminophen-hydrocodone ([place] 5/325 oral tablet) 1 tab PO Q4H 10/16/15 9:05 hydrOXYzine 50 mg PO TID 10/20/15 8:47 hydromorphone (Dilaudid) 2 mg PO Q6H 10/15/15 2:24 ondansetron 4 mg IVP Q6H Labs: Sodium Lvl 141 (Ref. Range 135 - 145) Potassium Lvl 3.4 L (Ref. Range 3.5 - 5.1) Chloride Lvl 101 (Ref. Range 95 - 109) CO2 29 (Ref. Range 24 - 32) AGAP 14.4 (Ref. Range 10.0 - 20.0) Creatinine Lvl 0.70 (Ref. Range 0.50 - 1.40) eGFR 115 * BUN 6 L (Ref. Range 7 - 22) Glucose Lvl 117 * H (Ref. Range 70 - 99) Calcium Lvl 8.7 (Ref. Range 8.5 - 10.5) Magnesium Lvl 1.8 (Ref. Range 1.8 - 2.4) Ca Ion WB 1.18 (Ref. Range 1.05 - 1.25) Ca Norm WB 1.13 (Ref. Range 1.05 - 1.25) WBC 8.2 (Ref. Range 3.7 - 10.4) RBC 3.57 L (Ref. Range 4.20 - 5.40) Hgb 11.9 L (Ref. Range 12.0 - 16.0) Hct 33.9 L (Ref. Range 36.0 - 48.0) MCV 94.9 (Ref. Range 80.0 - 98.0) MCH 33.2 H (Ref. Range 27.0 - 31.0) MCHC 35.0 (Ref. Range 32.0 - 36.0) RDW 13.1 (Ref. Range 11.5 - 14.5) Platelet 266 (Ref. Range 133 - 450) MPV 7.1 L (Ref. Range 7.4 - 10.4) Segs 52.0 (Ref. Range 45.0 - 75.0) Lymphocytes 39.2 (Ref. Range 20.0 - 40.0) Monocytes 7.7 (Ref. Range 2.0 - 12.0) Eosinophils 0.7 (Ref. Range 0.0 - 4.0) Basophils 0.4 (Ref. Range 0.0 - 1.0) Segs-Bands # 4.3 (Ref. Range 1.5 - 8.1) Lymphocytes # 3.2 (Ref. Range 1.0 - 5.5) Monocytes # 0.6 (Ref. Range 0.0 - 0.8) Eosinophils # 0.1 (Ref. Range 0.0 - 0.5) Assessment: 30 y/o woman with PMH of Crohn's disease, lupus, bipolar disorder, and PTSD presented with abdominal pain and diarrhea, being treated for presumed Crohn's exacerbation. Plan: Crohn's exacerbation -infectious disease workup negative to date (ova and parasites, stool culture) -PO steroids as per GI recs -10/18 MR enterography showed active terminal ileitiis -10/19 GI recs: check Vitamins B12, A, D, E, K; continue Imuran 100mg PO daily; change prednisone dose to 40mg daily (discharge dose); start cholestyramine 4g BID after meals x5 days to help with frequent BMs; follow up with GI clinic in 1 week to discuss starting a different biologic agent (she may have developed antibodies to infliximab) Lupus: -continue plaquenil Bipolar Disorder: -continue home depakote and celexa PTSD: -Continue home xanax Code: Full Diet: Adult Regular Dispo: Pending clinical improvement; possible discharge later today Alem Perkins, MS3 [facility] [place] [employer] Extracted from: Title: GI Consult * Author: Oly Delatorre MD Date: 10/15/15 Patient: CAROLYN POLLARD Age: 30 years Sex: Female : 1985 Associated Diagnoses: None Author: Oly Delatorre MD Basic Information Requesting MD: Dr. Ring Reason for consultation: Crohn's disease Chief Complaint "my stomach hurts" History of Present Illness 30 y/o W with h/o Crohn's ileocolitis complicated by C diff colitis and possible fistulas who presents with 4-5 months of diarrhea and abdominal pain. Patient reports being diagnosed with Crohn's in 201 3. She was initially treated with Remicade but this was held due to concern for arthralgias, she was subsequently diagnosed with SLE. She was then switched to Cimzia, she failed this and was then starte d on Humira. After a short time on Humira she relates she developed antibodies and then was restarted on Remicade. She has been on Remicade (she believes 10 mg /kg) q 6 weeks since November of last year. Infelicia jorgeestephania she reports her symptoms improved with Remicade but then her symptoms worsened over the last 4-5 months. Over this time, she has been noting 15-20 watery BM daily with scant intermittent blood. Yumiko chamorro is followed by laborer general in [place], Dr. Jason. Her last colonoscopy was approximately 1 year ago. She has been seeing Dr. Jason for these symptoms also over this time and had a C T abdomen done 1 month ago for these symptoms and reports it showed TI and rectal enhancement. She was started on cipro/flagyl 2 weeks ago and also on prednisone 50 mg daily and Entercort for 4 days th us far. With this her symptoms have not improved. Her last dose of Remicade was 4 weeks ago per report though she does not note any improvement after her infusions. Thus patient presented to ED for further care. Review of Systems Constitutional: Chills, Weakness, Fatigue. Eye: Negative. Ear/Nose/Mouth/Throat: Negative. Respiratory: Negative. Cardiovascular: Negative. Gastrointestinal: Negative except as documented in history of present illness. Endocrine: Negative. Immunologic: Negative. Musculoskeletal: Joint pain. Integumentary: Negative. Neurologic: Negative. Health Status Allergies: Allergies (4) Active Reaction NSAIDs None Documented Paxil Hives penicillins None Documented Ultram Hives Current medications: (Selected) Inpatient Medications Ordered CeleXA: 40 mg, 2 tab, PO, Daily Depakote 250 mg oral enteric coated tablet: 500 mg, 2 tab, PO, BID Imuran: 100 mg, 2 tab, PO, Daily Isolyte S PH 7.4 1,000 mL: 125 ml/hr, IV, Stop: 11/14/15 2:27:00 CDT Plaquenil Sulfate 200 mg oral tablet: 200 mg, 1 tab, PO, BID Protonix: 40 mg, 1 tab, PO, Before Breakfast Xanax 1 mg oral tablet: 1 mg, 2 tab, PO, Bedtime, PRN: Anxiety heparin: 5,000 unit, 1 mL, SUB-Q, Q8H morphine Sulfate: 4 mg, 1 mL, IVP, Q4H, PRN: Pain Score 7-10 ondansetron: 4 mg, 2 mL, IVP, Q6H, PRN: Nausea & Vomiting predniSONE: 50 mg, 1 tab, PO, Daily Documented Medications Documented CeleXA 40 mg oral tablet: 40 mg, 1 tab, PO, Daily, 30 tab, 0 Refill(s) Depakote 500 mg oral enteric coated tablet: 500 mg, 1 tab, PO, BID, 60 tab, 0 Refill(s) Imuran 50 mg oral tablet: 100 mg, 2 tab, PO, Daily, 60 tab, 0 Refill(s) Plaquenil 200 mg oral tablet: 200 mg, 1 tab, PO, BID, 0 Refill(s) Protonix 40 mg oral enteric coated tablet: 40 mg, 1 tab, PO, BID, 30 tab, 0 Refill(s) Xanax 1 mg oral tablet: 1 mg, 1 tab, PO, QPM, 0 Refill(s) ciprofloxacin 500 mg oral tablet: 500 mg, 1 tab, PO, Q12H, for UTI, 6 tab, 0 Refill(s) hydrOXYzine pamoate 50 mg oral capsule: 50 mg, 1 cap, PO, TID, PRN: Anxiety, 40 cap, 0 Refill(s) metroNIDAZOLE 500 mg oral tablet: 500 mg, 1 tab, PO, Q8H, 30 tab, 0 Refill(s) predniSONE 5 mg oral tablet: 5 mg, 1 tab, PO, Daily, 0 Refill(s) Histories Past Medical History: Active Bipolar (297398787): Onset in 1995 at 11 years. Morbid obesity (743157645) Reflux (31814802) Crohns disease ([id number]) Resolved Diabetes mellitus (127029695): Resolved in 2013 at 29 years. Comments: 01/04/2014 CDT 23:41 CDT - Alejandra Alarcon off medication for 1 month since gastric sleeve Depression (423331057): Resolved. Anxiety (33908208): Resolved. Lupus (943125348): Resolved. Hidradenitis suppurativa ([id number]): Resolved. Family History: Heart disease Mother High blood pressure Mother Grandparent Type 2 diabetes mellitus Grandparent Thyroid disease Mother Sister Procedure history: Tonsillectomy (907901448). Hysterectomy (228937994). Cholecystectomy (61376978). Laparoscopic sleeve gastrectomy (0139312507). Physical Examination VS/Measurements Vital Signs (last 24 hrs) Last Charted Temp Oral 98.3 DegF (OCTOBER 14:) Heart Rate Peripheral 75 bpm (OCTOBER 14:) Resp Rate 18 BRMIN (OCTOBER 14:) SBP 105 mmHg (OCTOBER 14:) DBP 68 mmHg (OCTOBER 14:) SpO2 99 % (OCTOBER 14:) Weight 69.091 kg (OCTOBER 14:) Height 165.1 cm (OCTOBER 14:) BMI 25.35 (OCTOBER 14:) General: Alert and oriented, No acute distress, Well nourished. Eye: Pupils are equal, round and reactive to light, Extraocular movements are intact, Normal conjunctiva. HENT: Normocephalic, Oral mucosa is moist. Neck: Supple, Non-tender. Respiratory: Lungs are clear to auscultation, Respirations are non-labored. Cardiovascular: Normal rate, Regular rhythm, Good pulses equal in all extremities, No edema. Gastrointestinal: Soft, Non-distended, Normal bowel sounds, TTP in lower mid abdomen and RLQ. Musculoskeletal No swelling. No deformity. Integumentary: Warm, Dry, [place]. Neurologic: Alert, Oriented, No focal deficits. Review / Management Results review: Labs (Last four charted values) WBC 6.1 (OCTOBER 14) Hgb 12.3 (OCTOBER 14) Hct L 35.1 (OCTOBER 14) Plt 320 (OCTOBER 14) Na 140 (OCTOBER 14) K 4.1 (OCTOBER 14) CO2 29 (OCTOBER 14) Cl 104 (OCTOBER 14) Cr 0.64 (OCTOBER 14) BUN 9 (OCTOBER 14) Glucose Random 78 (OCTOBER 14) Mg 2.1 (OCTOBER 14) Phos H 4.6 (OCTOBER 14) Ca 8.7 (OCTOBER 14) PT 14.2 (OCTOBER 14) INR 1.07 (OCTOBER 14) PTT 33.9 (OCTOBER 14) . Impression and Plan 30 y/o W with Crohn's ileocolitis who presents with disease progression despite biologic and immunosuppressive therapy. Needs better evaluation of disease activity vs scarring (if any) as well as r/o in fectious etiology specifically C. diff though this seems less likely given chronicity of symptoms. Presuming patient is compliant with treatment, she would warrant change in biologic class if symptoms are proven due to active inflammation. Impression - Crohn's ileocolitis with disease progression on therapy, possibly refractory to steroids Recommendations - Stool studies: C. diff PCR, fecal calprotectin - Would obtain MR Enterography to determine disease activity - For now, may continue steroids at current dose for now Will follow up the result of MRE and give further recommendations at that time. Should patient stabilized, this work up is appropriate for outpatient. Patient was seen and discussed with Dr. Wallace. MD Kenny PGY5,GastroenterologyFellow Addendum by Rajni Wallace MD on 10/16/2015 10:52 see addendum in separate note Extracted from: Title: General Admission H&P Team A Author: Citlaly Hua Date: 10/15/15 Impression and Plan 30 yo female with PMH Crohn disease (diagnosed 2012), Lupus (diagnosed 2012), bipolar and PTSD presents with constant spasming with intermittent sharp stabbing abdominal pain with nausea/vomiting and loose stools. Pt has had this for last 4/5 days. Abdominal Pain -concerning for Crohn disease flair -re-started imuran 100mg daily, plaquenil 200 BID -continue prednisone 50mg daily -morphine 4mg q4hrs for pain -consult GI in morning -ordered KUB to rule our megacolon -ordred FOBT Crohn Disease -re-started imuran 100mg daily, plaquenil 200 BID -continue prednisone 50mg daily -consult GI in morning Lupus -diagnosed in 2012 -ordered plaquenil Bipolar/depression -re-started depakote and celexa PTSD -re-started home xanax 1mg at bedtime DVT ppx: scd, heparin subq PUD: protonix Dispo: pending GI recs Teaching Physician Attestation: I saw and evaluated the patient with the resident team. I confirmed the findings and reviewed the clinical data. We formulated the assessment and plans. I agree with Dr. Hua's note. Yaniv Bryan MD
--- OUTSIDE RECORDS SUMMARY | 2017-12-17 19:31 | XMS REPORT | Summary of Care ---
:1985 Author Encounter BRY Solo(VANCE) [id number] Date(s): 08/06/14 - 08/06/14 [facility] [address] [place] [address]- Discharge Diagnosis: Crohn disease Discharge Diagnosis: Chronic abdominal pain Discharge Disposition: Home Physician Attending: Terence Coreas MD Vital Signs Most recent to oldest 1 2 3 [Reference Range]: Height 165.1 cm (08/06/14 1:38 PM) Temperature Oral [96.4-99.1 98.7 DegF 98.8 DegF 98.7 DegF DegF] (08/06/14 4:28 PM) (08/06/14 3:28 PM) (08/06/14 1:38 PM) Blood Pressure [90-140/60-90 122/68 mmHg 126/77 mmHg mmHg] (08/06/14 3:28 PM) (08/06/14 1:38 PM) Systolic Blood Pressure [90-140 119 mmHg mmHg] (08/06/14 4:28 PM) Diastolic Blood Pressure [60-90 62 mmHg mmHg] (08/06/14 4:28 PM) Respiratory Rate [14-20 BRMIN] 18 BRMIN 18 BRMIN 18 BRMIN (08/06/14 4:28 PM) (08/06/14 3:28 PM) (08/06/14 1:38 PM) Peripheral Pulse Rate [60-100 74 bpm 81 bpm 89 bpm bpm] (08/06/14 4:28 PM) (08/06/14 3:28 PM) (08/06/14 1:38 PM) Weight 68.182 kg (08/06/14 1:38 PM) Body Mass Index 25.01 m2 (08/06/14 1:38 PM) Problem List Condition Effective Dates Status Health Status Informant Anxiety(Confirmed) Resolved Crohns disease(Confirmed) Active Depression(Confirmed) Resolved Diabetes mellitus(Confirmed)1 Active Hidradenitis suppurativa(Confirmed) Resolved Lupus(Confirmed) Resolved Morbid obesity(Confirmed) Active Reflux(Confirmed) Active 1off medication for 1 month since gastric sleeve Allergies, Adverse Reactions, Alerts Substance Reaction Severity Status NSAIDs Active Paxil Hives Active penicillins Active Ultram Hives Active Medications Bentyl 20 mg oral tablet 20 mg=1 tab, PO, QID, # 28 tab, 0 Refill(s) Start Date: 08/06/14 Stop Date: 08/13/14 Status: Orderedmorphine Sulfate 4 mg, Route: IVP, ONCE, Dosing Weight 68.182, kg, Priority: STAT, Start date: 14:35:00, Stop date: 08/06/14 14:35:00 Start Date: 08/06/14 Stop Date: 08/06/14 Status: Completedondansetron 4 mg, Route: IVP, ONCE, Dosing Weight 68.182, kg, Priority: STAT, Start date: 14:35:00, Stop date: 08/06/14 14:35:00 Start Date: 08/06/14 Stop Date: 08/06/14 Status: CompletedSaline Flush 0.9% 10 mL, Route: IVP, Drug Form: INJ, Dosing Weight 68.182, kg, PRN, PRN Line Flush , Start date: 08/06/14 14:35:00, Duration: 30 day, Stop date: 09/05/14 14:34:00 Notes: (Same as: BD Posiflush) Start Date: 08/06/14 Stop Date: 08/06/14 Status: DiscontinuedZofran ODT 4 mg oral tablet, disintegrating 4 mg=1 tab, PO, BID, Nausea and Vomiting, Dissolve tab under tongue, # 10 tab, 0 Refill(s) Special Instructions: Dissolve tab under tongue Start Date: 08/06/14 Status: Ordered Results ELECTROLYTES Most recent to oldest [Reference Range]: 1 Sodium Lvl [135-145 mEq/L] 141 mEq/L (08/06/14 2:48 PM) Potassium Lvl [3.5-5.1 mEq/L] 3.7 mEq/L (08/06/14 2:48 PM) Chloride Lvl [95-109 mEq/L] 107 mEq/L (08/06/14 2:48 PM) CO2 [24-32 mEq/L] 31 mEq/L (08/06/14 2:48 PM) AGAP [10.0-20.0 mEq/L] 6.7 mEq/L *LOW* (08/06/14 2:48 PM) CHEM PANEL Most recent to oldest [Reference Range]: 1 Creatinine Lvl [0.5-1.4 mg/dL] 0.6 mg/dL (08/06/14 2:48 PM) eGFR 122 mL/min/1.73m2 1 *NA* (08/06/14 2:48 PM) BUN [7-22 mg/dL] 11 mg/dL (08/06/14 2:48 PM) B/C Ratio [6-25] 18 (08/06/14 2:48 PM) Glucose Lvl [70-99 mg/dL] 84 mg/dL 2 (08/06/14 2:48 PM) Total Protein [6.4-8.4 g/dL] 8.0 g/dL (08/06/14 2:48 PM) Albumin Lvl [3.5-5.0 g/dL] 4.0 g/dL (08/06/14 2:48 PM) Globulin [2.0-4.0 g/dL] 4.0 g/dL (08/06/14 2:48 PM) A/G Ratio [0.7-1.6] 1.0 (08/06/14 2:48 PM) Calcium Lvl [8.5-10.5 mg/dL] 9.3 mg/dL (08/06/14 2:48 PM) ALT [0-65 unit/L] 13 unit/L (08/06/14 2:48 PM) AST [0-37 unit/L] 14 unit/L (08/06/14 2:48 PM) Alk Phos [39-136 unit/L] 72 unit/L (08/06/14 2:48 PM) Bili Total [0.2-1.3 mg/dL] 0.4 mg/dL (08/06/14 2:48 PM) 1Result Comment: The eGFR is calculated [...] eGFR should be multiplied by the estimated BMI.2Interpretive Data: Adult reference range values reflect the clinical guidelines of the [employer].ENDOCRINOLOGY Most recent to oldest [Reference Range]: 1 S Preg [Negative] Negative *NA* (08/06/14 2:48 PM) URINE AND STOOL Most recent to oldest [Reference Range]: 1 UA Turbidity [Clear] Clear (08/06/14 2:48 PM) UA Color [Yellow] Yellow *NA* (08/06/14 2:48 PM) UA pH [5.0-8.0] 7.5 (08/06/14 2:48 PM) UA Spec Grav [<=1.030] 1.020 (08/06/14 2:48 PM) UA Glucose [Negative mg/dL] Negative mg/dL (08/06/14 2:48 PM) UA Blood [Negative] Negative (08/06/14 2:48 PM) UA Ketones [Negative mg/dL] Negative mg/dL *NA* (08/06/14 2:48 PM) UA Protein [Negative mg/dL] Negative mg/dL (08/06/14 2:48 PM) UA Urobilinogen [0.1-1.0 EU/dL] 0.2 EU/dL (08/06/14 2:48 PM) UA Bili [Negative] Negative *NA* (08/06/14 2:48 PM) UA Leuk Est [Negative] Negative (08/06/14 2:48 PM) UA Nitrite [Negative] Negative (08/06/14 2:48 PM) UA WBC [None Seen] None Seen (08/06/14 2:48 PM) UA RBC [0-2] None Seen (08/06/14 2:48 PM) UA Bacteria [None Seen /HPF] Few /HPF (08/06/14 2:48 PM) UA Sq Epi [Few /LPF] Moderate /LPF *ABN* (08/06/14 2:48 PM) Micro? Performed (08/06/14 2:48 PM) IMMUNOLOGY Most recent to oldest [Reference Range]: 1 CRP [<=2.9 mg/L] <2.9 mg/L (08/06/14 2:48 PM) HEMATOLOGY Most recent to oldest [Reference Range]: 1 WBC [3.7-10.4 K/CMM] 6.1 K/CMM (08/06/14 2:48 PM) RBC [4.20-5.40 M/CMM] 4.09 M/CMM *LOW* (08/06/14 2:48 PM) Hgb [12.0-16.0 g/dL] 12.7 g/dL (08/06/14 2:48 PM) Hct [36.0-48.0 %] 37.6 % (08/06/14 2:48 PM) MCV [80.0-98.0 fL] 91.8 fL (08/06/14 2:48 PM) MCH [27.0-31.0 pg] 31.0 pg (08/06/14 2:48 PM) MCHC [32.0-36.0 g/dL] 33.8 g/dL (08/06/14 2:48 PM) RDW [11.5-14.5 %] 14.0 % (08/06/14 2:48 PM) Platelet [133-450 K/CMM] 256 K/CMM (08/06/14 2:48 PM) MPV [7.4-10.4 fL] 7.4 fL (08/06/14 2:48 PM) Segs [45.0-75.0 %] 60.9 % (08/06/14 2:48 PM) Lymphocytes [20.0-40.0 %] 30.5 % (08/06/14 2:48 PM) Monocytes [2.0-12.0 %] 6.2 % (08/06/14 2:48 PM) Eosinophils [0.0-4.0 %] 1.6 % (08/06/14 2:48 PM) Basophils [0.0-1.0 %] 0.8 % (08/06/14 2:48 PM) Segs-Bands # [1.5-8.1 K/CMM] 3.7 K/CMM (08/06/14 2:48 PM) Lymphocytes # [1.0-5.5 K/CMM] 1.9 K/CMM (08/06/14 2:48 PM) Monocytes # [0.0-0.8 K/CMM] 0.4 K/CMM (08/06/14 2:48 PM) Eosinophils # [0.0-0.5 K/CMM] 0.1 K/CMM (08/06/14 2:48 PM) Basophils # [0.0-0.2 K/CMM] 0.0 K/CMM (08/06/14 2:48 PM) Sed Rate [0-20 mm/hr] 27 mm/hr *HI* (08/06/14 2:48 PM) Immunizations No data available for this section Procedures No data available for this section Social History Social History Type Response Smoking Status Former smoker; Lives with someone who smokes; Other Tobacco Frequency mother smokes, whom she lives with; Cigarette Smoking Last 365 Days No; Reg Smoking Cessation Counseling No1, 2 1quit 2 months [id number] 1 month ago Assessment and Plan No data available for this section
--- OUTSIDE RECORDS SUMMARY | 2017-12-17 19:31 | XMS REPORT | Summary of Care ---
:1985 Author Organization [facility] Address [address] [place], [place] [address]- Encounter HQ Barbarantr_carmen(FIN) [id number] Date(s): 11/20/15 - 11/20/15 [facility] [address] [place] [address]- Discharge Disposition: ED Registered In Error Attending Physician: Polly Robison MD Vital Signs No data available for this section Problem List Condition Effective Dates Status Health Status Informant Anxiety(Confirmed) Resolved Bipolar(Confirmed) 1995 Active Clostridium difficile(Confirmed)1 Active Crohns disease(Confirmed) Active Depression(Confirmed) Resolved Diabetes mellitus(Confirmed)2 < 2013 Resolved Hidradenitis suppurativa(Confirmed) Resolved Lupus(Confirmed) Resolved Morbid obesity(Confirmed) Active Reflux(Confirmed) Active 1Problem added by Discern Expert.2off medication for 1 month since gastric sleeve Allergies, Adverse Reactions, Alerts Substance Reaction Severity Status NSAIDs Active Paxil Hives Active penicillins Active Ultram Hives Active Medications No data available for this section Results No data available for this section Immunizations [...] patient is trying to quit.2quit 2 months [id number] 1 month ago Assessment and Plan No data available for this section
--- OUTSIDE RECORDS SUMMARY | 2017-12-17 19:31 | XMS REPORT | Summary of Care ---
:1985 Author Encounter BRY Solo(VANCE) [id number] Date(s): 08/03/14 - 08/03/14 [facility] [address] [place] [address]- Discharge Diagnosis: Nausea, vomiting, and diarrhea Discharge Disposition: Home Physician Attending: Grupo Peng MD Vital Signs Most recent to oldest 1 2 3 [Reference Range]: Height 165.1 cm (08/03/14 5:25 PM) Temperature Oral [96.4-99.1 98.9 DegF 99.0 DegF 99.1 DegF DegF] (08/03/14 9:59 PM) (08/03/14 7:47 PM) (08/03/14 5:25 PM) Blood Pressure [90-140/60-90 117/71 mmHg 116/81 mmHg 120/66 mmHg mmHg] (08/03/14 9:59 PM) (08/03/14 7:47 PM) (08/03/14 5:25 PM) Respiratory Rate [14-20 BRMIN] 16 BRMIN 16 BRMIN 16 BRMIN (08/03/14 9:59 PM) (08/03/14 7:47 PM) (08/03/14 5:25 PM) Peripheral Pulse Rate [60-100 72 bpm 75 bpm 103 bpm bpm] (08/03/14 9:59 PM) (08/03/14 7:47 PM) *HI* (08/03/14 5:25 PM) Weight 75.909 kg (08/03/14 5:25 PM) Body Mass Index 27.85 m2 (08/03/14 5:25 PM) Problem List Condition Effective Dates Status Health Status Informant Anxiety(Confirmed) Resolved Crohns disease(Confirmed) Active Depression(Confirmed) Resolved Diabetes mellitus(Confirmed)1 Active Hidradenitis suppurativa(Confirmed) Resolved Lupus(Confirmed) Resolved Morbid obesity(Confirmed) Active Reflux(Confirmed) Active 1off medication for 1 month since gastric sleeve Allergies, Adverse Reactions, Alerts Substance Reaction Severity Status NSAIDs Active Paxil Hives Active penicillins Active Ultram Hives Active Medications BD Normal Saline Flush 10 mL, Route: IV, Drug Form: INJ, PRN, PRN Line Flush, Start date: 08/03/14 17: 46:00, Duration: 30 day, Stop date: 09/02/14 17:45:00 Notes: (Same as: BD Posiflush) Start Date: 08/03/14 Stop Date: 08/03/14 Status: Discontinuedmorphine Sulfate 4 mg, 1 mL, Route: IVP, Drug form: INJ, ONCE, Dosing Weight 75.909, kg, Priority : STAT, Start date: 08/03/14 17:39:00, Stop date: 08/03/14 17:39:00 Notes: (Same as:MORPhine Sulfate) Start Date: 08/03/14 Stop Date: 08/03/14 Status: Completedmorphine Sulfate 4 mg, Route: IVP, ONCE, Dosing Weight 75.909, kg, Priority: STAT, Start date: 19:39:00, Stop date: 08/03/14 19:39:00 Start Date: 08/03/14 Stop Date: 08/03/14 Status: Completedondansetron 4 mg, 2 mL, Route: IVP, Drug form: INJ, ONCE, Dosing Weight 75.909, kg, Priority : STAT, Start date: 08/03/14 17:39:00, Stop date: 08/03/14 17:39:00 Notes: (Same as: Zofran) Start Date: 08/03/14 Stop Date: 08/03/14 Status: CompletedSodium Chloride 0.9% (Bolus) IV 1,000 mL, 1,000 ml/hr, Infuse Over: 1 hr, Route: IV, 1,000, Drug form: INJ, ONCE , Priority: STAT, Dosing Weight 75.909 kg, Start date: 08/03/14 17:39:00, Duration: 1 doses or times, Stop date: 08/03/1516:39:00 Start Date: 08/03/14 Stop Date: 08/03/14 Status: CompletedSodium Chloride 0.9% IV IV, 0 ml/hr, PRN, PRN Line Flush, Start date: 08/03/14 17:47:00, Duration: 30, 25 ml Start Date: 08/03/14 Stop Date: 08/03/14 Status: DiscontinuedTylenol with Codeine #3 oral tablet 1 - 2 tab, PO, Q4H, Pain, # 20 tab, 0 Refill(s) Start Date: 08/03/14 Stop Date: 08/08/14 Status: OrderedZofran ODT 4 mg oral tablet, disintegrating 4 mg=1 tab, PO, BID, Nausea and Vomiting, Dissolve tab under tongue, # 15 tab, 0 Refill(s) Special Instructions: Dissolve tab under tongue Start Date: 08/03/14 Status: Ordered Results ELECTROLYTES Most recent to oldest [Reference Range]: 1 Sodium Lvl [135-145 mEq/L] 142 mEq/L (08/03/14 6:41 PM) Potassium Lvl [3.5-5.1 mEq/L] 3.6 mEq/L (08/03/14 6:41 PM) Chloride Lvl [95-109 mEq/L] 108 mEq/L (08/03/14 6:41 PM) CO2 [24-32 mEq/L] 25 mEq/L (08/03/14 6:41 PM) AGAP [10.0-20.0 mEq/L] 12.6 mEq/L (08/03/14 6:41 PM) CHEM PANEL Most recent to oldest [Reference Range]: 1 Creatinine Lvl [0.5-1.4 mg/dL] 0.5 mg/dL (08/03/14 6:41 PM) eGFR 129 mL/min/1.73m2 1 *NA* (08/03/14 6:41 PM) BUN [7-22 mg/dL] 13 mg/dL (08/03/14 6:41 PM) B/C Ratio [6-25] 26 *HI* (08/03/14 6:41 PM) Glucose Lvl [70-99 mg/dL] 86 mg/dL 2 (08/03/14 6:41 PM) Total Protein [6.4-8.4 g/dL] 8.6 g/dL *HI* (08/03/14 6:41 PM) Albumin Lvl [3.5-5.0 g/dL] 4.2 g/dL (08/03/14 6:41 PM) Globulin [2.0-4.0 g/dL] 4.4 g/dL *HI* (08/03/14 6:41 PM) A/G Ratio [0.7-1.6] 1.0 (08/03/14 6:41 PM) Calcium Lvl [8.5-10.5 mg/dL] 9.6 mg/dL (08/03/14 6:41 PM) Phosphorus [2.5-4.5 mg/dL] 3.8 mg/dL (08/03/14 6:41 PM) Magnesium Lvl [1.8-2.4 mg/dL] 1.9 mg/dL (08/03/14 6:41 PM) ALT [0-65 unit/L] 17 unit/L (08/03/14 6:41 PM) AST [0-37 unit/L] 19 unit/L (08/03/14 6:41 PM) Alk Phos [39-136 unit/L] 79 unit/L (08/03/14 6:41 PM) Bili Total [0.2-1.3 mg/dL] 0.2 mg/dL (08/03/14 6:41 PM) Lipase Lvl [73-393 unit/L] 251 unit/L (08/03/14 6:41 PM) 1Result Comment: The eGFR is calculated [...] values reflect the clinical guidelines of the [employer].URINE CHEM Most recent to oldest [Reference Range]: 1 U Preg [Negative] Negative (08/03/14 7:48 PM) URINE AND STOOL Most recent to oldest [Reference Range]: 1 UA Turbidity [Clear] Slight Cloudy (08/03/14 7:48 PM) UA Color [Yellow] Yellow *NA* (08/03/14 7:48 PM) UA pH [5.0-8.0] 6.0 (08/03/14 7:48 PM) UA Spec Grav [<=1.030] 1.015 (08/03/14 7:48 PM) UA Glucose [Negative mg/dL] Negative mg/dL (08/03/14 7:48 PM) UA Blood [Negative] Negative (08/03/14 7:48 PM) UA Ketones [Negative mg/dL] Negative mg/dL *NA* (08/03/14 7:48 PM) UA Protein [Negative mg/dL] Negative mg/dL (08/03/14 7:48 PM) UA Urobilinogen [0.1-1.0 EU/dL] 0.2 EU/dL (08/03/14 7:48 PM) UA Bili [Negative] Negative *NA* (08/03/14 7:48 PM) UA Leuk Est [Negative] Negative (08/03/14 7:48 PM) UA Nitrite [Negative] Negative (08/03/14 7:48 PM) UA WBC [None Seen /HPF] 3-5 /HPF (08/03/14 7:48 PM) UA RBC [0-2 /HPF] 0-2 /HPF (08/03/14 7:48 PM) UA Bacteria [None Seen /HPF] Occasional /HPF (08/03/14 7:48 PM) UA Sq Epi [Few /LPF] Many /LPF *ABN* (08/03/14 7:48 PM) HEMATOLOGY Most recent to oldest [Reference Range]: 1 WBC [3.7-10.4 K/CMM] 7.6 K/CMM (08/03/14 6:41 PM) RBC [4.20-5.40 M/CMM] 4.46 M/CMM (08/03/14 6:41 PM) Hgb [12.0-16.0 g/dL] 13.6 g/dL (08/03/14 6:41 PM) Hct [36.0-48.0 %] 40.6 % (08/03/14 6:41 PM) MCV [80.0-98.0 fL] 91.0 fL (08/03/14 6:41 PM) MCH [27.0-31.0 pg] 30.5 pg (08/03/14 6:41 PM) MCHC [32.0-36.0 g/dL] 33.5 g/dL (08/03/14 6:41 PM) RDW [11.5-14.5 %] 13.8 % (08/03/14 6:41 PM) Platelet [133-450 K/CMM] 277 K/CMM (08/03/14 6:41 PM) MPV [7.4-10.4 fL] 8.1 fL (08/03/14 6:41 PM) Segs [45.0-75.0 %] 66.7 % (08/03/14 6:41 PM) Lymphocytes [20.0-40.0 %] 26.4 % (08/03/14 6:41 PM) Monocytes [2.0-12.0 %] 5.0 % (08/03/14 6:41 PM) Eosinophils [0.0-4.0 %] 1.5 % (08/03/14 6:41 PM) Basophils [0.0-1.0 %] 0.4 % (08/03/14 6:41 PM) Segs-Bands # [1.5-8.1 K/CMM] 5.0 K/CMM (08/03/14 6:41 PM) Lymphocytes # [1.0-5.5 K/CMM] 2.0 K/CMM (08/03/14 6:41 PM) Monocytes # [0.0-0.8 K/CMM] 0.4 K/CMM (08/03/14 6:41 PM) Eosinophils # [0.0-0.5 K/CMM] 0.1 K/CMM (08/03/14 6:41 PM) Basophils # [0.0-0.2 K/CMM] 0.0 K/CMM (08/03/14 6:41 PM) Immunizations No data available for this section Procedures No data available for this section Social History Social History Type Response Smoking Status Former smoker; Lives with someone who smokes; Other Tobacco Frequency mother smokes, whom she lives with; Cigarette Smoking Last 365 Days No; Reg Smoking Cessation Counseling No1, 2 1quit 2 months [id number] 1 month ago Assessment and Plan No data available for this section
--- OUTSIDE RECORDS SUMMARY | 2017-12-17 19:32 | XMS REPORT | Summary of Care ---
:1985 Author Organization [facility] Address [address] [place], [place] [address]- Encounter HQ Kumar_carmen(FIN) [id number] Date(s): 12/19/15 - 12/22/15 [facility] [address] [place] [address]- [phone] Discharge Disposition: Home or Self Care Attending Physician: Jana Salvador MD Admitting Physician: Jana Salvador MD Vital Signs Most recent to oldest [Reference 1 2 3 Range]: Height 165.1 cm 165.1 cm (12/20/15 6:20 AM) (12/19/15 11:52 PM) Current Weight 70.818 kg 69.318 kg (12/22/15 5:55 AM) (12/21/15 5:30 AM) Temperature Oral [96.4-99.1 98.2 DegF 97.9 DegF 97.6 DegF DegF] (12/22/15 11:22 AM) (12/22/15 7:50 AM) (12/22/15 4:25 AM) Blood Pressure [90-140/60-90 106/68 mmHg 99/63 mmHg 106/69 mmHg mmHg] (12/22/15 11:22 AM) (12/22/15 7:50 AM) (12/22/15 4:25 AM) Respiratory Rate [14-20 BRMIN] 18 BRMIN 18 BRMIN 18 BRMIN (12/22/15 11:22 AM) (12/22/15 7:50 AM) (12/22/15 4:25 AM) Peripheral Pulse Rate [60-100 66 bpm 61 bpm 67 bpm bpm] (12/22/15 11:22 AM) (12/22/15 7:50 AM) (12/22/15 4:25 AM) Weight 69.602 kg 68.182 kg (12/20/15 6:20 AM) (12/19/15 11:52 PM) Body Mass Index 25.53 m2 25.01 m2 (12/20/15 6:20 AM) (12/19/15 11:52 PM) Problem List Condition Effective Dates Status Health Status Informant Anxiety(Confirmed) Resolved Bipolar(Confirmed) 1995 Active Clostridium difficile(Confirmed)1, 2 11/21/15 Active Crohns disease(Confirmed) Active Depression(Confirmed) Resolved Diabetes mellitus(Confirmed)2013 Resolved Hidradenitis suppurativa(Confirmed) Resolved Lupus(Confirmed) Active Morbid obesity(Confirmed) Active Reflux(Confirmed) Active 1Stool, Problem added by Discern Expert.3off medication for 1 month since gastric sleeve Allergies, Adverse Reactions, Alerts Substance Reaction Severity Status NSAIDs Active Paxil Hives Active penicillins Active Ultram Hives Active Medications CeleXA 40 mg oral tablet 40 mg=1 tab, PO, Daily, # 30 tab, 0 Refill(s) Start Date: 12/20/15 Stop Date: 12/21/15 Status: Completedcholestyramine 4 gm, 1 pkt, Route: PO, Drug form: PDR/REC, Daily, Dosing Weight 69.602, kg, Start date: 12/21/15 9:00:00 CDT, Duration: 30 day, Stop date: 01/19/16 9:00:00 CDT Notes: (Same As: Lainey) Start Date: 12/21/15 Stop Date: 12/22/15 Status: BnqrbzqdceyqA2M 1/2NS + KCL 10mEq/L 1000ml (Premix) 1,000 mL 1,000 mL, Rate: 60 ml/hr, Infuse over: 16.7 hr, Route: IV, Dosing Weight 69.602 kg, Total Volume: 1,000, Start date: 12/20/15 18:01:00 CDT, Stop date: 01/19/16 18:00:00 CDT Notes: PREMIX IV - Do Not AlterWASTE: F/P - Sink; E - Municipal Trash Bin Start Date: 12/20/15 Stop Date: 12/22/15 Status: DiscontinuedDepakote 500 mg oral enteric coated tablet 500 mg=1 tab, PO, BID, # 60 tab, 0 Refill(s) Start Date: 12/20/15 Status: OrderedDextrose 5% with 0.45% NaCl IV 1000 mL 1,000 mL, Rate: 100 ml/hr, Infuse over: 10 hr, Route: IV, Dosing Weight 69.602 kg, Total Volume: 1,000, Start date: 12/20/15 17:48:00 CDT, Duration: 30 day, Stop date: 01/19/16 17:47:00 CDT Start Date: 12/20/15 Stop Date: 12/20/15 Status: DiscontinuedDilaudid 0.5 mg, Route: IVP, ONCE, Dosing Weight 68.182, kg, Priority: STAT, Start date: 12/20/15 4:11:00 CDT, Stop date: 12/20/15 4:11:00 CDT Start Date: 12/20/15 Stop Date: 12/20/15 Status: CompletedDilaudid 0.5 mg, 0.5 mL, Route: IVP, Drug form: INJ, Q4H, Dosing Weight 69.602, kg, PRN Pain Score 7-10, Start date: 12/20/15 13:31:00 CDT, Duration: 30 day, Stop date : 01/19/16 13:30:00 CDT Start Date: 12/20/15 Stop Date: 12/21/15 Status: Discontinueddocusate 100 mg, 1 cap, Route: PO, Drug form: CAP, BID, Dosing Weight 68.182, kg, PRN Constipation, Start date: 12/20/15 5:49:00 CDT, Duration: 30 day, Stop date: 06/04 5:48:00 CDT Notes: (Same as: Colace) (Do Not Crush) Start Date: 12/20/15 Stop Date: 12/22/15 Status: DiscontinuedFlagyl 500 mg oral tablet 500 mg=1 tab, PO, Q8H, X 7 day, # 21 tab, 0 Refill(s) Start Date: 12/22/15 Stop Date: 12/29/15 Status: Orderedheparin flush 100 unit, 1 mL, Route: IVP, Drug form: SOLN, PRN, Dosing Weight 69.602, kg, PRN Line Flush, Priority: NOW, Start date: 12/22/15 13:40:00 CDT, Duration: 30 day, Stop date: 01/21/16 13:39:00 CDT, flush for pick line or port-a-cath Notes: (Same as: Heparin Lock Flush) Start Date: 12/22/15 Stop Date: 12/22/15 Status: DiscontinuedImuran Daily, 0 Refill(s) Start Date: 12/20/15 Stop Date: 12/21/15 Status: CompletedmetroNIDAZOLE 500 mg, 100 mL, Route: IV, Drug form: INJ, ABXQ6H, Dosing Weight 68.182, kg, Priority: STAT, Start date: 12/20/15 5:49:00 CDT, Duration: 30 day, Stop date: 01/18/16 23:49:00 CDT Notes: (Same as: Flagyl) Avoid alcohol. Start Date: 12/20/15 Stop Date: 12/22/15 Status: Discontinuedmorphine Sulfate 4 mg, 2 mL, Route: IVP, Drug form: INJ, Q4H, Dosing Weight 68.182, kg, PRN Pain Score 7-10, Start date: 12/20/15 5:49:00 CDT, Duration: 30 day, Stop date: 01/18 5:48:00 CDT Notes: (Same as:MORPhine Sulfate) Start Date: 12/20/15 Stop Date: 12/20/15 Status: Discontinuedmorphine Sulfate 4 mg, Route: IVP, Drug form: INJ, ONCE, Dosing Weight 68.182, kg, Priority: STAT , Start date: 12/20/15 1:17:00 CDT, Stop date: 12/20/15 1:17:00 CDT Start Date: 12/20/15 Stop Date: 12/20/15 Status: CompletedNorco 10/325 oral tablet 1 tab, Route: PO, Drug Form: TAB, Dosing Weight 69.602, kg, Q4H, PRN Pain Score 7-10, Start date: 12/20/15 10:18:00 CDT, Duration: 30 day, Stop date: 01/19/16 10:17:00 CDT Notes: Do not exceed 4gm/day of acetaminophen. (Same as: [place] 325/10) Start Date: 12/20/15 Stop Date: 12/22/15 Status: Discontinuedondansetron 4 mg, 2 mL, Route: IVP, Drug form: INJ, Q6H, Dosing Weight 68.182, kg, PRN Nausea & Vomiting, Start date: 12/20/15 5:49:00 CDT, Duration: 30 day, Stop date: 01/19/16 5:48:00 CDT Notes: (Same as: Alysa) MEDICATION WASTE Product Size: 4 mgProduct Wasted: ___ mg Start Date: 12/20/15 Stop Date: 12/22/15 Status: DiscontinuedPlaquenil 200 mg oral tablet 200 mg=1 tab, PO, Daily, 0 Refill(s) Start Date: 12/20/15 Stop Date: 12/21/15 Status: CompletedRemeron 15 mg, 1 tab, Route: PO, Drug form: TAB, Bedtime, Dosing Weight 69.602, kg, Start date: 12/22/15 21:00:00 CDT, Duration: 30 day, Stop date: 01/20/16 21:00: 00 CDT Notes: (Same as:Remeron) Start Date: 12/22/15 Stop Date: 12/22/15 Status: CanceledRemeron 15 mg oral tablet 15 mg, PO, Bedtime, # 20 tab, 0 Refill(s) Start Date: 12/22/15 Status: OrderedSodium Chloride 0.9% (Bolus) IV 1,000 mL, 1,000 ml/hr, Infuse Over: 1 Hour, Route: IV, ONCE, Priority: STAT, Dosing Weight 68.182 kg, Start date: 12/20/15 1:17:00 CDT, Duration: 1 doses or times, Stop date: 12/20/15 1:17:00 CDT Start Date: 12/20/15 Stop Date: 12/20/15 Status: Completedvancomycin 125 mg, 2.5 mL, Route: PO, Drug form: SUSP, ABXQ6H, Dosing Weight 69.602, kg, Start date: 12/20/15 18:00:00 CDT, Stop date: 01/19/16 12:00:00 CDT Notes: TIME CRITICAL MEDICATION"DILUTE EACH DOSE WITH 30ML OF WATER OR APPLE/ ORANGE JUICE PRIOR TO ADMINISTRATION" Start Date: 12/20/15 Stop Date: 12/22/15 Status: DiscontinuedXanax 0.5 mg oral tablet 0.5 mg, 1 tab, Route: PO, Drug form: TAB, BID, Dosing Weight 69.602, kg, PRN Anxiety, Start date: 12/21/15 17:55:00 CDT, Duration: 30 day, Stop date: 17:54:00 CDT Notes: With food or milk(Same as: Xanax) Start Date: 12/21/15 Stop Date: 12/22/15 Status: DiscontinuedXanax 0.5 mg oral tablet 0.5 mg, 1 tab, Route: PO, Drug form: TAB, TID, Dosing Weight 69.602, kg, PRN Anxiety, Start date: 12/22/15 12:59:00 CDT, Duration: 30 day, Stop date: 12:58:00 CDT Notes: With food or milk(Same as: Xanax) Start Date: 12/22/15 Stop Date: 12/22/15 Status: DiscontinuedXanax 1 mg oral tablet 1 mg=1 tab, PO, TID, PRN Anxiety, 0 Refill(s) Start Date: 12/20/15 Stop Date: 12/27/15 Status: OrderedZofran 4 mg, Route: IVP, Drug form: INJ, ONCE, Dosing Weight 68.182, kg, Priority: STAT , Start date: 12/20/15 1:17:00 CDT, Stop date: 12/20/15 1:17:00 CDT Start Date: 12/20/15 Stop Date: 12/20/15 Status: Completed Results ELECTROLYTES Most recent to oldest 1 2 3 [Reference Range]: Sodium Lvl [135-145 mEq/L] 141 mEq/L 140 mEq/L 141 mEq/L (12/22/15 11:59 AM) (12/21/15 6:27 AM) (12/20/15 12:06 AM) Potassium Lvl [3.5-5.1 mEq/L] 3.8 mEq/L 3.7 mEq/L 3.9 mEq/L (12/22/15 11:59 AM) (12/21/15 6:27 AM) (12/20/15 12:06 AM) Chloride Lvl [95-109 mEq/L] 109 mEq/L 108 mEq/L 111 mEq/L (12/22/15 11:59 AM) (12/21/15 6:27 AM) *HI* (12/20/15 12:06 AM) CO2 [24-32 mEq/L] 26 mEq/L 26 mEq/L 20 mEq/L (12/22/15 11:59 AM) (12/21/15 6:27 AM) *LOW* (12/20/15 12:06 AM) AGAP [10.0-20.0 mEq/L] 9.8 mEq/L 9.7 mEq/L 13.9 mEq/L *LOW* *LOW* (12/20/15 12:06 AM) (12/22/15 11:59 AM) (12/21/15 6:27 AM) CHEM PANEL Most recent to oldest 1 2 3 [Reference Range]: Creatinine Lvl [0.50-1.40 0.63 mg/dL 0.45 mg/dL 0.63 mg/dL mg/dL] (12/22/15 11:59 AM) *LOW* (12/20/15 12:06 AM) (12/21/15 6:27 AM) eGFR 119 mL/min/1.73m2 1 133 mL/min/1.73m2 2 119 mL/min/1.73m2 3 *NA* *NA* *NA* (12/22/15 11:59 AM) (12/21/15 6:27 AM) (12/20/15 12:06 AM) BUN [7-22 mg/dL] 7 mg/dL 12 mg/dL 13 mg/dL (12/22/15 11:59 AM) (12/21/15 6:27 AM) (12/20/15 12:06 AM) B/C Ratio [6-25] 27 21 *HI* (12/20/15 12:06 AM) (12/21/15 6:27 AM) Glucose Lvl [70-99 mg/dL] 97 mg/dL 72 mg/dL 72 mg/dL (12/22/15 11:59 AM) (12/21/15 6:27 AM) (12/20/15 12:06 AM) Total Protein [6.4-8.4 6.3 g/dL 8.1 g/dL g/dL] *LOW* (12/20/15 12:06 AM) (12/21/15 6:27 AM) Albumin Lvl [3.5-5.0 g/dL] 3.4 g/dL 4.2 g/dL *LOW* (12/20/15 12:06 AM) (12/21/15 6:27 AM) Globulin [2.7-4.2 g/dL] 2.9 g/dL (12/21/15 6:27 AM) Globulin [2.0-4.0 g/dL] 3.9 g/dL (12/20/15 12:06 AM) A/G Ratio [0.7-1.6] 1.2 1.1 (12/21/15 6:27 AM) (12/20/15 12:06 AM) Calcium Lvl [8.5-10.5 9.0 mg/dL 8.0 mg/dL 9.0 mg/dL mg/dL] (12/22/15 11:59 AM) *LOW* (12/20/15 12:06 AM) (12/21/15 6:27 AM) Phosphorus [2.5-4.5 mg/dL] 4.1 mg/dL (12/21/15 6:27 AM) Magnesium Lvl [1.8-2.4 2.0 mg/dL mg/dL] (12/21/15 6:27 AM) ALT [0-65 unit/L] 11 unit/L 12 unit/L (12/21/15 6:27 AM) (12/20/15 12:06 AM) AST [0-37 unit/L] 10 unit/L 29 unit/L (12/21/15 6:27 AM) (12/20/15 12:06 AM) Alk Phos [39-136 unit/L] 64 unit/L 75 unit/L (12/21/15 6:27 AM) (12/20/15 12:06 AM) Bili Total [0.2-1.3 mg/dL] 0.4 mg/dL 0.2 mg/dL (12/21/15 6:27 AM) (12/20/15 12:06 AM) 1Result Comment: The eGFR is calculated [...] should be multiplied by the estimated BMI.URINE AND STOOL Most recent to oldest [Reference Range]: 1 2 3 UA Turbidity [Clear] Clear Slight (12/20/15 4:55 AM) *ABN* (12/20/15 1:40 AM) UA Color Ltyellow *NA* (12/20/15 4:55 AM) UA Color [Yellow] Yellow *NA* (12/20/15 1:40 AM) UA pH [5.0-8.0] 5.0 6.0 (12/20/15 4:55 AM) (12/20/15 1:40 AM) UA Spec Grav [<=1.030] >=1.050 1.024 *ABN* (12/20/15 1:40 AM) (12/20/15 4:55 AM) UA Glucose [Negative mg/dL] Negative mg/dL Negative mg/dL *NA* *NA* (12/20/15 4:55 AM) (12/20/15 1:40 AM) UA Blood [Negative] Negative Negative (12/20/15 4:55 AM) (12/20/15 1:40 AM) UA Ketones [Negative mg/dL] Negative mg/dL Trace mg/dL *NA* *ABN* (12/20/15 4:55 AM) (12/20/15 1:40 AM) UA Protein [Negative mg/dL] Negative mg/dL 30 mg/dL (12/20/15 4:55 AM) *ABN* (12/20/15 1:40 AM) UA Urobilinogen [0.1-1.0 mg/dL] <=1.0 mg/dL 2.0 mg/dL *NA* *HI* (12/20/15 4:55 AM) (12/20/15 1:40 AM) UA Bili [Negative] Negative Negative *NA* *NA* (12/20/15 4:55 AM) (12/20/15 1:40 AM) UA Leuk Est [Negative] Trace Large *ABN* *ABN* (12/20/15 4:55 AM) (12/20/15 1:40 AM) UA Nitrite [Negative] Negative Negative (12/20/15 4:55 AM) (12/20/15 1:40 AM) UA WBC [0-5 /HPF] 3 /HPF 54 /HPF (12/20/15 4:55 AM) *HI* (12/20/15 1:40 AM) UA RBC [0-2 /HPF] 3 /HPF 4 /HPF *HI* *HI* (12/20/15 4:55 AM) (12/20/15 1:40 AM) UA Bacteria [None Seen /HPF] Occasional /HPF *NA* (12/20/15 1:40 AM) UA Sq Epi [Few /LPF] Few /LPF Many /LPF *NA* *ABN* (12/20/15 4:55 AM) (12/20/15 1:40 AM) UA Mucus [None Seen /LPF] Many /LPF Many /LPF *ABN* *ABN* (12/20/15 4:55 AM) (12/20/15 1:40 AM) Fecal Leukocyte None Seen (12/20/15 10:02 AM) Lactoferrin Stool [NEGATIVE] NEGATIVE 1 *NA* (12/20/15 10:02 AM) 1Result Comment: Lactoferrin in the stool is [...] ileostomy within 1 month. Test Performed at: [facility] [address] [place] [address] Maximo Carey MD, PhDHEMATOLOGY Most recent to oldest 1 2 3 [Reference Range]: WBC [3.7-10.4 K/CMM] 5.6 K/CMM 4.6 K/CMM 6.3 K/CMM (12/22/15 11:59 AM) (12/21/15 6:27 AM) (12/20/15 12:06 AM) RBC [4.20-5.40 M/CMM] 4.00 M/CMM 3.36 M/CMM 4.12 M/CMM *LOW* *LOW* *LOW* (12/22/15 11:59 AM) (12/21/15 6:27 AM) (12/20/15 12:06 AM) Hgb [12.0-16.0 g/dL] 12.7 g/dL 10.8 g/dL 13.1 g/dL (12/22/15 11:59 AM) *LOW* (12/20/15 12:06 AM) (12/21/15 6:27 AM) Hct [36.0-48.0 %] 37.3 % 31.4 % 39.0 % (12/22/15 11:59 AM) *LOW* (12/20/15 12:06 AM) (12/21/15 6:27 AM) MCV [80.0-98.0 fL] 93.4 fL 93.3 fL 94.7 fL (12/22/15 11:59 AM) (12/21/15 6:27 AM) (12/20/15 12:06 AM) MCH [27.0-31.0 pg] 31.8 pg 32.0 pg 31.9 pg *HI* *HI* *HI* (12/22/15 11:59 AM) (12/21/15 6:27 AM) (12/20/15 12:06 AM) MCHC [32.0-36.0 g/dL] 34.1 g/dL 34.3 g/dL 33.7 g/dL (12/22/15 11:59 AM) (12/21/15 6:27 AM) (12/20/15 12:06 AM) RDW [11.5-14.5 %] 13.1 % 13.3 % 13.4 % (12/22/15 11:59 AM) (12/21/15 6:27 AM) (12/20/15 12:06 AM) Platelet [133-450 K/CMM] 264 K/CMM 241 K/CMM 321 K/CMM (12/22/15 11:59 AM) (12/21/15 6:27 AM) (12/20/15 12:06 AM) MPV [7.4-10.4 fL] 8.2 fL 7.4 fL 8.3 fL (12/22/15 11:59 AM) (12/21/15 6:27 AM) (12/20/15 12:06 AM) Segs [45.0-75.0 %] 66.2 % 50.8 % 51.0 % (12/22/15 11:59 AM) (12/21/15 6:27 AM) (12/20/15 12:06 AM) Lymphocytes [20.0-40.0 %] 24.2 % 37.2 % 41.1 % (12/22/15 11:59 AM) (12/21/15 6:27 AM) *HI* (12/20/15 12:06 AM) Monocytes [2.0-12.0 %] 6.4 % 8.1 % 6.3 % (12/22/15 11:59 AM) (12/21/15 6:27 AM) (12/20/15 12:06 AM) Eosinophils [0.0-4.0 %] 2.3 % 2.9 % 0.7 % (12/22/15 11:59 AM) (12/21/15 6:27 AM) (12/20/15 12:06 AM) Basophils [0.0-1.0 %] 0.9 % 1.0 % 0.9 % (12/22/15 11:59 AM) (12/21/15 6:27 AM) (12/20/15 12:06 AM) Segs-Bands # [1.5-8.1 K/CMM] 3.7 K/CMM 2.4 K/CMM 3.2 K/CMM (12/22/15 11:59 AM) (12/21/15 6:27 AM) (12/20/15 12:06 AM) Lymphocytes # [1.0-5.5 K/CMM] 1.4 K/CMM 1.7 K/CMM 2.6 K/CMM (12/22/15 11:59 AM) (12/21/15 6:27 AM) (12/20/15 12:06 AM) Monocytes # [0.0-0.8 K/CMM] 0.4 K/CMM 0.4 K/CMM 0.4 K/CMM (12/22/15 11:59 AM) (12/21/15 6:27 AM) (12/20/15 12:06 AM) Eosinophils # [0.0-0.5 K/CMM] 0.1 K/CMM 0.1 K/CMM (12/22/15 11:59 AM) (12/21/15 6:27 AM) Basophils # [0.0-0.2 K/CMM] 0.1 K/CMM (12/20/15 12:06 AM) MOLECULAR DIAGNOSTIC Most recent to oldest [Reference Range]: 1 2 3 C difficile DNA [Negative] Negative (12/20/15 10:02 AM) Immunizations No data available for this section Procedures Procedure Date Related Diagnosis Body Site Cholecystectomy Laparoscopic sleeve gastrectomy Portal vein cannula insertion Tonsillectomy Social History Social History Type Response Substance Abuse Use: None. Alcohol Never Smoking Status Current every day smoker; Type: Cigarettes; Total [...] patient is trying to quit.2quit 2 months [id number] 1 month ago Assessment and Plan Extracted from: Title: Clinical Document Author: Jana Salvador MD Date: 12/22/15 Progress Note - Daily [facility] Completed: Dec, 13:20 by Jana Salvador MD RM: 114 - 1P, SE C1B CAROLYN POLLARD 30y (: 1985) F Attending: Jana Salvador MD Service: Internal Medicine Reason for Admission: ACUTE COLITIS, INTRACTABLE ABDOMINAL PAIN, DEHYDRATION Working DRG: Esophagitis, gastroent & misc digest disorders w/o [facility] Code status: Full Code [Ordered] Current diet: Isolation: None Documented Allergies: NSAIDs, Ultram(Hives), Paxil(Hives), penicillins SUBJECTIVE OBJECTIVE 24hr Labs 12/21 1159 Glucose Lvl 97 BUN 7 Creatinine Lvl 0.63 Sodium Lvl 141 Potassium Lvl 3.8 Chloride Lvl 109 CO2 26 AGAP 9.8 L Calcium Lvl 9.0 eGFR 119 WBC 5.6 RBC 4.00 L Hgb 12.7 Hct 37.3 MCV 93.4 MCH 31.8 H MCHC 34.1 RDW 13.1 Platelet 264 MPV 8.2 Segs 66.2 Monocytes 6.4 Lymphocytes 24.2 Eosinophils 2.3 Basophils 0.9 Segs-Bands # 3.7 Lymphocytes # 1.4 Monocytes # 0.4 Eosinophils # 0.1 Rosenthal still necessary (Yes/No): Line still necessary (Yes/No): Vitals Tmp(F) Pulse BP RR SpO2 FIO2 12/21 11:22 98.2 66 106/68 18 100 --- 12/21 07:50 97.9 61 99/63 18 100 --- 12/21 04:25 97.6 67 106/69 18 99 --- 12/21 00:19 98.1 69 97/61 18 99 --- 12/20 20:11 98.4 86 102/66 18 100 --- 24 Hr Tmax: 98.4F (36.89c) at 12/20 20:11 Vital Signs are the last 5 in the past 48 hours. Date Wt(kg) Wt(lb) Ht(cm) Ht(in) Method 12/21 70.82 155.80 Measured 12/20 69.32 152.50 Measured 12/19 69.60 153.12 165.10 65.00 Measured 12/18 (initial) 68.18 150.00 165.10 65.00 Estimated I&O Record In Out Bal 12/21 24hr Tot 462 0 462 12/20 24hr Tot 2636 0 2636 Medications (10) Active Scheduled Meds (4): 12/21/15 cholestyramine 4 gm PO Daily 12/20/15 metroNIDAZOLE 500 mg IV ABXQ6H 200 ml/hr 12/22/15 mirtazapine (Remeron) 15 mg PO Bedtime 12/20/15 vancomycin 125 mg PO ABXQ6H Unscheduled Meds: None PRN Meds (5): 12/21/15 ALPRAZolam (Xanax 0.5 mg oral tablet) 0.5 mg PO BID 12/22/15 ALPRAZolam (Xanax 0.5 mg oral tablet) 0.5 mg PO TID 12/20/15 acetaminophen-hydrocodone ([place] 10/325 oral tablet) 1 tab PO Q4H 12/20/15 docusate 100 mg PO BID 12/20/15 ondansetron 4 mg IVP Q6H One Time Meds: None Continuous Infusions (1): 12/20/15 D5W 1/2NS + KCL 10mEq/L 1000ml (Premix) 1,000 mL 1,000 mL 60 ml/hr ASSESSMENT & EXAM PLAN & TREATMENT DIAGNOSES & PROBLEMS [id number] Ready for Discharge (Yes/No)? TEACHING ATTESTATION Extracted from: Title: Clinical Document Author: Brandon Myrick MD Date: 12/22/15 Patient seen, report dictated. Bipolar disorder type I , depressed mood. d/w patient agreeable with following treatment plan. Start remeron 15 mg po bedtime. Add xanax 0.5 mg po TID prn for Anxiety. Supportive therapy to improve coping skills. Will follow along with you. Thank you for the consult.
--- OUTSIDE RECORDS SUMMARY | 2017-12-17 19:32 | XMS REPORT | Summary of Care ---
:1985 Author Organization [facility] Address [address] [place] [address]- Encounter [facility](VANCE) [id number] Date(s): 03/04/16 - 03/04/16 [facility] [address] [place] [address]- Discharge Diagnosis: Port-a-cath site pain Discharge Diagnosis: Musculoskeletal pain Discharge Disposition: DC/TF To Psych Hosp Attending Physician: Hanna Crocker DO Vital Signs Most recent to oldest [Reference Range]: 1 2 Height 165.1 cm (03/04/16 6:00 PM) Temperature Oral [96.4-99.1 DegF] 98.8 DegF 98.6 DegF (03/04/16 10:34 PM) (03/04/16 6:00 PM) Blood Pressure [90-140/60-90 mmHg] 101/64 mmHg 96/63 mmHg (03/04/16 10:34 PM) (03/04/16 6:00 PM) Respiratory Rate [14-20 BRMIN] 17 BRMIN 16 BRMIN (03/04/16 10:34 PM) (03/04/16 6:00 PM) Peripheral Pulse Rate [60-100 bpm] 81 bpm 82 bpm (03/04/16 10:34 PM) (03/04/16 6:00 PM) Weight 72.727 kg (03/04/16 6:00 PM) Body Mass Index 26.68 m2 (03/04/16 6:00 PM) Problem List Condition Effective Dates Status Health Status Informant Anxiety(Confirmed) Resolved Bipolar(Confirmed) 1995 Active Clostridium difficile(Confirmed)1, 2 11/21/15 Active Crohns disease(Confirmed) Active Depression(Confirmed) Resolved Diabetes mellitus(Confirmed)2013 Resolved Hidradenitis suppurativa(Confirmed) Resolved Lupus(Confirmed) Active Reflux(Confirmed) Active 1Stool, Problem added by Discern Expert.3off medication for 1 month since gastric sleeve Allergies, Adverse Reactions, Alerts Substance Reaction Severity Status NSAIDs Active Paxil Hives Active penicillins Active Ultram Hives Active Medications morphine Sulfate 4 mg, 1 mL, Route: IVP, Drug form: INJ, ONCE, Dosing Weight 72.727, kg, Priority : STAT, Start date: 03/04/16 18:34:00 CDT, Stop date: 03/04/16 18:34:00 CDT Notes: (Same as:MORPhine Sulfate) Start Date: 03/04/16 Stop Date: 03/04/16 Status: CompletedSaline Flush 0.9% 10 mL, Route: IVP, Drug Form: INJ, Dosing Weight 72.727, kg, PRN, PRN Line Flush , Start date: 03/04/16 18:34:00 CDT, Duration: 30 day, Stop date: 04/03/16 17:33 :00 [employer] Notes: (Same as: BD Posiflush) Start Date: 03/04/16 Stop Date: 03/05/16 Status: DiscontinuedZofran 4 mg, 2 mL, Route: IVP, Drug form: INJ, ONCE, Dosing Weight 72.727, kg, Priority : STAT, Start date: 03/04/16 18:34:00 CDT, Stop date: 03/04/16 18:34:00 CDT Notes: (Same as: Zofran) MEDICATION WASTE Product Size: 4 mgProduct Wasted: ___ mg Start Date: 03/04/16 Stop Date: 03/04/16 Status: Completed Results ELECTROLYTES Most recent to oldest [Reference Range]: 1 Sodium Lvl [135-145 mEq/L] 141 mEq/L (03/04/16 7:31 PM) Potassium Lvl [3.5-5.1 mEq/L] 4.4 mEq/L (03/04/16 7:31 PM) Chloride Lvl [95-109 mEq/L] 105 mEq/L (03/04/16 7:31 PM) CO2 [24-32 mEq/L] 31 mEq/L (03/04/16 7:31 PM) AGAP [10.0-20.0 mEq/L] 9.4 mEq/L *LOW* (03/04/16 7:31 PM) CHEM PANEL Most recent to oldest [Reference Range]: 1 Creatinine Lvl [0.50-1.40 mg/dL] 0.68 mg/dL (03/04/16 7:31 PM) eGFR 116 mL/min/1.73m2 1 *NA* (03/04/16 7:31 PM) BUN [7-22 mg/dL] 15 mg/dL (03/04/16 7:31 PM) B/C Ratio [6-25] 22 (03/04/16 7:31 PM) Glucose Lvl [70-99 mg/dL] 70 mg/dL (03/04/16 7:31 PM) Total Protein [6.4-8.4 g/dL] 7.4 g/dL (03/04/16 7:31 PM) Albumin Lvl [3.5-5.0 g/dL] 3.4 g/dL *LOW* (03/04/16 7:31 PM) Globulin [2.7-4.2 g/dL] 4.0 g/dL (03/04/16 7:31 PM) A/G Ratio [0.7-1.6] 0.8 (03/04/16 7:31 PM) Calcium Lvl [8.5-10.5 mg/dL] 8.6 mg/dL (03/04/16 7:31 PM) ALT [0-65 unit/L] 7 unit/L (03/04/16 7:31 PM) AST [0-37 unit/L] 14 unit/L (03/04/16 7:31 PM) Alk Phos [39-136 unit/L] 67 unit/L (03/04/16 7:31 PM) Bili Total [0.2-1.3 mg/dL] 0.2 mg/dL (03/04/16 7:31 PM) Lactic Acid Lvl [0.5-2.2 mMol/L] 1.0 mMol/L (03/04/16 7:31 PM) 1Result Comment: The eGFR is calculated [...] eGFR should be multiplied by the estimated BMI.HEMATOLOGY Most recent to oldest [Reference Range]: 1 WBC [3.7-10.4 K/CMM] 6.9 K/CMM (03/04/16 7:31 PM) RBC [4.20-5.40 M/CMM] 3.83 M/CMM *LOW* (03/04/16 7:31 PM) Hgb [12.0-16.0 g/dL] 12.1 g/dL (03/04/16 7:31 PM) Hct [36.0-48.0 %] 35.5 % *LOW* (03/04/16 7:31 PM) MCV [80.0-98.0 fL] 92.7 fL (03/04/16 7:31 PM) MCH [27.0-31.0 pg] 31.6 pg *HI* (03/04/16 7:31 PM) MCHC [32.0-36.0 g/dL] 34.1 g/dL (03/04/16 7:31 PM) RDW [11.5-14.5 %] 13.6 % (03/04/16 7:31 PM) Platelet [133-450 K/CMM] 188 K/CMM (03/04/16 7:31 PM) MPV [7.4-10.4 fL] 8.7 fL (03/04/16 7:31 PM) Segs [45.0-75.0 %] 56.6 % (03/04/16 7:31 PM) Lymphocytes [20.0-40.0 %] 27.3 % (03/04/16 7:31 PM) Monocytes [2.0-12.0 %] 10.9 % (03/04/16 7:31 PM) Eosinophils [0.0-4.0 %] 3.8 % (03/04/16 7:31 PM) Basophils [0.0-1.0 %] 1.4 % *HI* (03/04/16 7:31 PM) Segs-Bands # [1.5-8.1 K/CMM] 3.9 K/CMM (03/04/16 7:31 PM) Lymphocytes # [1.0-5.5 K/CMM] 1.9 K/CMM (03/04/16 7:31 PM) Monocytes # [0.0-0.8 K/CMM] 0.8 K/CMM (03/04/16 7:31 PM) Eosinophils # [0.0-0.5 K/CMM] 0.3 K/CMM (03/04/16 7:31 PM) Basophils # [0.0-0.2 K/CMM] 0.1 K/CMM (03/04/16 7:31 PM) Immunizations No data available for this section Procedures Procedure Date Related Diagnosis Body Site Cholecystectomy Hysterectomy Laparoscopic sleeve gastrectomy Portal vein cannula insertion Tonsillectomy Social History Social History Type Response Substance Abuse Use: None. Alcohol Never Smoking Status Current every day smoker; Type: Cigarettes; Previous treatment: None; Ready to change: No; Concerns about tobacco use in household: No; Exposure to Tobacco Smoke pt smokes; Cigarette Smoking Last 365 Days Yes; Reg Smoking Cessation Counseling No Assessment and Plan No data available for this section
--- OUTSIDE RECORDS SUMMARY | 2017-12-17 19:32 | XMS REPORT | Summary of Care ---
:1985 Author Organization [facility] Address [address], [place] [address]- Encounter HQ Kumar_carmen(FIN) [id number] Date(s): 08/06/16 - 08/07/16 [facility] [address] [place] [address]- Discharge Diagnosis: Abdominal pain Discharge Diagnosis: Crohn's colitis Discharge Disposition: Home or Self Care Attending Physician: Clarence Macdonald MD Vital Signs Most recent to oldest [Reference Range]: 1 2 Height 165.1 cm (08/06/16 9:33 PM) Temperature Oral [96.4-99.1 DegF] 98.2 DegF 98.6 DegF (08/07/16 1:58 AM) (08/06/16 9:33 PM) Blood Pressure [90-140/60-90 mmHg] 112/68 mmHg 117/70 mmHg (08/07/16 1:58 AM) (08/06/16 9:33 PM) Respiratory Rate [14-20 BRMIN] 19 BRMIN 18 BRMIN (08/07/16 1:58 AM) (08/06/16 9:33 PM) Peripheral Pulse Rate [60-100 bpm] 74 bpm 86 bpm (08/07/16 1:58 AM) (08/06/16 9:33 PM) Weight 70.045 kg (08/06/16 9:33 PM) Body Mass Index 25.7 m2 (08/06/16 9:33 PM) Problem List Condition Effective Dates Status Health Status Informant Anxiety(Confirmed) Resolved Bipolar(Confirmed) 1995 Active Clostridium difficile(Confirmed)1, 2 11/21/15 Active Crohns disease(Confirmed) Active Depression(Confirmed) Resolved Diabetes mellitus(Confirmed)2013 Resolved Hidradenitis suppurativa(Confirmed) Resolved Lupus(Confirmed) Active Reflux(Confirmed) Active 1Stool, Problem added by Discern Expert.3off medication for 1 month since gastric sleeve Allergies, Adverse Reactions, Alerts Substance Reaction Severity Status Latuda Active NSAIDs Active Paxil Hives Active penicillins Active Ultram Hives Active Medications heparin flush 300 unit, 3 mL, Route: IV Lock, Drug form: SOLN, PRN, Dosing Weight 70.045, kg, PRN Line Flush, Start date: 08/07/16 1:45:00 CDT, Duration: 30 day, Stop date: 09/06/16 1:44:00 CDT Notes: (Same as: Heparin Lock Flush) Start Date: 08/07/16 Stop Date: 08/07/16 Status: Discontinuedmorphine Sulfate 4 mg, 1 mL, Route: IVP, Drug form: SOLN, ONCE, Dosing Weight 70.045, kg, Priority: STAT, Start date:08/07/16 1:34:00 CDT, Stop date: 08/07/16 1:34:00 CDT Notes: (Same as:MORPhine Sulfate) Start Date: 08/07/16 Stop Date: 08/07/16 Status: Completedmorphine Sulfate 4 mg, 1 mL, Route: IVP, Drug form: SOLN, ONCE, Dosing Weight 70.045, kg, Priority: STAT, Start date:08/06/16 23:05:00 CDT, Stop date: 08/06/16 23:05:00 CDT Notes: (Same as:MORPhine Sulfate) Start Date: 08/06/16 Stop Date: 08/06/16 Status: Completedondansetron 4 mg oral tablet, disintegrating 4 mg=1 tab, PO, TID, PRN Nausea / Vomiting, Dissolve tab under tongue, X 3 day, # 10 tab, 0 Refill(s) Start Date: 08/07/16 Stop Date: 08/10/16 Status: OrderedpredniSONE 50 mg oral tablet 50 mg=1 tab, PO, Daily, X 7 day, # 7 tab, 0 Refill(s) Start Date: 08/07/16 Stop Date: 08/14/16 Status: OrderedpredniSONE taper daily 1 mg, 1 tab, PO, Daily, 10 tab, Substitution Allowed Start Date: 08/07/16 Stop Date: 08/17/16 Status: OrderedSaline Flush 0.9% 10 mL, Route: IVP, Drug Form: INJ, Dosing Weight 70.045, kg, PRN, PRN Line Flush , Start date: 08/06/16 22:41:00 CDT, Duration: 30 day, Stop date: 09/05/16 22:40 :00 CDT Notes: (Same as: BD Posiflush) Start Date: 08/06/16 Stop Date: 08/07/16 Status: DiscontinuedSodium Chloride 0.9% (Bolus) IV 1,000 mL, 2,000 ml/hr, Infuse Over: 30 minutes, Route: IV, 1,000, Drug form: INJ , ONCE, Priority: STAT, Dosing Weight 70.045 kg, Start date: 08/06/16 22:41:00 CDT, Duration: 1 doses or times, Stop date: 08/06/16 22:41:00 CDT Start Date: 08/06/16 Stop Date: 08/06/16 Status: CompletedSolu-MEDROL 125 mg, 2 mL, Route: IVP, Drug form: INJ, ONCE, Dosing Weight 70.045, kg, Priority: STAT, Start date: 08/06/16 23:10:00 CDT, Stop date: 08/06/16 23:10:00 CDT Notes: (Same as:Solu-MEDROL, A-Methapred) Start Date: 08/06/16 Stop Date: 08/06/16 Status: CompletedTylenol with Codeine #3 oral tablet 1 - 2 tab, PO, Q6H, PRN Pain, X 3 day, # 24 tab, 0 Refill(s) Start Date: 08/07/16 Stop Date: 08/10/16 Status: OrderedZofran 4 mg, 2 mL, Stop date: 08/07/16 1:02:00 CDT Notes: (Same as: Zofran) MEDICATION WASTE Product Size: 4 mgProduct Wasted: ___ mg Start Date: 08/07/16 Stop Date: 08/07/16 Status: CompletedZofran 4 mg, 2 mL, Route: IVP, Drug form: INJ, ONCE, Dosing Weight 70.045, kg, Priority : STAT, Start date: 08/06/16 23:05:00 CDT, Stop date: 08/06/16 23:05:00 CDT Notes: (Same as: Alysa) MEDICATION WASTE Product Size: 4 mgProduct Wasted: ___ mg Start Date: 08/06/16 Stop Date: 08/06/16 Status: Completed Results ELECTROLYTES Most recent to oldest [Reference Range]: 1 Sodium Lvl [135-145 mEq/L] 142 mEq/L (08/06/16 11:19 PM) Potassium Lvl [3.5-5.1 mEq/L] 4.0 mEq/L (08/06/16 11:19 PM) Chloride Lvl [95-109 mEq/L] 107 mEq/L (08/06/16 11:19 PM) CO2 [24-32 mEq/L] 25 mEq/L (08/06/16 11:19 PM) AGAP [10.0-20.0 mEq/L] 14.0 mEq/L (08/06/16 11:19 PM) CHEM PANEL Most recent to oldest [Reference Range]: 1 Creatinine Lvl [0.50-1.40 mg/dL] 0.62 mg/dL (08/06/16 11:19 PM) eGFR 119 mL/min/1.73m2 1 *NA* (08/06/16 11:19 PM) BUN [7-22 mg/dL] 18 mg/dL (08/06/16 11:19 PM) B/C Ratio [6-25] 29 *HI* (08/06/16 11:19 PM) Glucose Lvl [70-99 mg/dL] 86 mg/dL (08/06/16 11:19 PM) Total Protein [6.4-8.4 g/dL] 7.1 g/dL (08/06/16 11:19 PM) Albumin Lvl [3.5-5.0 g/dL] 3.3 g/dL *LOW* (08/06/16 11:19 PM) Globulin [2.7-4.2 g/dL] 3.8 g/dL (08/06/16 11:19 PM) A/G Ratio [0.7-1.6] 0.9 (08/06/16 11:19 PM) Calcium Lvl [8.5-10.5 mg/dL] 9.2 mg/dL (08/06/16 11:19 PM) ALT [0-65 unit/L] 12 unit/L (08/06/16 11:19 PM) AST [0-37 unit/L] 11 unit/L (08/06/16 11:19 PM) Alk Phos [39-136 unit/L] 76 unit/L (08/06/16 11:19 PM) Bili Total [0.2-1.3 mg/dL] 0.2 mg/dL (08/06/16 11:19 PM) Lipase Lvl [73-393 unit/L] 293 unit/L (08/06/16 11:19 PM) 1Result Comment: The eGFR is calculated [...] eGFR should be multiplied by the estimated BMI.ENDOCRINOLOGY Most recent to oldest [Reference Range]: 1 S Preg [Negative] Negative *NA* (08/06/16 11:19 PM) URINE AND STOOL Most recent to oldest [Reference Range]: 1 UA Turbidity [Clear] Slight *ABN* (08/07/16 12:55 AM) UA Color [Yellow] Yellow *NA* (08/07/16 12:55 AM) UA pH [5.0-8.0] 8.0 (08/07/16 12:55 AM) UA Spec Grav [<=1.030] 1.045 *HI* (08/07/16 12:55 AM) UA Glucose [Negative mg/dL] Negative mg/dL *NA* (08/07/16 12:55 AM) UA Blood [Negative] Negative (08/07/16 12:55 AM) UA Ketones [Negative mg/dL] Negative mg/dL *NA* (08/07/16 12:55 AM) UA Protein [Negative mg/dL] Negative mg/dL (08/07/16 12:55 AM) UA Urobilinogen [0.1-1.0 mg/dL] <=1.0 mg/dL *NA* (08/07/16 12:55 AM) UA Bili [Negative] Negative *NA* (08/07/16 12:55 AM) UA Leuk Est [Negative] Trace *ABN* (08/07/16 12:55 AM) UA Nitrite [Negative] Negative (08/07/16 12:55 AM) UA WBC [0-5 /HPF] 4 /HPF (08/07/16 12:55 AM) UA RBC [0-2 /HPF] 1 /HPF (08/07/16 12:55 AM) UA Bacteria [None Seen /HPF] Occasional /HPF *NA* (08/07/16 12:55 AM) UA Sq Epi [Few /LPF] Many /LPF *ABN* (08/07/16 12:55 AM) UA Mucus [None Seen /LPF] Few /LPF *NA* (08/07/16 12:55 AM) HEMATOLOGY Most recent to oldest [Reference Range]: 1 WBC [3.7-10.4 K/CMM] 5.2 K/CMM (08/06/16 11:19 PM) RBC [4.20-5.40 M/CMM] 3.99 M/CMM *LOW* (08/06/16 11:19 PM) Hgb [12.0-16.0 g/dL] 12.3 g/dL (08/06/16 11:19 PM) Hct [36.0-48.0 %] 36.6 % (08/06/16 11:19 PM) MCV [80.0-98.0 fL] 91.7 fL (08/06/16 11:19 PM) MCH [27.0-31.0 pg] 30.9 pg (08/06/16 11:19 PM) MCHC [32.0-36.0 g/dL] 33.6 g/dL (08/06/16 11:19 PM) RDW [11.5-14.5 %] 14.6 % *HI* (08/06/16 11:19 PM) Platelet [133-450 K/CMM] 280 K/CMM (08/06/16 11:19 PM) MPV [7.4-10.4 fL] 7.4 fL (08/06/16 11:19 PM) Segs [45.0-75.0 %] 57.0 % (08/06/16 11:19 PM) Lymphocytes [20.0-40.0 %] 29.4 % (08/06/16 11:19 PM) Monocytes [2.0-12.0 %] 11.8 % (08/06/16 11:19 PM) Eosinophils [0.0-4.0 %] 1.6 % (08/06/16 11:19 PM) Basophils [0.0-1.0 %] 0.2 % (08/06/16 11:19 PM) Segs-Bands # [1.5-8.1 K/CMM] 3.0 K/CMM (08/06/16 11:19 PM) Lymphocytes # [1.0-5.5 K/CMM] 1.5 K/CMM (08/06/16 11:19 PM) Monocytes # [0.0-0.8 K/CMM] 0.6 K/CMM (08/06/16 11:19 PM) Eosinophils # [0.0-0.5 K/CMM] 0.1 K/CMM (08/06/16 11:19 PM) Basophils # [0.0-0.2 K/CMM] 0.0 K/CMM (08/06/16 11:19 PM) Immunizations No data available for this section Procedures Procedure Date Related Diagnosis Body Site Cholecystectomy Hysterectomy Laparoscopic sleeve gastrectomy Portal vein cannula insertion Tonsillectomy Social History Social History Type Response Substance Abuse Use: None. Alcohol Never Smoking Status Current every day smoker; Type: Cigarettes; Tobacco use per day : 10; Total pack years: 10; Started at age: [...] patient is trying to quit.2quit 2 months [id number] 1 month ago Assessment and Plan No data available for this section
--- OUTSIDE RECORDS SUMMARY | 2017-12-17 19:32 | XMS REPORT | Summary of Care ---
:1985 Author Organization [facility] Address [address] [place] [address]- Encounter HQ Germania(VANCE) [id number] Date(s): 07/17/16 - 07/17/16 [facility] [address] [place] [address]- Discharge Disposition: Home or Self Care Attending Physician: Grupo Peng MD Vital Signs Most recent to oldest [Reference Range]: 1 Temperature Oral [96.4-99.1 DegF] 98.7 DegF (07/17/16 6:18 PM) Blood Pressure [90-140/60-90 mmHg] 119/81 mmHg (07/17/16 6:18 PM) Respiratory Rate [14-20 BRMIN] 20 BRMIN (07/17/16 6:18 PM) Peripheral Pulse Rate [60-100 bpm] 74 bpm (07/17/16 6:18 PM) Weight 70.455 kg (07/17/16 6:18 PM) Problem List Condition Effective Dates Status [...] patient is trying to quit.2quit 2 months [id number] 1 month ago Assessment and Plan No data available for this section
--- OUTSIDE RECORDS SUMMARY | 2017-12-17 19:32 | XMS REPORT | Summary of Care ---
:1985 Author Organization [facility] Address [address] [place] [address]- Encounter HQ Kumar_carmen(VANCE) [id number] Date(s): 06/18/16 - 06/18/[address] [address]- Discharge Disposition: Home or Self Care Attending Physician: Shireen Bonilla MD Admitting Physician: Shireen Bonilla MD Vital Signs Most recent to oldest 1 2 3 [Reference Range]: Height 165.1 cm (06/16/16 3:57 PM) Temperature Oral [96.4-99.1 97.8 DegF 97.6 DegF 97.7 DegF DegF] (06/18/16 7:07 AM) (06/18/16 4:00 AM) (06/18/16 12:00 AM) Blood Pressure [90-140/60-90 109/69 mmHg 101/66 mmHg 118/71 mmHg mmHg] (06/18/16 7:07 AM) (06/18/16 4:00 AM) (06/18/16 12:00 AM) Respiratory Rate [14-20 BRMIN] 20 BRMIN 20 BRMIN 20 BRMIN (06/18/16 7:07 AM) (06/18/16 4:00 AM) (06/18/16 12:00 AM) Peripheral Pulse Rate [60-100 82 bpm 60 bpm 55 bpm bpm] (06/18/16 7:07 AM) (06/18/16 4:00 AM) *LOW* (06/18/16 12:00 AM) Weight 69.545 kg (06/16/16 3:57 PM) Body Mass Index 25.51 m2 (06/16/16 3:57 PM) Problem List Condition Effective Dates Status [...] Active penicillins Active Ultram Hives Active Medications Ativan 0.5 mg, 1 tab, Route: PO, Drug form: TAB, ONCE, Dosing Weight 69.545, kg, PRN Anxiety, Start date: 06/16/16 16:04:00 SKIVING MACHINE OPERATOR Notes: (Same as: Ativan) Start Date: 06/16/16 Stop Date: 06/17/16 Status: CompletedAtivan 0.5 mg, 0.25 mL, Route: IV, Drug form: INJ, ONCE, Dosing Weight 69.545, kg, For MRI, Priority: NOW, Start date: 06/17/16 11:44:00 SKIVING MACHINE OPERATOR, Stop date: 06/17/16 11:44 :00 SKIVING MACHINE OPERATOR Notes: (Same as: Ativan) Start Date: 06/17/16 Stop Date: 06/17/16 Status: CompletedAtivan 0.5 mg, 1 tab, Route: PO, Drug form: TAB, TID, Dosing Weight 69.545, kg, PRN Anxiety, Start date: 06/17/16 17:54:00 SKIVING MACHINE OPERATOR, Duration: 30 day, Stop date: 17:53:00 SKIVING MACHINE OPERATOR Notes: (Same as: Ativan) Start Date: 06/17/16 Stop Date: 06/18/16 Status: Discontinuedbudesonide 9 mg, 3 cap, Route: PO, Drug form: ERCAP, Daily, Dosing Weight 69.545, kg, Start date: 06/18/16 9:00:00 SKIVING MACHINE OPERATOR, Duration: 30 day, Stop date: 07/17/16 9:00:00 SKIVING MACHINE OPERATOR Notes: (Same As: Entocort EC or Budesonide 3 mg EC / ERC) "Do Not Crush" Start Date: 06/18/16 Stop Date: 06/18/16 Status: Discontinuedcholestyramine 4 gm, 1 pkt, Route: PO, Drug form: PDR/REC, BID, Dosing Weight 69.545, kg, Start date: 06/18/16 9:00:00 SKIVING MACHINE OPERATOR, Duration: 30 day, Stop date: 07/17/16 17:00: 00 SKIVING MACHINE OPERATOR Notes: (Same As: Questran) Start Date: 06/18/16 Stop Date: 06/18/16 Status: DiscontinuedDepakote 500 mg oral enteric coated tablet 500 mg, 1 tab, Route: PO, Drug form: ECTAB, BID, Dosing Weight 69.545, kg, Start date: 06/18/16 9:00:00 SKIVING MACHINE OPERATOR, Duration: 30 day, Stop date: 07/17/16 17:00: 00 SKIVING MACHINE OPERATOR Notes: (Same as: Depakote Delayed Release) Do not confuse with the extended- release tablet. Delayed absorption enteric coated tablet. Do not crush Start Date: 06/18/16 Stop Date: 06/18/16 Status: Discontinuedfamotidine 20 mg oral tablet 20 mg, 1 tab, Route: PO, Drug form: TAB, BID, Dosing Weight 69.545, kg, Start date: 06/18/16 9:00:00CST, Duration: 30 day, Stop date: 07/17/16 17:00:00 SKIVING MACHINE OPERATOR Notes: (Same as: Pepcid) Start Date: 06/18/16 Stop Date: 06/18/16 Status: DiscontinuedHeparin Lock 100 units/mL INJ solution 500 unit, 5 mL, Route: INJ, Drug Form: SOLN, Dosing Weight 69.545, kg, ONCE, Start date: 06/18/16 12:00:00 SKIVING MACHINE OPERATOR, Stop date: 06/18/16 12:00:00 SKIVING MACHINE OPERATOR Notes: (Same as: Heparin Lock Flush) Start Date: 06/18/16 Stop Date: 06/18/16 Status: CompletedImitrex 25 mg oral tablet 25 mg=1 tab, PO, Daily, PRN for migraine headache, X 9 day, # 9 tab, 0 Refill(s) Start Date: 06/18/16 Stop Date: 06/27/16 Status: OrderedImuran 50 mg, 1 tab, Route: PO, Drug form: TAB, Daily, Dosing Weight 69.545, kg, Start date: 06/18/16 9:00:00 SKIVING MACHINE OPERATOR, Duration: 30 day, Stop date: 07/17/16 9:00:00 SKIVING MACHINE OPERATOR Notes: (Same As: Imuran) Start Date: 06/18/16 Stop Date: 06/18/16 Status: DiscontinuedNorco 5/325 oral tablet 2 tab, Route: PO, Drug Form: TAB, Dosing Weight 69.545, kg, Q6H, PRN Pain Score 4-6, pt states she not allergic to norco, Start date: 06/16/16 16:05:00 SKIVING MACHINE OPERATOR, Duration: 30 day, Stop date: 07/16/16 16:04:00 SKIVING MACHINE OPERATOR Notes: (Same as: Clinton 325/5) Do not exceed 4gm/day of acetaminophen. Start Date: 06/16/16 Stop Date: 06/18/16 Status: DiscontinuedPlaquenil Sulfate 200 mg oral tablet 200 mg, 1 tab, Route: PO, Drug form: TAB, BID, Dosing Weight 69.545, kg, Start date: 06/18/16 9:00:00 SKIVING MACHINE OPERATOR, Duration: 30 day, Stop date: 07/17/16 17:00:00 SKIVING MACHINE OPERATOR Notes: (Same as: Plaquenil)Hydroxychloroquine sulfate 200 un=511 mg hydroxychloroquine base. If treating malaria, verify dose as salt vs. base per CDC guideline Start Date: 06/18/16 Stop Date: 06/18/16 Status: DiscontinuedRemeron 15 mg, 1 tab, Route: PO, Drug form: TAB, Bedtime, Dosing Weight 69.545, kg, Start date: 06/17/16 21:00:00 SKIVING MACHINE OPERATOR, Duration: 30 day, Stop date: 07/16/16 21:00: 00 SKIVING MACHINE OPERATOR Notes: (Same as:Remeron) Start Date: 06/17/16 Stop Date: 06/18/16 Status: Discontinuedtrazodone 25 mg, PO, as needed 3 times a week, 0 Refill(s) Start Date: 06/17/16 Status: OrderedTylenol 650 mg, 2 tab, Route: PO, Drug form: TAB, Q6H, PRN Headache 1-3, Start date: 14:00:00 SKIVING MACHINE OPERATOR, Duration: 30 day, Stop date: 07/16/16 13:59:00 SKIVING MACHINE OPERATOR Notes: Do not exceed 4 gm/day. (Same as: Tylenol) Start Date: 06/16/16 Stop Date: 06/18/16 Status: Discontinued Results CARDIAC ENZYMES Most recent to oldest [Reference Range]: 1 2 Total CK [12-191 unit/L] 34 unit/L 36 unit/L (06/16/16 10:46 PM) (06/16/16 5:07 PM) Troponin-I [0.00-0.40 ng/mL] 0.02 ng/mL <0.02 ng/mL (06/16/16 10:46 PM) (06/16/16 5:07 PM) Immunizations No data available for this [...] patient is trying to quit.2quit 2 months [id number] 1 month ago Assessment and Plan Extracted from: Title: Progress Note * Author: Adenike Dumont MD Date: 06/18/16 Impression and Plan The patient was seen and examined by me with the resident/DEAN/PA and I agree with the History/Exam documented. left arm weakness and numness-- seen by neuro--MRI c spine done-- symtopms resolved headache--resolved poss psychological issue-- pt denies any form of stress hx bipolar/anxiety--continue meds hx crohns--stable dvt ppx dispo--home Extracted from: Title: Neurology Consultation Note Author: Carmen Ceron MD Date: Impression and Plan Patient is a 31 year old female with a history of Crohns disease, Lupus, bipolar, depression, anxiety, and PTSD, who was transferred to [facility] from [facility] yesterday, for acute left headache, left arm and leg weakness and numbness on 06/16/15. Brain CT scan from OSH was unremarkable. On exam, she now reports her left leg strength has moderately improved but remains with some numbness, and still gonzaelz s some numbness and weakness to her left forearm and hand. She denies speech problems, dizziness, visual changes, fever, abd pain, SOB. Patient's brain MRI did not show any acute intracerebral abnormal ities, with an NIH stroke scale of 3. Numbness and weakness appears to be improving with a localized radial distribution, we will obtain an MRI of c- spine to rule out any cervical stenosis. Her headache appears to be tension related. Impression: Tension GONZALEZ (cap like GONZALEZ, radiating to neck) numbness and weakness in radial distrubtion, r/o cervical radiculopathy with MRI cervical spine Recommendations: - MRI c-spine pending - Fall precautions - PT/OT - Headache: improving, continue current pain regimen Patient seen, examined, discussed with Dr Carmen Ceron and in agreement with above plan. Naz Giraldo MSN, AIRFIELD ENGINEER OFFICER, ACNP- Neurosurgery Acute Care Nurse Practitioner
--- OUTSIDE RECORDS SUMMARY | 2017-12-17 19:32 | XMS REPORT | Summary of Care ---
:1985 Author Organization [facility] Address [address] [place], [place] [address]- Encounter HQ Kumar_carmen(FIN) [id number] Date(s): 01/21/16 - 01/24/16 [facility] [address] [place] [address]- Discharge Disposition: Home or Self Care Attending Physician: Tyler Guerrero MD Admitting Physician: Tyler Guerrero MD Vital Signs Most recent to oldest [Reference 1 2 3 Range]: Height 165.1 cm (01/21/16 9:44 PM) Temperature Oral [96.4-99.1 DegF] 98.4 DegF 98.2 DegF 97.7 DegF (01/24/16 4:00 PM) (01/24/16 12:00 PM) (01/24/16 8:00 AM) Blood Pressure [90-140/60-90 101/64 mmHg 127/75 mmHg 104/65 mmHg mmHg] (01/24/16 4:00 PM) (01/24/16 12:00 PM) (01/24/16 8:55 AM) Respiratory Rate [14-20 BRMIN] 16 BRMIN 18 BRMIN 18 BRMIN (01/24/16 4:00 PM) (01/24/16 12:00 PM) (01/24/16 8:00 AM) Peripheral Pulse Rate [60-100 86 bpm 88 bpm 62 bpm bpm] (01/24/16 4:00 PM) (01/24/16 12:00 PM) (01/24/16 8:55 AM) Weight 68.892 kg (01/21/16 9:44 PM) Body Mass Index 25.27 m2 (01/21/16 9:44 PM) Problem List Condition Effective Dates Status [...] Active Ultram Hives Active Medications ALPRAZOLam 1 mg oral tablet 1 mg, 1 tab, Route: PO, Drug form: TAB, Bedtime, Dosing Weight 68.892, kg, Priority: NOW, Start date: 01/21/16 23:13:00 CDT, Duration: 30 day, Stop date: 02/20/16 21:00:00 CDT Notes: With food or milk(Same as: Xanax) Start Date: 01/21/16 Stop Date: 01/24/16 Status: Discontinuedbudesonide 9 mg, 3 cap, Route: PO, Drug form: ERCAP, Daily, Dosing Weight 68.892, kg, Start date: 01/22/16 9:00:00 CDT, Duration: 30 day, Stop date: 02/20/16 9:00:00 CDT Notes: (Same As: Entocort EC or Budesonide 3 mg EC / ERC) "Do Not Crush" Start Date: 01/22/16 Stop Date: 01/24/16 Status: DiscontinuedCeleXA 40 mg, 4 tab, Route: PO, Drug form: TAB, Daily, Dosing Weight 68.892, kg, Start date: 01/22/16 9:00:00 CDT, Duration: 30 day, Stop date: 02/20/16 9:00:00 CDT Start Date: 01/22/16 Stop Date: 01/24/16 Status: Discontinuedcholestyramine 4 gm, 1 pkt, Route: PO, Drug form: PDR/REC, BID, Dosing Weight 68.892, kg, Start date: 01/22/16 9:00:00 CDT, Duration: 30 day, Stop date: 02/20/16 17:00: 00 CDT Notes: (Same As: Questran) Start Date: 01/22/16 Stop Date: 01/22/16 Status: [id number] 1/2NS + KCL 40mEq/L 1000ml (Premix) 1,000 mL 1,000 mL, Rate: 100 ml/hr, Infuse over: 10 hr, Route: IV, Dosing Weight 68.892 kg, Total Volume: 1,000, Start date: 01/23/16 14:58:00 CDT, Duration: 30 day, Stop date: 02/22/16 14:57:00 CDT Notes: PREMIX IV - Do Not AlterWASTE: F/P - Sink; E - Municipal Trash Bin Start Date: 01/23/16 Stop Date: 01/24/16 Status: DiscontinuedDepakote 250 mg oral enteric coated tablet 500 mg, 2 tab, Route: PO, Drug form: ECTAB, BID, Dosing Weight 68.892, kg, Start date: 01/22/16 9:00:00 CDT, Duration: 30 day, Stop date: 02/20/16 17:00: 00 CDT Notes: (Same as: Depakote Delayed Release) Do not confuse with the extended- release tablet. Delayed absorption, enteric coated tablet. Do not crush Start Date: 01/22/16 Stop Date: 01/24/16 Status: DiscontinuedDilaudid 0.5 mg, 0.5 mL, Route: IVP, Drug form: INJ, ONCE, Dosing Weight 68.892, kg, Priority: STAT, Start date: 01/24/16 16:56:00 CDT, Stop date: 01/24/16 16:56:00 CDT Start Date: 01/24/16 Stop Date: 01/24/16 Status: Completedfamotidine 20 mg oral tablet 20 mg, 1 tab, Route: PO, Drug form: TAB, BID, Dosing Weight 68.892, kg, Start date: 01/22/16 18:00:00 CDT, Duration: 30 day, Stop date: 02/21/16 17:00:00 CDT Notes: (Same as: Pepcid) Start Date: 01/22/16 Stop Date: 01/24/16 Status: Discontinuedfamotidine 20 mg oral tablet 20 mg=1 tab, PO, BID, # 60 tab, 0 Refill(s) Start Date: 01/24/16 Stop Date: 02/23/16 Status: Orderedfidaxomicin 200 mg, 1 tab, Route: PO, Drug form: TAB, [id number], Dosing Weight 68.892, kg, Start date: 01/22/16 18:00:00 CDT, Duration: 10 day, Stop date: 02/01/16 6:00: 00 CDT Notes: Reserved for use by ID Physicians in patients with positive C. difficile infection, refractory to vancomycin and metronidazole. (Same as: Dificid) Start Date: 01/22/16 Stop Date: 01/24/16 Status: Discontinuedfidaxomicin 200 mg oral tablet 200 mg=1 tab, PO, BID, X 10 day, # 20 tab, 0 Refill(s) Start Date: 01/24/16 Stop Date: 02/03/16 Status: OrderedFlagyl 500 mg, 100 mL, Route: IVPB, Drug form: INJ, ABXQ6H, Dosing Weight 68.892, kg, Start date: 01/22/16 0:00:00 CDT, Duration: 30 day, Stop date: 02/20/16 18:00: 00 CDT Notes: (Same as: Flagyl) Avoid alcohol. Start Date: 01/22/16 Stop Date: 01/22/16 Status: Discontinuedheparin flush 500 unit, 5 mL, Route: IVP, Drug form: SOLN, Q30D, PRN Other -See Comment, Start date: 01/24/16 16:25:00 CDT, Duration: 30 day, Stop date: 02/23/16 16:24: 00 CDT Notes: (Same as: Heparin Lock Flush) Start Date: 01/24/16 Stop Date: 01/24/16 Status: Discontinuedhydromorphone 0.5 mg, 0.5 mL, Route: IVP, Drug form: INJ, Q3H, Dosing Weight 68.892, kg, PRN Pain Score 7-10, Start date: 01/21/16 23:05:00 CDT, Duration: 30 day, Stop date : 02/20/16 23:04:00 CDT Start Date: 01/21/16 Stop Date: 01/24/16 Status: Discontinuedhydroxychloroquine sulfate 200 mg oral tablet 200 mg, 1 tab, Route: PO, Drug form: TAB, BID, Dosing Weight 68.892, kg, Start date: 01/22/16 9:00:00 CDT, Duration: 30 day, Stop date: 02/20/16 17:00:00 CDT Notes: (Same as: Plaquenil)Hydroxychloroquine sulfate 200 yy=582 mg hydroxychloroquine base. If treating malaria, verify dose as salt vs. base per CDC guideline Start Date: 01/22/16 Stop Date: 01/24/16 Status: DiscontinuedhydrOXYzine pamoate 50 mg oral capsule 50 mg, 2 cap, Route: PO, Drug form: CAP, TID, Dosing Weight 68.892, kg, Start date: 01/22/16 9:00:00CDT, Duration: 30 day, Stop date: 02/20/16 17:00:00 CDT Notes: (Same as: Vistaril) Start Date: 01/22/16 Stop Date: 01/24/16 Status: DiscontinuedImuran 100 mg, 2 tab, Route: PO, Drug form: TAB, Daily, Dosing Weight 68.892, kg, Start date: 01/22/16 9:00:00 CDT, Duration: 30 day, Stop date: 02/20/16 9:00:00 CDT Notes: (Same As: Imuran) Start Date: 01/22/16 Stop Date: 01/24/16 Status: DiscontinuedNorco 10/325 oral tablet 1 tab, Route: PO, Drug Form: TAB, Dosing Weight 68.892, kg, Q6H, PRN Pain Score 4-6, Start date: 01/24/16 17:03:00 CDT, Duration: 30 day, Stop date: 02/23/16 17 :02:00 CDT Notes: Do not exceed 4gm/day of acetaminophen. (Same as: [place] 325/10) Start Date: 01/24/16 Stop Date: 01/24/16 Status: DiscontinuedNorco 10/325 oral tablet See Instructions, 1 tab PO Q12H prn pain, # 15 tab, 0 Refill(s), given to patient Start Date: 01/24/16 Stop Date: 02/23/16 Status: OrderedNorco 5/325 oral tablet 1 tab, Route: PO, Drug Form: TAB, Dosing Weight 68.892, kg, ONCE, Start date: 15:00:00 CDT,Stop date: 01/24/16 15:00:00 CDT Notes: (Same as: [place] 325/5) Do not exceed 4gm/day of acetaminophen. Start Date: 01/24/16 Stop Date: 01/24/16 Status: Completedondansetron 4 mg, Route: IVP, Q8H, Dosing Weight 68.892, kg, PRN Nausea & Vomiting, Start date: 01/21/16 23:05:00 CDT, Duration: 30 day, Stop date: 02/20/16 23:04: 00 CDT Start Date: 01/21/16 Stop Date: 01/21/16 Status: Deletedondansetron 4 mg, 2 mL, Route: IVP, Drug form: INJ, Q6H, Dosing Weight 68.892, kg, PRN Nausea & Vomiting, Start date: 01/21/16 23:05:00 CDT, Duration: 30 day, Stop date: 02/20/16 23:04:00 CDT Notes: (Same as: Alysa) MEDICATION WASTE Product Size: 4 mgProduct Wasted: ___ mg Start Date: 01/21/16 Stop Date: 01/24/16 Status: Discontinuedpneumococcal 13-valent vaccine 0.5 mL, Route: IM, Drug Form: INJ, Daily, Start date: 01/25/16 9:00:00 CDT, Stop date: 01/25/16 17:00:00 CDT Notes: Lightly roll vial (DO NOT SHAKE) before administration. (Same as: Prevnar 13) Start Date: 01/25/16 Stop Date: 01/24/16 Status: Canceledpotassium chloride 40 mEq, 2 tab, Route: PO, Drug form: ERTAB, ONCE, Dosing Weight 68.892, kg, Start date: 01/22/16 12:38:00 CDT, Stop date: 01/22/16 12:38:00 CDT Notes: (Same as: K-Dur 20)"Do Not Crush" With food and full glass of water Start Date: 01/22/16 Stop Date: 01/22/16 Status: Completedpromethazine 12.5 mg, 1 tab, Route: PO, Drug form: TAB, Q4H, Dosing Weight 68.892, kg, PRN Nausea & Vomiting,Start date: 01/21/16 23:05:00 CDT, Duration: 30 day, Stop date: 02/20/16 23:04:00 CDT Notes: (Same as: Phenergan) Start Date: 01/21/16 Stop Date: 01/24/16 Status: DiscontinuedProtonix 40 mg, 1 tab, Route: PO, Drug form: ECTAB, BID-Before Meals, Dosing Weight 68.892, kg, Start date: 01/22/16 7:30:00 CDT, Duration: 30 day, Stop date: 02/19 16:30:00 CDT Notes: Tablet should not be chewed or crushed.(Same as: Protonix) Start Date: 01/22/16 Stop Date: 01/22/16 Status: DiscontinuedRemeron 15 mg, 1 tab, Route: PO, Drug form: TAB, Bedtime, Dosing Weight 68.892, kg, Start date: 01/22/16 21:00:00 CDT, Duration: 30 day, Stop date: 02/20/16 21:00: 00 CDT Notes: (Same as:Remeron) Start Date: 01/22/16 Stop Date: 01/24/16 Status: DiscontinuedSaline Flush 0.9% 10 ml, Route: IVP, Drug Form: INJ, Dosing Weight 68.892, kg, PRN, PRN Line Flush , Start date: 01/21/16 23:05:00 CDT, Duration: 30 day, Stop date: 02/20/16 23:04 :00 CDT Notes: (Same as: BD Posiflush) Start Date: 01/21/16 Stop Date: 01/24/16 Status: Discontinuedsodium chloride 10 mL, Route: IVP, Start date: 01/24/16 16:25:00 CDT, Duration: 30 day, Stop date: 02/23/16 16:24:00CDT, PRN Other -See Comment Notes: preservative free. Start Date: 01/24/16 Stop Date: 01/24/16 Status: Discontinuedsodium chloride 20 mL, Route: IVP, Start date: 01/24/16 16:25:00 CDT, Duration: 30 day, Stop date: 02/23/16 16:24:00CDT, PRN Other -See Comment Notes: preservative free. Start Date: 01/24/16 Stop Date: 01/24/16 Status: Discontinuedsodium chloride 0.9% 1000 ml INJ 1,000 mL 1,000 mL, Rate: 125 ml/hr, Infuse over: 8 hr, Route: IV, Dosing Weight 68.892 kg , Total Volume: 1,000, Start date: 01/21/16 23:05:00 CDT, Duration: 30 day, Stop date: 02/20/16 23:04:00 CDT Start Date: 01/21/16 Stop Date: 01/23/16 Status: Discontinuedvancomycin 500 mg, 10 mL, Route: PO, Drug form: SUSP, ABXQ6H, Dosing Weight 68.892, kg, Start date: 01/22/16 0:00:00 CDT, Duration: 30 day, Stop date: 02/20/16 18:00: 00 CDT Notes: TIME CRITICAL MEDICATION"DILUTE EACH DOSE WITH 30ML OF WATER OR APPLE/ ORANGE JUICE PRIOR TO ADMINISTRATION" Start Date: 01/22/16 Stop Date: 01/22/16 Status: Discontinued Results ELECTROLYTES Most recent to oldest 1 2 3 [Reference Range]: Sodium Lvl [135-145 mEq/L] 143 mEq/L 144 mEq/L 141 mEq/L (01/24/16 5:47 AM) (01/23/16 5:15 AM) (01/22/16 5:23 AM) Potassium Lvl [3.5-5.1 mEq/L] 3.9 mEq/L 3.5 mEq/L 3.2 mEq/L (01/24/16 5:47 AM) (01/23/16 5:15 AM) *LOW* (01/22/16 5:23 AM) Chloride Lvl [95-109 mEq/L] 110 mEq/L 110 mEq/L 108 mEq/L *HI* *HI* (01/22/16 5:23 AM) (01/24/16 5:47 AM) (01/23/16 5:15 AM) CO2 [24-32 mEq/L] 28 mEq/L 25 mEq/L 25 mEq/L (01/24/16 5:47 AM) (01/23/16 5:15 AM) (01/22/16 5:23 AM) AGAP [10.0-20.0 mEq/L] 8.9 mEq/L 12.5 mEq/L 11.2 mEq/L *LOW* (01/23/16 5:15 AM) (01/22/16 5:23 AM) (01/24/16 5:47 AM) CHEM PANEL Most recent to oldest 1 2 3 [Reference Range]: Creatinine Lvl [0.50-1.40 0.48 mg/dL 0.57 mg/dL 0.54 mg/dL mg/dL] *LOW* (01/23/16 5:15 AM) (01/22/16 5:23 AM) (01/24/16 5:47 AM) eGFR 130 mL/min/1.73m2 1 123 mL/min/1.73m2 2 125 mL/min/1.73m2 3 *NA* *NA* *NA* (01/24/16 5:47 AM) (01/23/16 5:15 AM) (01/22/16 5:23 AM) BUN [7-22 mg/dL] 3 mg/dL 4 mg/dL 13 mg/dL *LOW* *LOW* (01/22/16:23 AM) (01/24/16 5:47 AM) (01/23/16:15 AM) B/C Ratio [6-25] 7 24 (01/23/16 5:15 AM) (01/22/16 5:23 AM) Glucose Lvl [70-99 mg/dL] 91 mg/dL 85 mg/dL 99 mg/dL (01/24/16 5:47 AM) (01/23/16 5:15 AM) (01/22/16 5:23 AM) Total Protein [6.4-8.4 5.9 g/dL 6.7 g/dL g/dL] *LOW* (01/22/16 5:23 AM) (01/23/16 5:15 AM) Albumin Lvl [3.5-5.0 g/dL] 3.0 g/dL 3.4 g/dL *LOW* *LOW* (01/23/16 5:15 AM) (01/22/16 5:23 AM) Globulin [2.7-4.2 g/dL] 2.9 g/dL 3.3 g/dL (01/23/16 5:15 AM) (01/22/16 5:23 AM) A/G Ratio [0.7-1.6] 1.0 1.0 (01/23/16 5:15 AM) (01/22/16 5:23 AM) Calcium Lvl [8.5-10.5 8.2 mg/dL 8.0 mg/dL 8.2 mg/dL mg/dL] *LOW* *LOW* *LOW* (01/24/16 5:47 AM) (01/23/16 5:15 AM) (01/22/16 5:23 AM) Magnesium Lvl [1.8-2.4 1.8 mg/dL mg/dL] (01/23/16 5:15 AM) ALT [0-65 unit/L] 7 unit/L 10 unit/L (01/23/16 5:15 AM) (01/22/16 5:23 AM) AST [0-37 unit/L] 7 unit/L 12 unit/L (01/23/16:15 AM) (01/22/16 5:23 AM) Alk Phos [39-136 unit/L] 60 unit/L 69 unit/L (01/23/16 5:15 AM) (01/22/16 5:23 AM) Bili Total [0.2-1.3 mg/dL] 0.3 mg/dL 0.3 mg/dL (01/23/16 5:15 AM) (01/22/16 5:23 AM) Lipase Lvl [73-393 unit/L] 156 unit/L (01/23/16 5:15 AM) 1Result Comment: The eGFR is calculated [...] eGFR should be multiplied by the estimated BMI.ANEMIA STUDY Most recent to oldest [Reference Range]: 1 2 3 Iron [30-160 ug/dl] 118 ug/dl (01/22/16 11:00 AM) % Satur Fe [12-57 %] 35 % (01/22/16 11:00 AM) UIBC [110-370 ug/dl] 221 ug/dl (01/22/16 11:00 AM) Vitamin B12 Lvl [254-1320 pg/mL] 254 pg/mL (01/22/16 11:00 AM) TIBC [228-428 ug/dl] 339 ug/dl (01/22/16 11:00 AM) URINE AND STOOL Most recent to oldest [Reference Range]: 1 2 3 UA Turbidity [Clear] Clear (01/22/16 8:00 PM) UA Color [Yellow] Yellow *NA* (01/22/16 8:00 PM) UA pH [5.0-8.0] 5.0 (01/22/16 8:00 PM) UA Spec Grav [<=1.030] 1.014 (01/22/16 8:00 PM) UA Glucose [Negative mg/dL] Negative mg/dL *NA* (01/22/16 8:00 PM) UA Blood [Negative] Negative (01/22/16 8:00 PM) UA Ketones [Negative mg/dL] Negative mg/dL *NA* (01/22/16 8:00 PM) UA Protein [Negative mg/dL] Negative mg/dL (01/22/16 8:00 PM) UA Urobilinogen [0.1-1.0 mg/dL] <=1.0 mg/dL *NA* (01/22/16 8:00 PM) UA Bili [Negative] Negative *NA* (01/22/16 8:00 PM) UA Leuk Est [Negative] Trace *ABN* (01/22/16 8:00 PM) UA Nitrite [Negative] Negative (01/22/16 8:00 PM) UA WBC [0-5 /HPF] 1 /HPF (01/22/16 8:00 PM) UA RBC [0-2 /HPF] 1 /HPF (01/22/16 8:00 PM) UA Bacteria [None Seen /HPF] Occasional /HPF *NA* (01/22/16 8:00 PM) UA Sq Epi [Few /LPF] Few /LPF *NA* (01/22/16 8:00 PM) UA Mucus [None Seen /LPF] Few /LPF *NA* (01/22/16 8:00 PM) Occult Bld Stl [Negative] Negative (01/22/16 6:43 PM) HEMATOLOGY Most recent to oldest 1 2 3 [Reference Range]: WBC [3.7-10.4 K/CMM] 3.9 K/CMM 3.9 K/CMM 5.2 K/CMM (01/24/16 5:47 AM) (01/23/16 5:15 AM) (01/22/16 5:23 AM) RBC [4.20-5.40 M/CMM] 3.24 M/CMM 3.11 M/CMM 3.41 M/CMM *LOW* *LOW* *LOW* (01/24/16 5:47 AM) (01/23/16 5:15 AM) (01/22/16 5:23 AM) Hgb [12.0-16.0 g/dL] 10.3 g/dL 9.9 g/dL 10.8 g/dL *LOW* *LOW* *LOW* (01/24/16 5:47 AM) (01/23/16 5:15 AM) (01/22/16 5:23 AM) Hct [36.0-48.0 %] 29.9 % 28.5 % 31.1 % *LOW* *LOW* *LOW* (01/24/16 5:47 AM) (01/23/16 5:15 AM) (01/22/16 5:23 AM) MCV [80.0-98.0 fL] 92.6 fL 91.6 fL 91.3 fL (01/24/16 5:47 AM) (01/23/16 5:15 AM) (01/22/16 5:23 AM) MCH [27.0-31.0 pg] 31.7 pg 31.9 pg 31.7 pg *HI* *HI* *HI* (01/24/16 5:47 AM) (01/23/16 5:15 AM) (01/22/16 5:23 AM) MCHC [32.0-36.0 g/dL] 34.3 g/dL 34.8 g/dL 34.7 g/dL (01/24/16 5:47 AM) (01/23/16 5:15 AM) (01/22/16 5:23 AM) RDW [11.5-14.5 %] 13.0 % 13.2 % 12.9 % (01/24/16 5:47 AM) (01/23/16 5:15 AM) (01/22/16 5:23 AM) Platelet [133-450 K/CMM] 194 K/CMM 186 K/CMM 211 K/CMM (01/24/16 5:47 AM) (01/23/16 5:15 AM) (01/22/16 5:23 AM) MPV [7.4-10.4 fL] 7.1 fL 7.5 fL 7.4 fL *LOW* (01/23/16 5:15 AM) (01/22/16 5:23 AM) (01/24/16 5:47 AM) Segs [45.0-75.0 %] 39.7 % 45.4 % 42.2 % *LOW* (01/23/16 5:15 AM) *LOW* (01/24/16 5:47 AM) (01/22/16 5:23 AM) Lymphocytes [20.0-40.0 %] 43.1 % 37.7 % 44.4 % *HI* (01/23/16 5:15 AM) *HI* (01/24/16 5:47 AM) (01/22/16 5:23 AM) Monocytes [2.0-12.0 %] 11.3 % 12.4 % 9.8 % (01/24/16 5:47 AM) *HI* (01/22/16 5:23 AM) (01/23/16 5:15 AM) Eosinophils [0.0-4.0 %] 5.0 % 3.9 % 2.8 % *HI* (01/23/16 5:15 AM) (01/22/16 5:23 AM) (01/24/16 5:47 AM) Basophils [0.0-1.0 %] 0.9 % 0.6 % 0.8 % (01/24/16 5:47 AM) (01/23/16 5:15 AM) (01/22/16 5:23 AM) Segs-Bands # [1.5-8.1 K/CMM] 1.6 K/CMM 1.8 K/CMM 2.2 K/CMM (01/24/16 5:47 AM) (01/23/16 5:15 AM) (01/22/16 5:23 AM) Lymphocytes # [1.0-5.5 K/CMM] 1.7 K/CMM 1.5 K/CMM 2.3 K/CMM (01/24/16 5:47 AM) (01/23/16 5:15 AM) (01/22/16 5:23 AM) Monocytes # [0.0-0.8 K/CMM] 0.4 K/CMM 0.5 K/CMM 0.5 K/CMM (01/24/16 5:47 AM) (01/23/16 5:15 AM) (01/22/16 5:23 AM) Eosinophils # [0.0-0.5 K/CMM] 0.2 K/CMM 0.2 K/CMM 0.1 K/CMM (01/24/16 5:47 AM) (01/23/16 5:15 AM) (01/22/16 5:23 AM) PT [12.0-14.7 seconds] 15.1 seconds *HI* (01/22/16 5:23 AM) INR [0.85-1.17] 1.16 (01/22/16 5:23 AM) PTT [22.9-35.8 seconds] 36.6 seconds *HI* (01/22/16 5:23 AM) Immunizations No data available for this [...] patient is trying to quit.[email or web address] 2 months [id number] 1 month ago Assessment and Plan Extracted from: Title: Clinical Document Author: Chao Dorado MD Date: 01/24/16 Progress Note Gastroenterology and Hepatology ASSESSMENT /PLAN: 1. Acute on chronic diarrhea, likely related to Clostridium difficile colitis , on background Crohn's disease. 2. Crohn's disease, ileocolitis, by report, was quiescent at the colonoscopy in 12/02. 3. Mild anemia. 4. Chronic pain and drug seeking behavior. Recommend - Continue Fidaxomicin per ID recs. - Consult pain management; d/c iv narcotics. SUBJECTIVE: Pt still c/o diarrhea and abdominal pain. Getting dilaudid iv q3 hrs per nurse. Review of Systems: (-)=Negative,(+)=Positive 1) Const: (-) [...] , BS + Ext : no edema TRANSPORT NURSE: No gross motor/sensory defects Vitals Tmp(F) Pulse BP RR SpO2 FIO2 01/23 16:00 98.4 86 101/64 16 97 --- 01/23 12:00 98.2 88 127/75 18 100 --- 01/23 08:55 ---- 62 104/65 -- --- --- 01/23 08:00 97.7 63 96/59 18 98 --- 01/23 03:52 97.8 64 109/67 18 100 --- 24 Hr Tmax: 98.4F (36.89c) at 01/23 16:00 Vital Signs are the last 5 in the past 48 hours. Lines, Tubes, and Drains: 01/21/2016 21:00 Central Lines: Subclavian, right Non-tunneled (most common) Single Cholecystectomy Tonsillectomy Laparoscopic sleeve gastrectomy Portal vein cannula insertion Hysterectomy I&O Record In Out Bal 01/23 24hr Tot 3 0 3 01/22 24hr Tot 848 0 848 Medications (15) Active Scheduled: (11) ALPRAZolam 1 mg TAB 1 mg 1 tab, PO, Bedtime azaTHIOprine 50 mg TAB 100 mg 2 tab, PO, Daily budesonide 3 mg ERC 9 mg 3 cap, PO, Daily citalopram 10 mg TAB 40 mg 4 tab, PO, Daily divalproex sodium 250 mg ECT 500 mg 2 tab, PO, BID famotidine 20 mg tab 20 mg 1 tab, PO, BID fidaxomicin 200mg TAB 200 mg 1 tab, PO, [id number] hydroxychloroquine sulfate 200 mg TAB 200 mg 1 tab, PO, BID hydrOXYzine pamoate 25 mg CAP 50 mg 2 cap, PO, TID mirtazapine 15 mg TAB 15 mg 1 tab, PO, Bedtime pneumococcal 13-valent conjugate vaccine SUSP 0.5 mL, IM, Daily Continuous: (1) D5W 1/2NS + KCL 40mEq/L 1000ml (Premix) 1,000 mL 1,000 mL, IV, 100 ml/hr PRN: (3) ondansetron 4mg/2mL INJ SYRINGE 4 mg 2 mL, IVP, Q6H promethazine 12.5 mg TAB 12.5 mg 1 tab, PO, Q4H sodium chloride 0.9% 10 ml flush syr BD 10 ml, IVP, PRN Labs (Last four charted values) WBC 3.9 (JAN 23) 3.9 (JAN 22) 5.2 (JAN 21) Hgb L 10.3 (JAN 23) L 9.9 (JAN 22) L 10.8 (JAN 21) Hct L 29.9 (JAN 23) L 28.5 (JAN 22) L 31.1 (JAN 21) Plt 194 (JAN 23) 186 (JAN 22) 211 (JAN 21) Na 143 (JAN 23) 144 (JAN 22) 141 (JAN 21) K 3.9 (JAN 23) 3.5 (JAN 22) L 3.2 (JAN 21) CO2 28 (JAN 23) 25 (JAN 22) 25 (JAN 21) Cl H 110 (JAN 23) H 110 (JAN 22) 108 (JAN 21) Cr L 0.48 (JAN 23) 0.57 (JAN 22) 0.54 (JAN 21) BUN L 3 (JAN 23) L 4 (JAN 22) 13 (JAN 21) Glucose Random 91 (JAN 23) 85 (JAN 22) 99 (JAN 21) Mg 1.8 (JAN 22) Ca L 8.2 (JAN 23) L 8.0 (JAN 22) L 8.2 (JAN 21) PT H 15.1 (JAN 21) INR 1.16 (JAN 21) PTT H 36.6 (JAN 21) Extracted from: Title: Clinical Document Author: Dominic Carl MD Date: 01/21/16 PATIENT NAME: CAROLYN POLLARD ATTENDING PHYSICIAN: TYLER GUERRERO DATE OF ADMISSION: 01/21/16 * * * CC: "DIARRHEA, ABDOMINAL PAIN" REASON FOR ADMISSION: CDIFF COLITIS, ABDOMINAL PAIN HISTORY OF PRESENT ILLNESS: Patient is a 30-year-old female with past medical history of Crohn ileocolitis , C. diff, bipolar disorder, GERD, anxiety, depression, questionable lupus, PTSD who was transferred to [facility] from [facility] for management of acute CDIFF colitis. Pt has been treated for CDIFF on several occasions over the past 6 months, most recently DC'd 12/21/2015 from this facility after presenting with similar symptoms. S he was Dx with Crohns in 2012 and sometime after that with SLE, initially believed to be secondary to Rem[employer]. She is currently on Imuran for her Crohns iliocolitis and claims good success on this [facility]. She began having cramping abdominal pain over the past 24 hours. Denies hematochezia, melena, hematemesis but admits to N/V. She denies fever but admits to chills. PAST MEDICAL HISTORY: see HPI PAST SURGICAL HISTORY: Cholecystectomy, laparoscopic sleeve gastrectomy, hysterectomy and tonsillectomy. FAMILY HISTORY: non-contributory ALLERGIES: Allergies (4) Active Reaction NSAIDs None documented Ultram Hives Paxil Hives penicillins None documented HOME MEDICATIONS: please see medical reconciliation form SOCIAL HISTORY: denies illicit drug use, EtOH use or tobacco use REVIEW OF SYSTEMS: a 12 point review of systems was negative except for that mentioned in the above HPI PHYSICAL EXAMINATION: Vitals Tmp(F) Pulse BP RR SpO2 FIO2 01/20 21:25 98.4 78 117/75 17 99 --- 24 Hr Tmax: 98.4F (36.89c) at 09 21:25 Vital Signs are the last 5 in the past 48 hours. I&O Record In Out Bal 24hr Tot 0 0 0 24hr Tot 0 0 0 GENERAL: in no apparent distress at this time. HEENT: EOMI NECK: supple, no jugular venous distention, no masses, no bruits CARDIOVASCULAR: regular rate and rhythm, s1 and s2 present, no murmurs, rubs or gallops LUNGS: clear to auscultation bilaterally, no wheezes, rales or rhonchi. GASTROINTESTINAL: soft, diffuse moderate abdominal tenderness without rebound or guarding. EXTREMITIES: no clubbing, cyanosis or edema, pulses 2+ bilaterally and symmetric. NEUROLOGICAL: intact, no gross deficits noted SKIN: warm, no erythema, ecchymoses, purpura or petechiae, no jaundice, no diaphoresis PSYCHIATRIC: Emotional lability present, affect appropriate LABORATORY DATA: No qualifying data available Radiology: Abdomen/Pelvis w IV contrast CT 12/20/2015 2:30 AM CDT Ordering Physician:Yesy Wade CLINICAL HISTORY: Generalized abdominal pain; C. difficile colitis; nausea, vomiting, diarrhea; history of Crohn's disease; COMPARISON: Abdominopelvic CT 11/21/2015 TECHNIQUE: 5 mm [...] sigmoid colitis, postinfectious or inflammatory in etiology. Assessment&Plan: 30 yo woman with IBD, SLE, anxiety, bipolar d/o and PTSD presents from [place] [facility] with CDIFF colitis 1. CDIFF COLITIS 2. IBD 3. SLE 4. BIPOLAR D/O PLAN: 1. GI, Dr vernon consulted and will see patient here in [place]. Will start on PO vancomycin and IV flagyl pending GI recommendations. 2. continue imuran and plaquenil while here. Pt denies any recent hematochezia. 3. as above. Check PLTS, BMP 4. reconcile home psych medications admission i1
--- OUTSIDE RECORDS SUMMARY | 2017-12-17 19:32 | XMS REPORT | Summary of Care ---
:1985 Author Organization [facility] Address [address] [place] [address]- Encounter HQ Barbarantr_carmen(FIN) [phone] Date(s): 08/03/16 - 08/03/16 [facility] [address] [place] [address]- Discharge Diagnosis: Open wound of foot Discharge Disposition: Home or Self Care Attending Physician: Reva Andrew DO Vital Signs Most recent to oldest [Reference Range]: 1 2 Height 165.1 cm (08/03/16 1:08 AM) Temperature Oral [96.4-99.1 DegF] 98.0 DegF (08/03/16 1:08 AM) Blood Pressure [90-140/60-90 mmHg] 104/57 mmHg (08/03/16 1:08 AM) Systolic Blood Pressure [90-140 mmHg] 105 mmHg (08/03/16 2:09 AM) Diastolic Blood Pressure [60-90 mmHg] 64 mmHg (08/03/16 2:09 AM) Respiratory Rate [14-20 BRMIN] 17 BRMIN 18 BRMIN (08/03/16 2:09 AM) (08/03/16 1:08 AM) Peripheral Pulse Rate [60-100 bpm] 98 bpm 108 bpm (08/03/16 2:09 AM) *HI* (08/03/16 1:08 AM) Weight 68.182 kg (08/03/16 1:08 AM) Body Mass Index 25.01 m2 (08/03/16 1:08 AM) Problem List Condition Effective Dates Status [...] Active penicillins Active Ultram Hives Active Medications clindamycin 300 mg, Route: PO, ONCE, Dosing Weight 68.182, kg, Priority: STAT, Start date: 08/03/16 1:34:00 CDT,Stop date: 08/03/16 1:34:00 CDT Start Date: 08/03/16 Stop Date: 08/03/16 Status: Completedclindamycin 300 mg oral capsule 300 mg=1 cap, PO, Q6H, X 10 day, # 40 cap, 0 Refill(s) Start Date: 08/03/16 Stop Date: 08/13/16 Status: OrderedTylenol with Codeine #3 oral tablet 1 tab, PO, Q6H, PRN Pain, X 2 day, # 8 tab, 0 Refill(s) Start Date: 08/03/16 Stop Date: 08/05/16 Status: CompletedTylenol with Codeine #3 oral tablet 1 tab, Route: PO, Drug Form: TAB, Dosing Weight 68.182, kg, ONCE, STAT, Start date: 08/03/16 1:34:00CDT, Stop date: 08/03/16 1:34:00 CDT Start Date: 08/03/16 Stop Date: 08/03/16 Status: Completed Results No data available for this section [...]
--- OUTSIDE RECORDS SUMMARY | 2017-12-17 19:33 | XMS REPORT | Summary of Care ---
:1985 Author Organization [facility] Address [address] [place] [address]- Encounter HQ Encntr_alisania(FIN) [id number] Date(s): 08/16/16 - 08/17/16 [facility] [address] [place] [address]- [phone] Discharge Diagnosis: Altered mental status Discharge Diagnosis: Acute Crohn's disease Discharge Diagnosis: Anemia Discharge Diagnosis: Seizure Discharge Disposition: Home or Self Care Attending Physician: Jamie Amaya MD Vital Signs Most recent to oldest 1 2 3 [Reference Range]: Height 175.26 cm (08/16/16 10:07 PM) Temperature Oral [96.4-99.1 98.0 DegF DegF] (08/16/16 10:07 PM) Blood Pressure [90-140/60-90 96/56 mmHg 99/53 mmHg 94/44 mmHg mmHg] (08/17/16 4:15 AM) (08/17/16 1:47 AM) (08/17/16 12:06 AM) Respiratory Rate [14-20 20 BRMIN 15 BRMIN 15 BRMIN BRMIN] (08/17/16 1:47 AM) (08/17/16 12:06 AM) (08/16/16 11:26 PM) Peripheral Pulse Rate 74 bpm 83 bpm 94 bpm [60-100 bpm] (08/16/16 11:26 PM) (08/16/16 10:43 PM) (08/16/16 10:07 PM) Weight 75 kg (08/16/16 10:07 PM) Body Mass Index 24.42 m2 (08/16/16 10:07 PM) Problem List Condition Effective Dates Status Health Status Informant Anxiety(Confirmed) Resolved Bipolar(Confirmed) 1995 Active Clostridium difficile(Confirmed)1, 2 7/4/16 Active Crohns disease(Confirmed) Active Depression(Confirmed) Resolved Diabetes mellitus(Confirmed)3 2013 Resolved Hidradenitis suppurativa(Confirmed) Resolved Lupus(Confirmed) Active Reflux(Confirmed) Active 1Stool, Problem added by Discern Expert.3off medication for 1 month since gastric sleeve Allergies, Adverse Reactions, Alerts Substance Reaction Severity Status Latuda Active NSAIDs Active Paxil Hives Active penicillins Active Ultram Hives Active Medications Bentyl 10 mg oral capsule 10 mg=1 cap, PO, QID-Before Meals, # 40 cap, 0 Refill(s) Start Date: 08/17/16 Stop Date: 08/27/16 Status: OrderedNorco 5/325 oral tablet 1 tab, Route: PO, Drug Form: TAB, Dosing Weight 75, kg, ONCE, STAT, Start date: 08/17/16 4:03:00 CDT, Stop date: 08/17/16 4:03:00 CDT Start Date: 08/17/16 Stop Date: 08/17/16 Status: CompletedpredniSONE 20 mg oral tablet 60 mg=3 tab, PO, Daily, Take 3 tablets for 60 mg dose, X 5 day, # 15 tab, 0 Refill(s) Start Date: 08/17/16 Stop Date: 08/22/16 Status: OrderedSaline Flush 0.9% 10 mL, Route: IVP, Drug Form: INJ, Dosing Weight 68.4, kg, PRN, PRN Line Flush, Start date: 08/16/1721:09:00 CDT, Duration: 30 day, Stop date: 09/15/16 22:08: 00 CDT Notes: (Same as: BD Posiflush) Start Date: 08/16/16 Stop Date: 08/17/16 Status: DiscontinuedSodium Chloride 0.9% (Bolus) IV 1,000 mL, 1000 ml/hr, Infuse Over: 1 hr, Route: IV, 1,000, Drug form: INJ, ONCE , Priority: STAT, Dosing Weight 68.4 kg, Start date: 08/16/16 22:09:00 CDT, Duration: 1 doses or times, Stop date: 08/16/16 22:09:00 CDT Start Date: 08/16/16 Stop Date: 08/16/16 Status: CompletedZofran ODT 4 mg, Route: PO, Drug form: TABDIS, ONCE, Dosing Weight 75, kg, Priority: STAT, Start date: 174:03:00 CDT, Stop date: 08/17/16 4:03:00 CDT Start Date: 08/17/16 Stop Date: 08/17/16 Status: Completed Results ELECTROLYTES Most recent to oldest [Reference Range]: 1 Sodium Lvl [135-145 mEq/L] 142 mEq/L (08/16/16 10:30 PM) Potassium Lvl [3.5-5.1 mEq/L] 4.0 mEq/L (08/16/16 10:30 PM) Chloride Lvl [95-109 mEq/L] 106 mEq/L (08/16/16 10:30 PM) CO2 [24-32 mEq/L] 26 mEq/L (08/16/16 10:30 PM) AGAP [10.0-20.0 mEq/L] 14.0 mEq/L (08/16/16 10:30 PM) CHEM PANEL Most recent to oldest [Reference Range]: 1 Creatinine Lvl [0.50-1.40 mg/dL] 0.72 mg/dL (08/16/16 10:30 PM) eGFR 110 mL/min/1.73m2 1 *NA* (08/16/16 10:30 PM) BUN [7-22 mg/dL] 22 mg/dL (08/16/16 10:30 PM) B/C Ratio [6-25] 31 *HI* (08/16/16 10:30 PM) Glucose Lvl [70-99 mg/dL] 82 mg/dL (08/16/16 10:30 PM) Total Protein [6.4-8.4 g/dL] 6.8 g/dL (08/16/16 10:30 PM) Albumin Lvl [3.5-5.0 g/dL] 3.4 g/dL *LOW* (08/16/16 10:30 PM) Globulin [2.7-4.2 g/dL] 3.4 g/dL (08/16/16 10:30 PM) A/G Ratio [0.7-1.6] 1.0 (08/16/16 10:30 PM) Calcium Lvl [8.5-10.5 mg/dL] 8.0 mg/dL *LOW* (08/16/16 10:30 PM) ALT [0-65 unit/L] 10 unit/L (08/16/16 10:30 PM) AST [0-37 unit/L] 8 unit/L (08/16/16 10:30 PM) Alk Phos [39-136 unit/L] 72 unit/L (08/16/16 10:30 PM) Bili Total [0.2-1.3 mg/dL] 0.2 mg/dL (08/16/16 10:30 PM) Ammonia [<=45.0 uMol/L] 40.0 uMol/L (08/16/16 10:30 PM) 1Result Comment: The eGFR is calculated [...] eGFR should be multiplied by the estimated BMI.CARDIAC ENZYMES Most recent to oldest [Reference Range]: 1 Troponin-I [0.00-0.40 ng/mL] <0.02 ng/mL (08/16/16 10:30 PM) DRUG SCREEN Most recent to oldest [Reference Range]: 1 U Amph Scr [Negative] Negative *NA* (08/17/16 2:40 AM) U Liss Scr [Negative] Negative *NA* (08/17/16 2:40 AM) U Benzodia Scr [Negative] Negative *NA* (08/17/16 2:40 AM) U Cocaine Scr [Negative] Negative *NA* (08/17/16 2:40 AM) U Opiate Scr [Negative] Positive *ABN* (08/17/16 2:40 AM) U Phencyc Scr [Negative] Negative *NA* (08/17/16 2:40 AM) U Cannab Scr [Negative] Negative *NA* (08/17/16 2:40 AM) UDS Note See Note (08/17/16 2:40 AM) TOXICOLOGY Most recent to oldest [Reference Range]: 1 Acetaminoph Lvl [10-20 ug/ml] 20 ug/ml (08/16/16 10:30 PM) Salicylate Lvl [0.0-30.0 mg/dL] 3.5 mg/dL (08/16/16 10:30 PM) Etoh (%) <.003 % *NA* (08/16/16 10:30 PM) Ethanol Lvl <3 mg/dL *NA* (08/16/16 10:30 PM) URINE CHEM Most recent to oldest [Reference Range]: 1 U Preg [Negative] Negative (08/17/16 2:40 AM) HEMATOLOGY Most recent to oldest [Reference Range]: 1 WBC [3.7-10.4 K/CMM] 6.6 K/CMM (08/16/16 10:30 PM) RBC [4.20-5.40 M/CMM] 3.58 M/CMM *LOW* (08/16/16 10:30 PM) Hgb [12.0-16.0 g/dL] 11.0 g/dL *LOW* (08/16/16 10:30 PM) Hct [36.0-48.0 %] 32.5 % *LOW* (08/16/16 10:30 PM) MCV [80.0-98.0 fL] 90.8 fL (08/16/16 10:30 PM) MCH [27.0-31.0 pg] 30.7 pg (08/16/16 10:30 PM) MCHC [32.0-36.0 g/dL] 33.8 g/dL (08/16/16 10:30 PM) RDW [11.5-14.5 %] 14.6 % *HI* (08/16/16 10:30 PM) Platelet [133-450 K/CMM] 284 K/CMM (08/16/16 10:30 PM) MPV [7.4-10.4 fL] 7.2 fL *LOW* (08/16/16 10:30 PM) Segs [45.0-75.0 %] 41.7 % *LOW* (08/16/16 10:30 PM) Lymphocytes [20.0-40.0 %] 46.6 % *HI* (08/16/16 10:30 PM) Monocytes [2.0-12.0 %] 7.9 % (08/16/16 10:30 PM) Eosinophils [0.0-4.0 %] 3.6 % (08/16/16 10:30 PM) Basophils [0.0-1.0 %] 0.2 % (08/16/16 10:30 PM) Segs-Bands # [1.5-8.1 K/CMM] 2.8 K/CMM (08/16/16 10:30 PM) Lymphocytes # [1.0-5.5 K/CMM] 3.1 K/CMM (08/16/16 10:30 PM) Monocytes # [0.0-0.8 K/CMM] 0.5 K/CMM (08/16/16 10:30 PM) Eosinophils # [0.0-0.5 K/CMM] 0.2 K/CMM (08/16/16 10:30 PM) Immunizations No data available for this [...] patient is trying to quit.2quit 2 months [id number] 1 month ago Assessment and Plan No data available for this section
--- OUTSIDE RECORDS SUMMARY | 2017-12-17 19:33 | XMS REPORT | Summary of Care ---
:1985 Author Organization [facility] Address [address] [place], [place] [address]- Encounter HQ Kumar_carmen(FIN) [phone] Date(s): 08/21/16 - 08/21/16 [facility] [place] [facility] [address] [place] [address]- Discharge Diagnosis: Well adult exam Discharge Disposition: Home or Self Care Attending Physician: Clarence Macdonald MD Vital Signs Most recent to oldest [Reference Range]: 1 Height 165.1 cm (08/21/16 12:34 AM) Temperature Oral [96.4-99.1 DegF] 97.7 DegF (08/21/16 12:34 AM) Blood Pressure [90-140/60-90 mmHg] 107/63 mmHg (08/21/16 12:34 AM) Respiratory Rate [14-20 BRMIN] 20 BRMIN (08/21/16 12:34 AM) Peripheral Pulse Rate [60-100 bpm] 81 bpm (08/21/16 12:34 AM) Weight 69.545 kg (08/21/16 12:34 AM) Body Mass Index 25.51 m2 (08/21/16 12:34 AM) Problem List Condition Effective Dates Status [...] patient is trying to quit.2quit 2 months [email or web address] 1 month ago Assessment and Plan No data available for this section
--- OUTSIDE RECORDS SUMMARY | 2017-12-17 19:33 | XMS REPORT | Summary of Care ---
:1985 Author Organization [facility] Address [address] [place], [place] [address]- Encounter HQ Kumar_carmen(FIN) [id number] Date(s): 08/09/16 - 08/10/16 [facility] [address] [place] [address]- Discharge Diagnosis: Acute UTI Discharge Diagnosis: Nausea vomiting and diarrhea Discharge Diagnosis: Abdominal pain, acute Discharge Disposition: Home or Self Care Attending Physician: Miah Klein MD Vital Signs Most recent to oldest [Reference Range]: 1 2 Temperature Oral [96.4-99.1 DegF] 98.2 DegF 98.8 DegF (08/10/16 12:57 AM) (08/09/16 8:23 PM) Blood Pressure [90-140/60-90 mmHg] 104/59 mmHg 118/66 mmHg (08/10/16 12:57 AM) (08/09/16 8:23 PM) Respiratory Rate [14-20 BRMIN] 20 BRMIN 17 BRMIN (08/10/16 12:57 AM) (08/09/16 8:23 PM) Peripheral Pulse Rate [60-100 bpm] 75 bpm 74 bpm (08/10/16 12:57 AM) (08/09/16 8:23 PM) Weight 68.4 kg (08/09/16 8:23 PM) Problem List Condition Effective Dates Status [...] Active penicillins Active Ultram Hives Active Medications levofloxacin 750 mg, 1 tab, Route: PO, Drug form: TAB, ONCE, Dosing Weight 68.4, kg, Start date: 08/10/16 0:39:00CDT, Stop date: 08/10/16 0:39:00 CDT Notes: Do not give w/antacids, dairy pdt & mineralsTake 1 hr before or 2 hr after dairy products Start Date: 08/10/16 Stop Date: 08/10/16 Status: Completedlevofloxacin 750 mg oral tablet 750 mg=1 tab, PO, Daily, X 7 day, # 7 tab, 0 Refill(s) Start Date: 08/10/16 Stop Date: 08/17/16 Status: Orderedmorphine Sulfate 4 mg, 1 mL, Route: IVP, Drug form: SOLN, ONCE, Dosing Weight 68.4, kg, Priority : STAT, Start date: 08/10/16 0:39:00 CDT, Stop date: 08/10/16 0:39:00 CDT Notes: (Same as:MORPhine Sulfate) Start Date: 08/10/16 Stop Date: 08/10/16 Status: Completedmorphine Sulfate 4 mg, 1 mL, Route: IVP, Drug form: SOLN, ONCE, Dosing Weight 68.4, kg, Priority : STAT, Start date: 08/09/16 22:19:00 CDT, Stop date: 08/09/16 22:19:00 CDT Notes: (Same as:MORPhine Sulfate) Start Date: 08/09/16 Stop Date: 08/09/16 Status: CompletedPhenergan 25 mg, 1 mL, Route: IM, Drug form: INJ, ONCE, Dosing Weight 68.4, kg, Priority: STAT, Start date: 08/09/16 22:19:00 CDT, Stop date: 08/09/16 22:19:00 CDT Notes: Do not give IV push. (Same as: Phenergan) Start Date: 08/09/16 Stop Date: 08/09/16 Status: CompletedSaline Flush 0.9% 10 mL, Route: IVP, Drug Form: INJ, Dosing Weight 68.4, kg, PRN, PRN Line Flush, Start date: 08/09/1720:12:00 CDT, Duration: 30 day, Stop date: 09/08/16 21:11: 00 CDT Notes: (Same as: BD Posiflush) Start Date: 08/09/16 Stop Date: 08/10/16 Status: DiscontinuedSolu-MEDROL 125 mg, 2 mL, Route: IVP, Drug form: INJ, ONCE, Dosing Weight 68.4, kg, Priority : STAT, Start date: 08/09/16 22:20:00 CDT, Stop date: 08/09/16 22:20:00 CDT Notes: (Same as:Solu-MEDROL, A-Methapred) Start Date: 08/09/16 Stop Date: 08/09/16 Status: CompletedTylenol with Codeine #3 oral tablet 1 - 2 tab, PO, Q6H, PRN Pain, not to exceed 4000 mg acetaminophen per day, X 4 day, # 32 tab, 0 Refill(s) Start Date: 08/10/16 Stop Date: 08/14/16 Status: OrderedZofran 4 mg, 2 mL, Route: IVP, Drug form: INJ, ONCE, Dosing Weight 68.4, kg, Priority: STAT, Start date: 08/10/16 0:39:00 CDT, Stop date: 08/10/16 0:39:00 CDT Notes: (Same as: Zofran) MEDICATION WASTE Product Size: 4 mgProduct Wasted: ___ mg Start Date: 08/10/16 Stop Date: 08/10/16 Status: CompletedZofran ODT 8 mg oral tablet, disintegrating 8 mg=1 tab, PO, TID, PRN Nausea and Vomiting, Dissolve tab under tongue, X 4 day , # 10 tab, 0 Refill(s) Start Date: 08/10/16 Stop Date: 08/14/16 Status: Ordered Results ELECTROLYTES Most recent to oldest [Reference Range]: 1 Sodium Lvl [135-145 mEq/L] 143 mEq/L (08/09/16 9:32 PM) Potassium Lvl [3.5-5.1 mEq/L] 4.0 mEq/L (08/09/16 9:32 PM) Chloride Lvl [95-109 mEq/L] 108 mEq/L (08/09/16 9:32 PM) CO2 [24-32 mEq/L] 27 mEq/L (08/09/16 9:32 PM) AGAP [10.0-20.0 mEq/L] 12.0 mEq/L (08/09/16 9:32 PM) CHEM PANEL Most recent to oldest [Reference Range]: 1 Creatinine Lvl [0.50-1.40 mg/dL] 0.62 mg/dL (08/09/16 9:32 PM) eGFR 119 mL/min/1.73m2 1 *NA* (08/09/16 9:32 PM) BUN [7-22 mg/dL] 13 mg/dL (08/09/16 9:32 PM) B/C Ratio [6-25] 21 (08/09/16 9:32 PM) Glucose Lvl [70-99 mg/dL] 82 mg/dL (08/09/16 9:32 PM) Total Protein [6.4-8.4 g/dL] 7.0 g/dL (08/09/16 9:32 PM) Albumin Lvl [3.5-5.0 g/dL] 3.3 g/dL *LOW* (08/09/16 9:32 PM) Globulin [2.7-4.2 g/dL] 3.7 g/dL (08/09/16 9:32 PM) A/G Ratio [0.7-1.6] 0.9 (08/09/16 9:32 PM) Calcium Lvl [8.5-10.5 mg/dL] 8.2 mg/dL *LOW* (08/09/16 9:32 PM) ALT [0-65 unit/L] 10 unit/L (08/09/16 9:32 PM) AST [0-37 unit/L] 7 unit/L (08/09/16 9:32 PM) Alk Phos [39-136 unit/L] 67 unit/L (08/09/16 9:32 PM) Bili Total [0.2-1.3 mg/dL] 0.1 mg/dL *LOW* (08/09/16 9:32 PM) Lipase Lvl [73-393 unit/L] 354 unit/L (08/09/16 9:32 PM) 1Result Comment: The eGFR is calculated [...] Range]: 1 S Preg [Negative] Negative *NA* (08/09/16 9:32 PM) URINE AND STOOL Most recent to oldest [Reference Range]: 1 UA Turbidity [Clear] Slight *ABN* (08/10/16 12:04 AM) UA Color [Yellow] Yellow *NA* (08/10/16 12:04 AM) UA pH [5.0-8.0] 8.0 (08/10/16 12:04 AM) UA Spec Grav [<=1.030] 1.053 *HI* (08/10/16 12:04 AM) UA Glucose [Negative mg/dL] Negative mg/dL *NA* (08/10/16 12:04 AM) UA Blood [Negative] Negative (08/10/16 12:04 AM) UA Ketones [Negative mg/dL] Trace mg/dL *ABN* (08/10/16 12:04 AM) UA Protein [Negative mg/dL] 30 mg/dL *ABN* (08/10/16 12:04 AM) UA Urobilinogen [0.1-1.0 mg/dL] <=1.0 mg/dL *NA* (08/10/16 12:04 AM) UA Bili [Negative] Negative *NA* (08/10/16 12:04 AM) UA Leuk Est [Negative] Large *ABN* (08/10/16 12:04 AM) UA Nitrite [Negative] Negative (08/10/16 12:04 AM) UA WBC [0-5 /HPF] 63 /HPF *HI* (08/10/16 12:04 AM) UA RBC [0-2 /HPF] 7 /HPF *HI* (08/10/16 12:04 AM) UA Bacteria [None Seen /HPF] Occasional /HPF *NA* (08/10/16 12:04 AM) UA Sq Epi [Few /LPF] Many /LPF *ABN* (08/10/16 12:04 AM) UA Hyal Cast [0-2 /LPF] 1 /LPF (08/10/16 12:04 AM) UA Mucus [None Seen /LPF] Few /LPF *NA* (08/10/16 12:04 AM) HEMATOLOGY Most recent to oldest [Reference Range]: 1 WBC [3.7-10.4 K/CMM] 6.7 K/CMM (08/09/16 9:32 PM) RBC [4.20-5.40 M/CMM] 3.41 M/CMM *LOW* (08/09/16 9:32 PM) Hgb [12.0-16.0 g/dL] 10.2 g/dL *LOW* (08/09/16 9:32 PM) Hct [36.0-48.0 %] 30.8 % *LOW* (08/09/16 9:32 PM) MCV [80.0-98.0 fL] 90.3 fL (08/09/16 9:32 PM) MCH [27.0-31.0 pg] 29.9 pg (08/09/16 9:32 PM) MCHC [32.0-36.0 g/dL] 33.2 g/dL (08/09/16 9:32 PM) RDW [11.5-14.5 %] 14.4 % (08/09/16 9:32 PM) Platelet [133-450 K/CMM] 346 K/CMM (08/09/16 9:32 PM) MPV [7.4-10.4 fL] 7.2 fL *LOW* (08/09/16 9:32 PM) Segs [45.0-75.0 %] 52.4 % (08/09/16 9:32 PM) Lymphocytes [20.0-40.0 %] 36.3 % (08/09/16 9:32 PM) Monocytes [2.0-12.0 %] 8.1 % (08/09/16 9:32 PM) Eosinophils [0.0-4.0 %] 2.4 % (08/09/16 9:32 PM) Basophils [0.0-1.0 %] 0.8 % (08/09/16 9:32 PM) Segs-Bands # [1.5-8.1 K/CMM] 3.5 K/CMM (08/09/16 9:32 PM) Lymphocytes # [1.0-5.5 K/CMM] 2.4 K/CMM (08/09/16 9:32 PM) Monocytes # [0.0-0.8 K/CMM] 0.5 K/CMM (08/09/16 9:32 PM) Eosinophils # [0.0-0.5 K/CMM] 0.2 K/CMM (08/09/16 9:32 PM) Basophils # [0.0-0.2 K/CMM] 0.1 K/CMM (08/09/16 9:32 PM) Immunizations No data available for this [...] patient is trying to quit.2quit 2 months [id number] 1 month ago Assessment and Plan No data available for this section
--- NOTE | 2017-12-17 20:24 | EDPHYS ---
Physician Documentation [facility] Name: Majo Treadwell Age: 32 yrs Sex: Female : 1985 Arrival Date: 12/17/2017 Time: 19:08 Bed 3 Private MD: ED Physician Zain Prescott HPI: 12/17 19:34 This 32 yrs old Female presents to ER via EMS with complaints of INTOXICATION.ps1 19:36 Pt well known to ED here for intoxication. She was a passenger in a friends car that ps1 got pulled over for [employer]. She was brought in for suspected intoxication. She is alert and oriented and able to text on her phone although her speech is slow and she does not remember events leading up to her being brought in. . 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 Diff; Crohn's; Depression; Endometrosis; Lupus; Renal Cysts; bp - Immunization history:: Adult Immunizations up to date. - Social history:: Smoking status: Patient uses tobacco products, denies chronic smoking, but will smoke occasionally. - Ebola Screening: : Patient negative for fever greater than or equal to 101.5 degrees Fahrenheit, and additional compatible Ebola Virus Disease symptoms Patient denies exposure to infectious person Patient denies travel to an Ebola-affected area in the 21 days before illness onset No symptoms or risks identified at this time. ROS: 19:36 Constitutional: Negative for fever, chills, and weight loss, Eyes: Negative for injury, ps1 pain, redness, and discharge, Cardiovascular: Negative for chest pain, palpitations, and edema, Respiratory: Negative for shortness of breath, cough, wheezing, and pleuritic chest pain, Abdomen/GI: Negative for abdominal pain, nausea, vomiting, diarrhea, and constipation, Skin: Negative for injury, rash, and discoloration, Neuro: Negative for headache, weakness, numbness, tingling, and seizure. Exam: 19:36 Constitutional: This is a well developed, well nourished patient who is awake, alert, ps1 and in no acute distress. Head/Face: Normocephalic, atraumatic. Chest/axilla: Normal chest wall appearance and motion. Nontender with no deformity. No lesions are appreciated. Cardiovascular: Regular rate and rhythm. No gallops, murmurs, or rubs. Normal PMI, no JVD. No pulse deficits. Respiratory: Lungs have equal breath sounds bilaterally, clear to auscultation and percussion. No rales, rhonchi or wheezes noted. No increased work of breathing, no retractions or nasal flaring. Abdomen/GI: Soft, non-tender, with normal bowel sounds. No distension or tympany. No guarding or rebound. No evidence of tenderness throughout. MS/ Extremity: Pulses equal, no cyanosis. Neurovascular intact. Full, normal range of motion. Neuro: Awake and alert, GCS 15, oriented to person, place, time, and situation. Cranial nerves II-XII grossly intact. Sensory grossly intact. Vital Signs: 19:16 BP 106 / 71; Pulse 80; Resp 14; Temp 98.7; Pulse Ox 100% ; Weight 58.97 kg; Height 5 bp ft. 5 in. (165.10 cm); 19:16 Body Mass Index 21.63 (58.97 kg, 165.10 cm) bp MDM: 19:50 Patient medically screened. ps1 20:19 Data reviewed: vital signs, nurses notes, and as a result, I will discharge patient. ps1 Special discussion: patient is alert and oriented, ambulating without assistance, cogent, able to answer questions appropriately. Stable for discharge. . Administered Medications: No medications were administered Disposition: 12/17/17 20:21 Discharged to Home. Impression: Poisoning by benzodiazepines, accidental (unintentional). - Condition is Stable. - Discharge Instructions: Benzodiazepine Overdose. - Medication Reconciliation Form, Thank You Letter, Antibiotic Education, Prescription Opioid Use form. - Follow up: Private Physician; When: As needed; Reason: Recheck today's complaints, Continuance of care, Re-evaluation by your physician. Follow up: Emergency Department; When: As needed; Reason: Worsening of condition. - Problem is an ongoing problem. - Symptoms have improved. Signatures: Rich Briseno RN RN bp Zain Prescott MD MD ps1 Corrections: (The following items were deleted from the chart) 21:06 20:21 12/17/2017 20:21 Discharged to Home. Impression: Poisoning by benzodiazepines, bp accidental (unintentional). Condition is Stable. Forms are Medication Reconciliation Form, Thank You Letter, Antibiotic Education, Prescription Opioid Use. Follow up: Private Physician; When: As needed; Reason: Recheck today's complaints, Continuance of care, Re-evaluation by your physician. Follow up: Emergency Department; When: As needed; Reason: Worsening of condition. Problem is an ongoing problem. Symptoms have improved. ps1
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
[2017-12-17 21:43] VITALS: BP 106/71; TEMP 98.7; O2SAT 100
== END 2017-12-17 21:06 | disposition home or self-care (01) ==
LOC: ER 19:06
DX: T42.4X1A Poisoning by benzodiazepines, accidental (unintentional), initial encounter (principal); R40.0 Somnolence; Y92.89 Other specified places as the place of occurrence of the external cause; Z88.6 Allergy status to analgesic agent; Z88.0 Allergy status to penicillin; Z88.8 Allergy status to other drugs, medicaments and biological substances; K50.90 Crohn's disease, unspecified, without complications; M32.9 Systemic lupus erythematosus, unspecified; Z72.0 Tobacco use
CPT/HCPCS: 99283